=== PATIENT | male | born 1940 | race Caucasian/White ===

== ENCOUNTER → 2017-12-05 12:22 | Outpatient (CLI) | payer MEDICARE, OTHER, SELFPAY ==
--- NOTE | 2017-12-05 12:29 | XR_ITS ---
XR foot LT min 3V HISTORY: ITS.REASON: ACUTE LT FOOT AND ANKLE PAIN ORDERING PHYSICIAN: Jenaro Jean Baptiste MD PATIENT AGE: 77 years COMPARISON: None FINDINGS: No acute fracture or dislocation evident. Hypertrophic changes are present laterally at the first metatarsal phalangeal joint with a prominent spur projecting off of the proximal and lateral aspect of the proximal phalanx of the great toe. There is some flattening of the head of the second metatarsal. This however is without sclerosis and may be developmental. IMPRESSION: 1. No acute finding. 2. Bony spurring at the lateral aspect of the first metatarsophalangeal joint
--- NOTE | 2017-12-05 12:29 | XR_ITS ---
XR ankle LT min 3V HISTORY: Pain following injury ITS.REASON: ACUTE LT FOOT AND ANKLE PAIN ORDERING PHYSICIAN: Jenaro Jean Baptiste MD PATIENT AGE: 77 years COMPARISON: None FINDINGS: No fracture or dislocation. No lytic or blastic change. There is normal mineralization.. Hypertrophic changes involve the medial malleolus with old injury. IMPRESSION: 1. No acute finding. 2. 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
== END ==
PROVIDERS: PCP Internal Medicine Adolescent Medicine; Visit Provider Internal Medicine Adolescent Medicine
DX: M79.672 Pain in left foot (principal); M25.572 Pain in left ankle and joints of left foot
CPT/HCPCS: 73610; 73630

== ENCOUNTER → 2017-12-10 09:57 | Outpatient (CLI) | payer MEDICARE, SELFPAY ==
[2017-12-10 13:22] LABS: Basophils % 0.2 % (0.1-2.0); Eosinophils # 0.2 K/mm3 (0.0-0.4); Eosinophils % 1.8 % (0.1-12.0); Hematocrit 44.7 % (42.0-52.0); Hemoglobin 14.5 g/dL (14.1-18.0); Lymphocytes # 2.1 K/mm3 (0.7-4.5); Lymphocytes % 25.9 K/mm3 (10-50); Mean Corpuscular HGB Conc 32.4 g/dL (31.8-35.4); Mean Corpuscular Hemoglobin 30.6 pg (27.0-31.2); Mean Corpuscular Volume 94.7 fl (80-94); Mean Platelet Volume 7.3 fl (7.4-10.4); Monocytes # 0.6 K/mm3 (0.1-1.0); Neutrophils # 5.3 K/mm3 (1.8-7.8); Platelet Count 227 K/mm3 (142-424); Red Blood Count 4.72 M/mm3 (4.60-6.20); Red Cell Distribution Width 12.7 % (11.5-17.5); White Blood Count 8.1 K/mm3 (4.8-10.8)
[2017-12-10 14:43] LABS: Erythrocyte Sedimentation Rate 10 mm/hr (0-20)
== END ==
PROVIDERS: PCP Internal Medicine Adolescent Medicine; Visit Provider Internal Medicine Adolescent Medicine
DX: L03.119 Cellulitis of unspecified part of limb (principal)
CPT/HCPCS: 36415; 85025; 85651

== ENCOUNTER → 2017-12-20 09:23 | Outpatient (CLI) | payer MEDICARE, SELFPAY ==
--- NOTE | 2017-12-20 09:28 | MR_ITS ---
MR foot LT wo con HISTORY: Soreness and swelling of the foot laterally. Recent injury of the fifth toe with persistent pain ITS.REASON: LEFT FOOT PAIN ORDERING PHYSICIAN: Jenaro Jean Baptiste MD PATIENT AGE: 77 years COMPARISON: Radiograph of 12/05/2017 TECHNIQUE: Standard multiplanar multiecho sequences are performed of the forefoot without contrast. FINDINGS: There is mild degree of motion artifact obscuring fine detail of the phalanges. Soft tissue swelling is present around the proximal phalanx of the fifth digit with decreased T1 and increased T2 signal. The bony outline is somewhat obscured. There is slight increase in T2 signal of the proximal phalanx and the fifth metacarpal phalangeal junction. Cellulitis with osteomyelitis is considered. The bony detail however somewhat obscured. Suggest repeat radiograph of the left foot. No other significant anomalies are evident. IMPRESSION: Abnormal signal intensity of the proximal phalanx of the fifth toe with surrounding soft tissue swelling. These findings may be related to cellulitis and osteomyelitis. Posttraumatic changes are also considered. Suggest repeat radiograph of the left foot as the final detail is somewhat obscured secondary to mild motion artifact.
== END ==
PROVIDERS: Family Provider Internal Medicine Adolescent Medicine; PCP Internal Medicine Adolescent Medicine; Visit Provider Internal Medicine Adolescent Medicine
DX: M79.672 Pain in left foot (principal)
CPT/HCPCS: 73718

== ENCOUNTER 2017-12-24 11:58 | Inpatient (IN) | payer MEDICARE, SELFPAY ==
[2017-12-24 12:23] VITALS: BP 134/61; PULSE 76; RESP 18; TEMP 36.4; O2SAT 93; BMI 22.7
--- NOTE | 2017-12-24 12:33 | P.HP_ITS ---
*Admission Date: 12/24/17 *Chief complaint: Left foot swelling and pain *History of present illness: 77 white male with significant emphysema, nebulizer requiring, who came to see me 3 weeks ago after striking the lateral aspect foot on a furniture appliance at home. He had some pain along the lateral aspect of the left foot with some persistent swelling. X-ray done at that time was unremarkable. I advised him to begin physical therapy for what appeared to be an ankle sprain, but unfortunately patient failed to improve and had some cellulitic appearance. We started Keflex as an outpatient and MRI was ordered. Unfortunately, MRI report shows evidence of osteomyelitis at the proximal phalanx of the fifth digit, patient is admitted to hospital for intravenous vancomycin therapy, podiatry consultation and PICC line placement what will be several weeks of IV antibiotics. [facility] History I have reviewed the patient's past medical history: Yes Medical History: Reports:: Chronic Obstructive Pulmonary Disease (COPD), Coronary Artery Disease, Gastroesophageal Reflux Disease(GERD) Other Medical History: Reports: Arthritis (Osteoarthritis of multiple sites) Other Surgeries: Yes: CABG, Other (Neck surgery for cervical stenosis 2017) - *Social History Educational Level: Completed High School Tobacco Type: cigarettes *Family Hx:: No significant family history Review of Systems - Review of Systems Review of systems:: unable to obtain, other, pertinent systems reviewed and negative unless documented below - ENT Reports abnormal hearing - *Cardiovascular Reports shortness of breath, Denies chest pain, Denies chest pain at rest, Denies excessive sweating - *Respiratory Reports chest congestion, Reports cough, Reports shortness of breath, Reports shortness of breath with activity - *Gastrointestinal Denies abdominal pain, Denies change in bowel habits, Denies loose stools - *Genitourinary Denies difficulty urinating, Denies difficulty with ejaculations - *Musculoskeletal Reports abnormal walking, Reports joint pain (See HPI) Meds Allergies Allergy/AdvReac Type Severity Reaction Status Date / Time No Known Allergies Allergy Unknown Uncoded 09/17/17 15:26 Exam Vital signs and Labs for Last 24 Hours: Temp Pulse Resp BP Pulse Ox 97.5 F L 76 18 134/61 93 L 12/24/17 12:23 12/24/17 12:23 12/24/17 12:23 12/24/17 12:23 12/24/17 12:23 I & O for Last 24 hours: Intake & Output 12/22/17 12/23/17 12/24/17 12/25/17 11:59 11:59 11:59 11:59 Weight 172 lb 6 oz Narrative: Patient is pleasant, awake, oriented ?3. Lungs have his normal rhonchi but no crackles. Heart rate regular, blood pressure acceptable. Abdomen soft. Pulses are good and normal in all extremities except for the left foot. The left foot is swollen, tender along the lateral edge, interestingly it is improved over previous exams. Assessment and Plan (1) Osteomyelitis Status: Acute Category: Medical Code(s): M86.9 - Osteomyelitis, unspecified No significant risk for comorbidity given vascular disease, smoking history and failed outpatient therapy. Admit to hospital. Initiate vancomycin. Blood cultures, podiatry consultation. (2) COPD with emphysema Status: Acute Category: Medical Code(s): J43.9 - Emphysema, unspecified
[2017-12-24 14:04] LABS: Alanine Aminotransferase 25 U/L (12-78); Albumin Level 3.2 gm/dL (3.4-5.0); Albumin/Globulin Ratio 0.9 (1.1-1.8); Alkaline Phosphatase 91 U/L (46-116); Anion Gap 8.4 mEq/L (5-15); Aspartate Amino Transferase 23 U/L (15-37); Bilirubin,Total 0.2 mg/dL (0.2-1.0); Blood Urea Nitrogen 23 mg/dL (7-18); Calcium 8.7 mg/dL (8.5-10.1); Carbon Dioxide 29 mmol/L (21.0-32.0); Chloride 103 mmol/L (98-107); Creatinine Clearance Estimated 57 mL/min (0-300); Creatinine,Serum 1.23 mg/dL (0.70-1.30); Estimated Glomerular Filt Rate 57 ml/min (>60); GFR (African American) 69 ML/MIN (>60); Globulin 3.4 gm/dl (1.3-3.2); Glucose 129 mg/dL (74-106); Potassium 4.4 mmoL/L (3.5-5.1); Sodium 136 mmol/L (136-145); Total Protein,Serum 6.6 gm/dL (6.4-8.2)
[2017-12-24 14:08] LABS: Basophils % 0.3 % (0.1-2.0); Eosinophils # 0.2 K/mm3 (0.0-0.4); Eosinophils % 2.1 % (0.1-12.0); Hematocrit 40.8 % (42.0-52.0); Hemoglobin 13.6 g/dL (14.1-18.0); Lymphocytes # 2.5 K/mm3 (0.7-4.5); Lymphocytes % 34.8 K/mm3 (10-50); Mean Corpuscular HGB Conc 33.3 g/dL (31.8-35.4); Mean Corpuscular Hemoglobin 31.1 pg (27.0-31.2); Mean Corpuscular Volume 93.6 fl (80-94); Monocytes # 0.6 K/mm3 (0.1-1.0); Monocytes % 7.6 % (1.7-9.3); Neutrophils % 55.2 % (37.0-80.0); Platelet Count 231 K/mm3 (142-424); Red Blood Count 4.36 M/mm3 (4.60-6.20); Red Cell Distribution Width 12.7 % (11.5-17.5); White Blood Count 7.2 K/mm3 (4.8-10.8)
[2017-12-24 14:56] LABS: Erythrocyte Sedimentation Rate 12 mm/hr (0-20)
[2017-12-24 15:31] VITALS: BP 140/77; PULSE 89; RESP 18; TEMP 37; O2SAT 92
[2017-12-24 16:11] VITALS: PULSE 86; PULSE 88; O2SAT 88
--- NOTE | 2017-12-24 16:15 | P.CONPHA_ITS ---
- Pharmacy Consult Date: 12/24/17 Time: 16:13 Referring provider: DR. ELLSWORTH Reason for Consult:: VANCOMYCIN DOSING Allergies and ADEs:: Allergies Allergy/AdvReac Type Severity Reaction Status Date / Time No Known Allergies Allergy Unknown NA Uncoded 12/24/17 14:51 Home Medications:: Home Medications Medication Instructions Recorded Confirmed Type Albuterol Sulfate [Proair Hfa 2 puffs IH Q4HP PRN 12/24/17 12/24/17 History 90mcg/puff Inh] Aspirin [Aspirin 81mg chewable 81 mg PO DAILY 12/24/17 12/24/17 History tab] Budesonide/Formoterol Fumarate 10.2 gm IN BID 12/24/17 12/24/17 History [Symbicort 160-4.5 Mcg Inhaler] Lisinopril [Lisinopril 40mg Tablet] 40 mg PO DAILY 12/24/17 12/24/17 History Metoprolol Tartrate 100 mg PO BID 12/24/17 12/24/17 History Ranolazine [Ranexa 500mg ER tablet] 500 mg PO DAILY 12/24/17 12/24/17 History Rosuvastatin Calcium [Crestor] 40 mg PO DAILY 12/24/17 12/24/17 History Tiotropium [place] [Spiriva 1 puff IH DAILY 12/24/17 12/24/17 History 18mcg/puff inhaler] Height: 1.85 m Weight: 78.188 kg Laboratory Results:: Laboratory Results - last 24 hr 12/24/17 13:35: WBC 7.2, RBC 4.36 L, Hgb 13.6 L, Hct 40.8 L, MCV 93.6, MCH 31.1 , MCHC 33.3, RDW 12.7, Plt Count 231, MPV 7.0 L, Neut % (Auto) 55.2, Lymph % ( Auto) 34.8, [place] % (Auto) 7.6, Eos % (Auto) 2.1, Baso % (Auto) 0.3, Neut # (Auto ) 4.0, Lymph # (Auto) 2.5, [place] # (Auto) 0.6, Eos # (Auto) 0.2, Baso # (Auto) 0.0, ESR 12 12/24/17 13:35: Sodium 136, Potassium 4.4, Chloride 103, Carbon Dioxide 29, Anion Gap 8.4, BUN 23 H, Creatinine 1.23, Estimated Creat Clear 57, Estimated GFR 57 L, Est GFR ( Amer) 69, Glucose 129 H, Calcium 8.7, Total Bilirubin 0.2, AST 23, ALT 25, Alkaline Phosphatase 91, Total Protein 6.6, Albumin 3.2 L, Globulin 3.4 H, Albumin/Globulin Ratio 0.9 L Medical History: Reports:: Chronic Obstructive Pulmonary Disease (COPD), Coronary Artery Disease, Gastroesophageal Reflux Disease(GERD), Hypertension Denies:: Diabetes Mellitus Type 1, Diabetes Mellitus Type 2 Assessment and Plan (1) Osteomyelitis Current visit: Yes Status: Acute Category: Medical Code(s): M86.9 - Osteomyelitis, unspecified (2) COPD with emphysema Current visit: Yes Status: Acute Category: Medical Code(s): J43.9 - Emphysema, unspecified - Assessment and plan all Dx Assessment and Plan for all problems:: BASED ON PATIENT'S FACTORS, RECOMMEND PATIENT START WITH VANCOMYCIN 1500 MG Q18H AT THIS TIME. PHARMACY WILL FOLLOW DAILY AND ADJUST APPROPRIATE. ELIZABET HYDE, BRUCED
--- NOTE | 2017-12-24 19:15 | PC.NURSE ---
PT FULL CODE, REPORT FROM RADHA
[2017-12-24 19:44] VITALS: BP 151/64; PULSE 78; RESP 20; TEMP 36.3; O2SAT 93
--- NOTE | 2017-12-24 20:18 | HMH.ORTHOCON ---
*Admission Date: 12/24/17 *History of present illness: Mr. Brooks is a 77 y/o male who present for evaluation of painful swollen left 5th digit and lateral foot. He reports mild pain. Patient denies open lesion or ulceration. He denies drainage. He denies N/V, F/C, SOB/CP. He denies history of sores, cut to outside of left foot. Patient saw Dr. Jean Baptiste for significant emphysema, nebulizer 3 weeks ago after striking the lateral aspect foot on a furniture appliance at home. He had some pain along the lateral aspect of the left foot with some persistent swelling. X-ray done 12/05/17 was unremarkable. I advised him to begin physical therapy for what appeared to be an ankle sprain, but unfortunately patient failed to improve and had some cellulitic appearance. We started Keflex as an outpatient and MRI was ordered. Unfortunately, MRI report shows evidence of osteomyelitis at the proximal phalanx of the fifth digit, patient is admitted to hospital for intravenous vancomycin therapy, podiatry consultation and PICC line placement what will be several weeks of IV antibiotics. Review of Systems - Review of Systems Review of systems:: pertinent systems reviewed and negative unless documented below - Constitutional Denies chills, Denies fatigue - ENT Denies poor balance - *Cardiovascular Denies chest pain, Denies shortness of breath - *Respiratory Denies cough, Denies shortness of breath - *Gastrointestinal Denies abdominal pain - *Genitourinary Denies difficulty urinating - *Musculoskeletal Reports joint swelling - Integumentary/Breasts Denies nail changes - *Neurologic Reports abnormal walking, Reports abnormal hearing - Endocrine Reports cold intolerance [facility] History Medical History: Reports:: Chronic Obstructive Pulmonary Disease (COPD), Coronary Artery Disease, Gastroesophageal Reflux Disease(GERD), Hypertension Denies:: Diabetes Mellitus Type 1, Diabetes Mellitus Type 2 Other Medical History: Reports: Arthritis (Osteoarthritis of multiple sites) Other Surgeries: Yes: CABG, Other (Neck surgery for cervical stenosis 2017) Amputation: No - *Social History Educational Level: Completed High School Smoking Status: Current every day smoker Tobacco Type: cigarettes # Packs/Day (cigarettes): 1 Alcohol Intake: never Occupational Status: retired Housing: house Household Members: none - Psychiatric History Expresses thoughts of harming self/others: None Suicide Plan Description: No Plan *Family Hx:: No significant family history Meds Home Medications Medication Instructions Recorded Confirmed Type Albuterol Sulfate [Proair Hfa 2 puffs IH Q4HP PRN 12/24/17 12/24/17 History 90mcg/puff Inh] Aspirin [Aspirin 81mg chewable 81 mg PO DAILY 12/24/17 12/24/17 History tab] Budesonide/Formoterol Fumarate 10.2 gm IN BID 12/24/17 12/24/17 History [Symbicort 160-4.5 Mcg Inhaler] Lisinopril [Lisinopril 40mg Tablet] 40 mg PO DAILY 12/24/17 12/24/17 History Metoprolol Tartrate 100 mg PO BID 12/24/17 12/24/17 History Ranolazine [Ranexa 500mg ER tablet] 500 mg PO DAILY 12/24/17 12/24/17 History Rosuvastatin Calcium [Crestor] 40 mg PO DAILY 12/24/17 12/24/17 History Tiotropium [place] [Spiriva 1 puff IH DAILY 12/24/17 12/24/17 History 18mcg/puff inhaler] Allergies Allergy/AdvReac Type Severity Reaction Status Date / Time No Known Allergies Allergy Unknown NA Uncoded 12/24/17 14:51 Exam Vital signs and Labs for Last 24 Hours: Temp Pulse Resp BP Pulse Ox 97.4 F L 78 20 151/64 88 L 12/24/17 19:44 12/24/17 19:44 12/24/17 19:44 12/24/17 19:44 12/24/17 16:11 Laboratory Results - last 24 hr 12/24/17 13:35: WBC 7.2, RBC 4.36 L, Hgb 13.6 L, Hct 40.8 L, MCV 93.6, MCH 31.1, MCHC 33.3, RDW 12.7, Plt Count 231, MPV 7.0 L, Neut % (Auto) 55.2, Lymph % (Auto) 34.8, [place] % (Auto) 7.6, Eos % (Auto) 2.1, Baso % (Auto) 0.3, Neut # (Auto) 4.0, Lymph # (Auto) 2.5, [place] # (Auto) 0.6, Eos # (Auto) 0.2, B
--- NOTE | 2017-12-24 20:21 | P.CONS_ITS ---
*Admission Date: 12/24/17 *History of present illness: Mr. Brooks is a 77 y/o male who present for evaluation of painful swollen left 5th digit and lateral foot. He reports mild pain. Patient denies open lesion or ulceration. He denies drainage. He denies N/V, F/C, SOB/CP. He denies history of sores, cut to outside of left foot. Patient saw Dr. Jean Baptiste for significant emphysema, nebulizer 3 weeks ago after striking the lateral aspect foot on a furniture appliance at home. He had some pain along the lateral aspect of the left foot with some persistent swelling. X- ray done 12/05/17 was unremarkable. I advised him to begin physical therapy for what appeared to be an ankle sprain, but unfortunately patient failed to improve and had some cellulitic appearance. We started Keflex as an outpatient and MRI was ordered. Unfortunately, MRI report shows evidence of osteomyelitis at the proximal phalanx of the fifth digit, patient is admitted to hospital for intravenous vancomycin therapy, podiatry consultation and PICC line placement what will be several weeks of IV antibiotics. Review of Systems - Review of Systems Review of systems:: pertinent systems reviewed and negative unless documented below - Constitutional Denies chills, Denies fatigue - ENT Denies poor balance - *Cardiovascular Denies chest pain, Denies shortness of breath - *Respiratory Denies cough, Denies shortness of breath - *Gastrointestinal Denies abdominal pain - *Genitourinary Denies difficulty urinating - *Musculoskeletal Reports joint swelling - Integumentary/Breasts Denies nail changes - *Neurologic Reports abnormal walking, Reports abnormal hearing - Endocrine Reports cold intolerance [facility] History Medical History: Reports:: Chronic Obstructive Pulmonary Disease (COPD), Coronary Artery Disease, Gastroesophageal Reflux Disease(GERD), Hypertension Denies:: Diabetes Mellitus Type 1, Diabetes Mellitus Type 2 Other Medical History: Reports: Arthritis (Osteoarthritis of multiple sites) Other Surgeries: Yes: CABG, Other (Neck surgery for cervical stenosis 2017) Amputation: No - *Social History Educational Level: Completed High School Smoking Status: Current every day smoker Tobacco Type: cigarettes # Packs/Day (cigarettes): 1 Alcohol Intake: never Occupational Status: retired Housing: house Household Members: none - Psychiatric History Expresses thoughts of harming self/others: None Suicide Plan Description: No Plan *Family Hx:: No significant family history Meds Home Medications Medication Instructions Recorded Confirmed Type Albuterol Sulfate [Proair Hfa 2 puffs IH Q4HP PRN 12/24/17 12/24/17 History 90mcg/puff Inh] Aspirin [Aspirin 81mg chewable 81 mg PO DAILY 12/24/17 12/24/17 History tab] Budesonide/Formoterol Fumarate 10.2 gm IN BID 12/24/17 12/24/17 History [Symbicort 160-4.5 Mcg Inhaler] Lisinopril [Lisinopril 40mg Tablet] 40 mg PO DAILY 12/24/17 12/24/17 History Metoprolol Tartrate 100 mg PO BID 12/24/17 12/24/17 History Ranolazine [Ranexa 500mg ER tablet] 500 mg PO DAILY 12/24/17 12/24/17 History Rosuvastatin Calcium [Crestor] 40 mg PO DAILY 12/24/17 12/24/17 History Tiotropium [place] [Spiriva 1 puff IH DAILY 12/24/17 12/24/17 History 18mcg/puff inhaler] Allergies Allergy/AdvReac Type Severity Reaction Status Date / Time No Known Allergies Allergy Unknown NA Uncoded 12/24/17 14:51 Exam Vi
--- NOTE | 2017-12-24 20:34 | XR_ITS ---
XR foot LT min 3V HISTORY: Pain and swelling. Abnormal MRI ITS.REASON: osteomyelitis ORDERING PHYSICIAN: Jenaro Jean Baptiste MD PATIENT AGE: 77 years COMPARISON: 12/05/2017 radiograph and MRI of 12/20/2017 FINDINGS: Light weightbearing was performed. These exams were performed by portable technique. There is a nondisplaced acute fracture involving the proximal aspect of the proximal phalanx of the fifth toe not present on the previous exam. No obvious bony destructive process evident. Bony spurring is once again noted involving the lateral aspect of the first metatarsal phalangeal joint. IMPRESSION: Acute minimally displaced fracture involves the proximal aspect of the proximal phalanx of the fifth toe. This accounts for the abnormal signal intensity noted on the MRI. NO RADIOGRAPHIC EVIDENCE OF ACUTE OSTEOMYELITIS
[2017-12-24 21:50] VITALS: O2SAT 2
[2017-12-24 23:13] VITALS: PULSE 93
[2017-12-25 00:49] VITALS: O2SAT 88
[2017-12-25 04:00] VITALS: BP 127/75; PULSE 95; RESP 24; TEMP 36.9; O2SAT 96
--- NOTE | 2017-12-25 05:41 | PC.NURSE ---
PT SLEPT MOST ALL OF SHIFT. NO C/O PAIN OR DISCOMFORT. IV LR@50/HR, IV SITE #2 SALINE LOCKED, FLUSHED. RESPIRATIONS EVEN AND UNLABORED. BREATH SOUNDS DIMINISHED AND WHEEZES THROUGHOUT. PT NPO SINCE MIDNIGHT, HAS CONSULT WITH DR GRANGER THIS AM. XRAYS OF LEFT FOOT COMPLETED LAST NIGHT PER DR. GRANGER'S ORDERS. SPOKE WITH PT'S DAUGHTER LAST EVENING ABOUT PT'S STATUS. UNSURE OF COURSE OF ACTION WITH PT TODAY. POSSIBLE SURGERY PT STABLE. WILL CONTINUE TO MONITOR. REPORT TO BE GIVEN TO ONCOMING NURSE.
[2017-12-25 05:57] VITALS: PULSE 101; PULSE 102; O2SAT 93
--- NOTE | 2017-12-25 07:17 | PC.NURSE ---
REPORT GIVEN TO Geovani ATWOOD W/C
[2017-12-25 07:27] VITALS: BP 126/76; PULSE 115; RESP 22; TEMP 36.9; O2SAT 96
--- NOTE | 2017-12-25 07:27 | P.CONPHA_ITS ---
[facility] Pharmacy VTE Monitoring - Patient Demographics Admission date: 12/24/17 Report Date: 12/25/17 Time: 07:26 Allergies/Adverse Reactions: Patient Allergies No Known Allergies Allergy (Unknown, Uncoded 12/24/17 14:51) NA Height: 1.85 m Weight: 74.899 kg Patient Problems: Current Active Problems Osteomyelitis (Acute) COPD with emphysema (Acute) Cellulitis of fifth toe of left foot (Acute) - VTE Risk Labs: VTE Related Lab Results Hgb 13.6 g/dL (14.1-18.0) L 12/24/17 13:35 Hct 40.8 % (42.0-52.0) L 12/24/17 13:35 Plt Count 231 K/mm3 (142-424) 12/24/17 13:35 BUN 23 mg/dL (7-18) H 12/24/17 13:35 Creatinine 1.23 mg/dL (0.70-1.30) 12/24/17 13:35 Estimated Creat Clear 57 mL/min (0-300) 12/24/17 13:35 Was VTE Risk Assessment Performed: Yes VTE Score: 3 VTE Risk Level: Low Risk Clinical Trial Participant: No - Prophylaxis VTE Prophylaxis Ordered?: Yes Types of VTE Prophylaxis: TEDS Knee High, Refused Location of Applied Device: Bilateral Lower Extremeties
--- NOTE | 2017-12-25 07:27 | P.PN_ITS ---
Internal Medicine - PN: Subj *Date: 12/25/17 *Time: 07:26 Interval history: Patient feels pretty good, had a good night sleep. Has no fever, has no significant foot pain after it has been elevated in the hospital bed. Exam Vital signs and Labs for Last 24 Hours: Temp Pulse Resp BP Pulse Ox 98.4 F 102 H 24 127/75 93 L 12/25/17 04:00 12/25/17 05:57 12/25/17 04:00 12/25/17 04:00 12/25/17 05:57 Laboratory Results - last 24 hr 12/24/17 13:35: WBC 7.2, RBC 4.36 L, Hgb 13.6 L, Hct 40.8 L, MCV 93.6, MCH 31.1 , MCHC 33.3, RDW 12.7, Plt Count 231, MPV 7.0 L, Neut % (Auto) 55.2, Lymph % ( Auto) 34.8, [place] % (Auto) 7.6, Eos % (Auto) 2.1, Baso % (Auto) 0.3, Neut # (Auto ) 4.0, Lymph # (Auto) 2.5, [place] # (Auto) 0.6, Eos # (Auto) 0.2, Baso # (Auto) 0.0, ESR 12 12/24/17 13:35: Sodium 136, Potassium 4.4, Chloride 103, Carbon Dioxide 29, Anion Gap 8.4, BUN 23 H, Creatinine 1.23, Estimated Creat Clear 57, Estimated GFR 57 L, Est GFR ( Amer) 69, Glucose 129 H, Calcium 8.7, Total Bilirubin 0.2, AST 23, ALT 25, Alkaline Phosphatase 91, Total Protein 6.6, Albumin 3.2 L, Globulin 3.4 H, Albumin/Globulin Ratio 0.9 L I & O for Last 24 hours: Intake & Output 12/22/17 12/23/17 12/24/17 12/25/17 11:59 11:59 11:59 11:59 Intake Total 1424 / 1424 Output Total 1550 / 1550 Balance -126 / -126 Weight 165 lb 2 oz Narrative: Real pulmonary assessment unchanged. Patient's alert, pleasant. Abdomen is soft. His foot looks much better than yesterday's exam in my office. There is less redness, minimal tenderness around the foot on examination and no swelling around the ankle. I reviewed Dr. Huang's notes. Assessment and Plan (1) Osteomyelitis Start date: 12/24/17 Start time: 20:26 Current visit: Yes Status: Acute Qualifiers: Osteomyelitis location: foot Laterality: left Category: Medical Code(s): M86.9 - Osteomyelitis, unspecified (2) COPD with emphysema Current visit: Yes Status: Acute Category: Medical Code(s): J43.9 - Emphysema, unspecified (3) Cellulitis of fifth toe of left foot Current visit: Yes Status: Acute Category: Medical Code(s): L03.032 - Cellulitis of left toe - Assessment and plan all Dx Assessment and Plan for all problems:: I agree with holding off on surgery for now. Patient has had such a good response to elevation antibiotics I wonder if osteomyelitis is really a correct diagnosis. Plan to continue IV vancomycin at this point. Follow-up tomorrow with vancomycin dosing after pharmacies calculated plans. I would anticipate only antibiotic therapy for now. Plan placement today.
[2017-12-25 08:01] LABS: Basophils % 0.3 % (0.1-2.0); Eosinophils # 0.1 K/mm3 (0.0-0.4); Eosinophils % 1.6 % (0.1-12.0); Hematocrit 41.7 % (42.0-52.0); Hemoglobin 14.1 g/dL (14.1-18.0); Lymphocytes # 2.3 K/mm3 (0.7-4.5); Lymphocytes % 33.2 K/mm3 (10-50); Mean Corpuscular HGB Conc 33.9 g/dL (31.8-35.4); Mean Corpuscular Hemoglobin 32.8 pg (27.0-31.2); Mean Corpuscular Volume 96.9 fl (80-94); Mean Platelet Volume 7.9 fl (7.4-10.4); Monocytes # 0.5 K/mm3 (0.1-1.0); Monocytes % 7.3 % (1.7-9.3); Neutrophils % 57.4 % (37.0-80.0); Platelet Count 219 K/mm3 (142-424); Red Cell Distribution Width 12.8 % (11.5-17.5)
--- NOTE | 2017-12-25 08:04 | HMH.ORTHPN ---
Subjective Date: 12/25/17 Time: 07:30 Principal diagnosis: Left 5th Proximal phalanx fracture Interval history: Patient is resting comfortably. He denies pain to the left lateral foot, unless directly squeezed. PN: Obj Ex Vital signs: Temp Pulse Resp BP Pulse Ox 98.5 F 115 H 22 126/76 96 12/25/17 07:27 12/25/17 07:27 12/25/17 07:27 12/25/17 07:27 12/25/17 07:27 Narrative: Denies N/V, F/C - Constitutional no acute distress - Routine HEENT Exam Head: Present: normocephalic - Detailed Lower Extremity Exam Foot/Toes: Left erythema (Improving), Left swelling (L 5th toe), Left tenderness (Mild left 5th MPJ) Comments: There is less pain to palpation of the left lateral foot. Pain with percussion of the left fifth proximal phalanx. Mild nonpitting edema noted. No open wounds or interdigital maceration noted. Erythema has decreased and is localized to the fifth toe. Progress Note: A&P (1) Osteomyelitis Status: Acute Current Visit: Yes (2) COPD with emphysema Status: Acute Current Visit: Yes (3) Cellulitis of fifth toe of left foot Status: Acute Current Visit: Yes (4) Fracture of fifth toe, left, closed Start date: 12/25/17 Start time: 07:30 Status: Acute Assessment and plan: New plain film x-rays, 3 views of the left foot taken 12/24/17. X-rays show an acute minimally displaced fracture involving the proximal phalanx, proximal aspect of the fifth toe. This accounts for the abnormal signal intensity noted on the MRI. No radiographic evidence of acute osteomyelitis noted. Discussed x-ray findings with the patient. I do not think surgery is necessary at this time. Explained to the patient that he can ambulate as normal but increased toe range of motion could cause pain and swelling. 1. No surgical intervention planned 2. Dispensed flat postop shoe 3. May resume physical therapy as tolerated 4. Okay to be discharged home from podiatry standpoint 5. Follow-up with Dr. Davison in 4-6 weeks for re-x-ray of the left foot Current Visit: Yes
[2017-12-25 08:08] LABS: Anion Gap 8.3 mEq/L (5-15); Blood Urea Nitrogen 15 mg/dL (7-18); Carbon Dioxide 30 mmol/L (21.0-32.0); Chloride 103 mmol/L (98-107); Creatinine Clearance Estimated 67 mL/min (0-300); Creatinine,Serum 1.01 mg/dL (0.70-1.30); Estimated Glomerular Filt Rate 72 ml/min (>60); GFR (African American) 87 ML/MIN (>60); Glucose 128 mg/dL (74-106); Potassium 4.3 mmoL/L (3.5-5.1); Sodium 137 mmol/L (136-145)
--- NOTE | 2017-12-25 08:27 | HMH.DCSUM ---
General - General Admission date: 12/24/17 Discharge date: 12/25/17 HPI HPI: Mr. Brooks is a 77 y/o male who present for evaluation of painful swollen left 5th digit and lateral foot. He reports mild pain. Patient denies open lesion or ulceration. He denies drainage. He denies N/V, F/C, SOB/CP. He denies history of sores, cut to outside of left foot. Patient saw Dr. Jean Baptiste for significant emphysema, nebulizer 3 weeks ago after striking the lateral aspect foot on a furniture appliance at home. He had some pain along the lateral aspect of the left foot with some persistent swelling. X-ray done 12/05/17 was unremarkable. I advised him to begin physical therapy for what appeared to be an ankle sprain, but unfortunately patient failed to improve and had some cellulitic appearance. We started Keflex as an outpatient and MRI was ordered. Unfortunately, MRI report shows evidence of osteomyelitis at the proximal phalanx of the fifth digit, patient is admitted to hospital for intravenous vancomycin therapy, podiatry consultation and PICC line placement what will be several weeks of IV antibiotics. Hospital Course Hospital Course: Patient was admitted, initially placed on intravenous vancomycin. MRI was reviewed by podiatry, history reviewed by podiatry, and I have very much appreciate note. Thinking now as the patient suffered a fracture, rather than osteomyelitis. Intriguingly patient improved dramatically after elevation of his foot overnight. Much less pain. Patient will be sent home with a walking boot, close follow-up with me in 1 week, podiatry in 6 weeks with repeat x-ray. Objective Vital signs: Temp Pulse Resp BP Pulse Ox 98.5 F 115 H 22 126/76 96 12/25/17 07:27 12/25/17 07:27 12/25/17 07:27 12/25/17 07:27 12/25/17 07:27 Narrative: See exam notes from this morning. Results Labs on day of discharge: Labs from last 24 hours 12/25/17 12/25/17 12/24/17 07:51 07:51 13:35 WBC 7.0 RBC 4.30 L Hgb 14.1 Hct 41.7 L MCV 96.9 H MCH 32.8 H MCHC 33.9 RDW 12.8 Plt Count 219 MPV 7.9 Neut % (Auto) 57.4 Lymph % (Auto) 33.2 [place] % (Auto) 7.3 Eos % (Auto) 1.6 Baso % (Auto) 0.3 Neut # (Auto) 4.0 Lymph # (Auto) 2.3 [place] # (Auto) 0.5 Eos # (Auto) 0.1 Baso # (Auto) 0.0 ESR Sodium 137 136 Potassium 4.3 4.4 Chloride 103 103 Carbon Dioxide 30 29 Anion Gap 8.3 8.4 BUN 15 D 23 H Creatinine 1.01 1.23 Estimated Creat Clear 67 57 Estimated GFR 72 57 L Est GFR ( Amer) 87 D 69 Glucose 128 H 129 H Calcium 8.7 Total Bilirubin 0.2 AST 23 ALT 25 Alkaline Phosphatase 91 Total Protein 6.6 Albumin 3.2 L Globulin 3.4 H Albumin/Globulin Ratio 0.9 L 12/24/17 13:35 WBC 7.2 RBC 4.36 L Hgb 13.6 L Hct 40.8 L MCV 93.6 MCH 31.1 MCHC 33.3 RDW 12.7 Plt Count 231 MPV 7.0 L Neut % (Auto) 55.2 Lymph % (Auto) 34.8 [place] % (Auto) 7.6 Eos % (Auto) 2.1 Baso % (Auto) 0.3 Neut # (Auto) 4.0 Lymph # (Auto) 2.5 [place] # (Auto) 0.6 Eos # (Auto) 0.2 Baso # (Auto) 0.0 ESR 12 Sodium Potassium Chloride Carbon Dioxide Anion Gap BUN Creatinine Estimated Creat Clear Estimated GFR Est GFR ( Amer) Glucose Calcium Total Bilirubin AST ALT Alkaline Phosphatase Total Protein Albumin Globulin Albumin/Globulin Ratio DS: Diagnosis - Discharge Diagnosis (1) Osteomyelitis Status: Ruled-out (2) COPD with emphysema Status: Acute (3) Cellulitis of fifth toe of left foot Status: Acute (4) Fracture of fifth toe, left, closed Status: Acute Discharge Plan - Patient Discharge Instructions ACTIVITY: Continue current activity, Limited activity (Wear) Patient Instructions: DI for Chronic Obstructive Pulmonary Disease - Follow up Plan Follow up with: Jenaro Jean Baptiste MD [Primary Care Provider] - 01/02/18 Lanre
--- NOTE | 2017-12-25 08:30 | P.DS_ITS ---
General - General Admission date: 12/24/17 Discharge date: 12/25/17 HPI HPI: Mr. Brooks is a 77 y/o male who present for evaluation of painful swollen left 5th digit and lateral foot. He reports mild pain. Patient denies open lesion or ulceration. He denies drainage. He denies N/V, F/C, SOB/CP. He denies history of sores, cut to outside of left foot. Patient saw Dr. Jean Baptiste for significant emphysema, nebulizer 3 weeks ago after striking the lateral aspect foot on a furniture appliance at home. He had some pain along the lateral aspect of the left foot with some persistent swelling. X- ray done 12/05/17 was unremarkable. I advised him to begin physical therapy for what appeared to be an ankle sprain, but unfortunately patient failed to improve and had some cellulitic appearance. We started Keflex as an outpatient and MRI was ordered. Unfortunately, MRI report shows evidence of osteomyelitis at the proximal phalanx of the fifth digit, patient is admitted to hospital for intravenous vancomycin therapy, podiatry consultation and PICC line placement what will be several weeks of IV antibiotics. Hospital Course Hospital Course: Patient was admitted, initially placed on intravenous vancomycin. MRI was reviewed by podiatry, history reviewed by podiatry, and I have very much appreciate note. Thinking now as the patient suffered a fracture, rather than osteomyelitis. Intriguingly patient improved dramatically after elevation of his foot overnight. Much less pain. Patient will be sent home with a walking boot, close follow-up with me in 1 week , podiatry in 6 weeks with repeat x-ray. Objective Vital signs: Temp Pulse Resp BP Pulse Ox 98.5 F 115 H 22 126/76 96 12/25/17 07:27 12/25/17 07:27 12/25/17 07:27 12/25/17 07:27 12/25/17 07:27 Narrative: See exam notes from this morning. Results Labs on day of discharge: Labs from last 24 hours 12/25/17 12/25/17 12/24/17 07:51 07:51 13:35 WBC 7.0 RBC 4.30 L Hgb 14.1 Hct 41.7 L MCV 96.9 H MCH 32.8 H MCHC 33.9 RDW 12.8 Plt Count 219 MPV 7.9 Neut % (Auto) 57.4 Lymph % (Auto) 33.2 [place] % (Auto) 7.3 Eos % (Auto) 1.6 Baso % (Auto) 0.3 Neut # (Auto) 4.0 Lymph # (Auto) 2.3 [place] # (Auto) 0.5 Eos # (Auto) 0.1 Baso # (Auto) 0.0 ESR Sodium 137 136 Potassium 4.3 4.4 Chloride 103 103 Carbon Dioxide 30 29 Anion Gap 8.3 8.4 BUN 15 D 23 H Creatinine 1.01 1.23 Estimated Creat Clear 67 57 Estimated GFR 72 57 L Est GFR ( Amer) 87 D 69 Glucose 128 H 129 H Calcium 8.7 Total Bilirubin 0.2 AST 23 ALT 25 Alkaline Phosphatase 91 Total Protein 6.6 Albumin 3.2 L Globulin 3.4 H Albumin/Globulin Ratio 0.9 L 18 13:35 WBC 7.2 RBC 4.36 L Hgb 13.6 L Hct 40.8 L MCV 93.6 MCH 31.1 MCHC 33.3 RDW 12.7 Plt Count 231 MPV 7.0 L Neut % (Auto) 55.2 Lymph % (Auto) 34.8 [place] % (Auto) 7.6 Eos % (Auto) 2.1 Baso % (Auto)
== END 2017-12-25 09:32 | disposition home or self-care (01) | DRG 541 ==
PROVIDERS: Admitting Provider Internal Medicine Adolescent Medicine; Family Provider Internal Medicine Adolescent Medicine; PCP Internal Medicine Adolescent Medicine; Visit Provider Internal Medicine Adolescent Medicine
DX: M86.9 Osteomyelitis, unspecified (principal); Z95.1 Presence of aortocoronary bypass graft; J44.9 Chronic obstructive pulmonary disease, unspecified; Z72.0 Tobacco use; L03.032 Cellulitis of left toe; S92.512A Displaced fracture of proximal phalanx of left lesser toe(s), initial encounter for closed fracture; W22.8XXA Striking against or struck by other objects, initial encounter; I25.10 Atherosclerotic heart disease of native coronary artery without angina pectoris
CPT/HCPCS: 36415; 73630; 80048; 80053; 85025; 85651; 87040; 93005; 94640; 94760; 94761; 97110; J3370

== ENCOUNTER 2018-03-28 10:00 | Outpatient (RCR) | payer MEDICARE, SELFPAY | END 2018-03-28 14:03 | disposition home or self-care (01) | LOC: PT 10:00 | PROVIDERS: Family Provider Internal Medicine Adolescent Medicine; PCP Internal Medicine Adolescent Medicine; Visit Provider Internal Medicine Adolescent Medicine | DX: M79.672 Pain in left foot (principal); M25.572 Pain in left ankle and joints of left foot | CPT/HCPCS: 97110; 97112; 97140; 97164 ==

== ENCOUNTER → 2018-03-31 09:21 | Outpatient (CLI) | payer MEDICARE, SELFPAY ==
--- NOTE | 2018-03-31 09:23 | XR_ITS ---
XR foot wt bearing LT 3V HISTORY: Follow-up fracture ITS.REASON: fracture follow-up ORDERING PHYSICIAN: Ayleen Davison DPM PATIENT AGE: 77 years COMPARISON: 12/24/2017 FINDINGS: There is a healing fracture at the base of the proximal phalanx of the fifth toe. Callus formation is present. There is good alignment. No other significant anomalies are evident. IMPRESSION: Healing fracture of the proximal phalanx of the fifth toe
== END ==
PROVIDERS: Visit Provider Podiatrist
DX: S92.502A Displaced unspecified fracture of left lesser toe(s), initial encounter for closed fracture (principal)
CPT/HCPCS: 73630

== ENCOUNTER 2018-06-19 12:27 | Observation (INO) ==
--- NOTE | 2018-06-19 15:36 | History & Physical Report ---
*Admission Date: 06/19/18 *Chief complaint: shortness of breath, cough *History of present illness: 78 year old white male with a long history of tobacco use who has COPD and wears 02 at night presented to PCP office with increased shortness of breath and [employer] cough. Patient reports symptoms began 4 days ago. No fevers. + weakness. No ENT symptoms. No GI symptoms. In the office, he was found to be hypoxic with room air saturations 88% on RA and tachypneic with respirations 28. Conversational dyspnea noted every 4-5 words. Patient was direct admitted for IV abx and further evaluation. [facility] History I have reviewed the patient's past medical history: Yes Medical History: Reports:: Chronic Obstructive Pulmonary Disease (COPD), Coronary Artery Disease, Gastroesophageal Reflux Disease(GERD), Hypertension Denies:: Diabetes Mellitus Type 1, Diabetes Mellitus Type 2 Other Medical History: Reports: Arthritis (Osteoarthritis of multiple sites) Other Surgeries: Yes: CABG, Other (Neck surgery for cervical stenosis 2016) Amputation: No - *Social History Smoking Status: Current every day smoker Tobacco Type: cigarettes # Packs/Day (cigarettes): 1 Alcohol Intake: former Occupational Status: retired Housing: house Household Members: none - Psychiatric History Expresses thoughts of harming self/others: None Suicide Plan Description: No Plan *Family Hx:: No significant family history Review of Systems - Review of Systems Review of systems:: pertinent systems reviewed and negative unless documented below - Constitutional Reports malaise, Reports weakness - *Respiratory Reports chest congestion, Reports cough, Reports shortness of breath Meds Home Medications Medication Instructions Recorded Confirmed Type Albuterol Sulfate [Proair Hfa 2 puffs IH Q4HP PRN 12/24/17 12/24/17 History 90mcg/puff Inh] Aspirin [Aspirin 81mg chewable 81 mg PO DAILY 12/24/17 12/24/17 History tab] Budesonide/Formoterol Fumarate 10.2 gm IN BID 12/24/17 12/24/17 History [Symbicort 160-4.5 Mcg Inhaler] Lisinopril [Lisinopril 40mg Tablet] 40 mg PO DAILY 12/24/17 12/24/17 History Metoprolol Tartrate 100 mg PO BID 12/24/17 12/24/17 History Ranolazine [Ranexa 500mg ER tablet] 500 mg PO DAILY 12/24/17 12/24/17 History Rosuvastatin Calcium [Crestor] 40 mg PO DAILY 12/24/17 12/24/17 History Tiotropium [place] [Spiriva 1 puff IH DAILY 12/24/17 06/19/18 History 18mcg/puff inhaler] Allergies Allergy/AdvReac Type Severity Reaction Status Date / Time No Known Drug Allergies Allergy NA Verified 03/31/18 09:47 Exam Vital signs and Labs for Last 24 Hours: Temp Pulse Resp BP Pulse Ox 98.4 F 98 H 24 153/100 90 L 06/19/18 14:34 06/19/18 14:34 06/19/18 14:34 06/19/18 14:34 06/19/18 14:34 I & O for Last 24 hours: Intake & Output 06/17/18 06/18/18 06/19/18 06/20/18 11:59 11:59 11:59 11:59 Weight 157 lb 6 oz Narrative: Frail, elderly male. Alert and oriented x3. No acute neuro deficits. Skin pink, warm and dry. Rate and rhythm regular. Lung sounds with wheezes and rhonchi throughout. Abdomen, soft and nontender. ENT exam unremarkable Assessment and Plan (1) COPD exacerbation Current visit: Yes Status: Acute Category: Medical Code(s): J44.1 - Chronic obstructive pulmonary disease with (acute) exacerbation (2) Hypoxia Current visit: Yes Status: Acute Category: Medical Code(s): R09.02 - Hypoxemia (3) Acute and chronic respiratory failure ([id number]) Current visit: Yes Status: Acute Qualifiers: Respiratory failure complication: hypoxia Qualified Code(s): J96.21 - Acute and chronic respiratory failure with hypoxia Category: Medical Code(s): J96.20 - Acute and chronic respiratory failure, unspecified whether with hypoxia or hypercapnia (4) Essential (primary) hypertension Current visit: Yes Status: Chronic Category: Medical Code(s): I10 - Esse ntial (primary) hypertension - Assessment and plan all Dx Assessment and Plan for all problems:: CAP protocol initiated with pseudomonal coverage. Solu-medrol added. Will obtain UR PCR.
[2018-06-19 15:44] LABS: Basophils % 0.1 % (0.1-2.0); Eosinophils # 0.1 K/mm3 (0.0-0.4); Eosinophils % 0.5 % (0.1-12.0); Hematocrit 46.8 % (42.0-52.0); Hemoglobin 15.2 g/dL (14.1-18.0); Lymphocytes # 1.6 K/mm3 (0.7-4.5); Lymphocytes % 14.3 K/mm3 (10-50); Mean Corpuscular HGB Conc 32.5 g/dL (31.8-35.4); Mean Corpuscular Volume 95.4 fl (80-94); Mean Platelet Volume 6.8 fl (7.4-10.4); Monocytes # 0.8 K/mm3 (0.1-1.0); Monocytes % 6.9 % (1.7-9.3); Neutrophils # 8.9 K/mm3 (1.8-7.8); Neutrophils % 78.2 % (37.0-80.0); Platelet Count 218 K/mm3 (142-424); Red Blood Count 4.91 M/mm3 (4.60-6.20); Red Cell Distribution Width 12.8 % (11.5-17.5); White Blood Count 11.3 K/mm3 (4.8-10.8)
[2018-06-19 15:53] LABS: Coronavirus 229E Not Detected (NotDetected); Coronavirus NL63 Not Detected (NotDetected); Coronavirus OC43 Not Detected (NotDetected); Coronovirus HKU1,PCR Not Detected (NotDetected)
[2018-06-19 15:55] LABS: Albumin Level 3.4 gm/dL (3.4-5.0); Albumin/Globulin Ratio 0.9 (1.1-1.8); Anion Gap 8.9 mEq/L (5-15); Bilirubin,Total 0.4 mg/dL (0.2-1.0); Calcium 8.9 mg/dL (8.5-10.1); Globulin 3.7 gm/dl (1.3-3.2); Potassium 3.9 mmoL/L (3.5-5.1); Total Protein,Serum 7.1 gm/dL (6.4-8.2)
--- NOTE | 2018-06-20 07:39 | Pharmacy Consult Notes ---
[facility] Pharmacy VTE Monitoring - Patient Demographics Admission date: 06/20/18 Report Date: 06/20/18 Time: 07:39 Allergies/Adverse Reactions: Patient Allergies No Known Drug Allergies Allergy (Verified 03/31/18 09:47) NA Height: 1.85 m Weight: 71.384 kg Patient Problems: Current Active Problems COPD exacerbation (Acute) Hypoxia (Acute) Acute and chronic respiratory failure ([id number]) (Acute) Essential (primary) hypertension (Chronic) - VTE Risk Labs: VTE Related Lab Results Hgb 15.2 g/dL (14.1-18.0) 06/19/18 15:20 Hct 46.8 % (42.0-52.0) 06/19/18 15:20 Plt Count 218 K/mm3 (142-424) 06/19/18 15:20 BUN 16 mg/dL (7-18) 06/19/18 15:20 Creatinine 1.14 mg/dL (0.70-1.30) 06/19/18 15:20 Estimated Creat Clear 56 mL/min (0-300) 06/19/18 15:20 Was VTE Risk Assessment Performed: Yes VTE Score: 4 VTE Risk Level: Low Risk Clinical Trial Participant: No - Prophylaxis VTE Prophylaxis Ordered?: Yes Types of VTE Prophylaxis: TEDS Knee High Location of Applied Device: Not Applicable
--- NOTE | 2018-06-20 13:46 | Progress Note ---
Internal Medicine - PN: Subj *Date: 06/20/18 *Time: 09:00 Interval history: Overnight patient remained afebrile, feels more comfortable on supplemental oxygen and breathing treatments as well as after initiation of antibiotics and steroids. Denies any nausea, vomiting, syncope, diarrhea. Conference of respiratory panel returned positive for rhinovirus. Patient tolerating regular diet, remains hemodynamically stable. Exam Vital signs and Labs for Last 24 Hours: Temp Pulse Resp BP Pulse Ox 98.1 F 83 18 172/93 92 L 06/20/18 12:00 06/20/18 13:02 06/20/18 12:00 06/20/18 12:00 06/20/18 12:00 Laboratory Results - last 24 hr 06/19/18 15:20: WBC 11.3 H, RBC 4.91, Hgb 15.2, Hct 46.8, MCV 95.4 H, MCH 31.0, MCHC 32.5, RDW 12.8, Plt Count 218, MPV 6.8 L, Neut % (Auto) 78.2, Lymph % (Auto) 14.3, [place] % (Auto) 6.9, Eos % (Auto) 0.5, Baso % (Auto) 0.1, Neut # (Auto) 8.9 H, Lymph # (Auto) 1.6, [place] # (Auto) 0.8, Eos # (Auto) 0.1, Baso # (Auto) 0.0 06/19/18 15:20: Sodium 143, Potassium 3.9, Chloride 104, Carbon Dioxide 34 H, Anion Gap 8.9, BUN 16, Creatinine 1.14, Estimated Creat Clear 56, Estimated GFR 62, Est GFR ( Amer) 76, Glucose 142 H, Calcium 8.9, Total Bilirubin 0.4, AST 26, ALT 53, Alkaline Phosphatase 104, Total Protein 7.1, Albumin 3.4, Globulin 3.7 H, Albumin/Globulin Ratio 0.9 L 06/19/18 15:43: Chlamy pneumoniae PCR Not detected, Adenovirus (PCR) Not detected, B.parapertussis DNA PCR Not detected, Coronavirus OC43 (PCR) Not detected, Coronavirus HKU1 (PCR) Not detected, Coronavirus 229E (PCR) Not detected, Coronavirus NL63 (PCR) Not detected, Human Metapneumovir PCR Not detected, Influenza A (H1) PCR Not detected, Influ A (H1N1/09) PCR Not detected, Influenza A (H3) PCR Not detected, Influenza Type A (PCR) Not detected, Influenza Type B (PCR) Not detected, M. pneumoniae (PCR) Not detected, Parainfluenza 1 (PCR) Not detected, Parainfluenza 2 (PCR) Not detected, Parainfluenza 3 (PCR) Not detected, Parainfluenza 4 (PCR) Not detected, RSV (PCR) Not detected, Entero/Rhino (PCR) Detected A I & O for Last 24 hours: Intake & Output 06/17/18 06/18/18 06/19/18 06/20/18 23:59 23:59 23:59 23:59 Intake Total 230 / 230 590 / 590 Output Total 650 / 650 400 / 400 Balance -420 / -420 190 / 190 Weight 71.384 kg 71.384 kg Microbiology Reports for the Last 24 Hours: Microbiology 06/19/18 15:43 Sputum - Expectorated Sputum Gram Stain - Final Narrative: Tall thin cachectic male in mild respiratory distress on supplemental oxygen. Good air movement bilaterally with diffuse wheeze and coarse rhonchi throughout lung alonzo. Prolonged expiratory phase. Heart regular with no murmur. No lower extremity edema. Pulses palpable in radial and posterior tibial distribution. Abdomen soft, normal active. Alert and oriented 3 with no focal deficits. Assessment and Plan (1) COPD exacerbation Current visit: Yes Status: Acute Category: Medical Code(s): J44.1 - Chronic obstructive pulmonary disease with (acute) exacerbation Continue current management, de-escalate to Levaquin and transition to oral -Continue IV steroids -Continue nebulizers as ordered -Continue supplemental oxygen goal greater than 92 while awake, greater than 88 while asleep (2) Hypoxia Current visit: Yes Status: Acute Category: Medical Code(s): R09.02 - Hypoxemia (3) Acute and chronic respiratory failure ([id number]) Current visit: Yes Status: Acute Qualifiers: Respiratory failure complication: hypoxia Qualified Code(s): J96.21 - Acute and chronic respiratory failure with hypoxia Category: Medical Code(s): J96.20 - Acute and chronic respiratory failure, un specified whether with hypoxia or hypercapnia (4) Essential (primary) hypertension Current visit: Yes Status: Chronic Category: Medical Code(s): I10 - Essential (primary) hypertension Restarted home medications, monitor for symptoms. - Assessment and plan all Dx Assessment and Plan for all problems:: Patient's addition remains tenuous with respiratory distress, increased risk for mortality. Not stable for discharge home yet.
--- NOTE | 2018-06-21 08:12 | Discharge Summary ---
General - General Admission date:: 06/19/18 Discharge date: 06/21/18 HPI HPI: 78 year old white male with a long history of tobacco use who has COPD and wears 02 at night presented to PCP office with increased shortness of breath and [employer] cough. Patient reports symptoms began 4 days ago. No fevers. + weakness. No ENT symptoms. No GI symptoms. In the office, he was found to be hypoxic with room air saturations 88% on RA and tachypneic with respirations 28. Conversational dyspnea noted every 4-5 words. Patient was direct admitted for IV abx and further evaluation. Hospital Course Hospital Course: Patient was placed on intravenous steroids and levofloxacin. Improved over the next couple of days. Placed on continuous O2 and responded very nicely to this. His morning he is doing much better, slept well, feels much more comfortable. Able to eat 100% of his breakfast. Exam improved. He will be discharged home on daily oxygen therapy, quinolone antibiotic therapy, prednisone and with follow-up in our office in [place]. Objective Vital signs: Temp Pulse Resp BP Pulse Ox 97.6 F 76 18 147/79 94 L 06/21/18 03:56 06/21/18 06:31 06/21/18 03:56 06/21/18 03:56 06/21/18 06:31 Narrative: Patient is pleasant, alert. Oropharynx clear with no JVD. Lungs have rhonchi bilaterally but much improved over admission exam notes. Heart rate regular. Abdomen soft, no edema. Results Labs on day of discharge: Preliminary micro results at discharge 06/19/18 15:43 Sputum Culture - Preliminary Sputum - Expectorated Sputum DS: Diagnosis - Discharge Diagnosis (1) COPD exacerbation Status: Acute (2) Hypoxia Status: Chronic (3) Acute and chronic respiratory failure ([id number]) Status: Chronic (4) Essential (primary) hypertension Status: Chronic Discharge Plan - Patient Discharge Instructions ACTIVITY: Continue current activity DIET: continue same diet - Follow up Plan Follow up with: Cyndee Schwarz APRN [Nurse Practitioner] - 06/27/18 Disposition: Home, Self-[facility] Medications: Home Medications Medication Instructions Recorded Confirmed Type Albuterol Sulfate [Proair Hfa 2 puffs IH Q4HP PRN 12/24/17 06/20/18 History 90mcg/puff Inh] Aspirin [Aspirin 81mg chewable 81 mg PO DAILY 12/24/17 06/20/18 History tab] Budesonide/Formoterol Fumarate 2 puffs IN BID 12/24/17 06/20/18 History [Symbicort 160-4.5 Mcg Inhaler] Metoprolol Tartrate 100 mg PO BID 12/24/17 06/20/18 History Ranolazine [Ranexa 500mg ER tablet] 500 mg PO BID 12/24/17 06/20/18 History Rosuvastatin Calcium [Crestor] 40 mg PO HS 12/24/17 06/20/18 History Tiotropium [place] [Spiriva 1 puff IH DAILY 12/24/17 06/19/18 History 18mcg/puff inhaler] Lisinopril [Lisinopril 10mg Tab] 10 mg PO DAILY 06/20/18 06/20/18 History Prescriptions/Medication Reconciliation: New levoFLOXacin [Levaquin 500mg tab] 500 mg PO DAILY #7 tab predniSONE [Deltasone 20mg tablet] 20 mg PO BID 7 Days #14 tab Continue Rosuvastatin Calcium [Crestor] 40 mg PO HS Metoprolol Tartrate 100 mg PO BID Aspirin [Aspirin 81mg chewable tab] 81 mg PO DAILY Ranolazine [Ranexa 500mg ER tablet] 500 mg PO BID Albuterol Sulfate [Proair Hfa 90mcg/puff Inh] 2 puffs IH Q4HP PRN PRN Reason: Shortness Of Breath Or Wheezing Tiotropium [place] [Spiriva 18mcg/puff inhaler] 1 puff IH DAILY Budesonide/Formoterol Fumarate [Symbicort 160-4.5 Mcg Inhaler] 2 puffs IN BID Lisinopril [Lisinopril 10mg Tab] 10 mg PO DAILY
== END 2018-06-21 09:29 | disposition home or self-care (01) ==
LOC: 2ND
PROVIDERS: ADMIT Internal Medicine Adolescent Medicine; ATTEND Internal Medicine Adolescent Medicine
CPT/HCPCS: 71020; 71046; 80053; 85025; 87040; 87070; 87205; 87486; 87581; 87633; 87798; 94640; 94761; G0378; J1956

== ENCOUNTER 2018-12-19 08:00 | Outpatient (RCR) | payer MEDICARE, SELFPAY ==
--- NOTE | 2018-12-11 12:34 | HMH.PTOPEV ---
PT Outpatient Evaluation Rehab PT Outpatient Evaluation Start: 12/11/18 12:10 Freq: Status: Active Protocol: Document 12/11/18 12:10 FRANCES (Rec: 12/11/18 12:34 PDESERMARINA [id number]) Electronically Signed By Jr Davies PT 12/11/18 12:10 Outpatient Therapy Subjective History Subjective History Pt. is a 78 year old male who presents to outpatient PT with complaints BLE weakness and balance deficits for 2 years that has recently worsened this year. Pt. reports a fall on Saturday( 12/08/18) while ascending stairs in the community. Pt. reports fall on his buttocks, but pt.'s Physician feels no need to ordering diagnostic imaging pt. reports. Pt. reports some anterior thigh/LB soreness since the fall, but denies radiating symptoms down either leg. PMH includes high cholesterol, HTN, 3 cardiovascular stents, and a CABG. Pt. reports he does not remember his medication names and will bring in a list. Chief Complaint Pain Weakness Other Symptom Type Ache Other Symptoms Relieved By Rest/Positioning Ice Symptoms Aggravated By Standing Bending/Stooping Physical Activity Walking Prior Functional Limitations None Current Functional Limitations Lifting Housework Standing Squatting Recreation Activity Walking Stairs Balance Bending/Stooping Symptom Description Activity Dependent Level of pain today (0-10) 0 Pain scale - at its best (0-10) 0 Pain scale - at its worst (0-10) 8 Hip/Knee Eval Gait Observation General Gait Pattern Observation Antalgic Gait Wide Based Gait Ataxic Gait Trunk Posterior to RAMÍREZ As
== END 2019-01-19 14:35 | disposition home or self-care (01) ==
LOC: PT 08:00
PROVIDERS: Visit Provider Internal Medicine Adolescent Medicine
DX: R26.9 Unspecified abnormalities of gait and mobility (principal); M62.81 Muscle weakness (generalized); W19.XXXA Unspecified fall, initial encounter
CPT/HCPCS: 97110; 97112; 97116; 97163

== ENCOUNTER 2020-02-04 10:50 | Emergency (ER) | payer MEDICARE, SELFPAY ==
[2020-02-04 10:56] VITALS: BP 150/88; PULSE 67; RESP 22; TEMP 37.1; O2SAT 96; BMI 20.8
--- NOTE | 2020-02-04 11:16 | ECG_ITS ---
APPROVED REPORT Exam: Resting ECG HR:67 bpm ECG Measurements Heart Rate 67 AXES AZ 170 P 79 QRSd 132 QRS 123 QT 482 T 73 QTc 509 <Conclusion> Sinus rhythm with occasional premature ventricular complexes Right bundle branch block Abnormal ECG Electronically signed by : Jenaro Jean Baptiste, 02/04/2020 21:54:43
--- NOTE | 2020-02-04 11:19 | XR_ITS ---
PROCEDURE: XR HIP RT 2-3V W/PELVIS CLINICAL INDICATION: RT HIP PAIN, KNOWN INJURY Pain COMPARISON: No exams were available for comparison FINDINGS: No obvious fracture or dislocation. Mild osteoarthritic changes are present involving both hips. There are vascular grafts in both SFA is and left iliac artery IMPRESSION: Mild osteoarthritic change otherwise negative Dictated by: Crispin Brown MD 02/04/2020 13:16 Electronically signed by Crispin Brown MD in [place] 02/04/2020 13:16
--- NOTE | 2020-02-04 11:19 | XR_ITS ---
PROCEDURE: XR CHEST PORTABLE CLINICAL HISTORY: SOA Shortness of air, smoker COMPARISON: CXR1 CHEST-PORTABLE from 01/07/2015 CXR CHEST(2 VIEWS-NOT PORTABLE) from 01/14/2015 CXR2V XR chest 2V from 06/19/2018 FINDINGS: Prior CABG. There is fracture of the 2nd top median sternotomy wire. The lungs are clear without infiltrates, suspicious nodules, or pleural effusions.. COPD with chronic changes No acute bony abnormalities. IMPRESSION: No change with no acute finding Dictated by: Crispin Brown MD 02/04/2020 13:06 Electronically signed by Crispin Brown MD in [place] 02/04/2020 13:06
--- NOTE | 2020-02-04 11:19 | HMH.EDGENADL ---
ED Disposition Clinical Impression: Hemoptysis, Pulmonary nodule, Lumbar disc disease Sciatica Qualifiers: Laterality: right Qualified Code(s): M54.31 - Sciatica, right side Osteoarthritis of lumbar spine Qualifiers: Spinal osteoarthritis complication: unspecified spinal osteoarthritis Qualified Code(s): M47.816 - Spondylosis without myelopathy or radiculopathy, lumbar region Abdominal aortic aneurysm Qualifiers: Presence of rupture: without rupture Qualified Code(s): I71.4 - Abdominal aortic aneurysm, without rupture Disposition: Home, Self-Care Condition on Discharge: Good Instructions: DI for Sciatica, DI for Hemoptysis Additional Instructions: Follow-up with Dr. Jean Baptiste in the office next week. Prednisone as prescribed. Prescriptions: predniSONE [Prednisone 20mg Tab] 20 mg PO BID #10 tab Transmission Status: Pending to [id number] Referrals: Jenaro Jean Baptiste MD [Primary Care Provider] - - Critical Care Critical Care Time: No Attestation: On 02/04/20, the high probability of a clinically significant, sudden or life threatening deterioration of the following system(s) required my full and direct attention, intervention and personal management. The time I documented below is in addition to time spent performing reported procedures but includes the following listed in this critical care notation. Medical Decision Making - Medical Records Medical records reviewed: Yes: I reviewed the patient's medical records. - Jamal Inquiry Pt receiving controlled substance: No Vital Signs: 02/04/20 10:56 02/04/20 13:40 Temperature 98.7 F Temperature Source Oral Pulse Rate [Right Radial] 67 55 L Respiratory Rate 22 16 Blood Pressure [Right Arm] 150/88 H 155/62 H Blood Pressure Mean [Right Arm] 108 93 Blood Pressure Source [Right Arm] Automatic Cuff Automatic Cuff Blood Pressure Position [Right Arm] Sitting Supine 02 Sat by Pulse Oximetry 96 94 L Oxygen Delivery Method Room Air - Lab Data Lab results reviewed: Yes: I reviewed the patient's lab results. Lab Results 02/04/20 11:08: WBC 9.4, RBC 4.79, Hgb 11.6 L, Hct 38.6 L, MCV 80.6, MCH 24.1 L, MCHC 30.0 L, RDW 17.0, Plt Count 261, MPV 7.7, Neut % (Auto) 74.0, Lymph % (Auto) 18.6, [place] % (Auto) 5.6, Eos % (Auto) 1.2, Baso % (Auto) 0.6, Neut # (Auto) 7.0, Lymph # (Auto) 1.8, [place] # (Auto) 0.5, Eos # (Auto) 0.1, Baso # (Auto) 0.1 02/04/20 11:08: Sodium 137, Potassium 3.8, Chloride 99, Carbon Dioxide 35 H, Anion Gap 6.8, BUN 14, Creatinine 1.00, Estimated Creat Clear 63, Estimated GFR 72, Est GFR ( Amer) 88, Glucose 137 H, Calcium 9.0, Total Bilirubin 0.2, AST 26, ALT 21, Alkaline Phosphatase 87, Troponin I 0.03, Total Protein 6.9, Albumin 4.0, Globulin 2.9, Albumin/Globulin Ratio 1.4 02/04/20 11:08: Lactate 1.8 Result diagrams: 02/04/20 11:08 02/04/20 11:08 Orders (Tests/Meds): ED MEDICATIONS Discontinued Medications Generic Name Dose Route Start Last Admin Trade Name Freq PRN Reason Stop Dose Admin Ioversol 70 ml 02/04/20 12:24 02/04/20 12:27 Rad-Optiray 350 100ml Vial IV 02/04/20 12:25 70 ml ONCE ONE Administration Protocol Methylprednisolone Sodium Succinate 125 mg 02/04/20 14:09 Solu-Medrol 125mg/2ml Vial IV 02/04/20 14:10 ONCE ONE Sodium Chloride 50 ml 02/04/20 12:24 02/04/20 12:26 Rad-Ns 50ml Vial IV 02/04/20 12:25 50 ml ONCE ONE Administration Sodium Chloride 10 ml 02/04/20 12:24 02/04/20 12:27 Rad-Saline Flush 10ml Syringe IV 02/04/20 12:25 10 ml ONCE ONE Administration ORDERS Category Date Time Status Blood Culture Stat Micro 02/04/20 11:08 Received - Radiology Data #1 Image(s): Chest, Hip Image Reviewed: Yes I reviewed the patient's radiology image, Yes I have reviewed radiologist's interpretation PROCEDURE: XR HIP RT 2-3V W/PELVIS CLINICAL INDICATION: RT HIP PAIN, KNOWN INJURY Pain COMPARISON: No exams were available for compari
[2020-02-04 11:29] LABS: Basophils # 0.1 K/mm3 (0-0.2); Basophils % 0.6 % (0.1-2.0); Eosinophils # 0.1 K/mm3 (0.0-0.4); Eosinophils % 1.2 % (0.1-12.0); Hematocrit 38.6 % (42.0-52.0); Hemoglobin 11.6 g/dL (14.1-18.0); Lymphocytes # 1.8 K/mm3 (0.7-4.5); Lymphocytes % 18.6 % (10-50); Mean Corpuscular Hemoglobin 24.1 pg (27.0-31.2); Mean Corpuscular Volume 80.6 fl (80-94); Mean Platelet Volume 7.7 fl (7.4-10.4); Monocytes # 0.5 K/mm3 (0.1-1.0); Monocytes % 5.6 % (1.7-9.3); Platelet Count 261 K/mm3 (142-424); Red Blood Count 4.79 M/mm3 (4.60-6.20); White Blood Count 9.4 K/mm3 (4.8-10.8)
[2020-02-04 11:36] LABS: Alanine Aminotransferase 21 U/L (12-78); Albumin/Globulin Ratio 1.4 (1.1-1.8); Alkaline Phosphatase 87 U/L (38-126); Anion Gap 6.8 mEq/L (5-15); Aspartate Amino Transferase 26 U/L (17-59); Bilirubin,Total 0.2 mg/dl (0.2-1.3); Blood Urea Nitrogen 14 mg/dl (9-20); Carbon Dioxide 35 mmol/L (22.0-30.0); Chloride 99 mmol/L (98-107); Creatinine Clearance Estimated 63 mL/min (50-200); Estimated Glomerular Filt Rate 72 ml/min (>60); GFR (African American) 88 ML/MIN (>60); Globulin 2.9 g/dL (1.3-3.2); Glucose 137 mg/dl (74-100); Potassium 3.8 mmoL/L (3.5-5.1); Sodium 137 mmol/L (136-145); Total Protein,Serum 6.9 g/dl (6.3-8.2)
[2020-02-04 11:41] LABS: Lactic Acid 1.8 mmol/L (0.7-2.1)
--- NOTE | 2020-02-04 11:42 | CT_ITS ---
PROCEDURE: CT ANGIO CHEST CLINCIAL INDICATION: hemoptysis Shortness of air, hemoptysis COMPARISON: No exams were available for comparison TECHNIQUE: IV Contrast: 70ML OPTIRAY 350 Axial images obtained with sagittal and coronal reformats. All CT scans at the facility use one or more dose reduction, viz: automated exposure control, ma/kV adjustment per patient size (including targeted exams where dose is matched to indication, i.e. head), or iterative reconstruction technique. FINDINGS: HEART AND MEDIASTINAL STRUCTURES: Prior CABG. No evidence of pulmonary embolus or aortic aneurysm. No mediastinal hilar mass or adenopathy. LUNGS AND PLEURAL SPACES: COPD. Biapical fibrotic changes are. Partially calcified nodules present in the left apex. There is a 9 mm nodular opacity right pain possibly due to fibrotic change. There is diffuse centrilobular. There are other areas of scarring. There are few scattered small noncalcified nodules the largest within the lingula at 6 mm. There are no previous exams available for comparison. BONY STRUCTURES: Mild degenerative changes thoracic spine the UPPER ABDOMEN: Possible left renal cyst superiorly at 19 mm which could be confirmed with nonemergent ultrasound ADDITIONAL FINDINGS: There are few small nodes in the upper mediastinum anteriorly nonspecific. There is some pannus formation at the sternoclavicular joint suggesting arthritic change. Small small node is present in the left retroperitoneum at the region of the left adrenal gland measuring approximately 1.6 x 1 cm nonspecific. IMPRESSION: 1. No acute finding. No evidence of pulmonary embolus. 2. COPD with centrilobular emphysema and scattered areas of scarring/fibrosis along with a 6 mm nodule in the lingula and other smaller parenchymal and subpleural nodular opacities. Recommend six-month CT follow-up to confirm stability. Dictated by: Crispin Brown MD 02/04/2020 13:32 Electronically signed by Crispin Brown MD in [place] 02/04/2020 13:32
--- NOTE | 2020-02-04 11:42 | CT_ITS ---
PROCEDURE: CT LUMBAR SPINE WO CON CLINICAL HISTORY: low back pain, R sciatica COMPARISON: No exams were available for comparison TECHNIQUE: Axial images obtained with sagittal and coronal reformats. All CT scans at the facility use one or more dose reduction, viz: automated exposure control, ma/kV adjustment per patient size (including targeted exams where dose is matched to indication, i.e. head), or iterative reconstruction technique. FINDINGS: There is normal alignment. No acute fracture or dislocation evident. L1-L2: Unremarkable. L2-L3: Unremarkable. L3-L4: Mild degenerative disc disease with bulging disc along with facet and ligamentum hypertrophy with bilateral lateral recess and foraminal narrowing. Borderline narrowing of the canal L4-5: Bulging disc with facet and ligamentum hypertrophy with lateral recess and foraminal narrowing with narrowing of the canal L5-S1: Severe degenerative disc disease with bulging disc along facet and ligamentum hypertrophy. There is canal stenosis with bilateral lateral recess and foraminal narrowing. There is a left external iliac artery stent present. There is an infrarenal abdominal aortic aneurysm which measures up to 4.5 cm transverse and 4.1 cm AP. No obvious retroperitoneal hemorrhage. The aorta at the bifurcation measures 2.9 cm. IMPRESSION: 1. L3-L4: Mild degenerative disc disease with bulging disc along with facet and ligamentum hypertrophy with bilateral lateral recess and foraminal narrowing. Borderline narrowing of the canal 2. L4-5: Bulging disc with facet and ligamentum hypertrophy with lateral recess and foraminal narrowing with narrowing of the canal 3. L5-S1: Severe degenerative disc disease with bulging disc along facet and ligamentum hypertrophy. There is canal stenosis with bilateral lateral recess and foraminal narrowing. 4. There is an infrarenal abdominal aortic aneurysm which measures up to 4.5 cm transverse and 4.1 cm AP. No obvious retroperitoneal hemorrhage. Dictated by: Crispin Brown MD 02/04/2020 13:46 Electronically signed by Crispin Brown MD in [place] 02/04/2020 13:46
--- NOTE | 2020-02-04 11:43 | PC.NURSE ---
Rad at bedside
[2020-02-04 11:49] LABS: Troponin I 0.03 ng/ml (0.00-0.034)
--- NOTE | 2020-02-04 12:02 | PC.NURSE ---
Pt to rad at this time
--- NOTE | 2020-02-04 12:03 | PC.NURSE ---
Pt to rad
[2020-02-04 13:40] VITALS: BP 155/62; PULSE 55; RESP 16; O2SAT 94
--- NOTE | 2020-02-04 14:51 | PC.NURSE ---
PT's nephew called and he is on his way to pick pt up from [place].
[2020-02-04 15:22] VITALS: BP 129/87; PULSE 78; RESP 18; TEMP 36.8; O2SAT 99
== END 2020-02-04 15:24 | disposition home or self-care (01) ==
PROVIDERS: Emergency Provider Emergency Medicine; PCP Internal Medicine Adolescent Medicine
DX: R04.2 Hemoptysis (principal); R91.1 Solitary pulmonary nodule; M51.36 Other intervertebral disc degeneration, lumbar region; M47.816 Spondylosis without myelopathy or radiculopathy, lumbar region; I71.4 Abdominal aortic aneurysm, without rupture; M25.551 Pain in right hip; I10 Essential (primary) hypertension; J44.9 Chronic obstructive pulmonary disease, unspecified; F17.210 Nicotine dependence, cigarettes, uncomplicated; I48.91 Unspecified atrial fibrillation; R06.02 Shortness of breath; Z79.899 Other long term (current) drug therapy
CPT/HCPCS: 71045; 71275; 72131; 73502; 80053; 83605; 84484; 85025; 87040; 93005; 96374; 99284; Q9967

== ENCOUNTER 2020-02-25 06:46 | Inpatient (IN) | payer MEDICARE, SELFPAY ==
[2020-02-25] VITALS (13 sets, daily range): BP systolic 124–169; BP diastolic 59–108; PULSE 57–114; RESP 20–30; TEMP 36.6–37; O2SAT 90–98; BMI 20.8; BMI 21.0
--- NOTE | 2020-02-25 06:59 | XR_ITS ---
PROCEDURE: XR CHEST PORTABLE CLINICAL HISTORY: SOA Shortness of air COMPARISON: CXR CHEST(2 VIEWS-NOT PORTABLE) from 01/14/2015 CXR2V XR chest 2V from 06/19/2018 XR CHEST PORTABLE from 02/04/2020 CT ANGIO CHEST from 02/04/2020 FINDINGS: Prior CABG. Borderline cardiomegaly without failure. The lungs are clear without infiltrates, suspicious nodules, or pleural effusions. No acute bony abnormalities. IMPRESSION: No acute findings. Dictated by: Crispin Brown MD 02/25/2020 07:48 Electronically signed by Crispin Brown MD in [place] 02/25/2020 07:48
[2020-02-25 07:06] LABS: ABG Base Excess 2.2 mmol/L (-2.4-2.3); ABG HCO3 26.6 mmhg (22.0-26.0); ABG Oxygen Saturation 95 % (90-100); ABG PCO2 41.3 mmhg (35.0-45.0); ABG PH 7.43 mmol/L (7.35-7.45); ABG PO2 70.3 mmhg (80-100); ABG TCO2 27.8 mmhg (23-27)
[2020-02-25 07:09] LABS: Allen's Test Acceptable; Oxygen 2lpm nc %; Source Right Radial
--- NOTE | 2020-02-25 07:12 | HMH.EDSOB ---
ED Disposition Clinical Impression: Acute exacerbation of chronic obstructive airways disease, Severe sepsis with acute organ dysfunction Disposition: Admitted as Observation Condition on Discharge: Serious Referrals: Provider,Referral, [Referring] - - Critical Care Critical Care Time: No Attestation: On 02/25/20, the high probability of a clinically significant, sudden or life threatening deterioration of the following system(s) required my full and direct attention, intervention and personal management. The time I documented below is in addition to time spent performing reported procedures but includes the following listed in this critical care notation. Medical Decision Making - Medical Records Medical records reviewed: Yes: I reviewed the patient's medical records. - Jamal Inquiry Pt receiving controlled substance: No Vital Signs: 02/25/20 06:47 02/25/20 07:24 Temperature 98.6 F Temperature Source Oral Pulse Rate [Right] 57 L 114 H Respiratory Rate 26 H Blood Pressure [Right Arm] 153/59 H 165/69 H Blood Pressure Mean [Right Arm] 90 101 Blood Pressure Source [Right Arm] Automatic Cuff Automatic Cuff Blood Pressure Position [Right Arm] Sitting Sitting 02 Sat by Pulse Oximetry 94 L 96 Oxygen Delivery Method Room Air Nasal Cannula Oxygen Flow Rate (LPM) 2 - Lab Data Lab results reviewed: Yes: I reviewed the patient's lab results. Lab Results 02/25/20 06:50: WBC 11.3 H, RBC 4.48 L, Hgb 11.3 L, Hct 35.0 L, MCV 78.2 L, MCH 25.2 L, MCHC 32.3, RDW 17.9 H, Plt Count 248, MPV 7.2 L, Neut % (Auto) 85.9 H, Lymph % (Auto) 7.1 L, [place] % (Auto) 6.3, Eos % (Auto) 0.1, Baso % (Auto) 0.5, Neut # (Auto) 9.7 H, Lymph # (Auto) 0.8, [place] # (Auto) 0.7, Eos # (Auto) 0.0, Baso # (Auto) 0.1, Total Counted 100, Neutrophils % (Manual) 89 H, Lymphocytes % (Manual) 6 L, Monocytes % (Manual) 5, Platelet Estimate Normal, RBC Morphology Not Reportable, Hypochromasia 1+, Anisocytosis 1+, Microcytosis 1+, ESR 48 H 02/25/20 06:50: Sodium 133 L, Potassium 3.9, Chloride 95 L, Carbon Dioxide 31 H, Anion Gap 10.9, BUN 18, Creatinine 1.00, Estimated Creat Clear 63, Estimated GFR 72, Est GFR ( Amer) 88, Glucose 165 H, Calcium 9.1, Total Bilirubin 0.5, AST 24, ALT 20, Alkaline Phosphatase 90, Troponin I 0.02, C-Reactive Protein 140.8 H, Total Protein 7.1, Albumin 4.0, Globulin 3.1, Albumin/Globulin Ratio 1.3 02/25/20 06:50: Lactate 2.6 H 02/25/20 06:58: Specimen Source Right radial, O2 % 2lpm nc, ABG pH 7.43, ABG pCO2 41.3, ABG pO2 70.3 L, ABG HCO3 26.6 H, ABG Total CO2 27.8 H, ABG O2 Saturation 95, ABG Base Excess 2.2, Crispin Test Acceptable Result diagrams: 02/25/20 06:50 02/25/20 06:50 Orders (Tests/Meds): ED MEDICATIONS Discontinued Medications Generic Name Dose Route Start Last Admin Trade Name Freq PRN Reason Stop Dose Admin Sodium Chloride 1,000 mls @ 999 mls/hr 02/25/20 07:00 02/25/20 07:11 Sod Chlor 0.9% 1000ml Bag IV 02/25/20 08:00 999 mls/hr .Q1H1M AMANDA Administration Methylprednisolone Sodium Succinate 125 mg 02/25/20 06:59 02/25/20 07:11 Solu-Medrol 125mg/2ml Vial IV 02/25/20 07:00 125 mg ONCE ONE Administration ORDERS Category Date Time Status Digoxin Stat Lab 02/25/20 06:50 Received Troponin I Q3H Lab 02/25/20 10:00 Ordered Troponin I Q3H Lab 02/25/20 13:00 Ordered Blood Culture Stat Micro 02/25/20 06:50 Received - Radiology Data #1 Image(s): Chest Image Reviewed: Yes I reviewed the patient's radiology image Preliminary Findings: Abnormal (copd ) - ECG Data Tracing #1 Normal Sinus Rhythm: Yes Ischemic changes: non-specific ST-T wave changes - Physician Consults Physician Consulted: katie Reason -: Admission - Reevaluation(s) Time: 08:08 Reevaluation #1: better Resp/SOB HPI - General Chief Complaint: Shortness of Breath/Dyspnea Stated Complaint: SOA Time Seen by Provider: 02/25/20 07:12 Mode of Arrival: EMS Source of Information: P
[2020-02-25 07:15] LABS: Basophils # 0.1 K/mm3 (0-0.2); Basophils % 0.5 % (0.1-2.0); Eosinophils % 0.1 % (0.1-12.0); Hemoglobin 11.3 g/dL (14.1-18.0); Lymphocytes # 0.8 K/mm3 (0.7-4.5); Lymphocytes % 7.1 % (10-50); Mean Corpuscular HGB Conc 32.3 g/dL (31.8-35.4); Mean Corpuscular Hemoglobin 25.2 pg (27.0-31.2); Mean Corpuscular Volume 78.2 fl (80-94); Mean Platelet Volume 7.2 fl (7.4-10.4); Monocytes # 0.7 K/mm3 (0.1-1.0); Monocytes % 6.3 % (1.7-9.3); Neutrophils # 9.7 K/mm3 (1.8-7.8); Neutrophils % 85.9 % (37.0-80.0); Platelet Count 248 K/mm3 (142-424); Red Blood Count 4.48 M/mm3 (4.60-6.20); Red Cell Distribution Width 17.9 % (11.5-17.5); White Blood Count 11.3 K/mm3 (4.8-10.8)
[2020-02-25 07:18] LABS: MANUAL DIFFERENTIAL MANUAL DIFFERENTIAL (MANUAL DIFF)
[2020-02-25 07:19] LABS: Alanine Aminotransferase 20 U/L (12-78); Albumin/Globulin Ratio 1.3 (1.1-1.8); Alkaline Phosphatase 90 U/L (38-126); Anion Gap 10.9 mEq/L (5-15); Aspartate Amino Transferase 24 U/L (17-59); Bilirubin,Total 0.5 mg/dl (0.2-1.3); Blood Urea Nitrogen 18 mg/dl (9-20); Calcium 9.1 mg/dl (8.4-10.2); Carbon Dioxide 31 mmol/L (22.0-30.0); Chloride 95 mmol/L (98-107); Creatinine Clearance Estimated 63 mL/min (50-200); Estimated Glomerular Filt Rate 72 ml/min (>60); GFR (African American) 88 ML/MIN (>60); Globulin 3.1 g/dL (1.3-3.2); Glucose 165 mg/dl (74-100); Potassium 3.9 mmoL/L (3.5-5.1); Sodium 133 mmol/L (136-145); Total Protein,Serum 7.1 g/dl (6.3-8.2)
--- NOTE | 2020-02-25 07:19 | ECG_ITS ---
APPROVED REPORT Exam: Resting ECG HR:108 bpm ECG Measurements Heart Rate 108 AXES QRSd 144 QRS 129 QT 374 T 52 QTc 501 <Conclusion> Undetermined rhythm Right bundle branch block ST elevation, consider inferior injury or acute infarct ACUTE PR Abnormal ECG Electronically signed by : Jenaro Jean Baptiste, 02/28/2020 07:17:29
[2020-02-25 07:26] LABS: C-Reactive Protein 140.8 mg/L (0-4)
[2020-02-25 07:31] LABS: Troponin I 0.02 ng/ml (0.00-0.034)
[2020-02-25 07:32] LABS: Lactic Acid 2.6 mmol/L (0.7-2.1)
[2020-02-25 07:38] LABS: Lymphocytes % 6 % (10-50); Monocytes % 5 % (2-9); Neutrophils % 89 % (42-76); Total Cells Counted 100
[2020-02-25 07:40] LABS: Hypochromasia 1+
[2020-02-25 07:41] LABS: Microcytosis 1+; Platelet Estimate Normal
[2020-02-25 07:42] LABS: Anisocytosis 1+
[2020-02-25 07:43] LABS: Erythrocyte Sedimentation Rate 48 mm/hr (0-20)
--- NOTE | 2020-02-25 08:20 | PC.NURSE ---
pt c/o severe pain rt hip radiating down leg with pain in ankle. swelling shana feet noted. cap refill 6sec
[2020-02-25 08:36] LABS: Coronavirus 19 IgG Antibody Negative (Negative)
[2020-02-25 08:37] LABS: Coronavirus 19 IgM Antibody Negative (Negative)
--- NOTE | 2020-02-25 08:42 | PC.NURSE ---
pt continues to c/o severe pain 07/09 states no relief with meds given
--- NOTE | 2020-02-25 08:45 | PC.NURSE ---
report called to floor
[2020-02-25 09:18] LABS: Digoxin < 0.40 ng/ml (0.2-2.00)
[2020-02-25 11:28] LABS: Reflex Lactic Add Lactic Reflex
[2020-02-25 11:58] LABS: Troponin I 0.06 ng/ml (0.00-0.034)
[2020-02-25 12:02] LABS: Lactic Acid Follow Up (RFLX 1) 1.7 mmol/L (0.7-2.1)
--- NOTE | 2020-02-25 14:12 | HMH.HP ---
*Admission Date: 02/25/20 *Chief complaint: SOA *History of present illness: Mr. Brooks is a 79-year-old gentleman with a long history of tobacco use disorder, end-stage COPD, continuous oxygen requirement (chronic hypoxemic respiratory failure) and polyarticular osteoarthritis. He was brought to the ER this morning by EMS due to progressive shortness of breath over the past 1-2 weeks. States he is just not been able to breathe well. Is been using his inhalers more. Cough minimally productive. No known sick contacts. Denies fevers, chest pain, nausea, vomiting. Reportedly been taking his medications as prescribed. On arrival he was noted to be in more respiratory distress. Work-up concerning for Sirs criteria with tachycardia and tachypnea. Blood gas showing hypercarbia due to his tachypnea. Chest imaging consistent with COPD but no focal consolidation. He was requiring higher levels of oxygen than at home. Given his respiratory symptoms, Sirs, elevated white count, patient was admitted for severe COPD exacerbation and further management. Of note he was tested for COVID-19 in the ER, found to be negative. When I saw him after arrival to the floor, he appeared in moderate distress and very fatigued. Was stating he had significant discomfort in multiple joints including his ankles, knees, hips. This is longstanding chronic pain. He was also noted to have significant work of breathing using accessory muscles. [facility] History I have reviewed the patient's past medical history: Yes Medical History: Reports:: Arrhythmia, Atrial Fibrillation, Cancer, Cardiomyopathy, Congestive Heart Failure, Chronic Obstructive Pulmonary Disease (COPD), Coronary Artery Disease, Gastroesophageal Reflux Disease(GERD), Home Oxygen, Hyperlipidemia, Hypertension, Myocardial Infarction Denies:: Diabetes Mellitus Type 1, Diabetes Mellitus Type 2, Internal Pacemaker, MRSA, Seizures *Have you ever received a pneumonia vaccine?: No *Have you received a flu vaccine this season?: No Other Medical History: Reports: Arthritis, Other. Denies: Blood Transfusion Reaction Other Surgeries: Yes: CABG, Cardiac Catheterization, Colonoscopy, Hernia Repair, Other. No: Pacemaker Amputation: No Fractures: No - *Social History Smoking Status: Current every day smoker Tobacco Type: cigarettes # Packs/Day (cigarettes): 1 Alcohol Intake: never Alcohol Intake Frequency:: a few times a week Substance Use Type: denies use *Occupational Status:: retired Housing: house Household Members: none *Travel in the last 8 weeks: None Family Hx:: Unable to obtain Review of Systems - Review of Systems Review of systems:: pertinent systems reviewed and negative unless documented below (14 point review of systems performed, pertinent positives and negatives as per HPI) - *Neurologic Reports weakness, Denies headache(s), Denies seizure-like activity Meds Home Medications Medication Instructions Recorded Confirmed Type Aspirin [Aspirin 81mg chewable 81 mg PO DAILY 12/24/17 02/25/20 History tab] Budesonide/Formoterol Fumarate 2 puffs IN BID 12/24/17 02/25/20 History [Symbicort 160-4.5 Mcg Inhaler] Metoprolol Tartrate [Lopressor 100 100 mg PO BID 12/24/17 02/25/20 History mg Tablets] Ranolazine [Ranexa 500mg ER tablet] 500 mg PO BID 12/24/17 02/25/20 History Rosuvastatin Calcium [Crestor 40mg 40 mg PO HS 12/24/17 02/25/20 History Tablets] Tiotropium [place] [Spiriva 1 puff IH DAILY 12/24/17 02/25/20 History 18mcg/puff inhaler] digoxin 125 mcg (0.125 mg) tablet 125 mcg PO DAILY 05/26/19 02/25/20 History rivaroxaban 20 mg tablet 20 mg PO QPMWM 05/26/19 02/25/20 History Acetaminophen with Codeine 1 - 2 tab PO Q6HP PRN 02/25/20 02/25/20 History [Tylenol with Codeine #3 tablet] Albuterol Sulfate [Proventil-HFA 2 puffs IH QIDP PRN 02/25/20 02/25/20 History 90mcg/puff Inh] Cetirizine HCl 10 mg PO DAILY 02/25/20 02/25/20 History Furosemide [Lasix 20mg t
[2020-02-25 14:42] LABS: Troponin I 0.09 ng/ml (0.00-0.034)
--- NOTE | 2020-02-25 16:45 | PC.NURSE ---
PT HAS DONE OK SINCE ARRIVAL TO FLOOR. HE STATES HE FEELS LIKE HE IS BREATHING BETTER. PT C/O PAIN IN RIGHT HIP, AWARE AND PUT ORDERS IN. AWARE OF AFIB/AFLUTTER ON TELE. NO NEW ORDERS. VSS. WILL CONT. TO MONITOR.
--- NOTE | 2020-02-25 18:18 | PC.NURSE ---
AWARE OF HR SUSTAINING 115-120BPM. NO NEW ORDERS. STATES PT HAS MEDS ORDERED AT 1999
--- NOTE | 2020-02-25 23:02 | PC.NURSE ---
Pt's room air sat at rest = 88%
[2020-02-26] VITALS (12 sets, daily range): BP systolic 138–156; BP diastolic 55–90; PULSE 60–98; RESP 16–24; TEMP 36.3–37.1; O2SAT 89–96; BMI 21.2
--- NOTE | 2020-02-26 06:03 | PC.NURSE ---
patient has c/o pain this shift, treated with norco successfully
[2020-02-26 07:42] LABS: Basophils % 0.1 % (0.1-2.0); Eosinophils % 0.1 % (0.1-12.0); Lymphocytes # 0.5 K/mm3 (0.7-4.5); Lymphocytes % 4.4 % (10-50); Mean Corpuscular HGB Conc 31.2 g/dL (31.8-35.4); Mean Corpuscular Hemoglobin 24.8 pg (27.0-31.2); Mean Corpuscular Volume 79.6 fl (80-94); Mean Platelet Volume 7.5 fl (7.4-10.4); Monocytes # 0.3 K/mm3 (0.1-1.0); Monocytes % 2.6 % (1.7-9.3); Neutrophils % 92.8 % (37.0-80.0); Platelet Count 196 K/mm3 (142-424); Red Blood Count 3.78 M/mm3 (4.60-6.20); Red Cell Distribution Width 18.3 % (11.5-17.5); White Blood Count 11.8 K/mm3 (4.8-10.8)
--- NOTE | 2020-02-26 07:43 | P.CONPHA_ITS ---
[facility] VTE Monitoring - Patient Demographics Admission date: 02/25/20 Report Date: 02/26/20 Time: 07:43 Allergies/Adverse Reactions: Patient Allergies No Known Drug Allergies Allergy (Verified 06/23/19 10:52) NA Height: 1.83 m Weight: 71.271 kg Patient Problems: Current Active Problems Acute exacerbation of chronic obstructive airways disease (Acute) Severe sepsis with acute organ dysfunction (Acute) Acute on chronic respiratory failure with hypoxemia (Acute) Osteoarthritis of multiple joints (Chronic) NSTEMI (non-ST elevated myocardial infarction) (Acute) - VTE Risk Labs: VTE Related Lab Results Hgb 11.3 g/dL (14.1-18.0) L 02/25/20 06:50 Hct 35.0 % (42.0-52.0) L 02/25/20 06:50 Plt Count 248 K/mm3 (142-424) 02/25/20 06:50 BUN 18 mg/dl (9-20) 02/25/20 06:50 Creatinine 1.00 mg/dl (0.66-1.25) 02/25/20 06:50 Estimated Creat Clear 63 mL/min (50-200) 02/25/20 06:50 - Prophylaxis VTE Prophylaxis Ordered?: Yes Types of VTE Prophylaxis: TEDS Knee High, Pharmacological Location of Applied Device: Bilateral Lower Extremeties Pharmacologic Type: Other (XARELTO) - VTE Diagnosis Confirmed Treatment or plan recommended: Continue Current Treatment
[2020-02-26 07:46] LABS: MANUAL DIFFERENTIAL MANUAL DIFFERENTIAL (MANUAL DIFF)
[2020-02-26 07:48] LABS: Blood Urea Nitrogen 23 mg/dl (9-20); Calcium 8.6 mg/dl (8.4-10.2); Carbon Dioxide 28 mmol/L (22.0-30.0); Chloride 101 mmol/L (98-107); Creatinine Clearance Estimated 62 mL/min (50-200); Estimated Glomerular Filt Rate 109 ml/min (>60); GFR (African American) 132 ML/MIN (>60); Glucose 158 mg/dl (74-100); Magnesium 1.9 mg/dl (1.6-2.3); Sodium 134 mmol/L (136-145)
--- NOTE | 2020-02-26 08:16 | P.PN_ITS ---
Internal Medicine - PN: Subj *Date: 02/26/20 *Time: 08:16 Interval history: Overall patient feels better, breathing more easily. On another issue his recent lumbar/SI joint injections have dramatically helped his mobility and leg pain, he has only residual pain in his right leg. Exam Vital signs and Labs for Last 24 Hours: Temp Pulse Resp BP Pulse Ox 98.0 F 95 H 20 156/90 H 94 L 02/26/20 07:44 02/26/20 07:44 02/26/20 07:44 02/26/20 07:44 02/26/20 07:44 Laboratory Results - last 24 hr 02/25/20 06:50: Digoxin < 0.40 02/25/20 06:50: SARS-CoV-2 IgG Ab (Rapid) Negative, SARS-CoV-2 IgM Ab (Rapid) Negative 02/25/20 10:15: Troponin I 0.06 H 02/25/20 11:45: Lactate 1.7 02/25/20 14:00: Troponin I 0.09 H 02/26/20 06:30: WBC 11.8 H, RBC 3.78 L, Hct 30.0 L, MCV 79.6 L, MCH 24.8 L, MCHC 31.2 L, RDW 18.3 H, Plt Count 196, MPV 7.5, Neut % (Auto) 92.8 H, Lymph % (Auto) 4.4 L, [place] % (Auto) 2.6, Eos % (Auto) 0.1, Baso % (Auto) 0.1, Neut # (Auto) 11.0 H, Lymph # (Auto) 0.5 L, [place] # (Auto) 0.3, Eos # (Auto) 0.0, Baso # (Auto) 0.0 02/26/20 06:30: Sodium 134 L, Potassium 4.0, Chloride 101, Carbon Dioxide 28, Anion Gap 9.0, BUN 23 H D, Creatinine 0.70 D, Estimated Creat Clear 62, Estimated GFR 109, Est GFR ( Amer) 132 D, Glucose 158 H, Calcium 8.6, Magnesium 1.9 I & O for Last 24 hours: Intake & Output 02/23/20 02/24/20 02/25/20 02/26/20 11:59 11:59 11:59 11:59 Intake Total 1906 / 1906 Output Total 250 / 250 Balance 1656 / 1656 Weight 155 lb 5 oz 157 lb 2 oz Narrative: Patient pleasant, talkative, oriented x3. Lungs are clearer, minimal expiratory wheezing. Abdomen soft. Heart rate regular. Neurologic exam intact. Moving all extremities well, no skin rashes. ENT exam clear. Assessment and Plan (1) Acute on chronic respiratory failure with hypoxemia Current visit: Yes Status: Acute Category: Medical Code(s): J96.21 - Acute and chronic respiratory failure with hypoxia (2) Osteoarthritis of multiple joints Current visit: Yes Status: Chronic Category: Medical Code(s): M15.9 - Polyosteoarthritis, unspecified (3) Acute exacerbation of chronic obstructive airways disease Current visit: Yes Status: Acute Category: Medical Code(s): J44.1 - Chronic obstructive pulmonary disease with (acute) exacerbation (4) Essential (primary) hypertension Current visit: No Status: Chronic Category: Medical Code(s): I10 - Essential (primary) hypertension (5) NSTEMI (non-ST elevated myocardial infarction) Current visit: Yes Status: Acute Category: Medical Code(s): I21.4 - Non-ST elevation (NSTEMI) myocardial infarction - Assessment and plan all Dx Assessment and Plan for all problems:: Overall problems seem to be improving. I believe troponin elevation might be a reactive non-STEMI but is clinically nonsignificant in relation to a significant lung disease. PT/OT consultation given his recent significant sciatica treatment to evaluate for possible home health referral. Care management for referral home health referral for discharge which will probably occur over the weekend.
--- NOTE | 2020-02-26 09:43 | HMH.OTEV ---
OT Inpatient Evaluation Rehab OT IP Evaluation Start: 02/26/20 08:15 Freq: ONCE Status: Complete Protocol: Document 02/26/20 09:33 LEXX (Rec: 02/26/20 09:42 [id number] Rehab OT IP Assessment Subjective History Pt is a 79 year old male who was admitted via ED on 02/25/20 for continued shortness of breath in the past 1-2 weeks. Pt dx with chronic hypoxemic respiratory failure. Pt has a past medical history of GERD, HTN, GA, cardiomyopathy, CHF, A-fib, COPD, CAD, CA, and polyarticular AR. Pt was oriented x 3 on arrival and agreeable to engage in therapy evaluation. Pt reports he lived at home alone prior to hospitalization. Pt claims he was independent with ADLs such as showering, dressing, and feeding. Pt has his family bring him food, groceries, and medication. He has a lady come biweekly to clean his house. He does use a walker, but does not have any steps he must climb. Subjective I can do what you tell me to do. Objective Patient Orientation Person,Place,Birthday Upper Extremity Gross ROM WFL Bed Mobility bed mobility-scooting,bed mobility - supine/sit,bed mobility - rolling Assist Level Supervision/Stand by Transfer Training Sit/Stand Transfer Assist Level Contact Guard/Hand Hold Chair Transfer Ability Contact Guard/Hand Hold Chair Transfer Technique Sit to/from Ambulatory Chair Transfer Assistive Devices Rolling Walker Feeding Ability Independent Lower Body Dressing Ability Assistance X1 Rehab OT IP prob,goals,plan Problems Date of Evaluation: 02/26/20 OT IP Problems Bed Mobility,Transfers,Gait, Balance,Self care,Safety Rehab Potential Rehab Potential Good Equipment Needs Assistive Devices Rolling / Wheeled Walker Plan OT intervention Plan Bed Mobility,Transfers,Gait, Balance,Self care,Safety, Therapeutic Exer
--- NOTE | 2020-02-26 10:14 | HMH.PTEV ---
Physical Therapy Evaluation Rehab PT IP Evaluation Start: 02/26/20 08:15 Freq: ONCE Status: Active Protocol: Document 02/26/20 10:07 [email or web address] (Rec: 02/26/20 10:14 SHIVAM [id number]) Subjective/History History History Pt was admitted to [facility] 02/25/20 secondary to increased SOB. Pt presents with hx of chronic COPD. O2 sats stable after transfers and ambulation. 1 rest required for transfer from bed to chair. Subjective Subjective Pt reports, I'm feeling alright. Pt reports L ankle pain with ambulation. Rehab PT IP Eval Objective Appearance Patient Behavior Appropriate Patient Orientation Person,Place,Day of Month Difficulty following instructions none Speech Pattern Clear Ambulation Patient Able to Ambulate Yes Balance Ability to Arise Able, uses arms to help Sitting Balance Steady, safe Standing Balance Steady, wide stance Dynamic Sitting Balance Ability Normal Dynamic Standing Balance Ability Good Transfers Bed Transfer Ability Independent Chair Transfer Ability Independent Sit to Stand Bed Transfer Ability Contact Guard/Hand Hold Sit to Stand Chair Transfer Ability Contact Guard/Hand Hold Pain Left Ankle Pain Intensity 5 ROM All Extremities PT ROM Status WFL MMT All Extremities PT MMT WFL Rehab PT IP prob,goals,plan Problems Date of Evaluation: 02/26/20 PT IP Problems Bed Mobility,Transfers,Gait, Balance,Self care,Safety Rehab Potential Rehab Potential Good Equipment Needs Assistive Devices Rolling / Wheeled Walker Plan PT Intervention Plan Bed Mobility,Transfers,Gait, Balance,Self care,Safety, Therapeutic Exercise PT Plan Frequency BID Duration LOS Discharge Goals Bed Transfer Ability Independent Sit to Stand Chair Transfer Ability Independent Ambulation Assistive Device Rolling Walker Ambulation Distance (feet) 100 Discharge Plan PT Discharge Plan Discharge to home health PT. G -code Required No Eval Complexity Eval Charge Codes 51766 - High Complexity PHYSICIAN CERTIFICATION: I certify the specified therapy services for Sridhar Brooks are required, authorized, and reviewed every 30 days.
[2020-02-26 10:39] LABS: Anisocytosis 1+; Lymphocytes % 2 % (10-50); Microcytosis 1+; Monocytes % 1 % (2-9); Neutrophils % 97 % (42-76); Platelet Estimate Normal; Total Cells Counted 100
[2020-02-26 10:40] LABS: Hypochromasia 1+
--- NOTE | 2020-02-26 11:06 | SW/DCPLANNER ---
RECEIVED REFERRAL FOR HOME HEALTH SERVICES FOR THIS PATIENT: I WENT IN TO SEE PATIENT THIS MORNING AND HE SAID HE IS PLANNING TO GO HOME OVER THE WEEKEND AND HE STATED HE LIVES ALONE, I ASKED HIM WHO HE WISHES TO USE AND HE CHOSE [facility].. I CALLED AND SENT REFERRAL FOR SERVICES TO START ON SATURDAY.. PT WAS UP IN THE OFFICE AND STATED HE NEEDS HELP AT HOME, I SPOKE WITH HIM ABOUT IT AND HE SAID HE HAS FAMILY AND NEIGHBORS TO HELP..
[2020-02-26 11:33] LABS: Hemoglobin 9.3 g/dL (14.1-18.0)
--- NOTE | 2020-02-26 19:11 | PC.NURSE ---
report given to darnell
[2020-02-27] VITALS (15 sets, daily range): BP systolic 136–176; BP diastolic 70–88; PULSE 60–82; RESP 18–26; TEMP 36.4–36.9; O2SAT 2–96; BMI 21.4
--- NOTE | 2020-02-27 04:38 | PC.NURSE ---
Pt c/o pain to right hip and back, treated per MAR w/ relief. Pt voiding clear, dark yellow urine independently using urinal. No other complaints reported. Rested well. Tolerating 3LNC well. NSR/Sinus arrhythmia (PAC's and PVC's) on tele.
--- NOTE | 2020-02-27 08:15 | HMH.ACPN2 ---
Internal Medicine - PN: Subj *Date: 02/27/20 *Time: 08:15 Interval history: Overall feeling better, continues to be minimally short of breath with exertion. 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 Exam Vital signs and Labs for Last 24 Hours: Temp Pulse Resp BP Pulse Ox 97.7 F 69 18 176/70 H 93 L 02/27/20 03:46 02/27/20 06:49 02/27/20 03:46 02/27/20 03:46 02/27/20 06:49 Laboratory Results - last 24 hr 02/26/20 06:30: Hgb 9.3 L D, Total Counted 100, Neutrophils % (Manual) 97 H, Lymphocytes % (Manual) 2 L, Monocytes % (Manual) 1 L, Platelet Estimate Normal, Hypochromasia 1+, Anisocytosis 1+, Microcytosis 1+ I & O for Last 24 hours: Intake & Output 02/24/20 02/25/20 02/26/20 02/27/20 11:59 11:59 11:59 11:59 Intake Total 1906 / 1906 1665 / 1665 Output Total 250 / 250 1175 / 1175 Balance 1656 / 1656 490 / 490 Weight 155 lb 5 oz 157 lb 2 oz 158 lb 6 oz Microbiology Reports for the Last 24 Hours: Microbiology 02/25/20 06:50 Blood Blood Culture - Preliminary NO GROWTH AFTER 48 HOURS 02/25/20 06:50 Blood Blood Culture - Preliminary NO GROWTH AFTER 48 HOURS 02/26/20 09:50 Sputum - Expectorated Sputum Gram Stain - Final 02/26/20 09:50 Sputum - Expectorated Sputum Sputum Culture - Preliminary Narrative: Patient is pleasant, alert, neurologic exam intact except for weakness in the right lower leg. Oropharynx clear, no JVD. Heart rate regular. Lungs have scattered expiratory wheezing with rhonchi bilaterally. Abdomen soft and nontender, no edema. Assessment and Plan (1) Acute on chronic respiratory failure with hypoxemia Current visit: Yes Status: Acute Category: Medical Code(s): J96.21 - Acute and chronic respiratory failure with hypoxia (2) Osteoarthritis of multiple joints Current visit: Yes Status: Chronic Category: Medical Code(s): M15.9 - Polyosteoarthritis, unspecified (3) Acute exacerbation of chronic obstructive airways disease Current visit: Yes Status: Acute Category: Medical Code(s): J44.1 - Chronic obstructive pulmonary disease with (acute) exacerbation (4) Essential (primary) hypertension Current visit: No Status: Chronic Category: Medical Code(s): I10 - Essential (primary) hypertension (5) NSTEMI (non-ST elevated myocardial infarction) Current visit: Yes Status: Acute Category: Medical Code(s): I21.4 - Non-ST elevation (NSTEMI) myocardial infarction - Assessment and plan all Dx Assessment and Plan for all problems:: Continue current management. I will discuss with daughter discharge planning and possible discharge to her care in [place] for the time being while he rehabs.
--- NOTE | 2020-02-27 18:19 | PC.NURSE ---
PT IS RESTING IN BED. NO COMPLAINTS OF DISCOMFORT. ALERT AND ORIENTED X4. PT STATES WHEN HE IS DC'D FROM THE HOSPITAL HE IS HOPING TO GO STAY WITH HIS DAUGHTER WHO LIVES OUT OF STATE. WHEN DAUGHTER CALLED TODAY SHE STATED SHE WOULD LIKE TO SEE PT GET INTO A REHAB FACILITY CLOSE TO WHERE SHE LIVES B/C SHE DOES NOT KNOW IF SHE CAN MANAGE PT ON HER OWN RIGHT NOW. PT WAS ABLE TO TOLERATE TAKING A SHOWER THIS SHIFT. EATING AND DRINKING WELL. LUNG SOUNDS HAVE SCATTERED EXPIRATORY WHEEZES. ABDOMEN SOFT/NONTENDER. USING URINAL TO VOID. VSS. WILL CONTINUE TO MONITOR.
[2020-02-28] VITALS (16 sets, daily range): BP systolic 149–190; BP diastolic 64–100; PULSE 52–88; RESP 16–22; TEMP 36.4–36.7; O2SAT 90–97; BMI 21.4
--- NOTE | 2020-02-28 00:26 | PC.NURSE ---
2345- SANDWICH MACHINE OPERATOR reported to this RN that pt stated he couldn't breath . This RN assessed pt at this time. Pt was raised from a supine to semi-folwers position independently and instructed to take a few deep breaths. O2 increased from 2LNC to 3LNC and 0000 scheduled methylprednisolone given as well. O2 sat obtained of 96% on 3LNC. Pt reports no dizziness, pain, N/V, or diaphoresis. After approximately 10 min pt stated he feels better and he just needed that cool air on me. Will continue to monitor.
--- NOTE | 2020-02-28 04:36 | PC.NURSE ---
Pt has rested well since episode of SOA (see note). Pt did c/o pain to LLE and was treated per NOV w/ relief. Pt is on 2LNC and sats are mid to upper 90's. No other complaints reported. Pt using urinal independently. Tele reading sinus rhythm w/ PJC's and occasional PVC's. Expiratory wheezing t/o lung alonzo and pt continues to have a dry, non-productive cough. VSS. Will continue to monitor.
--- NOTE | 2020-02-28 08:33 | HMH.ACPN2 ---
Internal Medicine - PN: Subj *Date: 02/28/20 *Time: 08:33 Interval history: Patient did well overnight, breathing well except for some shortness of air with activity. Exam Vital signs and Labs for Last 24 Hours: Temp Pulse Resp BP Pulse Ox 97.9 F 83 17 169/80 H 97 02/28/20 04:00 02/28/20 08:00 02/28/20 04:00 02/28/20 04:00 02/28/20 08:00 I & O for Last 24 hours: Intake & Output 02/25/20 02/26/20 02/27/20 02/28/20 11:59 11:59 11:59 11:59 Intake Total 1906 / 1906 2145 / 2145 964 / 964 Output Total 250 / 250 1825 / 1825 550 / 550 Balance 1656 / 1656 320 / 320 414 / 414 Weight 155 lb 5 oz 157 lb 2 oz 158 lb 6 oz 158 lb 6.011 oz Microbiology Reports for the Last 24 Hours: Microbiology 02/26/20 09:50 Sputum - Expectorated Sputum Gram Stain - Final 02/26/20 09:50 Sputum - Expectorated Sputum Sputum Culture - Preliminary 02/25/20 06:50 Blood Blood Culture - Preliminary NO GROWTH AFTER 48 HOURS 02/25/20 06:50 Blood Blood Culture - Preliminary NO GROWTH AFTER 48 HOURS Narrative: Oropharynx clear, lungs have good air movement, wheezing in both bases. Abdomen soft, heart rate regular. No extremity edema or clubbing. Neurologic examination intact except for significant weakness in the right leg. Assessment and Plan (1) Acute on chronic respiratory failure with hypoxemia Current visit: Yes Status: Acute Category: Medical Code(s): J96.21 - Acute and chronic respiratory failure with hypoxia (2) Osteoarthritis of multiple joints Current visit: Yes Status: Chronic Category: Medical Code(s): M15.9 - Polyosteoarthritis, unspecified (3) Acute exacerbation of chronic obstructive airways disease Current visit: Yes Status: Acute Category: Medical Code(s): J44.1 - Chronic obstructive pulmonary disease with (acute) exacerbation (4) Essential (primary) hypertension Current visit: No Status: Chronic Category: Medical Code(s): I10 - Essential (primary) hypertension (5) NSTEMI (non-ST elevated myocardial infarction) Current visit: Yes Status: Acute Category: Medical Code(s): I21.4 - Non-ST elevation (NSTEMI) myocardial infarction - Assessment and plan all Dx Assessment and Plan for all problems:: Discussed case with daughter yesterday. She and patient are both interested in referral to [facility] extended care/skilled care facility in [facility]. We will investigate this for Saturday transfer.
--- NOTE | 2020-02-28 17:49 | PC.NURSE ---
Patient resting in bed at present time, has been pleasantly confused this shift, required frequent redirection to remain in bed and ring out for assistance when needed, lungs reveal scattered rhonchi, remains on 2LNC, abd soft and nontender, voids per urinal, received full bath and bed change this shift, no s/s of distress noted, vss, will continue to monitor.
[2020-02-29] VITALS (8 sets, daily range): BP systolic 151–170; BP diastolic 72–94; PULSE 53–94; RESP 17–19; TEMP 36.5–36.7; O2SAT 91–97; BMI 21.4
--- NOTE | 2020-02-29 00:57 | PC.NURSE ---
Pt demanding, request followed by and hurry up. C/o right ankle pain, elevated on pillows, adjusted bed with little relief, pain pill given earlier and not available until 0200. Up to bsc for large, dark brown bm noted.Vital signs stable. Safety measures in place, bed alarm is on and audible, presently resting in supine position, monitoring continues.
--- NOTE | 2020-02-29 06:56 | PC.NURSE ---
Pt up to chair, remained safe, monitoring continues.
--- NOTE | 2020-02-29 08:44 | HMH.DCSUM ---
General - General Admission date:: 02/25/20 Discharge date: 02/29/20 HPI HPI: Mr. Brooks is a 79-year-old gentleman with a long history of tobacco use disorder, end-stage COPD, continuous oxygen requirement (chronic hypoxemic respiratory failure) and polyarticular osteoarthritis. He was brought to the ER this morning by EMS due to progressive shortness of breath over the past 1-2 weeks. States he is just not been able to breathe well. Is been using his inhalers more. Cough minimally productive. No known sick contacts. Denies fevers, chest pain, nausea, vomiting. Reportedly been taking his medications as prescribed. On arrival he was noted to be in more respiratory distress. Work-up concerning for Sirs criteria with tachycardia and tachypnea. Blood gas showing hypercarbia due to his tachypnea. Chest imaging consistent with COPD but no focal consolidation. He was requiring higher levels of oxygen than at home. Given his respiratory symptoms, Sirs, elevated white count, patient was admitted for severe COPD exacerbation and further management. Of note he was tested for COVID-19 in the ER, found to be negative. When I saw him after arrival to the floor, he appeared in moderate distress and very fatigued. Was stating he had significant discomfort in multiple joints including his ankles, knees, hips. This is longstanding chronic pain. He was also noted to have significant work of breathing using accessory muscles. Hospital Course Hospital Course: Patient was admitted, placed on IV antibiotics, respiratory support, enhanced respiratory toilet and oxygen therapy. Patient improved very nicely in a stepwise fashion. Cultures of sputum were nondiagnostic. However gram-positive diplococci were noted on the Gram stain. Patient improved with standard community-acquired pneumonia therapy with ceftriaxone and azithromycin. IV steroids were also beneficial. Patient significant right-sided sciatica and right neuropathy with leg weakness was vastly improved from my office visits a couple of weeks ago after lumbar injection therapy with our pain management clinic. However, he continued to have weakness, immobility and was compromised even further by his dyspnea and respiratory acidosis. It was felt the patient would benefit from a skilled care stay, and he will be evaluated in transfer to skilled care unit today. Patient will require ongoing PT/OT and will require IV ceftriaxone 1 g daily for 5 more days to finish out an adequate course for his COPD exacerbation/community-acquired bronchopneumonia. Patient will also need pain management evaluation if available along with physical therapy. I will prescribe hydrocodone for his ongoing pain and he will also need prednisone as outlined in the medication discharge summary. Objective Vital signs: Temp Pulse Resp BP Pulse Ox 97.7 F 82 19 153/94 H 91 L 02/29/20 07:52 02/29/20 08:32 02/29/20 07:52 02/29/20 07:52 02/29/20 07:52 Narrative: Patient is pleasant, alert, oriented x3. Oropharynx clear, no JVD. Lungs have better air movement than exam on admission, with still with residual rhonchi in the left lower lung field. No expiratory wheezing. Heart rate regular. Abdomen soft. Extremities have age-related bruising-especially in the context of his Xarelto therapy-no edema however Able to move extremities equally, but weak on the right lower leg in the hip flexion and foot dorsi and plantarflexion areas-this is improved over outpatient exams. Sensory exam and cranial nerve exam unremarkable Results Labs on day of discharge: Preliminary micro results at discharge 02/26/20 09:50 Sputum Culture - Preliminary Sputum - Expectorated Sputum 02/25/20 06:50 Blood Culture - Preliminary Blood NO GROWTH AFTER 48 HOURS 02/25/20 06:50 Blood Culture - Preliminary Blood NO GROWTH AFTER 48 HOURS DS: Diagnosis - Discharge Diagnosis (1) Acute o
--- NOTE | 2020-02-29 09:55 | SW/DCPLANNER ---
Addendum entered by Gaby Black RN 02/29/20 12:39: Patient accepted to [facility]. Spoke with daughter. Nephew will transport patient to Daughter's house and son in law will transport to facility. RN made aware and dc summary faxed. Original Note: SENT REFERRAL TO [facility] IN [place] A SKILLED REHAB UNIT FOR PHYSICAL THERAPY AND 5 DAYS OF CEFTRAXONE.... I HAD ORIGINALLY SET THIS PATIENT UP HOME HEALTH WITH [facility] BUT DAUGHTER DOES NOT FEEL HE CAN SAFELY GO HOME SO SHE HAS REQUESTED A SWING BED UP NEAR WHERE SHE LIVES... I HAVE SENT REFERRAL AND WAITING ON A CALL BACK TO SEE IF THEY CAN ACCEPT HIM OR NOT...
--- NOTE | 2020-02-29 13:45 | PC.NURSE ---
report given to ros lovell at skilled facility at this time
== END 2020-02-29 14:10 | DRG 189 ==
LOC: ER 07:49 → 2ND 08:21
PROVIDERS: Admitting Provider Internal Medicine Adolescent Medicine; Emergency Provider Emergency Medicine; PCP Internal Medicine Adolescent Medicine; Visit Provider Internal Medicine Adolescent Medicine
DX: J96.21 Acute and chronic respiratory failure with hypoxia (principal); J18.9 Pneumonia, unspecified organism; I21.4 Non-ST elevation (NSTEMI) myocardial infarction; J44.1 Chronic obstructive pulmonary disease with (acute) exacerbation; J44.0 Chronic obstructive pulmonary disease with (acute) lower respiratory infection; I48.91 Unspecified atrial fibrillation; Z99.81 Dependence on supplemental oxygen; Z72.0 Tobacco use; I25.2 Old myocardial infarction; I11.0 Hypertensive heart disease with heart failure; I50.9 Heart failure, unspecified; M89.49 Other hypertrophic osteoarthropathy, multiple sites; Z95.1 Presence of aortocoronary bypass graft; G57.01 Lesion of sciatic nerve, right lower limb; Z79.899 Other long term (current) drug therapy; Z79.01 Long term (current) use of anticoagulants; Z79.51 Long term (current) use of inhaled steroids; Z79.82 Long term (current) use of aspirin
CPT/HCPCS: 36415; 71045; 80048; 80053; 80162; 82803; 83605; 83735; 84484; 85007; 85025; 85651; 86140; 86328; 87040; 87070; 87205; 93005; 94640; 94761; 96365; 96367; 96375; 97110; 97116; 97163; 97166; 97530; 99285; J0456

== ENCOUNTER → 2020-06-30 09:06 | Outpatient (POV) | payer MEDICARE, SELFPAY ==
[2020-06-30 09:42] VITALS: BP 125/52; PULSE 85; RESP 18; O2SAT 98; BMI 21.7
--- NOTE | 2020-06-30 10:11 | HMH.PMCON ---
Assessment and Plan (1) Degenerative disc disease, lumbar Status: Chronic Category: Medical Code(s): M51.36 - Other intervertebral disc degeneration, lumbar region (2) Lumbar radiculopathy Status: Chronic Category: Medical Code(s): M54.16 - Radiculopathy, lumbar region (3) Facet arthropathy Status: Chronic Category: Medical Code(s): M47.819 - Spondylosis without myelopathy or radiculopathy, site unspecified (4) Sacroiliitis Status: Chronic Category: Medical Code(s): M46.1 - Sacroiliitis, not elsewhere classified (5) Trochanteric bursitis Status: Chronic Category: Medical Code(s): M70.60 - Trochanteric bursitis, unspecified hip - Assessment and plan all Dx Assessment and Plan for all problems:: We will schedule the patient for a right SI joint injection as well as a right trochanteric bursa injection. If the patient does not get relief, he may benefit from a lumbar epidural steroid injection in the future. Patient is on Xarelto therapy. We will follow-up with him after his injection to reassess symptoms. He has been instructed to contact clinic if he has any concerns before his next appointment. The patient and I specifically discussed risk factors for COVID19. These risks include, but are not limited to age greater than 60, heart or lung disease, diabetes, immunosuppression, and travel. We also discussed NSAIDs may worsen COVID19 infection or symptoms. Patient should not use NSAIDs to treat COVID19 signs or symptoms. Patient was also informed that any type of corticosteroid of any form (oral or injection) will decrease the patient's immune system response and may increase the likelihood of COVID19 infection [address] symptoms[address] Dr. Pham has reviewed this note and agrees with this plan of care. This note was dictated using voice recognition software and make contain errors or omissions. HPI - Data of Consult Patient: new to practice Consult date: 06/30/20 Requesting Physician: Emelina Dumont APRN Primary Care Provider: Jenaro Jean Baptiste MD - Consult Narrative History of present illness: Mr. Brooks is a 80 year old male resents today for consultation for low back pain with radiation into his right hip and right ankle. Patient does have a CT scan from January 2020. Patient is vague in his description of pain today. He does say, however, he is not having any pain at all today. He reports that he did take his pain medicine approximately 2 days ago and says he is continuing to get relief. Patient says he was prescribed medication that he does not take daily because it is effective for up to 2 to 3 days. Patient says that the medication he was prescribed is a life saver . Patient says that he started to develop this pain in his low back, hip, and right ankle approximately a year ago. He also says that he developed neck pain. He reports to have had surgical intervention to his neck in the past. He says that he began having severe pain in the winter 2018 that he thought was related to weather. Unfortunately, the pain continued. Patient says that he is having balance issues as well as recent falls. Patient says that he is unsure if it is related to his pain or if it is related to his age. Patient does rate his pain a 0 out of 10 today. He says when he does have pain, it is a 6 or 7 out of 10. CC: Emelina Dumont APRN [facility] History I have reviewed the patient's past medical history: Yes Medical History: Reports:: Arrhythmia, Atrial Fibrillation, Cardiomyopathy, Congestive Heart Failure, Chronic Obstructive Pulmonary Disease (COPD), Coronary Artery Disease, Gastroesophageal Reflux Disease(GERD), Home Oxygen, Hyperlipidemia, Hypertension, Myocardial Infarction Denies:: Cancer, Diabetes Mellitus Type 1, Diabetes Mellitus Type 2, Internal Pacemaker, MRSA, Seizures *Have you ever received a pneumonia vaccine?: Yes *Have you received a flu vaccine this season?: Yes Other Medical History: Reports: Rosa
== END ==
PROVIDERS: PCP Internal Medicine Adolescent Medicine; Visit Provider Clinical Nurse Specialist Family Health
DX: M51.16 Intervertebral disc disorders with radiculopathy, lumbar region (principal); M47.896 Other spondylosis, lumbar region; M46.1 Sacroiliitis, not elsewhere classified; M70.61 Trochanteric bursitis, right hip
CPT/HCPCS: 99202

== ENCOUNTER 2020-07-01 10:32 | Day surgery (SDC) | payer MEDICARE, SELFPAY ==
[2020-07-01 10:45] VITALS: BP 170/69; PULSE 67; RESP 17; TEMP 36.3; O2SAT 93; BMI 20.2
--- NOTE | 2020-07-01 11:02 | HMH.PMPROC ---
- Procedure Date: 07/01/20 Time: 11:02 Anesthesiologist:: Davis Pham MD Complications:: None Pre-procedure Diagnosis:: Sacroiliitis and trochanteric bursitis Post-procedure Diagnosis:: Same Indications for Procedure:: This patient is a pleasant 80-year-old white male who we are treating for low back pain rates radiation to the right hip and right leg. He is tender over the right SI joint. He is positive Tracy's test on right side. He is positive Jalen test on right side. Is positive SI joint compression test on the right side. He is also tender over the right trochanteric bursa. We will do a right SI joint injection right trochanteric bursa injection today to see if this gives him relief of his pain symptoms. Procedure Details:: Right SI joint injection under fluoroscopy Informed consent was obtained and the risks and benefits of the procedure was going to the patient. Patient was taken to the procedure room. Patient was placed prone on the procedure table. The right hip was prepped using ChloraPrep. The skin and subcutaneous tissues were anesthetized using lidocaine. I placed a 22-gauge spinal needle into the inferior aspect of the right SI joint. Needle placement was confirmed with dye. After this we injected 5 mL bupivacaine 0.25% and Depo-Medrol 40 mg into the right SI joint. The patient tolerated the procedure well with no complication. Right trochanteric bursa injection under fluoroscopy Form consent was obtained the risk and benefits of the procedure were explained the patient. Patient was taken the procedure room. The right hip was prepped using ChloraPrep. A 22-gauge needle was inserted and advanced into the right trochanteric bursa. Needle placement was confirmed with dye. After this we injected 5 mL bupivacaine 0.25% Depo-Medrol 40 mg into the right trochanteric bursa. Patient tolerated the procedure well with no complications. Plan and Disposition:: We will follow-up with him in 2 weeks. Will reevaluate symptoms at that time. If these do not take care of his right leg pain he may be a candidate for a lumbar epidural steroid injection under fluoroscopy.
[2020-07-01 11:07] VITALS: BP 132/74; BP 138/78; PULSE 85; RESP 18; O2SAT 98
[2020-07-01 11:20] VITALS: BP 163/66; PULSE 68; RESP 20; O2SAT 93
== END 2020-07-01 11:21 | disposition home or self-care (01) ==
LOC: SC.PAINP 10:34
PROVIDERS: PCP Internal Medicine Adolescent Medicine; Visit Provider Anesthesiology
DX: M46.1 Sacroiliitis, not elsewhere classified (principal); M70.61 Trochanteric bursitis, right hip; I10 Essential (primary) hypertension; J44.9 Chronic obstructive pulmonary disease, unspecified; K21.9 Gastro-esophageal reflux disease without esophagitis; I25.10 Atherosclerotic heart disease of native coronary artery without angina pectoris; Z99.81 Dependence on supplemental oxygen; Z72.0 Tobacco use; Z79.82 Long term (current) use of aspirin; Z79.899 Other long term (current) drug therapy
CPT/HCPCS: 20610; 27096; 77002; G0260; J1030; Q9966

== ENCOUNTER → 2020-07-21 10:52 | Outpatient (POV) | payer MEDICARE, SELFPAY ==
[2020-07-21 11:10] VITALS: BP 132/85; PULSE 85; RESP 18; O2SAT 98; BMI 20.2
--- NOTE | 2020-07-21 12:37 | HMH.PAINSOAP ---
[facility] Pain Management SOAP Note Subjective:: Patient is a 80-year-old white male who presents today for follow-up after a right SI joint injection and right trochanteric bursa injection. He is being treated for chronic low back pain with radiation into his right hip and right leg. Patient says that he got approximately 70% relief with the injections. He does rate his pain a 0 out of 10 today. He does, at the same time, admit to having some right hip pain intermittently. He says the pain is worse with any type of ambulation or movement. Patient does report that the injections did relieve his low back and right leg pain, however. He says that he understood that the injections would not give him full relief of his right hip pain. He says that the pain in his experiencing at this time is tolerable. Patient does perform a limited home exercising program. He does take [id number] anti-inflammatories. Review of Systems General: No recent weight changes, no fever, no sleep disturbances Respiratory: No cough, no shortness of air, no recurring pulmonary infections Cardiovascular/peripheral vascular: No chest pain, no palpitations, no edema, no shortness of breath Gastrointestinal: No new onset incontinence, normal bowel movements reported Genitourinary: No new onset incontinence Musculoskeletal: Intermittent right hip pain Psychiatric: Normal mood/affect Neurological: [Denies weakness in extremities], [denies balance issues] Objective:: Physical exam General: Alert and oriented x3, no acute distress, pleasant and cooperative, [on room air] Lungs: Respirations even and unlabored, symmetrical chest expansion Eyes: PERRL Musculoskeletal: Flexion and extension of lumbar spine somewhat guarded secondary to pain, deep tendon reflexes normal, strength in upper and lower extremities [5/5], antalgic gait noted Neurological: Speech clear, registered radiographer equal, no gross sensory deficit Assessment:: Right hip pain Plan:: The patient does not want to proceed with any further injective therapy at this time. He rates his pain a 0 out of 10 today. The patient would like to call us if his pain does return for possible right intra-articular hip injection. For now we will follow-up with the patient as needed and he will contact the clinic if his pain does return. He has been instructed to contact the clinic if he has any concerns in the future. The patient and I specifically discussed risk factors for COVID19. These risks include, but are not limited to age greater than 60, heart or lung disease, diabetes, immunosuppression, and travel. We also discussed NSAIDs may worsen COVID19 infection or symptoms. Patient should not use NSAIDs to treat COVID19 signs or symptoms. Patient was also informed that any type of corticosteroid of any form (oral or injection) will decrease the patient's immune system response and may increase the likelihood of COVID19 infection [address] symptoms[address]. Pham has reviewed this note and agrees with this plan of care. This note was dictated using voice recognition software and make contain errors or omissions. [facility] History I have reviewed the patient's past medical history: Yes Medical History: Reports:: Arrhythmia, Atrial Fibrillation, Cardiomyopathy, Congestive Heart Failure, Chronic Obstructive Pulmonary Disease (COPD), Coronary Artery Disease, Gastroesophageal Reflux Disease(GERD), Home Oxygen, Hyperlipidemia, Hypertension, Myocardial Infarction Denies:: Cancer, Diabetes Mellitus Type 1, Diabetes Mellitus Type 2, Internal Pacemaker, MRSA, Seizures *Have you ever received a pneumonia vaccine?: Yes *Have you received a flu vaccine this season?: Yes Other Medical History: Reports: Arthritis, Other. Denies: Blood Transfusion Reaction Other Surgeries: Yes: CABG, Cancer Surgery, Cardiac Catheterization, Colonoscopy, Hernia Repair, Other. No: Pacemaker Amputation: No Fractures: No - *Social History Smoking Status: Current ever
== END ==
PROVIDERS: PCP Internal Medicine Adolescent Medicine; Visit Provider Clinical Nurse Specialist Family Health
DX: M25.551 Pain in right hip (principal)
CPT/HCPCS: 99212

== ENCOUNTER → 2020-10-20 10:33 | Outpatient (POV) | payer MEDICARE, SELFPAY ==
[2020-10-20 10:36] VITALS: BP 117/89; PULSE 68; RESP 18; TEMP 36.8; O2SAT 97; BMI 20.9
--- NOTE | 2020-10-20 16:52 | P.CONS_ITS ---
[facility] Pain Management SOAP Note Subjective:: Patient is a pleasant 80-year-old white male who presents today for follow-up. Patient rates his pain a 0 out of 10 overall doing well. He like to follow-up at as-needed basis. ROS General: no recent weight change, no fever, no sleep disturbances Respiratory: no cough, no shortness of air, no recurring pulmonary infections Cardiovascular/Peripheral Vascular: No chest pain, No palpitations, no edema, no shortness of breath. Gastrointestinal: no new onset incontinence, normal bowel movements reported Genitourinary: no new onset incontinence Musculoskeletal: Back pain, leg pain at times Psychiatric: normal mood/ affect Neurological: [denies new onset weakness in extremities], [denies new onset balance issues] Objective:: Physical Exam General: Alert and oriented x3, no acute distress, pleasant and cooperative, [on room air] Lungs: Resps E/U, Symmetrical chest expansion, Eyes: PERRL Musculoskeletal: Flexion and extension of lumbar spine somewhat guarded secondary to pain, deep tendon reflexes normal, strength in upper and lower extremities [5/5], Neurological: speech clear, material crew supervisor equal, no gross sensory deficits Assessment:: Sacroiliitis Plan:: We will follow up with the patient on an as-needed basis. He has been instructed to call the office if he has any issues prior to his next appointment. He did have a recent fall he states he is going through physical therapy at this time. He states his only issue is with his right foot and swelling and difficulty lifting it up. I discussed with him to continue with physical therapy and if he has not improved in 2 weeks to give us a call and we will potentially order an MRI for him. Dr. Pham has reviewed this note and agrees with this plan of care. This note was dictated using voice recognition software and may contain errors or omissions [facility] History I have reviewed the patient's past medical history: Yes Medical History: Reports:: Arrhythmia, Atrial Fibrillation, Cardiomyopathy, Congestive Heart Failure, Chronic Obstructive Pulmonary Disease (COPD), Coronary Artery Disease, Gastroesophageal Reflux Disease(GERD), Home Oxygen, Hyperlipidemia, Hypertension, Myocardial Infarction Denies:: Cancer, Diabetes Mellitus Type 1, Diabetes Mellitus Type 2, Internal Pacemaker, MRSA, Seizures *Have you ever received a pneumonia vaccine?: Yes *Have you received a flu vaccine this season?: Yes Other Medical History: Reports: Arthritis, Other. Denies: Blood Transfusion Reaction Other Surgeries: Yes: CABG, Cancer Surgery, Cardiac Catheterization, Colonoscopy, Hernia Repair, Other. No: Pacemaker Amputation: No Fractures: No - *Social History Smoking Status: Current every day smoker Tobacco Type: cigarettes # Packs/Day (cigarettes): 1 Alcohol Intake: never Alcohol Intake Frequency:: a few times a week Substance Use Type: denies use *Occupational Status:: other Housing: house Household Members: none *Travel in the last 8 weeks: None Family Hx:: Unable to obtain
== END ==
PROVIDERS: Visit Provider Clinical Nurse Specialist Family Health
DX: M46.1 Sacroiliitis, not elsewhere classified (principal)
CPT/HCPCS: 99212; G0463

== ENCOUNTER 2020-11-01 00:44 | Emergency (ER) | payer MEDICARE, SELFPAY ==
[2020-11-01] VITALS (15 sets, daily range): BP systolic 163–202; BP diastolic 75–100; PULSE 62–86; RESP 16–26; TEMP 37.1; O2SAT 90–98; BMI 20.7
--- NOTE | 2020-11-01 00:51 | ECG_ITS ---
APPROVED REPORT Exam: Resting ECG HR:67 bpm ECG Measurements Heart Rate 67 AXES NJ 150 P 76 QRSd 126 QRS 102 QT 398 T 76 QTc 420 Conclusion Normal sinus rhythm Right bundle branch block Abnormal ECG Electronically signed by : Jenaro Jean Baptiste, 11/01/2020 21:07:58
--- NOTE | 2020-11-01 00:54 | XR_ITS ---
PROCEDURE: XR CHEST PORTABLE CLINICAL HISTORY: SOB COMPARISON: CR CXR2V XR chest 2V from 06/19/[address] ANGIO CHEST from 02/04/2020 CR XR CHEST PORTABLE from 02/04/2020 CR XR CHEST PORTABLE from 02/25/2020 FINDINGS: There has been a prior CABG. Normal heart size. Patient's chin obscures the upper chest. The remaining lungs are clear. No acute bony findings. IMPRESSION: No acute findings. Dictated by: Crispin Brown MD 11/01/2020 05:16 Crispin Brown MD in [place] 11/01/2020 05:16
[2020-11-01 01:05] LABS: Basophils % 0.2 % (0.1-2.0); Eosinophils # 0.1 K/mm3 (0.0-0.4); Eosinophils % 1.8 % (0.1-12.0); Hematocrit 36.5 % (42.0-52.0); Hemoglobin 11.3 g/dL (14.1-18.0); Lymphocytes # 1.7 K/mm3 (0.7-4.5); Lymphocytes % 23.9 % (10-50); Mean Corpuscular Hemoglobin 26.2 pg (27.0-31.2); Mean Corpuscular Volume 84.5 fl (80-94); Mean Platelet Volume 7.1 fl (7.4-10.4); Monocytes # 0.5 K/mm3 (0.1-1.0); Monocytes % 7.5 % (1.7-9.3); Neutrophils # 4.8 K/mm3 (1.8-7.8); Neutrophils % 66.6 % (37.0-80.0); Platelet Count 269 K/mm3 (142-424); Red Blood Count 4.32 M/mm3 (4.60-6.20); Red Cell Distribution Width 15.5 % (11.5-17.5); White Blood Count 7.3 K/mm3 (4.8-10.8)
[2020-11-01 01:06] LABS: ABG Base Excess 2.2 mmol/L (-2.4-2.3); ABG HCO3 28.5 mmhg (22.0-26.0); ABG Oxygen Saturation 97 % (90-100); ABG PH 7.31 mmol/L (7.35-7.45); ABG PO2 96.2 mmhg (80-100); ABG TCO2 30.3 mmhg (23-27)
[2020-11-01 01:08] LABS: Allen's Test Acceptable; Oxygen 3L NC %; Source Right Radial
[2020-11-01 01:09] LABS: ABG PCO2 58.2 mmhg (35.0-45.0)
[2020-11-01 01:11] LABS: Alanine Aminotransferase 12 U/L (12-78); Albumin Level 3.8 g/dl (3.5-5.0); Alkaline Phosphatase 86 U/L (38-126); Anion Gap 4.3 mEq/L (5-15); Aspartate Amino Transferase 23 U/L (17-59); Bilirubin,Direct 0.2 mg/dl (0.0-0.4); Bilirubin,Indirect 0.1 mg/dL (0.0-0.9); Bilirubin,Total 0.3 mg/dl (0.2-1.3); Bilirubin,Unconjugated 0.1 mg/dL (0.0-1.1); Blood Urea Nitrogen 15 mg/dl (9-20); Calcium 9.1 mg/dl (8.4-10.2); Carbon Dioxide 36 mmol/L (22.0-30.0); Chloride 101 mmol/L (98-107); Creatinine Clearance Estimated 57 mL/min (50-200); Estimated Glomerular Filt Rate 93 ml/min (>60); GFR (African American) 113 ML/MIN (>60); Glucose 104 mg/dl (74-100); Potassium 4.3 mmoL/L (3.5-5.1); Sodium 137 mmol/L (136-145); Total Protein,Serum 6.6 g/dl (6.3-8.2)
[2020-11-01 01:16] LABS: C-Reactive Protein 1.1 mg/L (0-4)
[2020-11-01 01:22] LABS: NT Pro Brain Natriuretic Pep. 4880 pg/mL (0-450)
[2020-11-01 01:29] LABS: Procalcitonin 0.156 ng/mL (0.0-2.0)
[2020-11-01 01:44] LABS: Troponin I 0.01 ng/ml (0.00-0.034)
[2020-11-01 01:45] LABS: Coronavirus 19 IgG Antibody Negative (Negative); Coronavirus 19 IgM Antibody Negative (Negative)
[2020-11-01 02:08] LABS: Erythrocyte Sedimentation Rate 27 mm/hr (0-20)
--- NOTE | 2020-11-01 02:28 | PC.NURSE ---
pt voided 100ml per urinal
--- NOTE | 2020-11-01 02:48 | PC.NURSE ---
pt voided 200ml per urinal
--- NOTE | 2020-11-01 03:00 | HMH.EDSOB ---
ED Disposition Clinical Impression: Acute exacerbation of chronic obstructive airways disease, RBBB Acute and chronic respiratory failure ([id number]) Qualifiers: Respiratory failure complication: hypercapnia Qualified Code(s): J96.22 - Acute and chronic respiratory failure with hypercapnia Chest pain Qualifiers: Chest pain type: precordial pain Qualified Code(s): R07.2 - Precordial pain Disposition: Admitted as Observation Condition on Discharge: [facility] - Critical Care Critical Care Time: No Attestation: On 11/01/20, the high probability of a clinically significant, sudden or life threatening deterioration of the following system(s) required my full and direct attention, intervention and personal management. The time I documented below is in addition to time spent performing reported procedures but includes the following listed in this critical care notation. Medical Decision Making - Medical Records Medical records reviewed: Yes: I reviewed the patient's medical records. - Jamal Inquiry Pt receiving controlled substance: No Vital Signs: 11/01/20 00:45 11/01/20 01:09 11/01/20 02:00 Temperature 98.7 F Temperature Source Oral Pulse Rate [Right] 67 62 65 Respiratory Rate 26 H Blood Pressure [Right Arm] 199/96 H 171/90 H 181/85 H Blood Pressure Mean [Right Arm] 130 117 117 Blood Pressure Source [Right Arm] Blood Pressure Position [Right Arm] 02 Sat by Pulse Oximetry 90 L 98 95 Oxygen Delivery Method Room Air Nasal Cannula Nasal Cannula Oxygen Flow Rate (LPM) 2 2 11/01/20 02:30 11/01/20 03:03 11/01/20 04:30 Temperature Temperature Source Pulse Rate [Right] 70 82 68 Respiratory Rate 21 16 Blood Pressure [Right Arm] 163/89 H 176/75 H 184/90 H Blood Pressure Mean [Right Arm] 113 108 121 Blood Pressure Source [Right Arm] Automatic Cuff Blood Pressure Position [Right Arm] Sitting 02 Sat by Pulse Oximetry 96 98 92 L Oxygen Delivery Method Nasal Cannula Room Air Nasal Cannula Oxygen Flow Rate (LPM) 2 2 - Lab Data Lab results reviewed: Yes: I reviewed the patient's lab results. Lab Results 11/01/20 00:54: Specimen Source Right radial, O2 % 3l nc, ABG pH 7.31 L, ABG pCO2 58.2 H, ABG pO2 96.2, ABG HCO3 28.5 H, ABG Total CO2 30.3 H, ABG O2 Saturation 97, ABG Base Excess 2.2, Crispin Test Acceptable 11/01/20 00:55: WBC 7.3, RBC 4.32 L, Hgb 11.3 L, Hct 36.5 L, MCV 84.5, MCH 26.2 L, MCHC 31.0 L, RDW 15.5, Plt Count 269, MPV 7.1 L, Neut % (Auto) 66.6, Lymph % (Auto) 23.9, [place] % (Auto) 7.5, Eos % (Auto) 1.8, Baso % (Auto) 0.2, Neut # (Auto) 4.8, Lymph # (Auto) 1.7, [place] # (Auto) 0.5, Eos # (Auto) 0.1, Baso # (Auto) 0.0, ESR 27 H 11/01/20 00:55: Sodium 137, Potassium 4.3, Chloride 101, Carbon Dioxide 36 H, Anion Gap 4.3 L, BUN 15, Creatinine 0.80, Estimated Creat Clear 57, Estimated GFR 93, Est GFR ( Amer) 113, Glucose 104 H, Calcium 9.1, Total Bilirubin 0.3, Direct Bilirubin 0.2, Conjugated Bilirubin 0.0, Indirect Bilirubin 0.1, Unconjugated Bilirubin 0.1, AST 23, ALT 12, Alkaline Phosphatase 86, Troponin I 0.01, C-Reactive Protein 1.1, Total Protein 6.6, Albumin 3.8, Procalcitonin 0.156 11/01/20 00:55: SARS-CoV-2 IgG Ab (Rapid) Negative, SARS-CoV-2 IgM Ab (Rapid) Negative 11/01/20 00:55: NT-Pro-B Natriuret Pep 4880 H 11/01/20 03:09: Chlamy pneumoniae PCR Not detected, Adenovirus (PCR) Not detected, B. pertussis DNA (PCR) Not detected, Coronavirus OC43 (PCR) Not detected, Coronavirus HKU1 (PCR) Not detected, Coronavirus 229E (PCR) Not detected, SARS-CoV-2 (PCR) Not detected, Coronavirus NL63 (PCR) Not detected, Human Metapneumovir PCR Not detected, Influenza A (H1) PCR Not detected, Influ A (H1N1/09) PCR Not detected, Influenza A (H3) PCR Not detected, Influenza Type A (PCR) Not detected, Influenza Type B (PCR) Not detected, M. pneumoniae (PCR) Not detected, Parainfluenza 1 (PCR) Not detected, Parainfluenza 2 (PCR) Not detected, Parainfluenza 3 (PCR) Not detected, Parainfluenza 4 (PCR) Not detecte
--- NOTE | 2020-11-01 03:04 | PC.NURSE ---
pt voided 200 ml per urinal
[2020-11-01 03:21] LABS: Adenovirus,PCR Not Detected (NotDetected); Bordetella Pertussis Not Detected (NotDetected); Chlamydophila Pneumoniae, PCR Not Detected (NotDetected); Coronavirus 19, PCR Not Detected (NotDetected); Coronavirus 229E Not Detected (NotDetected); Coronavirus NL63 Not Detected (NotDetected); Coronavirus OC43 Not Detected (NotDetected); Coronovirus HKU1,PCR Not Detected (NotDetected); Human Metapneumovirus Not Detected (NotDetected); Influenza A, PCR Not Detected (NotDetected); Influenza AH1, 2009 Not Detected (NotDetected); Influenza AH1, PCR Not Detected (NotDetected); Influenza AH3,PCR Not Detected (NotDetected); Influenza B, PCR Not Detected (NotDetected); Mycoplasma Pneumoniae, PCR Not Detected (NotDetected); Parainfluenza 1, PCR Not Detected (NotDetected); Parainfluenza 2, PCR Not Detected (NotDetected); Parainfluenza 3, PCR Not Detected (NotDetected); Parainfluenza 4, PCR Not Detected (NotDetected); Respiratory Syncytial Virus Not Detected (NotDetected); Rhinovirus/Enterovirus Not Detected (NotDetected)
--- NOTE | 2020-11-01 04:08 | PC.NURSE ---
spoke with dr márquez covering for dr horan
--- NOTE | 2020-11-01 04:35 | CA_ITS ---
APPROVED REPORT EXAM: Comprehensive 2D, Doppler, and color-flow Echocardiogram Deck Engine Operator: Kiara Bronson RCS, RCS Ht: 5 ft 10 in Wt: 145lbs BSA: 1.82 BP: 176/78 mmHg Indications: CAD-CABG, AFIB,CHF, HOME O2, [place] Echo Enhancing Agent Comments: TECHNICALLY LIMITED EXAM DUE TO LUNG INTERFERENCE AND LIMITED WINDOWS 2D Dimensions IVSd 0.85 cm LVEF (Visual) 52.40 % PWd 0.99 cm LVDd 5.54 cm LVDs 4.03 cm Aortic Root 2.97 cm Left Atrium 2.43 cm LVOT 2.19 cm (M/F) 1.5-2.5 M-Mode Dimensions EPSs 2.18 cm LV Diastology E Decel Time 230.00 (160-240 msec) E/A Ratio 0.52 MED E' 5.40 (< 7 cm/sec) MED A' 10.20 cm/s E'/MED E' Ratio 9.11 (>14) LAT E' 5.40 (<10 cm/sec) LAT A' 9.30 cm/s E/LAT E' Ratio 9.11 (>14) Aortic Valve AO Peak GR. 4.60 mmHg Mitral Valve MV E Max Evangelist. 49.00 (40-130 cm/s) MV A Velocity 94.00 (40-130 cm/s) E/A Ratio 0.52 MV Decel. Time 230.00 (160-240 ms) MV PHT 67.00 ms Pulmonary Valve PV Peak Velocity 57.00 (50-150 cm/s) Tricuspid Valve TR P. Velocity 204.00 cm/s RAP Estimate 10.00 mmHg RVSP 26.60 mmHg Left Ventricle Left atrium is mildly enlarged, left ventricle is normal size, mild concentric left ventricular hypertrophy, visually estimated ejection fraction 40 to 45%, inferior wall appears to be mildly hypokinetic. Endocardial surfaces are poorly visualized. Grade 1 diastolic dysfunction seen without tissue Doppler evidence of raise left atrial pressure. Right Ventricle Right atrium and right ventricle are normal size and contractility. Aortic Valve Aortic valve is thickened and calcified without aortic stenosis or aortic insufficiency. Mitral Valve Mitral valve is minimally thickened, there is mild mitral regurgitation Tricuspid Valve There is mild tricuspid regurgitation noted, tricuspid regurgitation jet velocity is inadequate for calculation of the right ventricular systolic pressure. Pulmonic Valve Pulmonic valve is poorly visualized. Great Vessels Aortic root is normal size. Pericardium No significant pericardial effusion noted Conclusion 1. Technically difficult study because of the patient factors and poor acoustic windows. Normal left ventricular size, mild concentric left ventricular hypertrophy, visually estimated ejection fraction of 40 to 45% with mild inferior wall hypokinesis, grade 1 diastolic dysfunction seen without tissue Doppler evidence of raise left atrial pressure. 2. Mild mitral and tricuspid regurgitation. 3. No significant pericardial effusion noted. Electronically signed by : Chris Naylor, 11/02/2020 06:01:46
--- NOTE | 2020-11-01 04:35 | PC.NURSE ---
notified hospital ward clerk that pt has cardio consult
--- NOTE | 2020-11-01 04:36 | PC.NURSE ---
pt voided 600ml per urinal
--- NOTE | 2020-11-01 04:39 | PC.NURSE ---
pt resting comfortable @ this time. call light in reach.
--- NOTE | 2020-11-01 04:42 | PC.NURSE ---
negative covid result. md aware
[2020-11-01 05:20] LABS: Troponin I 0.01 ng/ml (0.00-0.034)
--- NOTE | 2020-11-01 06:01 | PC.NURSE ---
called cardiovascular lab, spoke with jayden and informed of echo order
[2020-11-01 06:05] LABS: Basophils % 0.1 % (0.1-2.0); Eosinophils % 0.6 % (0.1-12.0); Hematocrit 38.2 % (42.0-52.0); Hemoglobin 11.9 g/dL (14.1-18.0); Lymphocytes # 0.9 K/mm3 (0.7-4.5); Lymphocytes % 12.4 % (10-50); Mean Corpuscular HGB Conc 31.3 g/dL (31.8-35.4); Mean Corpuscular Hemoglobin 26.3 pg (27.0-31.2); Mean Platelet Volume 8.7 fl (7.4-10.4); Monocytes # 0.2 K/mm3 (0.1-1.0); Monocytes % 2.4 % (1.7-9.3); Neutrophils # 5.9 K/mm3 (1.8-7.8); Neutrophils % 84.5 % (37.0-80.0); Platelet Count 200 K/mm3 (142-424); Red Blood Count 4.55 M/mm3 (4.60-6.20); Red Cell Distribution Width 15.7 % (11.5-17.5); White Blood Count 6.9 K/mm3 (4.8-10.8)
[2020-11-01 07:04] LABS: Chloride 96 mmol/L (98-107); Sodium 137 mmol/L (136-145)
[2020-11-01 07:05] LABS: Potassium 4.5 mmoL/L (3.5-5.1)
[2020-11-01 07:07] LABS: Blood Urea Nitrogen 16 mg/dl (9-20); Creatinine Clearance Estimated 57 mL/min (50-200); Estimated Glomerular Filt Rate 93 ml/min (>60); GFR (African American) 113 ML/MIN (>60)
[2020-11-01 07:08] LABS: Anion Gap 10.5 mEq/L (5-15); Calcium 9.2 mg/dl (8.4-10.2); Carbon Dioxide 35 mmol/L (22.0-30.0); Glucose 192 mg/dl (74-100)
--- NOTE | 2020-11-01 07:16 | PC.NURSE ---
Echo at bedside
[2020-11-01 07:23] LABS: Troponin I < 0.01 ng/ml (0.00-0.034)
--- NOTE | 2020-11-01 08:13 | PC.NURSE ---
Pt given more blankets at this time and is resting in his bed. Let pt know as soon as we had a bed for him he would be going upstairs.
--- NOTE | 2020-11-01 09:34 | PC.NURSE ---
Dr. Natarajan from care management at bedside
--- NOTE | 2020-11-01 09:45 | XR_ITS ---
PROCEDURE: XR ANKLE RT MIN 3V CLINICAL INDICATION: pain from fall COMPARISON: CR ANKCMLT XR ankle LT min 3V from 12/05/2017 FINDINGS: A well-circumscribed calcific density is present at the tip of the medial malleolus and may represent an ununited ossification center or an old fracture. No acute fracture or dislocation is evident. There is a prominent os trigonum. IMPRESSION: No acute findings. Dictated by: Crispin Brown MD 11/01/2020 10:21 Crispin Brown MD in [place] 11/01/2020 10:21
--- NOTE | 2020-11-01 09:45 | PC.NURSE ---
Dr. Forbes advised to give pt duoneb treatment, x-ray his right ankle, and call his office in [place] to get the patient an appt for and he will d/c pt from the ED.
--- NOTE | 2020-11-01 09:56 | PC.NURSE ---
Rad at bedside
--- NOTE | 2020-11-01 09:58 | HMH.HPDC ---
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 States symptoms have been worsening for couple days leading to his presentation to the ER. Initial work-up negative for Covid, chest x-ray with no focal infiltrates but some increased vascular markings, elevated BNP, and slight elevation in CO2 above baseline on his blood gas. Patient was diuresed with greater than a liter response to Lasix IV x1. Admitted to medicine for observation with COPD exacerbation. Received antibiotics in the ER and steroids. Went to assess the patient while still in the ER due to the hospital being full. States he is feeling better after diuresis. Stable on 2 L nasal cannula oxygen. Responded well to breathing treatments several hours earlier. Denies cough or chest pain. Overall feels better and interested in going home. Is able to tolerate p.o. intake and medications. [facility] History I have reviewed the patient's past medical history: Yes Medical History: Reports:: Arrhythmia, Atrial Fibrillation, Cardiomyopathy, Congestive Heart Failure, Chronic Obstructive Pulmonary Disease (COPD), Coronary Artery Disease, Gastroesophageal Reflux Disease(GERD), Home Oxygen, Hyperlipidemia, Hypertension, Myocardial Infarction Denies:: Cancer, Diabetes Mellitus Type 1, Diabetes Mellitus Type 2, Internal Pacemaker, MRSA, Seizures *Have you ever received a pneumonia vaccine?: No *Have you received a flu vaccine this season?: Yes Other Medical History: Reports: Arthritis, Other. Denies: Blood Transfusion Reaction Other Surgeries: Yes: CABG, Cancer Surgery, Cardiac Catheterization, Colonoscopy, Hernia Repair, Other. No: Pacemaker Amputation: No Fractures: No - *Social History Smoking Status: Current every day smoker Tobacco Type: cigarettes # Packs/Day (cigarettes): 1 Alcohol Intake: never Alcohol Intake Frequency:: a few times a week Substance Use Type: denies use *Occupational Status:: retired Housing: house Household Members: none *Travel in the last 8 weeks: None Family Hx:: Unable to obtain Review of Systems - Review of Systems Review of systems:: pertinent systems reviewed and negative unless documented below (14 point review of systems performed, pertinent positives and negatives as per HPI) - *Neurologic Denies dizziness, Denies seizure-like activity Exam Vital signs and Labs for Last 24 Hours: Temp Pulse Resp BP Pulse Ox 98.7 F 80 16 178/83 H 95 11/01/20 00:45 11/01/20 08:12 11/01/20 04:30 11/01/20 08:12 11/01/20 08:12 Laboratory Results - last 24 hr 11/01/20 00:54: Specimen Source Right radial, O2 % 3l nc, ABG pH 7.31 L, ABG pCO2 58.2 H, ABG pO2 96.2, ABG HCO3 28.5 H, ABG Total CO2 30.3 H, ABG O2 Saturation 97, ABG Base Excess 2.2, Crispin Test Acceptable 11/01/20 00:55: WBC 7.3, RBC 4.32 L, Hgb 11.3 L, Hct 36.5 L, MCV 84.5, MCH 26.2 L, MCHC 31.0 L, RDW 15.5, Plt Count 269, MPV 7.1 L, Neut % (Auto) 66.6, Lymph % (Auto) 23.9, [place] % (Auto) 7.5, Eos % (Auto) 1.8, Baso % (Auto) 0.2, Neut # (Auto) 4.8, Lymph # (Auto) 1.7, [place] # (Auto) 0.5, Eos # (Auto) 0.1, Baso # (Auto) 0.0, ESR 27 H 11/01/20 00:55: Sodium 137, Potassium 4.3, Chloride 101, Carbon Dioxide 36 H, Anion Gap 4.3 L, BUN 15, Creatinine 0.80, Estimated Creat Clear 57, Estimated GFR 93, Est GFR ( Amer) 113, Glucose 104 H, Calcium 9.1, Total Bilirubin 0.3, Direct Bilirubin 0.2, Conjugated Bilirubin 0.0, Indirect Bilirubin 0.1, Unconjugated Bilirubin 0.1, AST 23, ALT 12, Alkaline Phosphatase 86, Troponin I 0.01, C-Reactive Protein 1.1, Total Protein 6.6, Albumin 3.8, Procalcitonin 0.156 11/01/20 00:55: SARS-CoV-2 IgG Ab (Rapid) Negative, SARS-CoV-2 IgM Ab (Rapid) Negative 11/01/20 00:55: NT-Pro-B Natriuret Pep 5041
--- NOTE | 2020-11-01 10:03 | PC.NURSE ---
Spoke with Alvaro goff and scheduled patient an office visit on for 4pm.
--- NOTE | 2020-11-01 10:18 | HMH.CNCARD ---
History of Present Illness Consult date: 11/01/20 Requesting physician: Tera Forbes Consult reason: shortness of breath Chief complaint: SOA History of present illness: This is a 80-year-old white gentleman with end-stage COPD who presented to the emergency department with worsening shortness of breath and fatigue. The patient states that his shortness of breath was severe and started to scare him that is why he came into the emergency department. He states that this has been worsening the last couple of days prior to coming into the hospital. He states that his shortness of breath is associated with a productive cough. He denies any chest pain or chest pressure. He denies any edema. He denies any fever, chills, nausea, vomiting, diarrhea, PND or orthopnea. He is lying flat when I walk in the room with no difficulty breathing. Upon arrival at the emergency department he was found to have a negative troponin x2. His BNP was elevated at 4880. He was treated with Lasix 40 mg IV x1 dose and did have a significant diuresis. The patient states that he feels much better now. He reports that he just needs some antibiotics and steroids and he knew he would feel better. He states that he did not go see his primary care provider because of the symptoms and just came here to the emergency department. The patient does have a history of coronary artery disease with coronary artery bypass grafting and subsequent stenting. He states that he sees Dr. Wells in [facility] for his cardiology needs and does plan to go see her following his hospital visit. [facility] History I have reviewed the patient's past medical history: Yes Medical History: Reports:: Arrhythmia, Atherosclerotic Heart Disease, Atrial Fibrillation, Cardiomyopathy, Congestive Heart Failure, Chronic Obstructive Pulmonary Disease (COPD), Coronary Artery Disease, Gastroesophageal Reflux Disease(GERD), Home Oxygen, Hyperlipidemia, Hypertension, Myocardial Infarction Denies:: Cancer, Diabetes Mellitus Type 1, Diabetes Mellitus Type 2, Internal Pacemaker, MRSA, Seizures *Have you ever received a pneumonia vaccine?: No *Have you received a flu vaccine this season?: Yes Other Medical History: Reports: Arthritis, Other. Denies: Blood Transfusion Reaction Other Surgeries: Yes: CABG, Cancer Surgery, Cardiac Catheterization, Colonoscopy, Hernia Repair, Other. No: Pacemaker Amputation: No Fractures: No - *Social History Smoking Status: Current every day smoker Tobacco Type: cigarettes # Packs/Day (cigarettes): 1 Alcohol Intake: never Alcohol Intake Frequency:: a few times a week Substance Use Type: denies use *Occupational Status:: retired Housing: house Household Members: none *Travel in the last 8 weeks: None Family Hx:: Unable to obtain Meds Home Medications Medication Instructions Recorded Confirmed Type Aspirin [Aspirin 81mg chewable 81 mg PO DAILY 12/24/17 11/01/20 History tab] Budesonide/Formoterol Fumarate 2 puffs IN BID 12/24/17 11/01/20 History [Symbicort 160-4.5 Mcg Inhaler] Ranolazine [Ranexa 500mg ER tablet] 500 mg PO BID 12/24/17 11/01/20 History Rosuvastatin Calcium [Crestor 40mg 40 mg PO HS 12/24/17 11/01/20 History Tablets] Tiotropium [place] [Spiriva 1 puff IH DAILY 12/24/17 11/01/20 History 18mcg/puff inhaler] rivaroxaban 20 mg tablet 20 mg PO DAILY 05/26/19 11/01/20 History Albuterol Sulfate [Proventil-HFA 2 puffs IH QIDP PRN 02/25/20 11/01/20 History 90mcg/puff Inh] Cetirizine HCl 10 mg PO DAILY 02/25/20 11/01/20 History Ipratropium/Albuterol Sulfate 3 ml IH Q6HP PRN 02/25/20 11/01/20 History [Duoneb 3mL neb] lisinopriL [Lisinopril 40mg Tablet] 40 mg PO DAILY 02/25/20 11/01/20 History Hydrocod/Acet 5/325 mg [[place] 1 tab PO Q6HP PRN #25 tab 02/29/20 11/01/20 Rx 5/325mg tablet] Azithromycin 250 mg PO DAILY 4 Days #4 tab 11/01/20 Rx Cefdinir [Omnicef 300mg Capsule] 300 mg PO BID 6 Days #12 cap 11/01/20 Rx Furosemide [Lasix
--- NOTE | 2020-11-01 10:29 | PC.NURSE ---
Ondina called and stated patient needs a follow up appt with Dr carlisle, [employer] in 1-2 weeks
== END 2020-11-01 11:48 | disposition admitted as inpatient to this hospital (09) ==
LOC: ER 04:17 → 2ND 04:22
PROVIDERS: Emergency Provider Emergency Medicine; PCP Internal Medicine Adolescent Medicine
DX: Z20.822 Contact with and (suspected) exposure to COVID-19 (principal); J44.1 Chronic obstructive pulmonary disease with (acute) exacerbation; J96.22 Acute and chronic respiratory failure with hypercapnia; I25.2 Old myocardial infarction; E78.5 Hyperlipidemia, unspecified; K21.9 Gastro-esophageal reflux disease without esophagitis; I25.10 Atherosclerotic heart disease of native coronary artery without angina pectoris; I48.91 Unspecified atrial fibrillation; I10 Essential (primary) hypertension; Z99.81 Dependence on supplemental oxygen; F17.210 Nicotine dependence, cigarettes, uncomplicated; Z79.899 Other long term (current) drug therapy
CPT/HCPCS: 71045; 73610; 80048; 80076; 82803; 83880; 84145; 84484; 85025; 85651; 86140; 86328; 87581; 87633; 87798; 93005; 93306; 96365; 96367; 96375; 99283; J0456

== ENCOUNTER 2021-07-15 08:51 | Emergency (ER) | payer MEDICARE, SELFPAY ==
[2021-07-15 09:08] VITALS: BP 134/62; PULSE 69; RESP 18; TEMP 36.4; O2SAT 96; BMI 21.6
--- NOTE | 2021-07-15 09:11 | XR_ITS ---
PROCEDURE INFORMATION: Exam: XR Left Ankle Exam date and time: 07/15/2021 9:11 AM Age: 81 years old Clinical indication: Injury or trauma; Fall; Blunt trauma and swelling (edema); Left; Injury date: 07/14/21; Injury details: Patient fell and twisted ankle and landed on it weird; Additional info: Fall, injury TECHNIQUE: Imaging protocol: XR Left ankle. Views: 3 or more views. COMPARISON: CR ANKCMLT XR ankle LT min 3V 12/05/2017 12:41 PM FINDINGS: Bones/joints: No acute fracture or dislocation. Stable hypertrophic changes medial malleolus, likely from previous fracture. Soft tissues: Normal. IMPRESSION: No acute fracture or dislocation.
--- NOTE | 2021-07-15 09:12 | HMH.EDGENADL ---
ED Disposition Clinical Impression: Left ankle sprain Qualifiers: Encounter type: initial encounter Involved ligament of ankle: unspecified ligament Qualified Code(s): S93.402A - Sprain of unspecified ligament of left ankle, initial encounter Skin tear of forearm without complication Qualifiers: Encounter type: initial encounter Laterality: left Qualified Code(s): S51.812A - Laceration without foreign body of left forearm, initial encounter Disposition: Home, Self-Care Condition on Discharge: Good Instructions: DI for Ankle Sprain, How to Prevent Falls, How to Use a Walking Boot Additional Instructions: Use orthopedic boot. Follow-up with your primary care doctor next week. Ice and elevate your ankle for swelling. Use ice 20 minutes 4-5 times a day. Take Tylenol for pain. Referrals: Jenaro Jean Baptiste MD [Primary Care Provider] - - Critical Care Critical Care Time: No Attestation: On 07/15/21, the high probability of a clinically significant, sudden or life threatening deterioration of the following system(s) required my full and direct attention, intervention and personal management. The time I documented below is in addition to time spent performing reported procedures but includes the following listed in this critical care notation. Medical Decision Making - Jamal Inquiry Pt receiving controlled substance: No Vital Signs: 07/15/21 09:08 07/15/21 10:31 Temperature 97.6 F 98.2 F Temperature Source Oral Oral Pulse Rate 66 Pulse Rate [Right Radial] 69 Respiratory Rate 18 18 Blood Pressure 150/69 H Blood Pressure [Right Arm] 134/62 Blood Pressure Mean [Right Arm] 86 Blood Pressure Source Automatic Cuff Blood Pressure Source [Right Arm] Automatic Cuff Blood Pressure Position Sitting Blood Pressure Position [Right Arm] Sitting 02 Sat by Pulse Oximetry 96 Oxygen Delivery Method Room Air Room Air - Radiology Data #1 Image(s): Ankle Image Reviewed: Yes I reviewed the patient's radiology image Degenerative changes, no acute fracture or dislocation Medical Decision Narrative: States he has a walker to walk with at home. Patient was able to ambulate in the emergency department with an orthopedic boot on with a walker. He feels he can manage at home. General Adult HPI - General Stated complaint: AO 1016, twisted left ankle Time Seen by Provider: 07/15/21 09:05 - History of Present Illness HPI narrative: States that he stumbled and fell, twisting his left ankle and sustaining a skin tear on his left forearm. Her friend bandaged his skin tear. He says it has not been cleansed. He has no pain in his ankle sitting in the emergency department in a wheelchair, but says he cannot bear weight on it. Denies any other injuries. He lives alone. - Related Data Home Medications Medication Instructions Recorded Confirmed Aspirin [Aspirin 81mg chewable 81 mg PO DAILY 12/24/17 11/01/20 tab] Budesonide/Formoterol Fumarate 2 puffs IN BID 12/24/17 11/01/20 [Symbicort 160-4.5 Mcg Inhaler] Ranolazine [Ranexa 500mg ER tablet] 500 mg PO BID 12/24/17 11/01/20 Rosuvastatin Calcium [Crestor 40mg 40 mg PO HS 12/24/17 11/01/20 Tablets] Tiotropium [place] [Spiriva 1 puff IH DAILY 12/24/17 11/01/20 18mcg/puff inhaler] rivaroxaban 20 mg tablet 20 mg PO DAILY 05/26/19 11/01/20 Albuterol Sulfate [Proventil-HFA 2 puffs IH QIDP PRN 02/25/20 11/01/20 90mcg/puff Inh] Cetirizine HCl 10 mg PO DAILY 02/25/20 11/01/20 Ipratropium/Albuterol Sulfate 3 ml IH Q6HP PRN 02/25/20 11/01/20 [Duoneb 3mL neb] lisinopriL [Lisinopril 40mg Tablet] 40 mg PO DAILY 02/25/20 11/01/20 Previous Rx's Medication Instructions Recorded Hydrocod/Acet 5/325 mg [[place] 1 tab PO Q6HP PRN #25 tab 02/29/20 5/325mg tablet] Azithromycin 250 mg PO DAILY 4 Days #4 tab 11/01/20 Cefdinir [Omnicef 300mg Capsule] 300 mg PO BID 6 Days #12 cap 11/01/20 Furosemide [Lasix 20mg tablet] 40 mg PO NADJA
--- NOTE | 2021-07-15 09:21 | PC.NURSE ---
Pt went to xray.
--- NOTE | 2021-07-15 09:42 | PC.NURSE ---
Cleaned pts left arm skin tear. Cleaned with soap and water on a [facility] rag. Used neosporin with non adhesive, with a tegaderm to hold it down.
[2021-07-15 10:31] VITALS: BP 150/69; PULSE 66; RESP 18; TEMP 36.8; O2SAT 95
== END 2021-07-15 10:31 | disposition home or self-care (01) ==
PROVIDERS: Emergency Provider Emergency Medicine; PCP Internal Medicine Adolescent Medicine
DX: S93.402A Sprain of unspecified ligament of left ankle, initial encounter (principal); S51.812A Laceration without foreign body of left forearm, initial encounter; W01.0XXA Fall on same level from slipping, tripping and stumbling without subsequent striking against object, initial encounter; I10 Essential (primary) hypertension; E78.5 Hyperlipidemia, unspecified; K21.9 Gastro-esophageal reflux disease without esophagitis; I25.10 Atherosclerotic heart disease of native coronary artery without angina pectoris; J44.9 Chronic obstructive pulmonary disease, unspecified; F17.210 Nicotine dependence, cigarettes, uncomplicated
CPT/HCPCS: 29515; 73610; 99281

== ENCOUNTER 2021-11-08 16:29 | Observation (INO) | payer MEDICARE, OTHER, SELFPAY ==
[2021-11-08] VITALS (13 sets, daily range): BP systolic 0–197; BP diastolic 0–118; PULSE 36–72; RESP 16–27; TEMP 36.5–37.1; O2SAT 83–99; BMI 52.3; BMI 23.7; BMI 20.4
--- NOTE | 2021-11-08 16:41 | XR_ITS ---
PROCEDURE INFORMATION: Exam: XR Chest Exam date and time: 11/08/2021 4:41 PM Age: 81 years old Clinical indication: Shortness of breath; Prior surgery; Additional info: SOA TECHNIQUE: Imaging protocol: XR of the chest. Views: 1 view. COMPARISON: CR XR CHEST PORTABLE 11/01/2020 1:16 AM FINDINGS: Tubes, catheters and devices: There are sternal wires consistent with previous sternotomy incision. Lungs: Bilateral hyperinflation is present. Atelectatic changes noted within the left lung base. Pleural spaces: Apical pleural thickening noted bilaterally. There is no evidence of pneumothorax. Heart/Mediastinum: Unremarkable. No cardiomegaly. Bones/joints: Unremarkable. IMPRESSION: 1. Bilateral hyperinflation is present. 2. Atelectatic changes noted within the left lung base.
--- NOTE | 2021-11-08 16:42 | HMH.EDGENADL ---
ED Disposition Clinical Impression: COPD exacerbation CHF exacerbation Qualifiers: Heart failure type: unspecified Qualified Code(s): I50.9 - Heart failure, unspecified Disposition: Still a Patient Condition on Discharge: Good Referrals: Jenaro Jean Baptiste MD [Primary Care Provider] - - Critical Care Critical Care Time: No Attestation: On , the high probability of a clinically significant, sudden or life threatening deterioration of the following system(s) required my full and direct attention, intervention and personal management. The time I documented below is in addition to time spent performing reported procedures but includes the following listed in this critical care notation. Medical Decision Making - Medical Records Medical records reviewed: Yes: I reviewed the patient's medical records. - Jamal Inquiry Pt receiving controlled substance: No Vital Signs: 11/08/21 16:39 11/08/21 17:17 11/08/21 17:55 Pulse Rate 60 66 Pulse Rate [Right Brachial] 62 Respiratory Rate 26 H 22 20 Blood Pressure 185/78 H 161/77 H Blood Pressure [Right Arm] 197/118 H Blood Pressure Mean Blood Pressure Mean [Right Arm] 144 Blood Pressure Source Automatic Cuff Automatic Cuff Blood Pressure Source [Right Arm] Automatic Cuff Blood Pressure Position Sitting Supine Blood Pressure Position [Right Arm] Sitting 02 Sat by Pulse Oximetry 83 L 99 96 Oxygen Delivery Method Room Air Non-Rebreather Nasal Cannula Oxygen Flow Rate (LPM) 15 2.5 11/08/21 18:01 11/08/21 18:31 Pulse Rate 63 62 Pulse Rate [Right Brachial] Respiratory Rate 22 24 Blood Pressure 164/77 H 156/67 H Blood Pressure [Right Arm] Blood Pressure Mean 100 96 Blood Pressure Mean [Right Arm] Blood Pressure Source Blood Pressure Source [Right Arm] Blood Pressure Position Blood Pressure Position [Right Arm] 02 Sat by Pulse Oximetry 95 96 Oxygen Delivery Method Nasal Cannula Nasal Cannula Oxygen Flow Rate (LPM) 2.5 2.5 - Lab Data Lab Results 11/08/21 16:43: NT-Pro-B Natriuret Pep 76707 H 11/08/21 16:43: D-Dimer 1.36 H 11/08/21 16:45: WBC 7.5, RBC 3.77 L, Hgb 10.6 L, Hct 32.9 L, MCV 87.3, MCH 28.0, MCHC 32.0, RDW 16.3, Plt Count 280, MPV 8.1, Neut % (Auto) 69.3, Lymph % (Auto) 22.6, [place] % (Auto) 6.7, Eos % (Auto) 0.9, Baso % (Auto) 0.5, Neut # (Auto) 5.2, Lymph # (Auto) 1.7, [place] # (Auto) 0.5, Eos # (Auto) 0.1, Baso # (Auto) 0.0 11/08/21 16:45: Sodium 139, Potassium 4.2, Chloride 103, Carbon Dioxide 33 H, Anion Gap 7.2, BUN 21 H, Creatinine 1.00, Estimated Creat Clear 66, Estimated GFR 72, Est GFR ( Amer) 87, Glucose 186 H, Calcium 8.6, Total Bilirubin 0.8, AST 26, ALT 14, Alkaline Phosphatase 81, Troponin I 0.02, Total Protein 6.2 L, Albumin 3.6, Globulin 2.6, Albumin/Globulin Ratio 1.4 11/08/21 16:45: Lactate 1.2 11/08/21 17:00: SARS-CoV-2 (PCR) Not detected, Influenza A Untype (PCR) Not detected, Influenza Type B (PCR) Not detected Result diagrams: 11/08/21 16:45 11/08/21 16:45 Orders (Tests/Meds): ED MEDICATIONS Discontinued Medications Generic Name Dose Route Start Last Admin Trade Name Freq PRN Reason Stop Dose Admin Albuterol/Ipratropium 9 ml 11/08/21 16:40 11/08/21 16:55 Ipratropium/Albuterol 3 Ml Neb IH 11/08/21 16:41 9 ml ONCE ONE Administration Furosemide 80 mg 11/08/21 16:40 11/08/21 16:55 Furosemide 40mg/4ml Vial IV 11/08/21 16:41 80 mg ONCE ONE Administration Iopamidol 70 ml 11/08/21 19:02 11/08/21 19:03 Iopamidol-370 (76%);100ml Bottle IV 11/08/21 19:03 70 ml ONCE ONE Administration Labetalol HCl 10 mg 11/08/21 17:28 11/08/21 17:43 Labetalol 5mg/Ml 20ml Mdv IV 11/08/21 17:29 Not Given ONCE ONE Methylprednisolone Sodium Succinate 125 mg 11/08/21 16:39 11/08/21 16:57 Methylprednisolone Sod Succ 125mg Vial IV 11/08/21 16:40 125 mg ONCE ONE Administration Nitroglycerin 2 gm 11/08/21 16:40 11/08/21 16:54 Nitroglycerin 1 Gm Ointment TD
--- NOTE | 2021-11-08 16:53 | ECG_ITS ---
APPROVED REPORT Exam: Resting ECG HR:70 bpm ECG Measurements Heart Rate 70 AXES KS 202 P 54 QRSd 134 QRS 117 QT 452 T 73 QTc 472 Conclusion SINUS RHYTHM WITH FREQUENT VENTRICULAR PREMATURE COMPLEXES RIGHT BUNDLE BRANCH BLOCK [120+ ms QRS DURATION, UPRIGHT V1, 40+ ms S IN I/aVL/V4/V5/V6] LEFT POSTERIOR FASCICULAR BLOCK [QRS AXIS > 109, INFERIOR Q] ABNORMAL ECG UNCONFIRMED REPORT Electronically signed by : Jenaro Jean Baptiste MD 11/09/2021 18:50:05
[2021-11-08 17:01] LABS: Basophils % 0.5 % (0.1-2.0); Eosinophils # 0.1 K/mm3 (0.0-0.4); Eosinophils % 0.9 % (0.1-12.0); Hematocrit 32.9 % (42.0-52.0); Hemoglobin 10.6 g/dL (14.1-18.0); Lymphocytes # 1.7 K/mm3 (0.7-4.5); Lymphocytes % 22.6 % (10-50); Mean Corpuscular Volume 87.3 fl (80-94); Mean Platelet Volume 8.1 fl (7.4-10.4); Monocytes # 0.5 K/mm3 (0.1-1.0); Monocytes % 6.7 % (1.7-9.3); Neutrophils # 5.2 K/mm3 (1.8-7.8); Neutrophils % 69.3 % (37.0-80.0); Platelet Count 280 K/mm3 (142-424); Red Blood Count 3.77 M/mm3 (4.60-6.20); Red Cell Distribution Width 16.3 % (11.5-17.5); White Blood Count 7.5 K/mm3 (4.8-10.8)
[2021-11-08 17:06] LABS: Alanine Aminotransferase 14 U/L (12-78); Albumin Level 3.6 g/dl (3.5-5.0); Albumin/Globulin Ratio 1.4 (1.1-1.8); Alkaline Phosphatase 81 U/L (38-126); Anion Gap 7.2 mEq/L (5-15); Aspartate Amino Transferase 26 U/L (17-59); Bilirubin,Total 0.8 mg/dl (0.2-1.3); Blood Urea Nitrogen 21 mg/dl (9-20); Calcium 8.6 mg/dl (8.4-10.2); Carbon Dioxide 33 mmol/L (22.0-30.0); Chloride 103 mmol/L (98-107); Creatinine Clearance Estimated 66 mL/min (50-200); Estimated Glomerular Filt Rate 72 ml/min (>60); GFR (African American) 87 ML/MIN (>60); Globulin 2.6 g/dL (1.3-3.2); Glucose 186 mg/dl (74-100); Lactic Acid 1.2 mmol/L (0.7-2.1); Potassium 4.2 mmoL/L (3.5-5.1); Sodium 139 mmol/L (136-145); Total Protein,Serum 6.2 g/dl (6.3-8.2)
[2021-11-08 17:19] LABS: Troponin I 0.02 ng/ml (0.00-0.034)
[2021-11-08 17:31] LABS: Coronavirus 19, PCR Not Detected (NotDetected); Influenza A, PCR Not Detected (NotDetected); Influenza B, PCR Not Detected (NotDetected)
[2021-11-08 18:09] LABS: NT Pro Brain Natriuretic Pep. 24900 pg/mL (0-450)
[2021-11-08 18:13] LABS: D-Dimer 1.36 ug/mL (0.0-0.5)
--- NOTE | 2021-11-08 18:21 | CT_ITS ---
PROCEDURE INFORMATION: Exam: CTA Chest With Contrast Exam date and time: 11/08/2021 6:21 PM Age: 81 years old Clinical indication: Shortness of breath; Prior surgery; Additional info: Hypoxia, elev ddimer TECHNIQUE: Imaging protocol: Computed tomographic angiography of the chest with contrast. 3D rendering (Not supervised by radiologist): MIP and/or 3D reconstructed images were created by the technologist. Radiation optimization: All CT scans at this facility use at least one of these dose optimization techniques: automated exposure control; mA and/or kV adjustment per patient size (includes targeted exams where dose is matched to clinical indication); or iterative reconstruction. Contrast material: ISOVUE 370; Contrast volume: 70 ml; Contrast route: INTRAVENOUS (IV); COMPARISON: CT ANGIO CHEST 02/04/2020 12:10 PM FINDINGS: Tubes, catheters and devices: There are sternal wires consistent with previous sternotomy incision. Pulmonary arteries: No evidence of pulmonary embolism. Aorta: No evidence of aortic dissection. Ectatic changes of the infrarenal abdominal aorta partially imaged. Further evaluation is recommended. Lungs: Atelectatic changes noted within both lung bases. 6 mm noncalcified nodule again noted within the lingula, unchanged from the prior study. Other smaller punctate nodules noted bilaterally. Centrilobular emphysematous changes noted bilaterally. Bilateral hyperinflation is present. Pleural spaces: Apical pleural thickening noted bilaterally. Small bilateral pleural effusions. Heart: Heart demonstrates mild diffuse enlargement. There is moderate atherosclerotic calcification of the coronary arteries. Lymph nodes: Unremarkable. No enlarged lymph nodes. Kidneys and ureters: 2.7 cm left renal cyst. Bones/joints: The thoracic spine demonstrates mild degenerative changes at multiple levels. Soft tissues: Unremarkable. IMPRESSION: 1. No evidence of pulmonary embolism. 2. No evidence of aortic dissection. 3. Atelectatic changes noted within both lung bases. 4. Mild cardiomegaly. 5. Centrilobular emphysematous changes noted bilaterally. 6. Ectatic changes of the infrarenal abdominal aorta partially imaged. Further evaluation is recommended. 7. Small bilateral pleural effusions. COMMENTS: Consistent with the [place] [employer]'s Incidental Findings Committee white paper (J Am Romeo Radiol 2018): Any incidental renal lesion less than 1 cm or classified as too small to characterize, or any incidental cystic renal lesion characterized as simple-appearing, is likely benign. No follow-up imaging is recommended for these lesions per consensus recommendations based on imaging criteria.
--- NOTE | 2021-11-08 18:42 | PC.NURSE ---
pt urine output 450cc
--- NOTE | 2021-11-08 19:15 | PC.NURSE ---
paged Dr. Jean Baptiste for possible adx
--- NOTE | 2021-11-08 19:36 | PC.NURSE ---
Dr Jean Baptiste paged for a second time
[2021-11-08 20:00] LABS: Microscopic, Urine URINE MICROSCOPIC (MICROSCOPIC)
[2021-11-08 20:02] LABS: Troponin I 0.02 ng/ml (0.00-0.034)
[2021-11-08 20:07] LABS: Appearance,Urine CLEAR (Clear); Bilirubin,Urine Negative (Negative); Blood, Urine TRACE-L (Negative); Color,Urine STRAW (Yellow); Glucose,Urine (UA) Negative (Negative); Ketones,Urine Negative (Negative); Leukocyte Esterase,Urine Negative (Negative); Nitrate,Urine Negative (Negative); PH,Urine 6.5 (5.0-8.5); Protein,Urine TRACE (Negative); Specific Gravity, Urine 1.015 (1.005-1.030); Urobilinogen,Urine 0.2 EU/dl (0.2)
[2021-11-08 20:34] LABS: Squamous Epithelial Cell,Urine Occasional #/hpf (0-5); WBC,Urine Occasional #/hpf (0-3)
[2021-11-08 22:59] LABS: Troponin I 0.02 ng/ml (0.00-0.034)
[2021-11-09] VITALS: BP 180/62; PULSE 72; PULSE 74; RESP 20; TEMP 36.6; O2SAT 94
--- NOTE | 2021-11-09 00:56 | PC.NURSE ---
Patient states he is unable to list his medications, attempted to call Salvatore Brooks (nephew) to verify medications but had no answer.
[2021-11-09 03:30] VITALS: PULSE 87
[2021-11-09 04:00] VITALS: BP 137/83; PULSE 60; PULSE 66; RESP 20; TEMP 36.7; O2SAT 95
[2021-11-09 05:10] VITALS: BMI 20.3
--- NOTE | 2021-11-09 05:40 | PC.NURSE ---
Pt remains on 3L NC with O2 sats >90%. Pt has voiced no c/o of pain, N/V t/o shift. Pt had 1 large BM in BSC. Pt can use the urinal independently with 600ML output thus far in shift. Call light within reach.
[2021-11-09 06:21] LABS: Basophils % 0.2 % (0.1-2.0); Eosinophils % 0.1 % (0.1-12.0); Hematocrit 32.7 % (42.0-52.0); Hemoglobin 10.5 g/dL (14.1-18.0); Lymphocytes # 0.5 K/mm3 (0.7-4.5); Lymphocytes % 11.9 % (10-50); Mean Corpuscular Hemoglobin 27.6 pg (27.0-31.2); Mean Corpuscular Volume 86.3 fl (80-94); Mean Platelet Volume 7.9 fl (7.4-10.4); Monocytes # 0.1 K/mm3 (0.1-1.0); Monocytes % 2.3 % (1.7-9.3); Neutrophils # 3.4 K/mm3 (1.8-7.8); Neutrophils % 85.6 % (37.0-80.0); Platelet Count 234 K/mm3 (142-424); Red Blood Count 3.78 M/mm3 (4.60-6.20); Red Cell Distribution Width 16.4 % (11.5-17.5); White Blood Count 3.9 K/mm3 (4.8-10.8)
[2021-11-09 06:24] LABS: Chloride 96 mmol/L (98-107); Potassium 3.7 mmoL/L (3.5-5.1); Sodium 135 mmol/L (136-145)
[2021-11-09 06:27] LABS: Anion Gap 7.7 mEq/L (5-15); Blood Urea Nitrogen 20 mg/dl (9-20); Calcium 7.6 mg/dl (8.4-10.2); Carbon Dioxide 35 mmol/L (22.0-30.0); Creatinine Clearance Estimated 59 mL/min (50-200); Estimated Glomerular Filt Rate 72 ml/min (>60); GFR (African American) 87 ML/MIN (>60); Glucose 191 mg/dl (74-100)
[2021-11-09 06:42] LABS: MANUAL DIFFERENTIAL MANUAL DIFFERENTIAL (MANUAL DIFF)
--- NOTE | 2021-11-09 07:34 | P.CONPHA_ITS ---
[facility] Pharmacy VTE Monitoring - Patient Demographics Admission date: 11/08/21 Report Date: 11/09/21 Time: 07:34 Allergies/Adverse Reactions: Patient Allergies No Known Drug Allergies Allergy (Verified 11/01/20 00:53) NA Height: 1.85 m Weight: 69.717 kg Patient Problems: Current Active Problems COPD exacerbation (Acute) CHF exacerbation (Acute) - VTE Risk Labs: VTE Related Lab Results Hgb 10.5 g/dL (14.1-18.0) L 11/09/21 05:11 Hct 32.7 % (42.0-52.0) L 11/09/21 05:11 Plt Count 234 K/mm3 (142-424) 11/09/21 05:11 BUN 20 mg/dl (9-20) 11/09/21 05:11 Creatinine 1.00 mg/dl (0.66-1.25) 11/09/21 05:11 Estimated Creat Clear 59 mL/min (50-200) 11/09/21 05:11 VTE Score: 5 VTE Risk Level: Low Risk - Prophylaxis VTE Prophylaxis Ordered?: Yes Types of VTE Prophylaxis: TEDS Knee High Location of Applied Device: Bilateral Lower Extremeties
[2021-11-09 08:00] VITALS: BP 147/61; PULSE 78; RESP 24; TEMP 36.4; O2SAT 97
--- NOTE | 2021-11-09 08:17 | CA_ITS ---
APPROVED REPORT EXAM: Comprehensive 2D, Doppler, and color-flow Echocardiogram Vest Baster: Lady Vidal RVT Ht: 6 ft 0 in Wt: 153lbs BSA: 1.90 BP: 137/83 mmHg Indications: END STAGE COPD,DYSPENA,CHF,CM,GERD,CAD,CABG,SMOKER,HTN,HLD TDS 2D Dimensions LVOT 2.39 cm (M/F) 1.5-2.5 LA Volume 40.20 mL LA Volume Index 21.15 mL/m2 (M/F) 16-34 M-Mode Dimensions RVDd 2.62 cm (0.9-2.6) LA Diam 4.22 cm (1.9-4.0) LVDd 5.21 cm (3.5-5.7) Ao Diam 3.21 cm (2.0-3.7) LVDs 3.99 cm (3.5-5.7) IVSd 1.06 cm (0.6-1.1) PWd 0.72 cm (0.6-1.1) EF (Teich) 46.50% FS 23.40% EDV (Teich) 130.10 mL ESV (Teich) 69.60 mL LV Diastology E Decel Time 320.00 (160-240 msec) E/A Ratio 0.7 MED E' 5.30 (< 7 cm/sec) E'/MED E' Ratio 10.64 (>14) LAT E' 6.60 (<10 cm/sec) E/LAT E' Ratio 8.55 (>14) Mitral Valve MV E Max Evangelist. 56.00 (40-130 cm/s) MV A Velocity 80.00 (40-130 cm/s) E/A Ratio 0.70 MV Decel. Time 320.00 (160-240 ms) MV PHT 94.00 ms Pulmonary Valve PV Peak Velocity 58.00 (50-150 cm/s) Tricuspid Valve TR P. Velocity 314.00 cm/s RAP Estimate 10.00 mmHg RVSP 49.40 mmHg Left Ventricle Left atrium is mildly enlarged, left ventricle is normal size, mild concentric left ventricular hypertrophy, visually estimated ejection fraction 50% with no obvious regional wall motion abnormality, grade 1 diastolic dysfunction seen without tissue Doppler evidence of raise left atrial pressure. Right Ventricle Right atrium and right ventricle are mildly enlarged with normal contractility. Aortic Valve Aortic valve is minimally thickened and fibrosed, there is no aortic stenosis or aortic insufficiency. Mitral Valve Mitral valve grossly normal, there is mild mitral regurgitation. Tricuspid Valve Tricuspid valve grossly normal, there is mild tricuspid regurgitation, calculated right ventricular systolic pressure is 45 mmHg. Pulmonic Valve Pulmonic valve is poorly visualized. Great Vessels Aortic root is normal size. Inferior vena cava is mildly dilated with normal inspiratory collapse. Pericardium No significant pericardial effusion noted. Conclusion 1. Biatrial enlargement, normal left ventricular size, mild concentric left ventricular hypertrophy, visually estimated ejection fraction 50% with no obvious regional wall motion abnormality, grade 1 diastolic dysfunction seen without tissue Doppler evidence of raise left atrial pressure. 2. Mildly enlarged right ventricle with normal contractility 3. Mild mitral and tricuspid regurgitation, calculated right ventricular systolic pressure is 45 mmHg. 4. No significant pericardial effusion noted. 5. Inferior vena cava is mildly dilated with normal inspiratory collapse. Electronically signed by : Chris Naylor MD 11/10/2021 09:54:03
--- NOTE | 2021-11-09 08:20 | HMH.HP ---
*Admission Date: 11/08/21 *Chief complaint: Cough and congestion with dyspnea *History of present illness: 81-year-old white male with long-term emphysema, end-stage with oxygen and chronic prednisone requirements frequently, he has been in his normal state of somewhat compromised health at his home in [place] but became short of air, significant congestion with sputum production yesterday, came to the ER where he was found to have atelectasis in his chest on chest x-ray, cough, congestion slightly increased oxygen requirement. His BNP levels were elevated and he was given a dose of Lasix in the ER and felt somewhat better. Admitted for COPD exacerbation and further diagnostic testing. This morning he feels better and wonders about going home. [facility] History I have reviewed the patient's past medical history: Yes Medical History: Reports:: Arrhythmia, Atherosclerotic Heart Disease, Atrial Fibrillation, Cardiomyopathy, Congestive Heart Failure, Chronic Obstructive Pulmonary Disease (COPD), Coronary Artery Disease, Gastroesophageal Reflux Disease(GERD), Home Oxygen, Hyperlipidemia, Hypertension, Myocardial Infarction Denies:: Cancer, Diabetes Mellitus Type 1, Diabetes Mellitus Type 2, Internal Pacemaker, MRSA, Seizures *Have you ever received a pneumonia vaccine?: Yes *Have you received a flu vaccine this season?: Yes Other Medical History: Reports: Arthritis, Other. Denies: Blood Transfusion Reaction Other Surgeries: Yes: CABG, Cancer Surgery, Cardiac Catheterization, Colonoscopy, Hernia Repair, Other. No: Pacemaker Amputation: No Fractures: No - *Social History Smoking Status: Current every day smoker Tobacco Type: cigarettes # Packs/Day (cigarettes): 1 Alcohol Intake: current Alcohol Intake Frequency:: a few times a week Substance Use Type: denies use *Occupational Status:: retired Housing: house Household Members: family *Travel in the last 8 weeks: None Family Hx:: Unable to obtain Review of Systems - Review of Systems Review of systems:: pertinent systems reviewed and negative unless documented below Meds Home Medications Medication Instructions Recorded Confirmed Type Aspirin [Aspirin 81mg chewable 81 mg PO DAILY 12/24/17 11/01/20 History tab] Budesonide/Formoterol Fumarate 2 puffs IN BID 12/24/17 11/01/20 History [Symbicort 160-4.5 Mcg Inhaler] Ranolazine [Ranexa 500mg ER tablet] 500 mg PO BID 12/24/17 11/01/20 History Rosuvastatin Calcium [Crestor 40mg 40 mg PO HS 12/24/17 11/01/20 History Tablets] Tiotropium [place] [Spiriva 1 puff IH DAILY 12/24/17 11/01/20 History 18mcg/puff inhaler] rivaroxaban 20 mg tablet 20 mg PO DAILY 05/26/19 11/01/20 History Albuterol Sulfate [Proventil-HFA 2 puffs IH QIDP PRN 02/25/20 11/01/20 History 90mcg/puff Inh] Cetirizine HCl 10 mg PO DAILY 02/25/20 11/01/20 History Ipratropium/Albuterol Sulfate 3 ml IH Q6HP PRN 02/25/20 11/01/20 History [Duoneb 3mL neb] lisinopriL [Lisinopril 40mg Tablet] 40 mg PO DAILY 02/25/20 11/01/20 History Hydrocod/Acet 5/325 mg [[place] 1 tab PO Q6HP PRN #25 tab 02/29/20 11/01/20 Rx 5/325mg tablet] Azithromycin 250 mg PO DAILY 4 Days #4 tab 11/01/20 Rx Cefdinir [Omnicef 300mg Capsule] 300 mg PO BID 6 Days #12 cap 11/01/20 Rx Furosemide [Lasix 20mg tablet] 40 mg PO DAILY 30 Days #60 tab 11/01/20 Rx predniSONE [Deltasone 10mg tablet] 40 mg PO DAILY 5 Days #20 tab 11/01/20 Rx Allergies Allergy/AdvReac Type Severity Reaction Status Date / Time No Known Drug Allergies Allergy NA Verified 11/01/20 00:53 Exam Vital signs and Labs for Last 24 Hours: Temp Pulse Resp BP Pulse Ox 98.0 F 66 20 137/83 95 11/09/21 04:00 11/09/21 04:00 11/09/21 04:00 11/09/21 04:00 11/09/21 04:00 Laboratory Results - last 24 hr 11/08/21 16:43: NT-Pro-B Natriuret Pep 79568 H 11/08/21 16:43: D-Dimer 1.36 H 11/08/21 16:45: WBC 7.5, RBC 3.77 L, Hgb 10.6 L, Hct 32.9 L, MCV 87.3, MCH 28.0, MCHC 32.0, RDW 16.3, Pl
[2021-11-09 08:32] LABS: Lymphocytes % 9 % (10-50); Monocytes % 1 % (2-9); Neutrophils % 90 % (42-76); Total Cells Counted 100
[2021-11-09 08:33] LABS: Nucleated Red Blood Cells 1; Platelet Estimate Normal; RBC Morphology Normal
[2021-11-09 09:53] VITALS: PULSE 66; PULSE 68; O2SAT 93
[2021-11-09 10:04] VITALS: BMI 20.3
--- NOTE | 2021-11-09 11:51 | HMH.PHAINT ---
MEDICATION RECONCILIATION COMPLETED ON PATIENT USING EXTERNAL FILL HISTORY FROM PHARMACY AND LIST FROM PCP OFFICE. -BRUCE LOPEZD
[2021-11-09 13:26] VITALS: PULSE 66; O2SAT 92
--- NOTE | 2021-11-09 13:30 | HMH.DCSUM ---
General - General Admission date:: 11/08/21 Discharge date: 11/09/21 HPI HPI: 81-year-old white male with long-term emphysema, end-stage with oxygen and chronic prednisone requirements frequently, he has been in his normal state of somewhat compromised health at his home in [place] but became short of air, significant congestion with sputum production yesterday, came to the ER where he was found to have atelectasis in his chest on chest x-ray, cough, congestion slightly increased oxygen requirement. His BNP levels were elevated and he was given a dose of Lasix in the ER and felt somewhat better. Admitted for COPD exacerbation and further diagnostic testing. This morning he feels better and wonders about going home. Hospital Course Hospital Course: Patient was admitted, placed on IV steroids, IV antibiotics and IV Lasix was given. He improved very nicely over the next 18 hours and diuresed quite well. This morning he wished to go home. We gave him 1 more dose of IV Lasix, and watched him until lunch was completed at which time he was able to do all of his activities of daily living independently and had much less dyspnea. Plan able to discharge patient on steroids, antibiotics, I will have short-term follow-up with him in the [place] office, I encouraged him to take his diuretics daily, he had been apparently skipping dosage. Objective Vital signs: Temp Pulse Resp BP Pulse Ox 97.5 F L 66 24 147/61 H 93 L 11/09/21 08:00 11/09/21 09:53 11/09/21 08:00 11/09/21 08:00 11/09/21 09:53 no acute distress, chronically ill appearing - *Routine HEENT Exam Head: Present: normocephalic Eye: Present: EOMI, PERRL ENT: Present: mucous membranes moist - *Routine Neck Exam Present: supple - *Routine Respiratory Exam Present: rhonchi, wheezes - *Routine Cardiovascular Exam Present: RRR - *Routine Abdominal Exam Present: soft, normoactive bowel sounds. Absent: tenderness - *Routine Extremities Exam Absent: cyanosis, clubbing, edema - *Routine Skin Exam Present: warm. Absent: rash - Detailed Eye Exam Eyelids: Bilateral normal inspection Results Labs on day of discharge: Labs from last 24 hours 11/09/21 11/09/21 11/08/21 05:11 05:11 22:17 WBC 3.9 L D RBC 3.78 L Hgb 10.5 L Hct 32.7 L MCV 86.3 MCH 27.6 MCHC 32.0 RDW 16.4 Plt Count 234 MPV 7.9 Neut % (Auto) 85.6 H Lymph % (Auto) 11.9 [place] % (Auto) 2.3 Eos % (Auto) 0.1 Baso % (Auto) 0.2 Neut # (Auto) 3.4 Lymph # (Auto) 0.5 L [place] # (Auto) 0.1 Eos # (Auto) 0.0 Baso # (Auto) 0.0 Total Counted 100 Neutrophils % (Manual) 90 H Lymphocytes % (Manual) 9 L Monocytes % (Manual) 1 L Nucleated RBCs 1 Platelet Estimate Normal RBC Morphology Normal D-Dimer Sodium 135 L Potassium 3.7 Chloride 96 L Carbon Dioxide 35 H Anion Gap 7.7 BUN 20 Creatinine 1.00 Estimated Creat Clear 59 Estimated GFR 72 Est GFR ( Amer) 87 Glucose 191 H Lactate Calcium 7.6 L Total Bilirubin AST ALT Alkaline Phosphatase Troponin I 0.02 NT-Pro-B Natriuret Pep Total Protein Albumin Globulin Albumin/Globulin Ratio Urine Color Urine Appearance Urine pH Ur Specific [place] Urine Protein Urine Glucose (UA) Urine Ketones Urine Blood Urine Nitrate Urine Bilirubin Urine Urobilinogen Ur Leukocyte Esterase Urine WBC Ur Squamous Epith Cells SARS-CoV-2 (PCR) Influenza A Untype (PCR) Influenza Type B (PCR) 11/08/21 11/08/21 11/08/21 19:55 19:25 17:00 WBC RBC Hgb Hct MCV MCH MCHC RDW Plt Count MPV Neut % (Auto) Lymph % (Auto) [place] % (Auto) Eos % (Auto) Baso % (Auto) Neut # (Auto) Lymph # (Auto) [place] # (Auto) Eos # (Auto) Baso # (Auto) Total Counted Neutrophils % (Manu
--- NOTE | 2021-11-09 13:55 | PC.NURSE ---
PT STILL WAITING ON RIDE HOME.
== END 2021-11-09 14:30 | disposition home or self-care (01) ==
LOC: ER 19:32 → ICU 20:08
PROVIDERS: Admitting Provider Internal Medicine Adolescent Medicine; Emergency Provider Emergency Medicine; PCP Internal Medicine Adolescent Medicine; Visit Provider Internal Medicine Adolescent Medicine
DX: J44.1 Chronic obstructive pulmonary disease with (acute) exacerbation (principal); F17.210 Nicotine dependence, cigarettes, uncomplicated; Z79.899 Other long term (current) drug therapy; Z79.51 Long term (current) use of inhaled steroids; J96.20 Acute and chronic respiratory failure, unspecified whether with hypoxia or hypercapnia; I50.33 Acute on chronic diastolic (congestive) heart failure; I11.0 Hypertensive heart disease with heart failure; Z95.1 Presence of aortocoronary bypass graft; I42.9 Cardiomyopathy, unspecified; I25.10 Atherosclerotic heart disease of native coronary artery without angina pectoris; I48.91 Unspecified atrial fibrillation; K21.9 Gastro-esophageal reflux disease without esophagitis; Z99.81 Dependence on supplemental oxygen; Z20.822 Contact with and (suspected) exposure to COVID-19
CPT/HCPCS: G0378; 36415; 71045; 71275; 80048; 80053; 81001; 83605; 83880; 84484; 85007; 85025; 85378; 87040; 93005; 93306; 94640; 96365; 96366; 96375; 99284; C9803; J0456; J0696; Q9967; U0003; U0005

== ENCOUNTER → 2021-12-18 10:01 | Outpatient (POV) | payer MEDICARE, OTHER, SELFPAY ==
[2021-12-18 10:55] VITALS: BP 162/66; PULSE 43; RESP 20; TEMP 36.8; O2SAT 95; BMI 20.2
--- NOTE | 2021-12-18 12:44 | HMH.PMCON ---
Assessment and Plan (1) Osteoarthritis of shoulders, bilateral Status: Acute Category: Medical Code(s): M19.011 - Primary osteoarthritis, right shoulder; M19.012 - Primary osteoarthritis, left shoulder (2) Foot drop, right foot Status: Acute Category: Medical Code(s): M21.371 - Foot drop, right foot - Assessment and plan all Dx Assessment and Plan for all problems:: Patient presents today with bilateral shoulder pain associated with limited range of motion. Patient has had intra-articular joint injections in the shoulders in the past which provided significant relief. I will schedule for a bilateral intra-articular shoulder injections. Risks and benefits of the procedure have been explained to the patient. Patient would like to proceed with the procedure. Patient is also having right ankle pain/weakness. Upon exam, patient is unable to dorsiflex his right ankle. I will refer the patient back for physical therapy. I do recommend that the patient wear a right foot brace for foot drop. Patient has been instructed to contact the clinic with any concerns before the next appointment. Dr. Pham has reviewed this note and agrees with this plan of care. This note was dictated using voice recognition software and make contain errors or omissions. HPI - Data of Consult Patient: new to practice Consult date: 12/18/21 Requesting Physician: KENA Valentin - Consult Narrative Reason for consult: Bilateral shoulder pain, right ankle pain History of present illness: Mr. Brooks is a 81 year old male who presents today as a new patient. Patient has a medical history of degenerative disc disease of the lumbar spine with lumbar radiculopathy symptoms, spinal stenosis with neurogenic claudication, right-sided sciatica pain, type 2 diabetes, end-stage COPD, hypertension, hyperlipidemia. Patient is referred by Dr. Moran's office. Thank you for the referral. Patient presents today with worsening bilateral shoulder pain and right ankle pain that has been going on for several months now. Patient states that he has been having issues raising both of his arms. It is becoming more difficult doing his daily activities especially putting on his clothes. Patient states that he has had injections in his shoulders in the past that helped for several months. But this has been more than a year ago. He says that this pain is worse in the morning and gets better throughout the day. For pain management, he is taking Tylenol and ibuprofen. Patient also presents today with right ankle pain. Patient states that it does not hurt but he has been having more difficulty pushing his foot up. He denies any recent falls or traumas that is related to his right ankle. He says that he does not have this issue on his left ankle. He was doing physical therapy for his right ankle about 6 months ago. Physical therapist recommended using a right foot brace, but he never got this foot brace. He was also not happy with his previous physical therapy so he stopped going there. CC: KENA Valentin [facility] History I have reviewed the patient's past medical history: Yes Medical History: Reports:: Arrhythmia, Atherosclerotic Heart Disease, Atrial Fibrillation, Cardiomyopathy, Congestive Heart Failure, Chronic Obstructive Pulmonary Disease (COPD), Coronary Artery Disease, Diabetes Mellitus Type 2, Gastroesophageal Reflux Disease(GERD), Home Oxygen, Hyperlipidemia, Hypertension, Myocardial Infarction Denies:: Cancer, Diabetes Mellitus Type 1, Internal Pacemaker, MRSA, Seizures *Have you ever received a pneumonia vaccine?: Yes *Have you received a flu vaccine this season?: Yes Other Medical History: Reports: Arthritis, Other. Denies: Blood Transfusion Reaction Other Surgeries: Yes: CABG, Cancer Surgery, Cardiac Catheterization, Colonoscopy, Hernia Repair, Other. No: Pacemaker Amputation: No Fractures: No - *Social History Smoking Status: Current every day smoker Tobacco Type:
== END ==
PROVIDERS: Visit Provider Student in an Organized Health Care Education/Training Program
DX: M19.011 Primary osteoarthritis, right shoulder (principal); M19.012 Primary osteoarthritis, left shoulder; M21.371 Foot drop, right foot
CPT/HCPCS: 99202; G0463

== ENCOUNTER 2021-12-22 11:31 | Day surgery (SDC) | payer MEDICARE, OTHER, SELFPAY ==
[2021-12-22 11:38] VITALS: BP 147/70; PULSE 39; RESP 20; TEMP 36.8; O2SAT 92; BMI 19.9
--- NOTE | 2021-12-22 12:00 | HMH.PMPROC ---
- Procedure Date: 12/22/21 Time: 12:00 Anesthesiologist:: Jeanna Whitney MD Complications:: None Pre-procedure Diagnosis:: Bilateral shoulder primary osteoarthritis, bilateral shoulder pain Post-procedure Diagnosis:: Same Indications for Procedure:: Patient is a very pleasant 81-year-old white male who presents today with chronic bilateral diagnosis. He has tried and failed conservative treatment with oral medications and nutrition program for greater than 6 weeks. He has previously undergone bilateral shoulder injections and notes significant pain relief for several months. He states that the pain is since returned and is requesting repeat injections today. Plan for today is for the patient to undergo repeat bilateral intra-articular shoulder injections. Procedure Details:: Informed consent was obtained. Risks and benefits of the procedure were explained to the patient. Patient was taken back to the procedure. The left shoulder was prepped using ChloraPrep. A 25-gauge needle was used first posteriorly in the medial to lateral trajectory the needle is advanced into the glenohumeral joint of the left shoulder was approached, at which point 3 mL of injectate solution of 6 mL of 5 mL bupivacaine 0.25% and Depo-Medrol 40 mg was injected. Next the trajectory was adjusted so that the needle was advanced anteriorly and superiorly into the subacromial bursa of the shoulder, at which point 5 mL of the same injectate solution was injected. The needle was removed and scapular spine was palpated and a 25-gauge needle was advanced to 45 degrees toward the suprascapular notch, at which point 10 mL of the same injectate solution was injected. The same steps were repeated on the right side. Patient tolerated the procedure well without any complications. Plan and Disposition:: We will follow-up with this patient in 2 weeks. Will reevaluate pain symptoms at the time.
[2021-12-22 12:10] VITALS: BP 145/76; PULSE 55; RESP 20; O2SAT 95
[2021-12-22 12:12] VITALS: BP 155/75; PULSE 55; RESP 20; O2SAT 95
[2021-12-22 12:21] VITALS: BP 156/79; PULSE 54; RESP 20; O2SAT 94
== END 2021-12-22 12:22 | disposition home or self-care (01) ==
LOC: SC.PAINP 11:32
PROVIDERS: PCP Internal Medicine Adolescent Medicine; Visit Provider Anesthesiology Pain Medicine
DX: M19.011 Primary osteoarthritis, right shoulder (principal); M19.012 Primary osteoarthritis, left shoulder; I25.10 Atherosclerotic heart disease of native coronary artery without angina pectoris; I48.91 Unspecified atrial fibrillation; I42.9 Cardiomyopathy, unspecified; I50.9 Heart failure, unspecified; J44.9 Chronic obstructive pulmonary disease, unspecified; K21.9 Gastro-esophageal reflux disease without esophagitis; E78.5 Hyperlipidemia, unspecified; I11.0 Hypertensive heart disease with heart failure; I25.2 Old myocardial infarction; Z99.81 Dependence on supplemental oxygen
CPT/HCPCS: 20610; J1040

== ENCOUNTER 2022-01-12 14:15 | Emergency (ER) | payer MEDICARE, OTHER, SELFPAY ==
[2022-01-12] VITALS (9 sets, daily range): BP systolic 153–191; BP diastolic 78–129; PULSE 49–75; RESP 15–42; TEMP 36.9; O2SAT 90–99; BMI 19.1
--- NOTE | 2022-01-12 14:25 | ECG_ITS ---
APPROVED REPORT Exam: Resting ECG HR:77 bpm ECG Measurements Heart Rate 77 AXES TX 167 P 102 QRSd 137 QRS 73 QT 392 T 52 QTc 424 Conclusion SINUS RHYTHM WITH FREQUENT VENTRICULAR PREMATURE COMPLEXES RIGHT BUNDLE BRANCH BLOCK [120+ ms QRS DURATION, UPRIGHT V1, 40+ ms S IN I/aVL/V4/V5/V6] ABNORMAL ECG UNCONFIRMED REPORT Electronically signed by : Jenaro Jean Baptiste MD 01/12/2022 16:15:45
--- NOTE | 2022-01-12 14:26 | XR_ITS ---
FINAL REPORT CLINICAL HISTORY: cough, soa COMPARISON: November 08, 2021 FINDINGS: The heart is mildly enlarged. There are multiple sternotomy wires. The mediastinum is normal. There are chronic changes in the lung bases. There is no focal infiltrate or edema. There are no pleural effusions. There is no pneumothorax. There is no osseous abnormality. IMPRESSION: No acute cardiopulmonary process Reviewed, Interpreted and Dictated by Ryan Gibbons MD Transcribed by Lawson Lux Authenticated by Ryan Gibbons MD on 01/12/2022 03:17:22 PM [facility]
--- NOTE | 2022-01-12 14:41 | PC.NURSE ---
RT at bedside, obtaining ABG
[2022-01-12 14:45] LABS: Basophils # 0.1 K/mm3 (0-0.2); Basophils % 0.6 % (0.1-2.0); Eosinophils # 0.1 K/mm3 (0.0-0.4); Eosinophils % 0.6 % (0.1-12.0); Hematocrit 38.5 % (42.0-52.0); Hemoglobin 12.4 g/dL (14.1-18.0); Lymphocytes # 2.5 K/mm3 (0.7-4.5); Mean Corpuscular HGB Conc 32.1 g/dL (31.8-35.4); Mean Corpuscular Hemoglobin 28.5 pg (27.0-31.2); Mean Corpuscular Volume 88.7 fl (80-94); Mean Platelet Volume 7.6 fl (7.4-10.4); Monocytes # 0.7 K/mm3 (0.1-1.0); Monocytes % 5.7 % (1.7-9.3); Neutrophils % 73.1 % (37.0-80.0); Platelet Count 211 K/mm3 (142-424); Red Blood Count 4.35 M/mm3 (4.60-6.20); Red Cell Distribution Width 16.8 % (11.5-17.5); White Blood Count 12.4 K/mm3 (4.8-10.8)
[2022-01-12 14:47] LABS: Chloride 100 mmol/L (98-107); Potassium 4.7 mmoL/L (3.5-5.1); Sodium 137 mmol/L (136-145)
[2022-01-12 14:48] LABS: ABG Base Excess 4.4 mmol/L (-2.4-2.3); ABG HCO3 29.7 mmhg (22.0-26.0); ABG Oxygen Saturation 93 % (90-100); ABG PH 7.37 mmol/L (7.35-7.45); ABG PO2 64.1 mmhg (80-100); ABG TCO2 31.4 mmhg (23-27)
[2022-01-12 14:50] LABS: Alanine Aminotransferase 73 U/L (12-78); Albumin Level 3.7 g/dl (3.5-5.0); Albumin/Globulin Ratio 1.5 (1.1-1.8); Alkaline Phosphatase 76 U/L (38-126); Anion Gap 4.7 mEq/L (5-15); Aspartate Amino Transferase 43 U/L (17-59); Bilirubin,Total 0.4 mg/dl (0.2-1.3); Blood Urea Nitrogen 31 mg/dl (9-20); Carbon Dioxide 37 mmol/L (22.0-30.0); Creatinine Clearance Estimated 37 mL/min (50-200); Estimated Glomerular Filt Rate 45 ml/min (>60); GFR (African American) 55 ML/MIN (>60); Globulin 2.5 g/dL (1.3-3.2); Total Protein,Serum 6.2 g/dl (6.3-8.2)
[2022-01-12 14:51] LABS: Activated Partial Thrombo Time 23.1 seconds (22.8-30.6); Calcium 8.3 mg/dl (8.4-10.2); Glucose 79 mg/dl (74-100); INR 0.96 (0.9-1.1); Prothrombin Time 10.9 seconds (10.1-12.5)
[2022-01-12 14:52] LABS: Allen's Test ACCEPTABLE; Oxygen 3LPM %; Source R RADIAL
[2022-01-12 14:53] LABS: ABG PCO2 53.2 mmhg (35.0-45.0)
--- NOTE | 2022-01-12 14:54 | HMH.EDSOB ---
ED Disposition Clinical Impression: Congestive heart failure Qualifiers: Heart failure type: systolic Heart failure chronicity: acute on chronic Qualified Code(s): I50.23 - Acute on chronic systolic (congestive) heart failure COPD with emphysema Qualifiers: Emphysema type: unspecified Qualified Code(s): J43.9 - Emphysema, unspecified Disposition: Home, Self-Care Condition on Discharge: Good Instructions: DI for Chronic Obstructive Pulmonary Disease Prescriptions: methylPREDNISolone [Medrol 4mg tab] 4 mg PO DIRECTED #21 tab Transmission Status: Pending to [facility] Referrals: Jenaro Jean Baptiste MD [Primary Care Provider] - - Critical Care Critical Care Time: No Attestation: On 01/12/22, the high probability of a clinically significant, sudden or life threatening deterioration of the following system(s) required my full and direct attention, intervention and personal management. The time I documented below is in addition to time spent performing reported procedures but includes the following listed in this critical care notation. Medical Decision Making - Medical Records Medical records reviewed: Yes: I reviewed the patient's medical records. - Jamal Inquiry Pt receiving controlled substance: No Vital Signs: 01/12/22 14:16 01/12/22 14:27 01/12/22 14:30 Pulse Rate 52 L 49 L Pulse Rate [Radial] 75 Respiratory Rate 42 H 21 24 Blood Pressure 191/129 H 185/126 H Blood Pressure [Right Arm] 191/121 H Blood Pressure Mean 155 145 Blood Pressure Mean [Right Arm] 144 Blood Pressure Position [Right Arm] Sitting 02 Sat by Pulse Oximetry 90 L 99 99 Oxygen Delivery Method Room Air Nasal Cannula Nasal Cannula Oxygen Flow Rate (LPM) 3 3 01/12/22 15:01 01/12/22 15:31 Pulse Rate 56 L 57 L Pulse Rate [Radial] Respiratory Rate 24 22 Blood Pressure 161/87 H 162/91 H Blood Pressure [Right Arm] Blood Pressure Mean 120 113 Blood Pressure Mean [Right Arm] Blood Pressure Position [Right Arm] 02 Sat by Pulse Oximetry 98 99 Oxygen Delivery Method Nasal Cannula Oxygen Flow Rate (LPM) 3 - Lab Data Lab Results 01/12/22 14:26: Specimen Source R radial, O2 % 3lpm, ABG pH 7.37, ABG pCO2 53.2 H, ABG pO2 64.1 L, ABG HCO3 29.7 H, ABG Total CO2 31.4 H, ABG O2 Saturation 93, ABG Base Excess 4.4 H, Crispin Test Acceptable 01/12/22 14:34: WBC 12.4 H, RBC 4.35 L, Hgb 12.4 L, Hct 38.5 L, MCV 88.7, MCH 28.5, MCHC 32.1, RDW 16.8, Plt Count 211, MPV 7.6, Neut % (Auto) 73.1, Lymph % (Auto) 20.0, [place] % (Auto) 5.7, Eos % (Auto) 0.6, Baso % (Auto) 0.6, Neut # (Auto) 9.0 H, Lymph # (Auto) 2.5, [place] # (Auto) 0.7, Eos # (Auto) 0.1, Baso # (Auto) 0.1 01/12/22 14:34: PT 10.9, INR 0.96, APTT 23.1 01/12/22 14:34: Sodium 137, Potassium 4.7, Chloride 100, Carbon Dioxide 37 H, Anion Gap 4.7 L, BUN 31 H, Creatinine 1.50 H, Estimated Creat Clear 37, Estimated GFR 45 L, Est GFR ( Amer) 55 L, Glucose 79, Calcium 8.3 L, Total Bilirubin 0.4, AST 43, ALT 73, Alkaline Phosphatase 76, Troponin I 0.02, NT-Pro-B Natriuret Pep 6120 H, Total Protein 6.2 L, Albumin 3.7, Globulin 2.5, Albumin/Globulin Ratio 1.5 Result diagrams: 01/12/22 14:34 01/12/22 14:34 Orders (Tests/Meds): ED MEDICATIONS Discontinued Medications Generic Name Dose Route Start Last Admin Trade Name Freq PRN Reason Stop Dose Admin Albuterol/Ipratropium 3 ml 01/12/22 14:27 01/12/22 14:32 Ipratropium/Albuterol 3 Ml [facility] 01/12/22 14:28 3 ml ONCE ONE Administration Albuterol/Ipratropium 3 ml 01/12/22 16:32 Ipratropium/Albuterol 3 Ml [facility] 01/12/22 16:33 ONCE ONE Methylprednisolone Sodium Succinate 125 mg 01/12/22 14:27 01/12/22 14:32 Methylprednisolone Sod Succ 125mg Vial IV 01/12/22 14:28 125 mg ONCE ONE Administration ORDERS Category Date Time Status Rapid PCR Covid and Flu A/B Stat Lab 01/12/22 14:27 Ordered Troponin I Q3H Lab 01/12/22 17:30 Ordered Troponin I Q3H Lab 01/12/22 20:30 Ordered
[2022-01-12 15:00] LABS: NT Pro Brain Natriuretic Pep. 6120 pg/mL (0-450)
[2022-01-12 15:03] LABS: Troponin I 0.02 ng/ml (0.00-0.034)
== END 2022-01-12 17:39 | disposition home or self-care (01) ==
PROVIDERS: Emergency Provider Emergency Medicine; PCP Internal Medicine Adolescent Medicine
DX: I50.23 Acute on chronic systolic (congestive) heart failure (principal); J43.9 Emphysema, unspecified; I48.91 Unspecified atrial fibrillation; I25.10 Atherosclerotic heart disease of native coronary artery without angina pectoris; K21.9 Gastro-esophageal reflux disease without esophagitis; E78.5 Hyperlipidemia, unspecified; I10 Essential (primary) hypertension; I25.2 Old myocardial infarction; F17.210 Nicotine dependence, cigarettes, uncomplicated
CPT/HCPCS: 71045; 80053; 82803; 83880; 84484; 85025; 85610; 85730; 93005; 96374; 99284

== ENCOUNTER → 2022-01-22 13:58 | Outpatient (POV) | payer MEDICARE, SELFPAY ==
[2022-01-22 14:06] VITALS: BP 147/68; PULSE 54; RESP 18; TEMP 37.1; O2SAT 94; BMI 18.4
--- NOTE | 2022-01-22 14:47 | HMH.PAINSOAP ---
[facility] Pain Management SOAP Note Subjective:: This patient is a 81-year-old white male that comes to our clinic today for follow-up. He recently had a left particular shoulder injection. Patient reports minimal relief in terms of his left shoulder pain. Patient does have minimal to limited range of motion with the left arm. This is secondary to pain. Patient is on oxygen for chronic COPD. Patient states she is having difficulty breathing today. I offered the patient assistance to the emergency room. He declined. Patient not interested in any other further treatment guards to his left shoulder pain. Objective:: Patient is awake alert oriented x3. In some moderate respiratory distress. However, his son mentions this is common for him. Patient on chronic O2. Patient in a wheelchair. Assessment:: Ostial arthritis left shoulder. COPD. Plan:: No further treatment requested or ordered. [facility] History Medical History: Reports:: Arrhythmia, Atherosclerotic Heart Disease, Atrial Fibrillation, Cardiomyopathy, Congestive Heart Failure, Chronic Obstructive Pulmonary Disease (COPD), Coronary Artery Disease, Gastroesophageal Reflux Disease(GERD), Home Oxygen, Hyperlipidemia, Hypertension, Myocardial Infarction Denies:: Cancer, Diabetes Mellitus Type 1, Diabetes Mellitus Type 2, Internal Pacemaker, MRSA, Seizures *Have you ever received a pneumonia vaccine?: Yes *Have you received a flu vaccine this season?: Yes Other Medical History: Reports: Arthritis, Other. Denies: Blood Transfusion Reaction Other Surgeries: Yes: CABG, Cancer Surgery, Cardiac Catheterization, Colonoscopy, Hernia Repair, Other. No: Pacemaker Amputation: No Fractures: No - *Social History Smoking Status: Current every day smoker Tobacco Type: cigarettes # Packs/Day (cigarettes): 1 Alcohol Intake: never Alcohol Intake Frequency:: a few times a week Substance Use Type: denies use *Occupational Status:: other Housing: house Household Members: family *Travel in the last 8 weeks: None Family Hx:: No significant family history
== END ==
PROVIDERS: Visit Provider Nurse Anesthetist, Certified Registered
DX: M19.012 Primary osteoarthritis, left shoulder; J44.9 Chronic obstructive pulmonary disease, unspecified
CPT/HCPCS: 99212; G0463

== ENCOUNTER 2022-01-27 15:28 | Observation (INO) | payer MEDICARE, SELFPAY ==
[2022-01-27] VITALS (8 sets, daily range): BP systolic 118–128; BP diastolic 59–79; PULSE 58–70; RESP 13–24; TEMP 36.6–36.9; O2SAT 94–100; BMI 21.8; BMI 18.7
--- NOTE | 2022-01-27 15:34 | ECG_ITS ---
APPROVED REPORT Exam: Resting ECG HR:71 bpm ECG Measurements Heart Rate 71 AXES VA 179 P 73 QRSd 141 QRS 184 QT 375 T 16 QTc 398 Conclusion SINUS RHYTHM WITH MARKED SINUS ARRHYTHMIA RIGHT BUNDLE BRANCH BLOCK [120+ ms QRS DURATION, UPRIGHT V1, 40+ ms S IN I/aVL/V4/V5/V6] LEFT POSTERIOR FASCICULAR BLOCK [QRS AXIS > 109, INFERIOR Q] INFERIOR MYOCARDIAL INFARCTION , OF INDETERMINATE AGE [40+ ms Q WAVE AND/OR ST/T ABNORMALITY IN II/aVF] ABNORMAL ECG UNCONFIRMED REPORT Electronically signed by : Jenaro Jean Baptiste MD 01/28/2022 20:12:17
--- NOTE | 2022-01-27 15:37 | PC.NURSE ---
RT at BS
--- NOTE | 2022-01-27 15:40 | HMH.EDGENADL ---
ED Disposition Clinical Impression: COPD exacerbation Respiratory failure with hypoxia Qualifiers: Chronicity: acute on chronic Qualified Code(s): J96.21 - Acute and chronic respiratory failure with hypoxia Disposition: Admitted as Observation Condition on Discharge: Fair - Critical Care Critical Care Time: No Attestation: On 01/27/22, the high probability of a clinically significant, sudden or life threatening deterioration of the following system(s) required my full and direct attention, intervention and personal management. The time I documented below is in addition to time spent performing reported procedures but includes the following listed in this critical care notation. Medical Decision Making - Medical Records Medical records reviewed: Yes: I reviewed the patient's medical records. MR Comment: Reviewed emergency department note from 01/12/2022. COPD exacerbation. - Jamal Inquiry Pt receiving controlled substance: No Vital Signs: 01/27/22 15:35 Temperature 98.5 F Temperature Source Oral Pulse Rate [Left Radial] 64 Respiratory Rate 17 Blood Pressure [Right Arm] 124/79 Blood Pressure Mean [Right Arm] 94 02 Sat by Pulse Oximetry 100 Oxygen Delivery Method CPAP Oxygen Flow Rate (LPM) 15 - Lab Data Lab Results 01/27/22 15:46: Specimen Source Right radial, O2 % 15lpm, ABG pH 7.37, ABG pCO2 52.2 H, ABG pO2 95.0, ABG HCO3 29.4 H, ABG Total CO2 31.0 H, ABG O2 Saturation 97, ABG Base Excess 4.1 H, Crispin Test Acceptable 01/27/22 16:21: WBC 8.8, RBC 4.42 L, Hgb 12.5 L, Hct 39.2 L, MCV 88.7, MCH 28.2, MCHC 31.8, RDW 16.1, Plt Count 224, MPV 7.8, Neut % (Auto) 61.0, Lymph % (Auto) 29.4, [place] % (Auto) 7.8, Eos % (Auto) 1.0, Baso % (Auto) 0.7, Neut # (Auto) 5.4, Lymph # (Auto) 2.6, [place] # (Auto) 0.7, Eos # (Auto) 0.1, Baso # (Auto) 0.1 01/27/22 16:21: Sodium 139, Potassium 3.5, Chloride 96 L, Carbon Dioxide 38 H, Anion Gap 8.5, BUN 35 H, Creatinine 1.50 H, Estimated Creat Clear 44, Estimated GFR 45 L, Est GFR ( Amer) 55 L, Glucose 139 H, Calcium 8.9, Total Bilirubin 0.5, AST 28, ALT 30, Alkaline Phosphatase 81, Troponin I 0.09 H, Total Protein 6.4, Albumin 3.7, Globulin 2.7, Albumin/Globulin Ratio 1.4 01/27/22 16:21: Lactate 0.8 01/27/22 16:21: NT-Pro-B Natriuret Pep 3620 H 01/27/22 16:21: Digoxin 1.90 Result diagrams: 01/27/22 16:21 01/27/22 16:21 Orders (Tests/Meds): ED MEDICATIONS Generic Name Dose Route Start Last Admin Trade Name Freq PRN Reason Stop Dose Admin Azithromycin 500 mg/ Sodium 250 mls @ 250 mls/hr 01/27/22 17:00 Chloride IV 02/10/22 16:59 Q24H AMANDA Discontinued Medications Generic Name Dose Route Start Last Admin Trade Name Freq PRN Reason Stop Dose Admin Methylprednisolone Sodium Succinate 125 mg 01/27/22 15:52 01/27/22 15:54 Methylprednisolone Sod Succ 125mg Vial IV 01/27/22 15:53 125 mg ONCE ONE Administration ORDERS Category Date Time Status Rapid PCR Covid and Flu A/B Stat Lab 01/27/22 16:27 Received Troponin I Q3H Lab 01/27/22 19:00 Ordered Troponin I Q3H Lab 01/27/22 22:00 Ordered Blood Culture Stat Micro 01/27/22 16:24 Received - Radiology Data #1 Image(s): Chest Image Reviewed: Yes I reviewed the patient's radiology image, Yes I have reviewed radiologist's interpretation Preliminary Findings: Normal/NAD PROCEDURE INFORMATION: Exam: XR Chest Exam date and time: 01/27/2022 3:57 PM Age: 81 years old Clinical indication: Shortness of breath; Additional info: SOA TECHNIQUE: Imaging protocol: XR of the chest. Views: 1 view. COMPARISON: CR XR CHEST PORTABLE 01/12/2022 2:34 PM FINDINGS: Lungs: Normal. Pleural spaces: Unremarkable. No pleural effusion. No pneumothorax. Heart/Mediastinum: See Bones/joints finding. Vasculature: Atherosclerotic vascular disease. Bones/joints: Changes of prior sternotomy and CABG. IMPRESSION: No acute cardiopulmonary abnormality. Electronically signed by Pet
--- NOTE | 2022-01-27 15:47 | PC.NURSE ---
ED MD at
[2022-01-27 15:48] LABS: ABG Base Excess 4.1 mmol/L (-2.4-2.3); ABG HCO3 29.4 mmhg (22.0-26.0); ABG Oxygen Saturation 97 % (90-100); ABG PH 7.37 mmol/L (7.35-7.45)
[2022-01-27 15:49] LABS: Allen's Test Acceptable; Oxygen 15LPM %
[2022-01-27 15:50] LABS: Source Right Radial
[2022-01-27 15:52] LABS: ABG PCO2 52.2 mmhg (35.0-45.0)
--- NOTE | 2022-01-27 15:53 | XR_ITS ---
PROCEDURE INFORMATION: Exam: XR Chest Exam date and time: 01/27/2022 3:57 PM Age: 81 years old Clinical indication: Shortness of breath; Additional info: SOA TECHNIQUE: Imaging protocol: XR of the chest. Views: 1 view. COMPARISON: CR XR CHEST PORTABLE 01/12/2022 2:34 PM FINDINGS: Lungs: Normal. Pleural spaces: Unremarkable. No pleural effusion. No pneumothorax. Heart/Mediastinum: See Bones/joints finding. Vasculature: Atherosclerotic vascular disease. Bones/joints: Changes of prior sternotomy and CABG. IMPRESSION: No acute cardiopulmonary abnormality.
--- NOTE | 2022-01-27 16:09 | PC.NURSE ---
RT states placed pt on 3L NC at this time will continue to monitor
[2022-01-27 16:32] LABS: Basophils # 0.1 K/mm3 (0-0.2); Basophils % 0.7 % (0.1-2.0); Eosinophils # 0.1 K/mm3 (0.0-0.4); Hematocrit 39.2 % (42.0-52.0); Hemoglobin 12.5 g/dL (14.1-18.0); Lymphocytes # 2.6 K/mm3 (0.7-4.5); Lymphocytes % 29.4 % (10-50); Mean Corpuscular HGB Conc 31.8 g/dL (31.8-35.4); Mean Corpuscular Hemoglobin 28.2 pg (27.0-31.2); Mean Corpuscular Volume 88.7 fl (80-94); Mean Platelet Volume 7.8 fl (7.4-10.4); Monocytes # 0.7 K/mm3 (0.1-1.0); Monocytes % 7.8 % (1.7-9.3); Neutrophils # 5.4 K/mm3 (1.8-7.8); Platelet Count 224 K/mm3 (142-424); Red Blood Count 4.42 M/mm3 (4.60-6.20); Red Cell Distribution Width 16.1 % (11.5-17.5); White Blood Count 8.8 K/mm3 (4.8-10.8)
[2022-01-27 16:39] LABS: Coronavirus 19, PCR Not Detected (NotDetected); Influenza A, PCR Not Detected (NotDetected); Influenza B, PCR Not Detected (NotDetected)
[2022-01-27 16:39] LABS: Lactic Acid 0.8 mmol/L (0.7-2.1)
[2022-01-27 16:40] LABS: Alanine Aminotransferase 30 U/L (12-78); Albumin Level 3.7 g/dl (3.5-5.0); Albumin/Globulin Ratio 1.4 (1.1-1.8); Alkaline Phosphatase 81 U/L (38-126); Anion Gap 8.5 mEq/L (5-15); Aspartate Amino Transferase 28 U/L (17-59); Bilirubin,Total 0.5 mg/dl (0.2-1.3); Blood Urea Nitrogen 35 mg/dl (9-20); Calcium 8.9 mg/dl (8.4-10.2); Carbon Dioxide 38 mmol/L (22.0-30.0); Chloride 96 mmol/L (98-107); Creatinine Clearance Estimated 44 mL/min (50-200); Estimated Glomerular Filt Rate 45 ml/min (>60); GFR (African American) 55 ML/MIN (>60); Globulin 2.7 g/dL (1.3-3.2); Glucose 139 mg/dl (74-100); Potassium 3.5 mmoL/L (3.5-5.1); Sodium 139 mmol/L (136-145); Total Protein,Serum 6.4 g/dl (6.3-8.2)
[2022-01-27 16:49] LABS: NT Pro Brain Natriuretic Pep. 3620 pg/mL (0-450)
[2022-01-27 16:51] LABS: Troponin I 0.09 ng/ml (0.00-0.034)
--- NOTE | 2022-01-27 17:04 | PC.NURSE ---
Talked to executive housekeeper about admission. Will call back with a room
[2022-01-28] VITALS (8 sets, daily range): BP systolic 123–146; BP diastolic 47–78; PULSE 51–80; RESP 16–19; TEMP 36.3–36.6; O2SAT 92–99; BMI 18.8
--- NOTE | 2022-01-28 03:17 | PC.NURSE ---
Patient rested well throughout night. Patient currently on 3l nc sating in 90's. Chronic cough noted. Patient stated he does feel better.
--- NOTE | 2022-01-28 09:00 | HMH.HP ---
*Admission Date: 01/28/22 *Chief complaint: Shortness of air and weakness *History of present illness: 81-year-old white male with long history of COPD, oxygen requiring. Also has multiple cardiac comorbidities including cardiovascular disease-status post CABG-atrial fibrillation, chronic-on Xarelto, diastolic CHF, who has been struggling with increased shortness of air and coughing over the past 2 to 3 weeks. Was in the ER several days ago, diagnosed with COPD exacerbation, treated and felt better and was released but really never bounced back and came back to the emergency department yesterday. He was found to have cough, congestion and been placed on BiPAP in the ambulance on the way here and had felt much better. Work-up in the ER revealed COPD exacerbation with fairly clear chest x-ray. Markedly elevated BNP levels. Patient was placed on BiPAP and then admitted to floor. Patient is responded very well to medications overnight and has been able to be weaned back to nasal cannula and feels pretty good this morning although feels globally weak. [facility] History I have reviewed the patient's past medical history: Yes Medical History: Reports:: Arrhythmia, Atherosclerotic Heart Disease, Atrial Fibrillation, Cancer (BLADDER CANCER), Cardiomyopathy, Congestive Heart Failure, Chronic Obstructive Pulmonary Disease (COPD), Coronary Artery Disease, Gastroesophageal Reflux Disease(GERD), Home Oxygen, Hyperlipidemia, Hypertension, Myocardial Infarction Denies:: Diabetes Mellitus Type 1, Diabetes Mellitus Type 2, Internal Pacemaker, MRSA, Seizures *Have you ever received a pneumonia vaccine?: Yes *Have you received a flu vaccine this season?: Yes Other Medical History: Reports: Arthritis, Other. Denies: Blood Transfusion Reaction Other Surgeries: Yes: CABG, Cancer Surgery, Cardiac Catheterization, Colonoscopy, Hernia Repair, Other. No: Pacemaker Amputation: No Fractures: No - *Social History Last grade of school completed: High school graduate Smoking Status: Former smoker Tobacco Type: cigarettes # Packs/Day (cigarettes): 1 Alcohol Intake: never Alcohol Intake Frequency:: a few times a week Substance Use Type: denies use *Occupational Status:: retired Housing: house Household Members: family *Travel in the last 8 weeks: None Family Hx:: No significant family history Review of Systems - Review of Systems Review of systems:: pertinent systems reviewed and negative unless documented below Meds Home Medications Medication Instructions Recorded Confirmed Type Aspirin [Aspirin 81mg chewable 81 mg PO DAILY 12/24/17 01/27/22 History tab] Ranolazine [Ranexa 500mg ER tablet] 500 mg PO DAILY 12/24/17 01/27/22 History Rosuvastatin Calcium [Crestor 40mg 40 mg PO HS 12/24/17 01/27/22 History Tablets] rivaroxaban 20 mg tablet 20 mg PO DAILY 05/26/19 01/27/22 History Cetirizine HCl 10 mg PO DAILY 02/25/20 01/27/22 History Bumetanide [Bumex 1mg tablet] 1 mg PO DAILY 11/09/21 01/27/22 History Digoxin [Digoxin 0.125mg Tablet] 125 mcg PO DAILY 11/09/21 01/27/22 History Famotidine [Pepcid 20mg Tablet] 20 mg PO DAILY 11/09/21 01/27/22 History Hydrocod/Acet 5/325 mg [[place] 1 tab PO BIDP PRN 11/09/21 01/27/22 History 5/325mg tablet] Metoprolol Succinate [Metoprolol 200 mg PO DAILY 11/09/21 01/27/22 History Succinate 200mg Tablet*] Multivitamin 1 each PO DAILY 11/09/21 01/27/22 History Potassium Chloride [Pot Chlor 20 20 meq PO DAILY 11/09/21 01/27/22 History mEq Packet] Sacubitril/Valsartan [Entresto 49 1 tablet PO BID 11/09/21 01/27/22 History mg-51 mg Tablet] Allergies Allergy/AdvReac Type Severity Reaction Status Date / Time No Known Drug Allergies Allergy NA Verified 12/22/21 11:39 Exam Vital signs and Labs for Last 24 Hours: Temp Pulse Resp BP Pulse Ox 98 F 63 18 126/70 93 L 01/28/22 03:44 01/28/22 06:13 01/28/22 03:44 01/28/22 03:44 01/28/22 06:13 Laboratory Results - last 24 hr 12/31
--- NOTE | 2022-01-28 09:19 | HMH.PHAVTE ---
[facility] Pharmacy VTE Monitoring - Patient Demographics Admission date: 01/27/22 Report Date: 01/28/22 Time: 09:19 Allergies/Adverse Reactions: Patient Allergies No Known Drug Allergies Allergy (Verified 12/22/21 11:39) NA Height: 1.85 m Weight: 64.41 kg Patient Problems: Current Active Problems COPD exacerbation (Acute) Acute and chronic respiratory failure ([id number]) (Acute) Degenerative disc disease, lumbar (Chronic) Elevated brain natriuretic peptide (BNP) level (Acute) CHF exacerbation (Acute) Respiratory failure with hypoxia (Acute) - VTE Risk Labs: VTE Related Lab Results Hgb 12.5 g/dL (14.1-18.0) L 01/27/22 16:21 Hct 39.2 % (42.0-52.0) L 01/27/22 16:21 Plt Count 224 K/mm3 (142-424) 01/27/22 16:21 BUN 35 mg/dl (9-20) H 01/27/22 16:21 Creatinine 1.50 mg/dl (0.66-1.25) H 01/27/22 16:21 Estimated Creat Clear 44 mL/min (50-200) 01/27/22 16:21 VTE Score: 3 VTE Risk Level: Low Risk - Prophylaxis VTE Prophylaxis Ordered?: Yes Types of VTE Prophylaxis: TEDS Thigh High, TEDS Knee High Location of Applied Device: Bilateral Lower Extremeties Pharmacologic Type: Other (XARELTO)
--- NOTE | 2022-01-28 11:14 | HMH.PHAINT ---
MEDICATION RECONCILIATION COMPLETED ON PATIENT USING EXTERNAL FILL HISTORY FROM PHARMACY AND DISCHARGE SUMMARY FROM PREVIOUS ADMISSION. -BRUCE LOPEZD
--- NOTE | 2022-01-28 19:02 | PC.NURSE ---
No acute changes, patient on room air most of shift. VS stable, no complaints noted.
[2022-01-29] VITALS (7 sets, daily range): BP systolic 135–153; BP diastolic 57–72; PULSE 40–80; RESP 16–18; TEMP 36.4–37.1; O2SAT 91–99; BMI 19.7; BMI 19.8
[2022-01-29 05:59] LABS: Basophils % 0.1 % (0.1-2.0); Eosinophils % 0.1 % (0.1-12.0); Hematocrit 32.2 % (42.0-52.0); Hemoglobin 10.6 g/dL (14.1-18.0); Lymphocytes # 0.6 K/mm3 (0.7-4.5); Lymphocytes % 4.9 % (10-50); Mean Corpuscular HGB Conc 32.9 g/dL (31.8-35.4); Mean Corpuscular Volume 88.3 fl (80-94); Mean Platelet Volume 8.1 fl (7.4-10.4); Monocytes # 0.3 K/mm3 (0.1-1.0); Monocytes % 2.7 % (1.7-9.3); Neutrophils # 10.5 K/mm3 (1.8-7.8); Neutrophils % 92.4 % (37.0-80.0); Platelet Count 190 K/mm3 (142-424); Red Blood Count 3.64 M/mm3 (4.60-6.20); Red Cell Distribution Width 16.5 % (11.5-17.5); White Blood Count 11.4 K/mm3 (4.8-10.8)
[2022-01-29 06:07] LABS: MANUAL DIFFERENTIAL MANUAL DIFFERENTIAL (MANUAL DIFF)
[2022-01-29 06:20] LABS: Alanine Aminotransferase 28 U/L (12-78); Albumin Level 3.1 g/dl (3.5-5.0); Albumin/Globulin Ratio 1.3 (1.1-1.8); Alkaline Phosphatase 60 U/L (38-126); Anion Gap 8.8 mEq/L (5-15); Aspartate Amino Transferase 24 U/L (17-59); Bilirubin,Total 0.3 mg/dl (0.2-1.3); Blood Urea Nitrogen 41 mg/dl (9-20); Calcium 8.1 mg/dl (8.4-10.2); Carbon Dioxide 31 mmol/L (22.0-30.0); Chloride 96 mmol/L (98-107); Creatinine Clearance Estimated 44 mL/min (50-200); Estimated Glomerular Filt Rate 53 ml/min (>60); GFR (African American) 64 ML/MIN (>60); Globulin 2.3 g/dL (1.3-3.2); Glucose 348 mg/dl (74-100); Potassium 3.8 mmoL/L (3.5-5.1); Sodium 132 mmol/L (136-145); Total Protein,Serum 5.4 g/dl (6.3-8.2)
[2022-01-29 06:22] LABS: Anisocytosis 1+; Lymphocytes % 4 % (10-50); Neutrophils % 89 % (42-76); Platelet Estimate Normal; Total Cells Counted 100
--- NOTE | 2022-01-29 07:09 | PC.NURSE ---
Pt confused most of the shift. Pt attempted to get out of bed to find his treasures. Pt asked what his treasures were and he stated I have a knee brace. I leave it at the foot of my bed at home. Pt reoriented to the hospital adn Pt became upset and stated. this is my home. It maybe a hospital now but it was my home first. bed alarm placed on and pt reminded to call out for help instead of attempting to get up
--- NOTE | 2022-01-29 08:58 | P.PN_ITS ---
Internal Medicine - PN: Subj *Date: 01/29/22 *Time: 08:58 Interval history: Overall patient feels better. Ate 100% of his breakfast. Exam Vital signs and Labs for Last 24 Hours: Temp Pulse Resp BP Pulse Ox 98.1 F 40 L 18 141/70 H 96 01/29/22 08:00 01/29/22 08:00 01/29/22 08:00 01/29/22 08:00 01/29/22 08:00 Laboratory Results - last 24 hr 01/29/22 05:36: WBC 11.4 H D, RBC 3.64 L, Hgb 10.6 L, Hct 32.2 L, MCV 88.3, MCH 29.0, MCHC 32.9, RDW 16.5, Plt Count 190, MPV 8.1, Neut % (Auto) 92.4 H, Lymph % (Auto) 4.9 L, [place] % (Auto) 2.7, Eos % (Auto) 0.1, Baso % (Auto) 0.1, Neut # (Auto) 10.5 H, Lymph # (Auto) 0.6 L, [place] # (Auto) 0.3, Eos # (Auto) 0.0, Baso # (Auto) 0.0, Total Counted 100, Neutrophils % (Manual) 89 H, Band Neutrophils % 7.0, Lymphocytes % (Manual) 4 L, Platelet Estimate Normal, Anisocytosis 1+ 01/29/22 05:36: Sodium 132 L, Potassium 3.8, Chloride 96 L, Carbon Dioxide 31 H, Anion Gap 8.8, BUN 41 H, Creatinine 1.30 H, Estimated Creat Clear 44, Estimated GFR 53 L, Est GFR ( Amer) 64, Glucose 348 H, Calcium 8.1 L, Total Bilirubin 0.3, AST 24, ALT 28, Alkaline Phosphatase 60, Total Protein 5.4 L, Albumin 3.1 L, Globulin 2.3, Albumin/Globulin Ratio 1.3 I & O for Last 24 hours: Intake & Output 01/26/22 01/27/22 01/28/22 01/29/22 11:59 11:59 11:59 11:59 Intake Total 720 / 720 960 / 960 Output Total 1050 / 1050 500 / 500 Balance -330 / -330 460 / 460 Weight 142 lb 149 lb Narrative: Alert, pleasant. Heart rate regular. Lungs with rhonchi and wheezes bilaterally. Slightly better air entry than yesterday. Abdomen soft, nontender. No significant edema. Oropharynx clear. Neurologically intact, but globally weak. Assessment and Plan (1) COPD exacerbation Status: Acute Category: Medical Code(s): J44.1 - Chronic obstructive pulmonary disease with (acute) exacerbation (2) Respiratory failure with hypoxia Status: Acute Qualifiers: Chronicity: acute on chronic Qualified Code(s): J96.21 - Acute and chronic respiratory failure with hypoxia Category: Medical Code(s): J96.91 - Respiratory failure, unspecified with hypoxia (3) Acute and chronic respiratory failure (tokig-ic-gyttzsn) Status: Acute Qualifiers: Category: Medical Code(s): J96.20 - Acute and chronic respiratory failure, unspecified whether with hypoxia or hypercapnia (4) CHF exacerbation Status: Acute Category: Medical Code(s): I50.9 - Heart failure, unspecified (5) Elevated brain natriuretic peptide (BNP) level Status: Acute Category: Medical Code(s): R79.89 - Other specified abnormal findings of blood chemistry (6) Degenerative disc disease, lumbar Status: Chronic Category: Medical Code(s): M51.36 - Other intervertebral disc degeneration, lumbar region - Assessment and plan all Dx Assessment and Plan for all problems:: COPD exacerbation seems improved. Given his significant pulmonary disease I will ask pulmonary's input today. Care management will discuss with his daughter who is affiliated with a skilled care unit in the [facility] about her wishes for home health versus placement. Apparently patient had plan to go stay with her anyway and this may be a good resource for him on discharge which should be in the next 24 to 48 hours.
--- NOTE | 2022-01-29 08:59 | CA_ITS ---
APPROVED REPORT EXAM: Comprehensive 2D, Doppler, and color-flow Echocardiogram Online Advertising Director: Shanita Beltrán CRT Ht: 6 ft 0 in Wt: 142lbs BSA: 1.84 BP: 114/70 mmHg Indications: Shortness of Breath, eval EF, HTN, HLD, end stage COPD, CHF, CM, CAD, CABG, bladder ca, home o2. Limited images due to lung interference M-Mode Dimensions RVDd 2.81 cm (0.9-2.6) LA Diam 3.31 cm (1.9-4.0) LVDd 5.71 cm (3.5-5.7) Ao Diam 4.08 cm (2.0-3.7) LVDs 4.22 cm (3.5-5.7) IVSd 1.21 cm (0.6-1.1) PWd 0.72 cm (0.6-1.1) EF (Teich) 50.50% FS 26.10% EDV (Teich) 160.70 mL ESV (Teich) 79.50 mL Conclusion 1. Limited echocardiogram was performed to evaluate left ventricular systolic function. 2. Biatrial enlargement, normal left ventricular size, mild concentric left ventricular hypertrophy, estimated ejection fraction from the obtained views is 55% with no regional wall motion abnormality. 3. Right ventricle is mildly enlarged with normal contractility. 4. No significant pericardial effusion noted. Electronically signed by : Chris Naylor MD 01/29/2022 14:19:17
--- NOTE | 2022-01-29 09:18 | HMH.PULMCON ---
*Admission Date: 01/27/22 *Reason for consult:: Acute on chronic hypoxic respiratory failure *History of present illness: Mr. Brooks is a 81-year-old male history of COPD on long-term oxygen therapy presented to the hospital with worsening respiratory distress along with cough and productive phlegm and was eventually admitted to the hospital for volume overload and CHF exacerbation and pulmonary was called for further management patient was initiated on BiPAP on admission with improvement in his symptoms and eventually weaned to nasal cannula. [facility] History Medical History: Reports:: Arrhythmia, Atherosclerotic Heart Disease, Atrial Fibrillation, Cancer (BLADDER CANCER), Cardiomyopathy, Congestive Heart Failure, Chronic Obstructive Pulmonary Disease (COPD), Coronary Artery Disease, Gastroesophageal Reflux Disease(GERD), Home Oxygen, Hyperlipidemia, Hypertension, Myocardial Infarction Denies:: Diabetes Mellitus Type 1, Diabetes Mellitus Type 2, Internal Pacemaker, MRSA, Seizures *Have you ever received a pneumonia vaccine?: Yes *Have you received a flu vaccine this season?: Yes Other Medical History: Reports: Arthritis, Other. Denies: Blood Transfusion Reaction Other Surgeries: Yes: CABG, Cancer Surgery, Cardiac Catheterization, Colonoscopy, Hernia Repair, Other. No: Pacemaker Amputation: No Fractures: No - *Social History Last grade of school completed: High school graduate Smoking Status: Former smoker Tobacco Type: cigarettes # Packs/Day (cigarettes): 1 Alcohol Intake: never Alcohol Intake Frequency:: a few times a week Substance Use Type: denies use *Occupational Status:: retired Housing: house Household Members: family *Travel in the last 8 weeks: None Family Hx:: No significant family history ROS - Cons Reports body ache(s), Reports fatigue, Denies chills - Eyes Reports blurry vision - ENT Reports hearing loss - Card Reports shortness of breath with activity - Resp Respiratory: Reports change in phlegm color, Reports chest congestion, Reports excessive phlegm production, Denies coughing up blood, Reports cough with sputum production - GI Gastrointestingal: Denies: abdominal pain - [place] Comments: Right lower extremity pain - Psych Denies thoughts of hurting/killing others, Denies thoughts of hurting/killing yourself Meds Home Medications Medication Instructions Recorded Confirmed Type RX: Aspirin [Aspirin 81mg chewable 81 mg PO DAILY 12/24/17 01/27/22 History tab] RX: Ranolazine [Ranexa 500mg ER 500 mg PO DAILY 12/24/17 01/27/22 History tablet] RX: Rosuvastatin Calcium [Crestor 40 mg PO HS 12/24/17 01/27/22 History 40mg Tablets] rivaroxaban 20 mg tablet 20 mg PO DAILY 05/26/19 01/27/22 History RX: Cetirizine HCl 10 mg PO DAILY 02/25/20 01/27/22 History RX: Bumetanide [Bumex 1mg tablet] 1 mg PO DAILY 11/09/21 01/27/22 History RX: Digoxin [Digoxin 0.125mg 125 mcg PO DAILY 11/09/21 01/27/22 History Tablet] RX: Famotidine [Pepcid 20mg 20 mg PO DAILY 11/09/21 01/27/22 History Tablet] RX: Hydrocod/Acet 5/325 mg [[place] 1 tab PO BIDP PRN 11/09/21 01/27/22 History 5/325mg tablet] RX: Metoprolol Succinate 200 mg PO DAILY 11/09/21 01/27/22 History [Metoprolol Succinate 200mg Tablet*] RX: Multivitamin 1 each PO DAILY 11/09/21 01/27/22 History RX: Potassium Chloride [Pot Chlor 20 meq PO DAILY 11/09/21 01/27/22 History 20 mEq Packet] RX: Sacubitril/Valsartan [Entresto 1 tablet PO BID 11/09/21 01/27/22 History 49 mg-51 mg Tablet] Allergies Allergy/AdvReac Type Severity Reaction Status Date / Time No Known Drug Allergies Allergy NA Verified 12/22/21 11:39 Exam - Constitutional Constitutional:: Absent: no acute distress, comfortable - HENMT Exam HENMT: Present: normocephalic - Eye Exam Eyes:: Present: normal appearance both eyes and related structures - Neck Exam Neck:: Present: normal visual inspection - Respiratory Exam Respiratory:: Pres
--- NOTE | 2022-01-29 10:32 | HMH.OTEV ---
OT Inpatient Evaluation Rehab OT IP Evaluation Start: 01/28/22 08:58 Freq: ONCE Status: Complete Protocol: Document 01/29/22 10:24 CARBRONX (Rec: 01/29/22 10:32 [facility] [id number]) Rehab OT IP Assessment Subjective History Pt oriented x 3 on arrival. Pt agreeable to engage in therapy evaluation. Pt was admitted via ED on 01/27/22 due to COPD exacerbation. Prior to being in the hospital, pt lived at home alone. Pt claims he was independent with all ADLs such as feeding, bathing, and dressing. Pt reports he hired someone to do his cleaning and laundry. He claims he was able to cook small meals independently. Pt uses a walker during ambulation. The following information was copied from history and physical report: 81-year-old white male with long history of COPD, oxygen requiring. Also has multiple cardiac comorbidities including cardiovascular disease-status post CABG- atrial fibrillation, chronic- on Xarelto, diastolic CHF, who has been struggling with increased shortness of air and coughing over the past 2 to 3 weeks. Was in the ER several days ago, diagnosed with COPD exacerbation, treated and felt better and was released but really never bounced back and came back to the emergency department yesterday. He was found to have cough, congestion and been placed on BiPAP in the ambulance on the way here and had felt much better. Work-up in the ER revealed COPD exacerbation with fairly clear chest x-ray. Markedly elevated BNP levels. Patient
--- NOTE | 2022-01-29 11:42 | HMH.PTEV ---
Physical Therapy Evaluation Rehab PT IP Evaluation Start: 01/28/22 08:58 Freq: ONCE Status: Active Protocol: Document 01/29/22 11:39 PHORNE (Rec: 01/29/22 11:42 PHORNE [id number]) Subjective/History History History 81 yowm adm to [facility] with COPD exac. He reports he lives alone, 1 step to enter the home, He uses a cane or walker for ambulation. Subjective Subjective Pt with no c/o this am. I feel a whole lot better. Rehab PT IP Eval Objective Appearance Patient Behavior Appropriate Patient Orientation Person,Place,Time Difficulty following instructions none Speech Pattern Clear Ambulation Patient Able to Ambulate Yes Ambulation Observation IP General Gait Pattern Observation Shuffling Step Ambulation Distance (feet) 10 Ambulation Assistive Device None Ambulation Ability Minimal x 1 (25% assist) Balance Ability to Arise Able, uses arms to help Sitting Balance Steady, safe Standing Balance Unsteady Dynamic Sitting Balance Ability Good Dynamic Standing Balance Ability Fair Transfers Bed Transfer Ability Contact Guard/Hand Hold Chair Transfer Ability Minimal x 1 (25% assist) Sit to Stand Bed Transfer Ability Minimal x 1 (25% assist) Sit to Stand Chair Transfer Ability Minimal x 1 (25% assist) MMT RLE PT MMT ABN Abnormal MMT Grade R foot drop Rehab PT IP prob,goals,plan Problems Date of Evaluation: 01/29/22 PT IP Problems Bed Mobility,Transfers,Gait, Balance,Self care Rehab Potential Rehab Potential Good Plan PT Intervention Plan Bed Mobility,Transfers,Gait, Balance,Self care,Therapeutic Exercise PT Plan Frequency BID Duration LOS Discharge Goals Bed Transfer Ability Supervision/Stand by Sit to Stand Chair Transfer Ability Contact Guard/Hand Hold Ambulation Assistive Device Rolling Walker Ambulation Distance (feet) 20 Discharge Plan PT Discharge Plan Pt is currently most appropriate for rehab placement once medically stable. G -code Required No Eval Complexity Eval Charge Codes 47505 - Moderate Complexity PHYSICIAN CERTIFICATION: I certify the specified therapy services for Sridhar Brooks are required, authorized, and reviewed every 30 days.
--- NOTE | 2022-01-29 15:58 | CARE MANAGER ---
Addendum entered by Gaby Black RN 01/30/22 10:53: Spoke with emelina. She will be here to pick patient up later today. Discussed that his medications are going to be at [facility] in [place]. She states they will pick it up. Spoke with Farooq Daughter and they needed a different order for therapy. Pulmonary rehab is to set up with patient and daughter and physical therapy is supposed to call back with appointment time. Original Note: Contacted daughter, Emelina, and discussed with her what PT and OT suggested. He will be fine with home health, but daughter requested outpatient therapy at [facility]. Contacted them and faxed information so they could schedule appointment. Farooq is supposed to call back with appointment time. Therapy was agreeable to outpatient therapy as well. PURVI Sherman
[2022-01-30] VITALS (7 sets, daily range): BP systolic 111–154; BP diastolic 48–84; PULSE 59–117; RESP 17–20; TEMP 36.4–36.8; O2SAT 87–98; BMI 19.8
--- NOTE | 2022-01-30 07:11 | HMH.DCSUM ---
General - General Admission date:: 01/27/22 Discharge date: 01/30/22 HPI HPI: 81-year-old white male with long history of COPD, oxygen requiring. Also has multiple cardiac comorbidities including cardiovascular disease-status post CABG-atrial fibrillation, chronic-on Xarelto, diastolic CHF, who has been struggling with increased shortness of air and coughing over the past 2 to 3 weeks. Was in the ER several days ago, diagnosed with COPD exacerbation, treated and felt better and was released but really never bounced back and came back to the emergency department yesterday. He was found to have cough, congestion and been placed on BiPAP in the ambulance on the way here and had felt much better. Work-up in the ER revealed COPD exacerbation with fairly clear chest x-ray. Markedly elevated BNP levels. Patient was placed on BiPAP and then admitted to floor. Patient is responded very well to medications overnight and has been able to be weaned back to nasal cannula and feels pretty good this morning although feels globally weak. Hospital Course Hospital Course: Admitted for COPD versus pneumonia. Started on broad-spectrum antibiotics and steroids. Breathing treatments regularly including budesonide and duo nebs. Pulmonology was consulted, appreciate their recommendations during admission. Patient showed gradual improvement with clinical defervescence of his shortness of breath. Discussion with family, plan to take patient home to [facility] where his daughter has access to rehab services and can monitor patient so he will not be home by himself. Will transition to outpatient course of antibiotics and steroids to complete total of 5 days. Discussed medication side effects and changes with patient. Medically stable for discharge home. Examined on day of discharge. Good p.o. intake. Needs continued physical therapy and recommend pulmonary rehab. Case management to assist in setting this up for him in the outpatient setting. Objective Vital signs: Temp Pulse Resp BP Pulse Ox 97.8 F 60 20 140/73 98 01/30/22 03:55 01/30/22 06:11 01/30/22 03:55 01/30/22 03:55 01/30/22 06:11 Narrative: - Constitutional minimal distress, average body habitus, chronically ill appearing, 2L NC - *Routine HEENT Exam Head: Present: normocephalic Eye: Present: EOMI, PERRL ENT: Present: mucous membranes moist - *Routine Neck Exam Present: supple. Absent: lymphadenopathy - *Routine Respiratory Exam Present: rales - *Routine Cardiovascular Exam Present: murmur, irregular rhythm - *Routine Abdominal Exam Present: soft, normoactive bowel sounds. Absent: tenderness - *Routine Extremities Exam Absent: cyanosis, clubbing, edema - *Routine Skin Exam Present: warm. Absent: rash - *Routine Neurological Exam Present: alert, oriented X2, Globally weak. Results Labs on day of discharge: Preliminary micro results at discharge 01/27/22 16:24 Blood Culture - Preliminary Blood NO GROWTH AFTER 48 HOURS 01/27/22 16:24 Blood Culture - Preliminary Blood NO GROWTH AFTER 48 HOURS DS: Diagnosis - Discharge Diagnosis (1) COPD exacerbation Status: Acute (2) Respiratory failure with hypoxia Status: Acute (3) Acute and chronic respiratory failure ([id number]) Status: Acute (4) CHF exacerbation Status: Acute (5) Elevated brain natriuretic peptide (BNP) level Status: Acute (6) Degenerative disc disease, lumbar Status: Chronic Discharge Plan - Patient Discharge Instructions Patient Instructions: DI for Hypoxia, Respiratory Failure - Follow up Plan Follow up with: Anna Price MD [Physician] - 02/28/22 1:30 pm (PFT and 6 minute walk- February 27 at 8:00 No smoking the day of the test If you use inhalers don't use the day of the test, but bring with you Nothing to eat or drink 4 hours prior. Overnight Pulse Ox will be done 02/27/2022 after PFT and
--- NOTE | 2022-01-30 08:16 | PC.NURSE ---
PT HAS BEEN AMBULATING IN HALLWAY WITH A WALKER FOR ASSISTANCE. HE IS REFUSING TO WEAR HIS OXYGEN BUT ROOM AIR SATS ARE MAINTAINING AT 91% AT THIS TIME. WILL CONTINUE TO MONITOR.
--- NOTE | 2022-01-30 10:15 | HMH.PULMPN ---
Internal Medicine - PN: Subj *Date: 01/30/22 *Time: 10:15 Interval history: No acute respiratory events overnight. Patient admits improvement in his symptoms. Exam - Constitutional Constitutional:: Present: no acute distress, comfortable - HENMT Exam HENMT: Present: normocephalic - Eye Exam Eyes:: Present: normal appearance both eyes and related structures - Neck Exam Neck:: Present: normal visual inspection - Respiratory Exam Respiratory:: Present: able to speak in complete sentences, respiratory distress. Absent: wheezing - Cardiovascular Exam Cardiac:: Present: S1, S2 - GI Exam GI:: Present: soft - Skin Exam Skin: Present: warm - Neurological Exam Neurological: Present: alert, awake - Extremities Exam Extremities: Present: no cyanosis, no clubbing Assessment and Plan (1) COPD exacerbation Status: Acute Category: Medical Code(s): J44.1 - Chronic obstructive pulmonary disease with (acute) exacerbation (2) Respiratory failure with hypoxia Status: Acute Qualifiers: Chronicity: acute on chronic Qualified Code(s): J96.21 - Acute and chronic respiratory failure with hypoxia Category: Medical Code(s): J96.91 - Respiratory failure, unspecified with hypoxia (3) Acute and chronic respiratory failure ([id number]) Status: Acute Qualifiers: Category: Medical Code(s): J96.20 - Acute and chronic respiratory failure, unspecified whether with hypoxia or hypercapnia (4) CHF exacerbation Status: Acute Category: Medical Code(s): I50.9 - Heart failure, unspecified (5) Elevated brain natriuretic peptide (BNP) level Status: Acute Category: Medical Code(s): R79.89 - Other specified abnormal findings of blood chemistry (6) Degenerative disc disease, lumbar Status: Chronic Category: Medical Code(s): M51.36 - Other intervertebral disc degeneration, lumbar region - Assessment and plan all Dx Assessment and Plan for all problems:: #Acute on chronic hypoxic hypercarbic respiratory failure: #COPD exacerbation History of COPD, on long-term oxygen therapy PRN @2L. ABG on admission showed mild hypercarbia well compensated. No evidence of hypoxia noted. Markedly elevated BNP. BNP elevated at 3620 along with troponin 0.09. Chest x-ray did not show any evidence of dense consolidation/acute airspace disease. Patient patient most recent admission was from October for respiratory distress and was discharged within 48 hours Patient has been initiated on cefepime azithromycin along with DuoNebs 4 times daily and methylprednisolone 80mg every 8hrs on admission. Interval update: Patient admitted for this. Saturating 84% on room air, improved saturations on 2 L nasal cannula oxygen supplementation. Plan: -Continue nasal cannula oxygen supplementation to maintain O2 saturation goal of 89% and above. -Recommend DuoNebs every 6 scheduled along with budesonide every 12 scheduled, continue the same nebs OR change to Triple inhaler therapy upon discharge -Recommend to wean cefepime levofloxacin to complete a 5-day course for pneumonia. -Wean methylprednisolone to prednisone 40 mg daily to complete a total of 5-day course -Follow with sputum culture -F/T PT/OT recs #Thank you for involving pulmonary in this patient care. We will follow the patient in pulmonary clinic in 4 to 6 weeks with a full PFT 6-minute walk testing and nocturnal oximetry testing
--- NOTE | 2022-01-30 10:38 | HMH.PHAINT ---
DISCHARGE MEDICATION COUNSELING PROVIDED. DISCUSSED BUDESONIDE NEBS (RINSE MOUTH OUT AFTER USE), DUONEBS, PREDNISONE (TAKE WITH FOOD, MAY UPSET STOMACH, TAKE IN THE AM), AND CEPHALEXIN (MAY UPSET STOMACH, TAKE WITH BREAKFAST AND DINNER). PATIENT ENDORSED NO QUESTIONS AT THIS TIME.
--- NOTE | 2022-01-31 15:27 | CARE MANAGER ---
Addendum entered by Julia Leger RN 01/31/22 15:39: Patient's daughter called back and states that patient is doing well. She feels that he may be able to come back to [place] prior to PT appt on Saturday. Plans to have patient attend PT here instead of in [place]. I advised her to notify [facility] PT facility if he is not going to attend appointment, and that she may need to contact his PCP for new orders if he comes here to our outpatient PT department. Original Note: Unable to reach patient's daughter to discuss discharge status. Left a message asking her to call us back.
== END 2022-01-30 12:45 | disposition home or self-care (01) ==
LOC: ER 17:04 → 2ND 17:11
PROVIDERS: Admitting Provider Emergency Medicine; Emergency Provider Emergency Medicine; PCP Internal Medicine Adolescent Medicine; Visit Provider Internal Medicine Adolescent Medicine
DX: Z20.822 Contact with and (suspected) exposure to COVID-19; J44.1 Chronic obstructive pulmonary disease with (acute) exacerbation; J96.21 Acute and chronic respiratory failure with hypoxia; J96.22 Acute and chronic respiratory failure with hypercapnia; M51.36 Other intervertebral disc degeneration, lumbar region; I42.9 Cardiomyopathy, unspecified; I25.10 Atherosclerotic heart disease of native coronary artery without angina pectoris; Z99.81 Dependence on supplemental oxygen; J44.9 Chronic obstructive pulmonary disease, unspecified; Z79.899 Other long term (current) drug therapy; K21.9 Gastro-esophageal reflux disease without esophagitis; I11.0 Hypertensive heart disease with heart failure; I50.9 Heart failure, unspecified; E27.5 Adrenomedullary hyperfunction
CPT/HCPCS: 96365; G0378; 36415; 71045; 80053; 80162; 82803; 83605; 83880; 84484; 85007; 85025; 87040; 93005; 93306; 93308; 94640; 94760; 96375; 97116; 97162; 97166; 97530; 99285; C9803; J0456; J0692; U0003; U0005

== ENCOUNTER → 2022-02-27 08:36 | Outpatient (CLI) | payer MEDICARE, SELFPAY ==
[2022-02-27 09:20] VITALS: PULSE 68; PULSE 73
== END ==
PROVIDERS: PCP Internal Medicine Adolescent Medicine; Visit Provider Internal Medicine Pulmonary Disease
DX: J44.1 Chronic obstructive pulmonary disease with (acute) exacerbation (principal)
CPT/HCPCS: 94060; 94640; 94727; 94729; 94762

== ENCOUNTER 2022-03-09 09:30 | Outpatient (RCR) | payer MEDICARE, SELFPAY ==
--- NOTE | 2022-01-22 14:16 | HMH.PTOPEV ---
PT Outpatient Evaluation Rehab PT Outpatient Evaluation Start: 01/22/22 13:00 Freq: Status: Active Protocol: Document 01/22/22 13:58 [place] (Rec: 01/22/22 14:15 PHORNE [id number]) Electronically Signed By Daniel Barron, PT 01/22/22 13:58 Outpatient Therapy Subjective History Subjective History Pt is 81 yowm who presents with c/o R side foot drop x ~ 1.5 yrs, sometimes associated with LBP x ~ 1 yr. He reports, I've got bad arthritis in my back, but my back hasn't hurt me for 2 or 3 days. He reports his worst problem is general weakness and difficulty ambulating. He reports he uses a rolator at home, which is helpful. He presents today with oxygen via [place], I'm not having a good day with my breathing, and has multiple co-morbidities that complicate his treatment. PMH: CAD, a-fib, CHF, cardiomyopathy, PAD with stents, end-stage COPD, HL, HTN, [place], CABG. Pt barely able to stand and take 2-3 stamll steps without a rest break this date due to severe SOA with any exertion. Maintaining oxygen saturation will limit any rehab potential. Chief Complaint Weakness Symptom Type Ache Symptoms Relieved By Rest/Positioning Symptoms Aggravated By Standing,Bending/Stooping, Physical Activity,Twisting, Walking,Lifting Current Functional Limitations Reaching,Lifting,Housework, Dressing,Standing,Squatting, Recreation Activity,Walking, Stairs,Balance,Bending/ Stooping Symptom Description Activity Dependent Level of pain today (0-10) 0 Pain scale - at its worst (0-10) 8 Lumbopelvic Eval Assistive device Assistive Devices Rolling / Wheeled Walker Range of Motion Lumbar Spine Active Flexion Range of 0-55 Motion (degrees) Lumbar Spine Active Extension Range of 0-15 Motion (degrees) Left Lumbar Spine Lateral Flexion Active 0-15 Range of Motion (degrees) Right Lumbar Sp
--- NOTE | 2022-02-27 08:51 | HMH.RHREAS ---
Rehab Reassessment Rehab OP Re-assessment Start: 02/27/22 08:43 Freq: Status: Active Protocol: Document 02/27/22 08:46 [place] (Rec: 02/27/22 08:50 AJAYRAKAN [id number]) Electronically Signed By Daniel Barron, PT 02/27/22 08:46 Rehab Re-assessment Subjective Subjective Pt reports feeling good today. I need to walk more at the house, but it's tough. Low Back Pain currently 0/10. Objective Objective Notes Lumbar AROM: FLEX= 0-60, EXT= 0-15, R SB= 0-15, L SB= 0-15. MMT: R ankle DF= 1/5 B Hips grossly 4+/5 throughout B knee 5/5 throughout Assessment Progress Assessment Slower Than Expected Assessment Notes Pt continues to have low endurance, especially with walking. Some improvements noted. Breathing difficulty is very problematic for strengthening as pt requires multiple rest breaks during any activity. Ambulation has improved with R foot AFO in place. Patient goals met ST Goals Not Met ST,2,3,5 LT,2,3,4, 5,6 Revised Goals none Plan Plan Continue per initial POC. Pt to have PFT performed and likely progress to respiratory therapy as lung function is much more limiting than low back pain. Frequency of Therapy 1-2/wk Duration of therapy 4 wks Time and Billing Re-Eval Time 14 Re-Eval Billing Units 1 PHYSICIAN CERTIFICATION: I certify the specified therapy services for Sridhar Brooks are required, authorized, and reviewed every 30 days.
== END 2022-03-09 09:35 | disposition home or self-care (01) ==
LOC: PT 09:30
PROVIDERS: PCP Internal Medicine Adolescent Medicine; Visit Provider Student in an Organized Health Care Education/Training Program
DX: M54.50 Low back pain, unspecified (principal)
CPT/HCPCS: 97110; 97112; 97116; 97163; 97164; 97760

== ENCOUNTER 2022-09-12 01:37 | Observation (INO) | payer MEDICARE, SELFPAY ==
[2022-09-12] VITALS (11 sets, daily range): BP systolic 106–127; BP diastolic 51–79; PULSE 54–109; RESP 18–24; TEMP 36.4–36.7; O2SAT 82–100; BMI 20.3; BMI 19.1; BMI 18.8
--- NOTE | 2022-09-12 01:50 | ECG_ITS ---
APPROVED REPORT Exam: Resting ECG HR:71 bpm ECG Measurements Heart Rate 71 AXES MS 224 P 87 QRSd 122 QRS 134 QT 416 T 78 QTc 439 Conclusion SINUS RHYTHM WITH FIRST DEGREE AV BLOCK WITH FREQUENT SUPRAVENTRICULAR PREMATURE COMPLEXES RIGHT AXIS DEVIATION [QRS AXIS > 100] RIGHT BUNDLE BRANCH BLOCK [120+ ms QRS DURATION, UPRIGHT V1, 40+ ms S IN I/aVL/V4/V5/V6] ABNORMAL ECG UNCONFIRMED REPORT Electronically signed by : Jenaro Jean Baptiste MD 09/12/2022 13:27:58
--- NOTE | 2022-09-12 01:59 | XR_ITS ---
PROCEDURE INFORMATION: Exam: XR Chest Exam date and time: 09/12/2022 2:15 AM Age: 82 years old Clinical indication: Shortness of breath; Prior surgery; Additional info: SOA TECHNIQUE: Imaging protocol: Radiologic exam of the chest. Views: 1 view. Total images: 2 COMPARISON: CR XR CHEST PORTABLE 01/27/2022 3:57 PM FINDINGS: Lungs: Pulmonary hyperinflation is evident, suspicious for COPD. Pleural spaces: Unremarkable. No pleural effusion. No pneumothorax. Heart/Mediastinum: Unremarkable. No cardiomegaly. Vasculature: Atherosclerosis is evident. Bones/joints: Changes of sternotomy are noted. Unchanged fractured 2nd sternotomy wire. Osseous demineralization is evident. IMPRESSION: 1. Pulmonary hyperinflation is evident, suspicious for COPD. 2. No acute process identified.
[2022-09-12 02:06] LABS: ABG Base Excess 2.3 mmol/L (-2.4-2.3); ABG HCO3 28.1 mmhg (22.0-26.0); ABG Oxygen Saturation 97 % (90-100); ABG PH 7.34 mmol/L (7.35-7.45); ABG PO2 92.6 mmhg (80-100); ABG TCO2 29.7 mmhg (23-27)
[2022-09-12 02:07] LABS: Allen's Test Acceptable; Oxygen 2LPM %
[2022-09-12 02:08] LABS: ABG PCO2 53.4 mmhg (35.0-45.0); Source Right Radial
[2022-09-12 02:09] LABS: Basophils % 0.3 % (0.1-2.0); Eosinophils # 0.2 K/mm3 (0.0-0.4); Eosinophils % 1.7 % (0.1-12.0); Hematocrit 38.7 % (42.0-52.0); Hemoglobin 12.4 g/dL (14.1-18.0); Lymphocytes # 2.3 K/mm3 (0.7-4.5); Lymphocytes % 27.3 % (10-50); Mean Corpuscular HGB Conc 32.2 g/dL (31.8-35.4); Mean Corpuscular Hemoglobin 29.8 pg (27.0-31.2); Mean Corpuscular Volume 92.8 fl (80-94); Mean Platelet Volume 7.6 fl (7.4-10.4); Monocytes # 0.6 K/mm3 (0.1-1.0); Monocytes % 6.7 % (1.7-9.3); Neutrophils # 5.5 K/mm3 (1.8-7.8); Neutrophils % 63.9 % (37.0-80.0); Platelet Count 199 K/mm3 (142-424); Red Blood Count 4.17 M/mm3 (4.60-6.20); White Blood Count 8.5 K/mm3 (4.8-10.8)
[2022-09-12 02:11] LABS: Coronavirus 19, PCR Not Detected (NotDetected); Influenza A, PCR Not Detected (NotDetected); Influenza B, PCR Not Detected (NotDetected)
[2022-09-12 02:15] LABS: Alanine Aminotransferase 42 U/L (12-78); Albumin Level 4.1 g/dl (3.5-5.0); Albumin/Globulin Ratio 1.5 (1.1-1.8); Alkaline Phosphatase 116 U/L (38-126); Anion Gap 12.2 mEq/L (5-15); Aspartate Amino Transferase 48 U/L (17-59); Bilirubin,Total 0.3 mg/dl (0.2-1.3); Blood Urea Nitrogen 32 mg/dl (9-20); Calcium 9.2 mg/dl (8.4-10.2); Carbon Dioxide 33 mmol/L (22.0-30.0); Chloride 99 mmol/L (98-107); Creatinine Clearance Estimated 31 mL/min (50-200); Estimated Glomerular Filt Rate 36 ml/min (>60); GFR (African American) 44 ML/MIN (>60); Globulin 2.7 g/dL (1.3-3.2); Glucose 112 mg/dl (74-100); Potassium 4.2 mmoL/L (3.5-5.1); Sodium 140 mmol/L (136-145); Total Protein,Serum 6.8 g/dl (6.3-8.2)
[2022-09-12 02:20] LABS: C-Reactive Protein 2.5 mg/L (0-4)
[2022-09-12 02:29] LABS: NT Pro Brain Natriuretic Pep. 2870 pg/mL (0-450)
[2022-09-12 02:32] LABS: Troponin I < 0.01 ng/ml (0.00-0.034)
--- NOTE | 2022-09-12 02:32 | HMH.EDSOB ---
Discharge Plan Disposition Patient Disposition: Admitted as Observation Chief Complaint: Shortness of Breath/Dyspnea Prescriptions Prescriptions: No Action Xarelto 20 mg tablet 20 mg PO DAILY ipratropium-albuterol 0.5 mg-3 mg(2.5 mg base)/3 mL solution for nebulization 3 ml IH QID PRN (Reason: shortness of breath or wheezing) 90 Days Qty: 270 3RF albuterol sulfate 90 mcg/actuation HFA aerosol inhaler 2 inh IH QID PRN (Reason: shortness of breath or wheezing) 90 Days Qty: 8.5 2RF prednisone 10 MG tablet 40 mg PO DAILY budesonide 0.5 mg/2 mL suspension for nebulization 0.5 mg inhalation Q12H budesonide 0.5 MG/2 ML suspension for nebulization 0.5 mg IH BID Spiriva with HandiHaler 18 mcg capsule, w/inhalation device 1 cap IH DAILY Rx Instructions: puncture 1 cap using device; one dose = 2 inhalations formoterol fumarate [Perforomist] 20 mcg/2 mL solution for nebulization 2 ml inhalation BID rosuvastatin 40 MG tablet 40 mg PO HS ranolazine 500 MG tablet extended release 12 hr 500 mg PO DAILY cetirizine 10 MG tablet 10 mg PO DAILY famotidine 20 MG tablet 20 mg PO DAILY bumetanide 1 MG tablet 1 mg PO DAILY multivitamin 1 EACH tablet 1 each PO DAILY metoprolol succinate 200 MG tablet extended release 24 hr 200 mg PO DAILY potassium chloride 20 MEQ packet 20 meq PO DAILY ipratropium-albuterol 3 ML solution for nebulization 3 ml IH Q6HP PRN (Reason: Shortness Of Breath) 30 Days Qty: 100 0RF sacubitril-valsartan 1 EACH tablet 1 tab PO BID 30 Days Qty: 60 0RF Referrals Follow up/Referrals: Jenaro Jean Baptiste MD [Primary Care Provider] - See instructions Clinical Impressions Clinical Impression: Acute exacerbation of chronic obstructive airways disease, RBBB, Tobacco use disorder, Elevated brain natriuretic peptide (BNP) level, CHF exacerbation Discharge ED Provider: Antonio Hamilton Resp/SOB HPI General Chief Complaint: Shortness of Breath/Dyspnea Stated Complaint: Difficulty breathing Time Seen by Provider: 09/12/22 02:32 Mode of Arrival: Wheelchair Source of Information: Patient, Relative and Medical Record Limitations: No Limitations Description of Symptoms (Recalled from ER Triage Doc. by RN): pt c/o increasing SOA x 3 days History of Present Illness increased sob over the last few days w/o chest pain or fever MD Complaint: shortness of breath and cough Onset (ago): day(s) Severity: moderate Consistency/Duration: intermittent Known history of: COPD and congestive heart failure Associated symptoms: cough Related Data Home oxygen amount: 2 liters Home Medications Medication Instructions Recorded Confirmed ranolazine 500 mg tablet,extended 500 mg PO DAILY ANGINA 12/24/17 09/12/22 release,12 hr rosuvastatin 40 mg tablet 40 mg PO HS Cholesterol 12/24/17 09/12/22 rivaroxaban 20 mg tablet (Xarelto) 20 mg PO DAILY Blood thinner 05/26/19 09/12/22 cetirizine 10 mg tablet 10 mg PO DAILY Allergy symptoms 02/25/20 09/12/22 bumetanide 1 mg tablet 1 mg PO DAILY Fluid 11/09/21 09/12/22 famotidine 20 mg tablet 20 mg PO DAILY acid reflux 11/09/21 09/12/22 metoprolol succinate 200 mg 200 mg PO DAILY Hypertension 11/09/21 09/12/22 tablet,extended release 24 hr multivitamin 1 each PO DAILY Supplement 11/09/21 09/12/22 potassium chloride 20 mEq oral 20 meq PO DAILY Supplement 11/09/21 09/12/22 packet budesonide 0.5 mg/2 mL suspension 0.5 mg IH BID Breathing problems 09/12/22 09/12/22 for nebulization budesonide 0.5 mg/2 mL suspension 0.5 mg inhalation Q12H Breathing 09/12/22 09/12/22 for nebulization problems formoterol fumarate 20 mcg/2 mL 2 ml inhalation BID Breathing 09/12/22 09/12/22 solution for nebulization problems (Perforomist) prednisone 10 mg tablet 40 mg PO DAILY . 09/12/22 09/12/22 tiotropium bromide 18 mcg capsule 1 cap inhalation DAILY Breathing 09/12/22 09/12/22 with inhalation saturnino
[2022-09-12 02:33] LABS: Procalcitonin 0.082 ng/mL (0.0-2.0)
[2022-09-12 02:34] LABS: Lactic Acid 1.3 mmol/L (0.7-2.1)
[2022-09-12 02:46] LABS: Erythrocyte Sedimentation Rate 23 mm/hr (0-20)
--- NOTE | 2022-09-12 03:40 | PC.NURSE ---
PT ARRIVED TO FLOOR VIA WHEELCHAIR AT THIS TIME
[2022-09-12 08:22] LABS: Chloride 94 mmol/L (98-107); Potassium 4.6 mmoL/L (3.5-5.1); Sodium 138 mmol/L (136-145)
[2022-09-12 08:24] LABS: Basophils % 0.3 % (0.1-2.0); Eosinophils % 0.6 % (0.1-12.0); Hematocrit 40.8 % (42.0-52.0); Hemoglobin 13.2 g/dL (14.1-18.0); Lymphocytes # 1.1 K/mm3 (0.7-4.5); Lymphocytes % 14.4 % (10-50); Mean Corpuscular HGB Conc 32.4 g/dL (31.8-35.4); Mean Corpuscular Hemoglobin 29.5 pg (27.0-31.2); Mean Corpuscular Volume 91.1 fl (80-94); Mean Platelet Volume 7.9 fl (7.4-10.4); Monocytes # 0.1 K/mm3 (0.1-1.0); Monocytes % 1.3 % (1.7-9.3); Neutrophils # 6.4 K/mm3 (1.8-7.8); Neutrophils % 83.5 % (37.0-80.0); Platelet Count 196 K/mm3 (142-424); Red Blood Count 4.48 M/mm3 (4.60-6.20); Red Cell Distribution Width 13.9 % (11.5-17.5); White Blood Count 7.7 K/mm3 (4.8-10.8)
[2022-09-12 08:25] LABS: Blood Urea Nitrogen 28 mg/dl (9-20); Creatinine Clearance Estimated 31 mL/min (50-200); Estimated Glomerular Filt Rate 39 ml/min (>60); GFR (African American) 47 ML/MIN (>60)
[2022-09-12 08:26] LABS: Anion Gap 14.6 mEq/L (5-15); Calcium 9.2 mg/dl (8.4-10.2); Carbon Dioxide 34 mmol/L (22.0-30.0); Glucose 176 mg/dl (74-100)
--- NOTE | 2022-09-12 08:28 | EXP.HP ---
History of Present Illness *Admission Date: 09/12/22 *Reason for visit:: Shortness of air and cough *History of present illness: 82-year-old male with longstanding end-stage emphysema, oxygen requiring, follows with pulmonary here, has chronic respiratory failure, has had multiple admissions to the hospital and then rehab facilities for COPD exacerbations. Came to the emergency department with 3 to 4-day history of poor respiratory effort, coughing, lots of fatigue. New infiltrates on chest x-ray, worsening functional status, admitted to hospital for IV antibiotics, pulmonary toilet. [facility] Disclaimer: The information contained in this section may have been updated after the patient was seen, as this information can be updated by other users. Medical History (Updated 09/12/22 @ 04:09 by Ruthie Bustamante RN) COPD (chronic obstructive pulmonary disease) Dyspnea on exertion Hyperlipidemia Nocturnal hypoxia Pneumonia Pulmonary nodule, left Screening for lung cancer Smoking greater than 30 pack years Tobacco abuse counseling Tobacco abuse disorder Urinary tract infection Surgical History History of cervical spinal surgery History of open heart surgery Family History No significant family history Social History (Updated 09/12/22 @ 04:09 by Ruthie Bustamante RN) Smoking Status: Current every day smoker tobacco type: cigarettes packs per day: 1 second hand exposure: No alcohol intake: never substance use type: denies use current occupational status: retired Travel in the last 8 weeks: None household members: family housing: house current occupational exposures/hazards: No caffeine: Yes Review of Systems Review of Systems Review of systems:: pertinent systems reviewed and negative unless documented below Review of systems (narrative): Negative anginal pain, negative GI issues. Lots of worsening of pulmonary symptoms Meds Home Medications and Allergies Home Medications Medication Instructions Recorded Confirmed Type ranolazine 500 mg tablet,extended 500 mg PO DAILY ANGINA 12/24/17 09/12/22 History release,12 hr rosuvastatin 40 mg tablet 40 mg PO HS Cholesterol 12/24/17 09/12/22 History rivaroxaban 20 mg tablet (Xarelto) 20 mg PO DAILY Blood thinner 05/26/19 09/12/22 History cetirizine 10 mg tablet 10 mg PO DAILY Allergy symptoms 02/25/20 09/12/22 History bumetanide 1 mg tablet 1 mg PO DAILY Fluid 11/09/21 09/12/22 History famotidine 20 mg tablet 20 mg PO DAILY acid reflux 11/09/21 09/12/22 History metoprolol succinate 200 mg 200 mg PO DAILY Hypertension 11/09/21 09/12/22 History tablet,extended release 24 hr multivitamin 1 each PO DAILY Supplement 11/09/21 09/12/22 History potassium chloride 20 mEq oral 20 meq PO DAILY Supplement 11/09/21 09/12/22 History packet ipratropium 0.5 mg-albuterol 3 mg 3 ml inhalation Q6HP PRN Shortness 01/30/22 09/12/22 Rx (2.5 mg base)/3 mL nebulization Of Breath 30 days #100 ea soln sacubitril 49 mg-valsartan 51 mg 1 tab PO BID CHF 30 days #60 tabs 01/30/22 09/12/22 Rx tablet ipratropium 0.5 mg-albuterol 3 mg 3 ml inhalation QID PRN shortness 04/05/22 09/12/22 Rx (2.5 mg base)/3 mL nebulization of breath or wheezing 90 days #270 soln mL albuterol sulfate 90 mcg/actuation 2 inh inhalation QID PRN shortness 07/18/22 09/12/22 Rx aerosol inhaler of breath or wheezing 90 days #8.5 grams budesonide 0.5 mg/2 mL suspension 0.5 mg IH BID Breathing problems 09/12/22 09/12/22 History for nebulization budesonide 0.5 mg/2 mL suspension 0.5 mg inhalation Q12H Breathing 09/12/22 09/12/22 History for nebulization problems formoterol fumarate 20 mcg/2 mL 2 ml inhalation BID Breathing 09/12/22 09/12/22 History solution for nebulization problems (Perforomist) prednisone 10 mg tablet 40 mg PO DAILY . 09/12/22 09/12/22 History tiotropium br
--- NOTE | 2022-09-12 10:03 | EXP.PULM.CON ---
History of Present Illness History of present illness: Mr. Brooks is a 82 Y/O male, current smoker with a history of severe COPD on triple inhaler therapy at home presented to hospital complaining of worsening respiratory distress for the last 3 to 4 days. Patient admits worsening respiratory distress and worsening cough with increasing peripheral pain. Denies any Subjective fevers or chills. Denies any hemoptysis. [facility] Disclaimer: The information contained in this section may have been updated after the patient was seen, as this information can be updated by other users. Medical History (Updated 09/12/22 @ 13:19 by Anna Price MD) COPD (chronic obstructive pulmonary disease) COPD exacerbation Dyspnea on exertion Hyperlipidemia Nocturnal hypoxia Pneumonia Pulmonary nodule, left Respiratory failure, [id number] Screening for lung cancer Smoking greater than 30 pack years Tobacco abuse counseling Tobacco abuse disorder Urinary tract infection Surgical History History of cervical spinal surgery History of open heart surgery Family History Other No significant family history Social History (Updated 09/12/22 @ 04:09 by Ruthie Bustamante, RN) Smoking Status: Current every day smoker tobacco type: cigarettes packs per day: 1 second hand exposure: No alcohol intake: never substance use type: denies use current occupational status: retired Travel in the last 8 weeks: None household members: family housing: house current occupational exposures/hazards: No caffeine: Yes Review of Systems Constitutional Constitutional: Reports anorexia, Reports body ache(s) and Reports fatigue Eyes Eyes: Denies eye discharge, Denies dry eyes, Denies irritation and Denies itchy eyes ENT Ears, Nose, Mouth, and Throat: Denies epistaxis, Denies facial pain, Denies lip swelling and Denies throat swelling *Cardiovascular Cardiovascular: Reports dyspnea and Reports dyspnea on exertion *Respiratory Respiratory: Reports chest congestion, Reports cough, Reports dyspnea, Reports dyspnea on exertion, Denies excessive phlegm production, Denies hemoptysis and Reports wheezing *Gastrointestinal Gastrointestinal: Denies abdominal pain, Denies belching and Denies cramping *Musculoskeletal Musculoskeletal: Reports back pain, Reports myalgias and Reports other (No small joint swelling or Pain) Psychiatric Psychiatric: Denies homicidal ideation and Denies suicidal ideation Endocrine Endocrine: Reports fatigue and Denies heat intolerance Hematologic/Lymphatic Hematologic/Lymphatic: Denies easy bleeding and Denies lymphadenopathy Allergic/Immunologic Allergic/Immunologic: Denies itchy eyes, Denies lip swelling, Denies throat swelling and Reports wheezing Pulmonology Exam Inpatient Vital signs and Labs for Last 24 Hours: Temp Pulse Resp BP Pulse Ox 97.6 F 109 H 18 114/51 L 95 09/12/22 08:00 09/12/22 08:00 09/12/22 08:00 09/12/22 08:00 09/12/22 08:00 Laboratory Results - last 24 hr 09/12/22 01:54: WBC 8.5, RBC 4.17 L, Hgb 12.4 L, Hct 38.7 L, MCV 92.8, MCH 29.8, MCHC 32.2, RDW 14.0, Plt Count 199, MPV 7.6, Neut % (Auto) 63.9, Lymph % (Auto) 27.3, Sac % (Auto) 6.7, Eos % (Auto) 1.7, Baso % (Auto) 0.3, Neut # (Auto) 5.5, Lymph # (Auto) 2.3, Sac # (Auto) 0.6, Eos # (Auto) 0.2, Baso # (Auto) 0.0, ESR 23 H 09/12/22 01:54: Sodium 140, Potassium 4.2, Chloride 99, Carbon Dioxide 33 H, Anion Gap 12.2, BUN 32 H, Creatinine 1.80 H, Estimated Creat Clear 31, Estimated GFR 36 L, Est GFR ( Amer) 44 L, Glucose 112 H, Calcium 9.2, Total Bilirubin 0.3, AST 48, ALT 42, Alkaline Phosphatase 116, Troponin I < 0.01, C-Reactive Protein 2.5, NT-Pro-B Natriuret Pep 2870 H, Total Protein 6.8 D, Albumin 4.1, Globulin 2.7, Albumin/Globulin Ratio 1.5, Procalcitonin 0.082 09/12/22 01:54: Lactate 1.3 09/12/22 01:59: Specimen Source Right
--- NOTE | 2022-09-12 11:10 | P.CONPHA_ITS ---
Pharmacy Intervention Comments: Medication reconciliation completed via chart review, external fill history, and MAR from [place]. -Candice Cantu, SusanaD Candidate 2022
--- NOTE | 2022-09-12 11:10 | HMH.PHAINT1 ---
Pharmacy Intervention Comments: Medication reconciliation completed via chart review, external fill history, and MAR from [place]. -Candice Cantu, SusanaD Candidate 2022
[2022-09-13] VITALS (9 sets, daily range): BP systolic 103–133; BP diastolic 48–70; PULSE 39–89; RESP 18–22; TEMP 36.4–36.7; O2SAT 90–96; BMI 19.2; BMI 19.1
--- NOTE | 2022-09-13 02:48 | PC.NURSE ---
Pt has been awake several times tonight, has been A/Ox4. Lungs have been clear this morning but diminished.Noted some shortness of air with exertion. Pt has used his urinal at bedside. IV is patent with NS running at 50ML/hr. Pt has denied any pain, educated pt on current plan of care, encouraged pt use call light for any needs. Bed locked in low position, bed alarm activated, call light within reach.
--- NOTE | 2022-09-13 08:23 | EXP.ACUTE.PN ---
Subjective *Date: 09/13/22 *Time: 08:23 Interval history: Patient is sitting up on the side of the bed, looks a little brighter today. Continues to complain of a lot of congestion in his lungs. Pulmonary consult note reviewed and appreciated. Medical Exam Vital signs and Labs for Last 24 Hours: Vital Signs Temp Pulse Pulse Resp BP Pulse Ox 09/13/22 07:56 98.0 F 64 22 106/56 L 90 L 09/13/22 06:15 39 L 09/13/22 06:15 44 L 09/13/22 06:15 93 L 09/13/22 04:00 97.9 F 61 18 107/70 L 93 L 09/13/22 00:00 97.6 F 83 18 110/58 L 96 09/12/22 20:00 97.6 F 87 18 109/63 L 93 L 09/12/22 19:17 93 L 09/12/22 18:55 75 09/12/22 18:55 78 09/12/22 16:00 97.7 F 90 18 127/52 L 95 09/12/22 12:00 98.0 F 54 L 18 106/56 L 94 L 09/12/22 11:50 76 09/12/22 11:50 76 09/12/22 11:50 91 L Intake and Output 09/12/22 09/13/22 09/13/22 19:59 03:59 11:59 Intake Total 1215 / 1687 472 / 1687 Output Total 600 / 1725 600 / 1725 525 / 1725 Balance 615 / -38 -128 / -38 -525 / -38 Intake: Intake, Oral Amount 600 / 600 Intake, Total IV Amount 615 / 1087 472 / 1087 0.9 % Sodium Chloride 1,000 ml 615 / 1087 472 / 1087 @ 50 mls/hr IV .Q20H [facility] Rx#: [id number] Output: Output, Urine Amount 600 / 1725 600 / 1725 525 / 1725 Other: Number of Unmeasured Voids 1 Weight 138 lb 14.259 oz 141 lb 12.8 oz Patient Weight 09/13/22 11:59 Weight 141 lb 12.8 oz Laboratory Results - last 24 hr 09/12/22 07:43: WBC 7.7, RBC 4.48 L, Hgb 13.2 L, Hct 40.8 L, MCV 91.1, MCH 29.5, MCHC 32.4, RDW 13.9, Plt Count 196, MPV 7.9, Neut % (Auto) 83.5 H, Lymph % (Auto) 14.4, [place] % (Auto) 1.3 L, Eos % (Auto) 0.6, Baso % (Auto) 0.3, Neut # (Auto) 6.4, Lymph # (Auto) 1.1, [place] # (Auto) 0.1, Eos # (Auto) 0.0, Baso # (Auto) 0.0 09/12/22 07:43: Sodium 138, Potassium 4.6, Chloride 94 L, Carbon Dioxide 34 H, Anion Gap 14.6, BUN 28 H, Creatinine 1.70 H, Estimated Creat Clear 31, Estimated GFR 39 L, Est GFR ( Amer) 47 L, Glucose 176 H D, Calcium 9.2 I & O for Labs for Last 24 Hours: Intake & Output 09/10/22 09/11/22 09/12/22 09/13/22 11:59 11:59 11:59 11:59 Intake Total 240 / 240 1687 / 1687 Output Total 300 / 300 1725 / 1725 Balance -60 / -60 -38 / -38 Weight 140 lb 14.4 oz 141 lb 12.8 oz Comment:: Patient is alert. Pleasant. Talkative. Lots of rhonchi and junk in the chest in the posterior alonzo. Heart rate regular. There is a recorded vital sign that his heart rates in the 30s, currently his heart rates in the low 60s. I wonder if this is when he was in a deep sleep. No edema. Heart rate is regular although exam is difficult because of his rhonchorous lung sounds. Assessment and Plan *Assessment and plan (1) COPD exacerbation: Status: Acute Category: Medical Code(s): J44.1 - Chronic obstructive pulmonary disease with (acute) exacerbation (2) Acute and chronic respiratory failure ([id number]): Status: Acute Category: Medical Code(s): J96.20 - Acute and chronic respiratory failure, unspecified whether with hypoxia or hypercapnia (3) Essential (primary) hypertension: Status: Chronic Category: Medical Code(s): I10 - Essential (primary) hypertension (4) Degenerative disc disease, lumbar: Status: Chronic Category: Medical Code(s): M51.36 - Other intervertebral disc degeneration, lumbar region (5) RBBB: Status: Acute Category: Medical Code(s): I45.10 - Unspecified right bundle-branch block Plan Agree with admission. Patient is at end-stage regarding emphysema. Consult with pulmonary today, continue current antibiotics and pulmonary toilet. Plan update for 09/13/2022-appreciate pulmonary input. Recommendations implemented. I reaffirmed patient's DNR CODE STATUS with him. This will be documented in the chart.
--- NOTE | 2022-09-13 09:48 | HMH.PTEV ---
Physical Therapy Evaluation Rehab PT IP Evaluation Start: 09/13/22 08:01 Freq: ONCE Status: Active Protocol: Document 09/13/22 09:00 PHOREVELIO (Rec: 09/13/22 09:47 PHORNE [id number]) Subjective/History History History 82 yowm adm to [facility] COPD exac and CHF with increased oxygen requirement. He uses oxygen via NC at all times at baseline. He reports he is generally independent with all mobility at baseline and uses a RW for ambulation. Subjective Subjective Pt reports he is having SOA at this time. Rehab PT IP Eval Objective Appearance Patient Behavior Appropriate Patient Orientation Person,Place,Time Difficulty following instructions none Speech Pattern Clear Ambulation Patient Able to Ambulate Yes Ambulation Observation IP General Gait Pattern Observation Shuffling Step Ambulation Distance (feet) 10 Ambulation Assistive Device Rolling Walker Ambulation Ability Contact Guard/Hand Hold Balance Ability to Arise Able, uses arms to help Sitting Balance Steady, safe Standing Balance Unsteady Dynamic Sitting Balance Ability Good Dynamic Standing Balance Ability Poor Transfers Bed Transfer Ability Contact Guard/Hand Hold Chair Transfer Ability Contact Guard/Hand Hold Sit to Stand Bed Transfer Ability Contact Guard/Hand Hold Sit to Stand Chair Transfer Ability Contact Guard/Hand Hold Rehab PT IP prob,goals,plan Problems Date of Evaluation: 09/13/22 PT IP Problems Bed Mobility,Transfers,Gait, Self care Rehab Potential Rehab Potential Fair Plan PT Intervention Plan Bed Mobility,Transfers,Gait, Self care,Therapeutic Exercise PT Plan Frequency Daily Duration LOS Discharge Goals Bed Transfer Ability Supervision/Stand by Sit to Stand Chair Transfer Ability Supervision/Stand by Ambulation Assistive Device Rolling Walker Ambulation Distance (feet) 25 Discharge Plan PT Discharge Plan Pt is currently most appropriate for rehab placement once medically stable. If he does return home , he will need significant assist for all ADLs. G -code Required No Eval Complexity Eval Charge Codes 99057 - Moderate Complexity
--- NOTE | 2022-09-13 09:53 | CARE MANAGER ---
Spoke with patient daughter, Emelina for discharge plans and she states that she is not interested in placement for him at this time. She does state the last time he went to rehab he got very confused as he was out of his environment thus she would rather take him home with her. I informed her that patient would be ready for dischargee in the am, she states that she understood and intends on coming to pick the patient up and take him home with her.
--- NOTE | 2022-09-13 09:55 | EXP.PULM.PN ---
Subjective *Date: 09/13/22 *Time: 13:23 Interval history: No acute respiratory vents overnight. Patient admits continued improvement in respiratory symptoms Including cough and productive phlegm. Pulmonology Exam Inpatient Vital signs and Labs for Last 24 Hours: Temp Pulse Resp BP Pulse Ox 98.0 F 64 22 106/56 L 90 L 09/13/22 07:56 09/13/22 07:56 09/13/22 07:56 09/13/22 07:56 09/13/22 07:56 I & O for Labs for Last 24 Hours: Intake & Output 09/10/22 09/11/22 09/12/22 09/13/22 23:59 23:59 23:59 23:59 Intake Total 1455 / 1455 472 / 472 Output Total 1300 / 1350 725 / 725 Balance 155 / 105 -253 / -253 Weight 138 lb 14.259 oz 141 lb 12.8 oz Constitutional: Present mild distress Head: Present normocephalic and atraumatic ENT: Present normal exam, normal oropharynx and mucous membranes moist Neck: Present normal inspection and full ROM Respiratory: Present able to speak in complete sentences; Absent respiratory distress or wheezes Cardiac: Present S1/S2, Tachycardia and radial pulses present GI: Present soft and distention; Absent tenderness or guarding Skin: Present intact; Absent cyanosis or jaundice Neuro: Present alert, awake and oriented x 3 Extremities: Present normal inspection; Absent clubbing or cyanosis Psychiatric: Present normal affect and cooperative Assessment and Plan *Assessment and plan (1) COPD exacerbation: Status: Acute Category: Medical Code(s): J44.1 - Chronic obstructive pulmonary disease with (acute) exacerbation (2) Respiratory failure, [id number]: Status: Acute Category: Medical Code(s): J96.20 - Acute and chronic respiratory failure, unspecified whether with hypoxia or hypercapnia Plan #Acute Severe COPD exacerbation Mr. Brooks is a 82 Y/O male, current smoker with a history of severe COPD on triple inhaler therapy at home presented to hospital complaining of worsening respiratory distress for the last 3 to 4 days. Was initiated on levofloxacin And DuoNebs on as-needed basis. Received Methylprednisolone 125 mg once in the ER. Labs on admission personally reviewed and no evidence of leukocytosis. BRYAN on CKD, managed by primary team. . ABG upon admission showed mild hypercarbic respiratory failure with pH 7.31 PCO2 53.4. PO2 at 93 on 2L NC No acute airspace disease And consolidation most marked chest x-ray. Interval update: Continued improvement in his respiratory status. Significant morning wheezing. Continued oxygen therapy 1 to 2 L, chronic 1 to 2 L at home. Plan: -Continue home long-term oxygen therapy at 2 L. -DuoNebs every 6 hours along with budesonide every 12 scheduled, can be discharged home inhaler therapy. -Prednisone 40 mg daily x5 days -Continue levofloxacin for total of 5 days. Thank you for involving pulmonary in this patient care. We will follow the patient in pulmonary clinic as previously scheduled.
--- NOTE | 2022-09-13 09:56 | HMH.OTEV ---
OT Inpatient Evaluation Rehab OT IP Evaluation Start: 09/13/22 08:02 Freq: ONCE Status: Active Protocol: Document 09/13/22 09:45 [facility] (Rec: 09/13/22 09:56 [facility] [id number]) Rehab OT IP Assessment Subjective History Pt oriented x 3 on arrival. Pt agreeable to engage in therapy evaluation. Pt was admitted via ED on 09/12/22 due to shortness of air and cough. Pt is an 82-year-old male with longstanding end- stage emphysema, oxygen requiring, follows with pulmonary here, has chronic respiratory failure, has had multiple admissions to the hospital and then rehab facilities for COPD exacerbations. Pt reports prior to being in the hospital , he was living at home alone. Pt reports he was independent with dressing, bathing, and feeding. He does have a woman come in weekly to assist in cleaning, laundry , and grocery shopping. Pt uses a walker during ambulation. Subjective I am ready to leave. Objective Patient Orientation Person,Place,Birthday Upper Extremity Gross ROM WFL Bed Mobility bed mobility-scooting,bed mobility - supine/sit,bed mobility - rolling Assist Level Contact Guard/Hand Hold Transfer Training Sit/Stand Transfer Assist Level Moderate x 2 (50% assist) Lower Body Dressing Ability Standby Assistance Rehab OT IP prob,goals,plan Problems Date of Evaluation: 09/13/22 OT IP Problems Bed Mobility,Transfers,Balance ,Self care,Safety Rehab Potential Rehab Potential Good Equipment Needs Assistive Devices Rolling / Wheeled Walker Plan OT intervention Plan Bed Mobility,Transfers,Balance ,Self care,Safety,Therapeutic Exercise OT Plan Frequency BID Duration LOS Discharge Goals Bed Mobility Ability Assistance x1 Sit to Stand Chair Transfer Ability Minimal x 1 (25% assist) Chair Transfer Ability
--- NOTE | 2022-09-13 17:28 | PC.NURSE ---
PT IS RESTING IN BED. ALERT AND ORIENTED X3 HOWEVER PT HAS HAD SOME PERIODS OF CONFUSION THIS SHIFT. PT WAS VERY UPSET THIS MORNING B/C HE WAS UNDER THE IMPRESSION HE WAS GOING TO BE DISCHARGED TODAY. AFTER TALKING TO AND PT'S DAUGHTER IT WAS DECIDED THAT PT WAS GOING TO STAY TILL TOMORROW. LUNG SOUNDS DIMINISHED WITH SCATTERED WHEEZES. EATING AND DRINKING WELL. DNR STATUS WAS VERIFIED OVER THE PHONE WITH DAUGHTER THIS MORNING. WILL CONTINUE TO MONITOR.
--- NOTE | 2022-09-13 19:24 | PC.NURSE ---
NOTIFIED ABOUT BLOOD CULTURES. VANCOMYCIN DOSE PER PHARMACY ORDERED ONE TIME. NOTIFIED NIGHT WATCH FOR DOSAGE. ORDER FAXED TO PHARMACY.
[2022-09-14 01:10] VITALS: BP 139/79; PULSE 53; RESP 20; TEMP 36.5; O2SAT 95
--- NOTE | 2022-09-14 01:11 | PC.NURSE ---
Laboratory staff reported pt fell on floor. When I entered pts room he was being assisted by staff members back to bed. No complaints by pt at this time. Skin assessment and VS competed at this time. No apparent injuries noted. VSS, see flowsheet. No changes since previous assessment. Pt confused, as he was at baseline. Bed alarm on and functioning. supervisor quilting and MD notified.
[2022-09-14 04:00] VITALS: BP 125/55; PULSE 56; RESP 18; TEMP 36.5; O2SAT 95
[2022-09-14 05:00] VITALS: BMI 19.2
--- NOTE | 2022-09-14 05:31 | PC.NURSE ---
Pt can answer orientation questions appropriately but is very confused. Expiratory wheezing and rhonchi noted bilaterally. Remains on 2L NC. VSS. Voids per urinal. Pt up to chair this morning with chair alarm on and functioning. Fall precautions in place. Call light within reach.
[2022-09-14 06:07] VITALS: O2SAT 91
[2022-09-14 07:28] VITALS: BP 125/59; PULSE 51; RESP 18; TEMP 36.5; O2SAT 99
--- NOTE | 2022-09-14 07:39 | EXP.DC.SUM ---
General Admission date:: 09/12/22 Discharge date: 09/14/22 HPI HPI HPI: 82-year-old male with longstanding end-stage emphysema, oxygen requiring, follows with pulmonary here, has chronic respiratory failure, has had multiple admissions to the hospital and then rehab facilities for COPD exacerbations. Came to the emergency department with 3 to 4-day history of poor respiratory effort, coughing, lots of fatigue. New infiltrates on chest x-ray, worsening functional status, admitted to hospital for IV antibiotics, pulmonary toilet. Hospital Course Hospital Course Hospital Course: Patient was admitted, placed on broad-spectrum antibiotics and steroids. He maintains a DNR status and we continue to respect Very frail and needed assistance. His daughter who is an occupational therapist will come in take him to [place] for the holidays and will be able to do some home-based rehab at that home. Will send him home today. Blood culture 1/2 bottles positive for staph epi, this seems to be a commensal organism. He will follow-up in my office once he is away from [place]. Exam Data for Last 24 hours Vital signs and Labs for Last 24 Hours: Temp Pulse Resp BP Pulse Ox 97.7 F 51 L 18 125/59 L 99 09/14/22 07:28 09/14/22 07:28 09/14/22 07:28 09/14/22 07:28 09/14/22 07:28 I & O for Last 24 hours: Intake & Output 09/11/22 09/12/22 09/13/22 09/14/22 11:59 11:59 11:59 11:59 Intake Total 240 / 240 1687 / 1687 1290 / 1290 Output Total 300 / 300 1725 / 1725 925 / 925 Balance -60 / -60 -38 / -38 365 / 365 Weight 140 lb 14.4 oz 141 lb 12.8 oz 141 lb 13.103 oz Microbiology Reports for the Last 24 Hours: Microbiology 09/12/22 01:54 Blood Blood Culture - Preliminary NO GROWTH AFTER 48 HOURS 09/12/22 01:54 Blood Blood Culture - Preliminary Constitutional Constitutional: no acute distress *Routine HEENT Exam Head: Present normocephalic Eye: Present EOMI and PERRL ENT: Present mucous membranes moist *Routine Neck Exam Neck: Present supple; Absent lymphadenopathy *Routine Respiratory Exam Respiratory: Present rhonchi, crackles and distant breath sounds *Routine Cardiovascular Exam Cardiovascular: Present RRR *Routine Abdominal Exam Abdominal: Present soft and normoactive bowel sounds; Absent tenderness *Routine Extremities Exam Extremities: Absent cyanosis, clubbing or edema *Routine Skin Exam Skin: Present warm; Absent rash *Routine Neurological Exam Neurological: Present alert and CN II-XII intact Comments: Globally weak, oriented x2 Results Data Completed and Pending Labs on day of discharge: Preliminary micro results at discharge 09/12/22 01:54 Blood Culture - Preliminary Blood NO GROWTH AFTER 48 HOURS 09/12/22 01:54 Blood Culture - Preliminary Blood DS: Diagnosis Discharge Diagnosis (1) COPD exacerbation: Status: Acute (2) Respiratory failure, [id number]: Status: Acute Meds Home Medications and Allergies Home Medications Medication Instructions Recorded Confirmed Type ranolazine 500 mg tablet,extended 500 mg PO DAILY ANGINA 12/24/17 09/12/22 History release,12 hr rosuvastatin 40 mg tablet 40 mg PO HS hyperlipidemia 12/24/17 09/12/22 History rivaroxaban 20 mg tablet (Xarelto) 20 mg PO DAILY Blood thinner 05/26/19 09/12/22 History cetirizine 10 mg tablet 10 mg PO DAILY Allergy symptoms 02/25/20 09/12/22 History famotidine 20 mg tablet 20 mg PO DAILY PRN Acid Reflux 11/09/21 09/12/22 History metoprolol succinate 200 mg 200 mg PO DAILY Hypertension 11/09/21 09/12/22 History tablet,extended release 24 hr multivitamin 1 each PO DAILY Supplement 11/09/21 09/12/22 History potassium chloride 20 mEq oral 20 meq PO DAILY Supplement 11/09/21 09/12/22 History packet ipratropium 0.5 mg-albuterol 3 mg 3 ml inhalation Q6HP PRN Shortness 01/30/22 09/12/22 Rx (2.5 mg base)/3 mL nebulization Of Breath 30 days #100 ea s
--- NOTE | 2022-09-14 08:51 | HMH.PHAINT1 ---
Pharmacy Intervention Comments: DISCHARGE MEDICATION COUNSELING PROVIDED. DISCUSSED STARTING SHORT-COURSE LEVAQUIN (ANTIBIOTIC FOR 7 DAYS, TAKE DAILY, RECOMMEND TAKING WITH FOOD, MAY CAUSE GI UPSET). PATIENT STATES HE IS VERY FAMILIAR WITH LEVAQUIN IT HAS GIVEN HIM DIARRHEA. PATIENT VERBALIZED NO QUESTIONS AT THIS TIME.
--- NOTE | 2022-09-14 10:59 | PC.NURSE ---
Patient is refusing to leave, Dr. Jean Baptiste called, risperidone 0.25 mg ordered and given.
--- NOTE | 2022-09-17 13:11 | CARE MANAGER ---
Contacted patient related to hospital discharge. He states he is doing better and is staying with his daughter. Denies questions or concerns at this time. PURVI Sherman
== END 2022-09-14 11:16 | disposition home or self-care (01) ==
LOC: ER 03:05 → 2ND 09-13 02:45
PROVIDERS: Admitting Provider Internal Medicine Adolescent Medicine; Emergency Provider Emergency Medicine; PCP Internal Medicine Adolescent Medicine; Visit Provider Internal Medicine Adolescent Medicine
DX: J44.1 Chronic obstructive pulmonary disease with (acute) exacerbation (principal); Z79.01 Long term (current) use of anticoagulants; I10 Essential (primary) hypertension; F17.210 Nicotine dependence, cigarettes, uncomplicated; Z99.81 Dependence on supplemental oxygen; M51.36 Other intervertebral disc degeneration, lumbar region; I45.10 Unspecified right bundle-branch block; J96.20 Acute and chronic respiratory failure, unspecified whether with hypoxia or hypercapnia; R06.9 Unspecified abnormalities of breathing; Z20.822 Contact with and (suspected) exposure to COVID-19
CPT/HCPCS: G0378; 36415; 71045; 80048; 80053; 82803; 83605; 83880; 84145; 84484; 85025; 85651; 86140; 87040; 87077; 87186; 93005; 94640; 94760; 94761; 97116; 97162; 97166; 97530; 99285; C9803; J1956; U0003; U0005

== ENCOUNTER 2022-09-30 20:06 | Inpatient (IN) | payer MEDICARE, SELFPAY ==
[2022-09-30 20:06] VITALS: BP 124/67; PULSE 111; RESP 22; TEMP 36.6; O2SAT 96; BMI 22.4
--- NOTE | 2022-09-30 20:19 | XR_ITS ---
PROCEDURE INFORMATION: Exam: XR Chest Exam date and time: 09/30/2022 8:40 PM Age: 82 years old Clinical indication: Dyspnea; Additional info: SOA TECHNIQUE: Imaging protocol: Radiologic exam of the chest. Views: 1 view. COMPARISON: CR XR CHEST PORTABLE 09/12/2022 2:15 AM FINDINGS: Lungs: Mild hyperexpansion and hyperlucency suggesting possible COPD. Pulmonary vasculature grossly normal. Minor interstitial prominence in the right perihilar and basilar distribution with faint alveolar density and slight minor fissural thickening, probably reflecting mild changes of pulmonary edema, versus early pneumonia. Pleural spaces: No pleural effusion. No pneumothorax. Heart/Mediastinum: Heart size normal. Prior median sternotomy. No tracheal/mediastinal shift. Bones/joints: No acute osseous abnormalities are identified. Osteopenia. IMPRESSION: 1. Mild right perihilar and basilar interstitial prominence and minor fissural thickening, likely mild pulmonary edema versus early pneumonia. 2. Underlying changes of COPD.
--- NOTE | 2022-09-30 20:19 | ECG_ITS ---
APPROVED REPORT Exam: Resting ECG HR:109 bpm ECG Measurements Heart Rate 109 AXES IN 173 P 90 QRSd 111 QRS 117 QT 380 T 82 QTc 444 Conclusion SINUS TACHYCARDIA WITH FREQUENT VENTRICULAR PREMATURE COMPLEXES WITH OCCASIONAL SUPRAVENTRICULAR PREMATURE COMPLEXES INCOMPLETE RIGHT BUNDLE BRANCH BLOCK [90+ ms QRS DURATION, TERMINAL R IN V1/V2, 40+ ms S IN I/aVL/V4/V5/V6] LEFT POSTERIOR FASCICULAR BLOCK [QRS AXIS > 109, INFERIOR Q] LATERAL MYOCARDIAL INFARCTION , OF INDETERMINATE AGE [40+ ms Q WAVE AND/OR ST/T ABNORMALITY IN I/aVL/V5/V6] ABNORMAL ECG UNCONFIRMED REPORT Electronically signed by : Jenaro Jean Baptiste MD 10/01/2022 20:03:27
[2022-09-30 20:30] VITALS: BP 123/71; PULSE 67; RESP 22; O2SAT 98
--- NOTE | 2022-09-30 20:39 | PC.NURSE ---
contacted [place] daughter to get patient records of recently inpatient admission
[2022-09-30 20:50] LABS: ABG Base Excess -4.4 mmol/L (-2.4-2.3); ABG HCO3 20.7 mmhg (22.0-26.0); ABG Oxygen Saturation 97 % (90-100); ABG PCO2 36.2 mmhg (35.0-45.0); ABG PH 7.38 mmol/L (7.35-7.45); ABG PO2 85.3 mmhg (80-100); ABG TCO2 21.9 mmhg (23-27)
[2022-09-30 20:51] LABS: Allen's Test Y; Oxygen 2 %; Source Right Radial
[2022-09-30 20:56] LABS: Influenza A, PCR Not Detected (NotDetected); Influenza B, PCR Not Detected (NotDetected)
[2022-09-30 20:57] LABS: Chloride 110 mmol/L (98-107)
[2022-09-30 20:58] LABS: Potassium 3.9 mmoL/L (3.5-5.1); Sodium 141 mmol/L (136-145)
[2022-09-30 21:01] LABS: Alanine Aminotransferase 23 U/L (12-78); Albumin Level 2.8 g/dl (3.5-5.0); Albumin/Globulin Ratio 1.1 (1.1-1.8); Alkaline Phosphatase 88 U/L (38-126); Anion Gap 8.9 mEq/L (5-15); Aspartate Amino Transferase 34 U/L (17-59); Bilirubin,Total 0.4 mg/dl (0.2-1.3); Blood Urea Nitrogen 20 mg/dl (9-20); Calcium 7.5 mg/dl (8.4-10.2); Carbon Dioxide 26 mmol/L (22.0-30.0); Creatinine Clearance Estimated 54 mL/min (50-200); Estimated Glomerular Filt Rate 58 ml/min (>60); GFR (African American) 70 ML/MIN (>60); Globulin 2.5 g/dL (1.3-3.2); Glucose 169 mg/dl (74-100); Total Protein,Serum 5.3 g/dl (6.3-8.2)
[2022-09-30 21:02] LABS: Lactic Acid 1.1 mmol/L (0.7-2.1)
--- NOTE | 2022-09-30 21:10 | HMH.EDSOB ---
Discharge Plan Disposition Patient Disposition: Admitted as Observation Chief Complaint: Shortness of Breath/Dyspnea Prescriptions Prescriptions: No Action Xarelto 20 mg tablet 20 mg PO DAILY albuterol sulfate 90 mcg/actuation HFA aerosol inhaler 2 inh IH QID PRN (Reason: shortness of breath or wheezing) 90 Days Qty: 8.5 2RF prednisone 10 MG tablet 40 mg PO DAILY budesonide 0.5 MG/2 ML suspension for nebulization 0.5 mg IH BID Spiriva with HandiHaler 18 mcg capsule, w/inhalation device 1 cap IH DAILY Rx Instructions: puncture 1 cap using device; one dose = 2 inhalations formoterol fumarate [Perforomist] 20 mcg/2 mL solution for nebulization 2 ml inhalation BID hydrocodone-acetaminophen 7.5-325 mg Tablet 1 tab PO Q8HP PRN (Reason: Pain) digoxin 125 mcg (0.125 mg) Tablet 0.125 mg PO DAILY bumetanide 2 mg Tablet 1 mg PO BID Entresto 49-51 mg Tablet 1 tab PO BID levofloxacin [levofloxacin] 500 mg tablet 500 mg PO DAILY Qty: 7 0RF rosuvastatin 40 MG tablet 40 mg PO HS ranolazine 500 MG tablet extended release 12 hr 500 mg PO DAILY cetirizine 10 MG tablet 10 mg PO DAILY famotidine 20 MG tablet 20 mg PO DAILY PRN (Reason: Acid Reflux) multivitamin 1 EACH tablet 1 each PO DAILY metoprolol succinate 200 MG tablet extended release 24 hr 200 mg PO DAILY potassium chloride 20 MEQ packet 20 meq PO DAILY ipratropium-albuterol 3 ML solution for nebulization 3 ml IH Q6HP PRN (Reason: Shortness Of Breath) 30 Days Qty: 100 0RF Referrals Follow up/Referrals: Jenaro Jean Baptiste MD [Primary Care Provider] - See instructions Clinical Impressions Clinical Impression: Acute exacerbation of chronic obstructive airways disease, COVID-19, Congestive heart failure, Functional assessment declined Discharge ED Provider: Antonio Hamilton Resp/SOB HPI General Chief Complaint: Shortness of Breath/Dyspnea Stated Complaint: SOA Time Seen by Provider: 09/30/22 20:35 Mode of Arrival: EMS Source of Information: Patient, EMS and Medical Record Limitations: No Limitations Description of Symptoms (Recalled from ER Triage Doc. by RN): EMS called out for SOA pt recently dicharged from [facility] for unknown reason. pt c/o SOA x couple days History of Present Illness pt with hx of o2 dep copd with recent admit at [facility] and [facility] daughter for sob presents by ems with sob and has dec ambulation MD Complaint: shortness of breath and cough Onset (ago): day(s) Context: recent illness Severity: moderate Consistency/Duration: intermittent Known history of: COPD Treatment prior to arrival: oxygen and bronchodilator Related Data Home oxygen amount: 2 liters Home Medications Medication Instructions Recorded Confirmed ranolazine 500 mg tablet,extended 500 mg PO DAILY ANGINA 12/24/17 09/12/22 release,12 hr rosuvastatin 40 mg tablet 40 mg PO HS hyperlipidemia 12/24/17 09/12/22 rivaroxaban 20 mg tablet (Xarelto) 20 mg PO DAILY Blood thinner 05/26/19 09/12/22 cetirizine 10 mg tablet 10 mg PO DAILY Allergy symptoms 02/25/20 09/12/22 famotidine 20 mg tablet 20 mg PO DAILY PRN Acid Reflux 11/09/21 09/12/22 metoprolol succinate 200 mg 200 mg PO DAILY Hypertension 11/09/21 09/12/22 tablet,extended release 24 hr multivitamin 1 each PO DAILY Supplement 11/09/21 09/12/22 potassium chloride 20 mEq oral 20 meq PO DAILY Supplement 11/09/21 09/12/22 packet budesonide 0.5 mg/2 mL suspension 0.5 mg IH BID COPD 09/12/22 09/12/22 for nebulization bumetanide 2 mg tablet 1 mg PO BID Edema 09/12/22 09/12/22 digoxin 125 mcg (0.125 mg) tablet 0.125 mg PO DAILY Heart failure 09/12/22 09/12/22 formoterol fumarate 20 mcg/2 mL 2 ml inhalation BID COPD 09/12/22 09/12/22 solution for nebulization (Perforomist) hydrocodone 7.5 mg-acetaminophen 1 tab PO Q8HP PRN Pain 09/12/22 09/12/22 325 mg tablet prednisone 10 mg tablet 40 mg PO DAILY
[2022-09-30 21:12] LABS: NT Pro Brain Natriuretic Pep. 2430 pg/mL (0-450)
[2022-09-30 21:18] LABS: Troponin I < 0.01 ng/ml (0.00-0.034)
[2022-09-30 21:20] LABS: Coronavirus 19, PCR Detected (NotDetected)
[2022-09-30 21:48] LABS: Erythrocyte Sedimentation Rate 22 mm/hr (0-20)
[2022-09-30 21:49] LABS: Basophils % 0.4 % (0.1-2.0); Eosinophils % 0.5 % (0.1-12.0); Hemoglobin 10.1 g/dL (14.1-18.0); Lymphocytes # 0.6 K/mm3 (0.7-4.5); Lymphocytes % 26.5 % (10-50); Mean Corpuscular HGB Conc 32.6 g/dL (31.8-35.4); Mean Corpuscular Hemoglobin 30.5 pg (27.0-31.2); Mean Corpuscular Volume 93.4 fl (80-94); Mean Platelet Volume 8.9 fl (7.4-10.4); Monocytes # 0.2 K/mm3 (0.1-1.0); Monocytes % 7.5 % (1.7-9.3); Neutrophils # 1.5 K/mm3 (1.8-7.8); Neutrophils % 65.2 % (37.0-80.0); Platelet Count 107 K/mm3 (142-424); Red Blood Count 3.32 M/mm3 (4.60-6.20); White Blood Count 2.4 K/mm3 (4.8-10.8)
[2022-09-30 23:01] VITALS: BP 136/66; PULSE 51; RESP 28; O2SAT 96
[2022-09-30 23:31] VITALS: BP 142/85; PULSE 56; RESP 30; O2SAT 94
[2022-10-01] VITALS (14 sets, daily range): BP systolic 111–156; BP diastolic 54–83; PULSE 51–107; RESP 16–26; TEMP 36.1–36.4; O2SAT 91–95; BMI 19.2
[2022-10-01 00:08] LABS: Troponin I < 0.01 ng/ml (0.00-0.034)
--- NOTE | 2022-10-01 00:34 | PC.NURSE ---
called and gave pt's nephew and updated and to notified that pt is going to be admitted
--- NOTE | 2022-10-01 00:40 | EXP.HP ---
History of Present Illness *Admission Date: 10/01/22 *Reason for visit:: Weakness, shortness of air *History of present illness: Mr. Brooks is a 82-year-old male with a past medical history that is positive for COPD, home oxygen dependent, CAD, CHF, Acute on Chronic Respiratory Failure with Hypoxia and Chronic Tobacco Abuse. He presented to [facility] due to weakness and shortness of air that he is reporting has been worsening over a 2 day period. Per records reviewed he was just discharged from this facility and per discussion with ER physician also had a recent hospitalization at an outlying hospital and records have been requested. The patient is only able to give a limited history, most of the history was obtained from discussion with ER physician and the patient's previous medical records that were reviewed. He reports that he lives alone and is weak and sick . He reports contact with family members with covid. He tested positive for covid on presentation. He reports being vaccinated and boosted but is not aware of which vaccine he took. He reports generalized body aches, weakness and shortness of air, he denies known fevers. In the ER, Cxray showed mild pulmonary edema versus early pneumonia. EKG showed NSR with 1st degree AV Block with no ST segment elevation or depression. Troponin was <0.01. CBC showed a low WBC at 2.4. CMP was unremarkable. ABG was within normal limits. BNP was elevated at 2430. In the ER the patient was given iv steroids, duonebs, Remdesivir. He reports that he wears 2L at home and is currently on 3L nasal cannula. The patient will be admitted with initial impression: COVID and Functional Decline. He will be placed in respiratory isolation, placed on Remdesivir, given nebulizers. PT will be consulted to see the patient. The plan of care was discussed with the patient at bedside in the ER. He stated that he understood and wanted admission. [facility] Disclaimer: The information contained in this section may have been updated after the patient was seen, as this information can be updated by other users. Medical History (Updated 10/01/22 @ 17:50 by Tera Forbes MD) Acute respiratory failure with hypoxia COPD (chronic obstructive pulmonary disease) COPD exacerbation Dyspnea on exertion Hyperlipidemia Nocturnal hypoxia Pneumonia Pneumonia due to COVID-19 virus Pulmonary nodule, left Respiratory failure, [id number] Screening for lung cancer Smoking greater than 30 pack years Tobacco abuse counseling Tobacco abuse disorder Urinary tract infection Surgical History History of cervical spinal surgery History of open heart surgery Family History Other No significant family history Social History (Updated 10/01/22 @ 08:42 by Nathaly Bhatia RN) Smoking Status: Current every day smoker tobacco type: cigarettes packs per day: 1 second hand exposure: No alcohol intake: never substance use type: denies use current occupational status: retired Travel in the last 8 weeks: None household members: family housing: house current occupational exposures/hazards: No caffeine: Yes Review of Systems Review of Systems Review of systems:: pertinent systems reviewed and negative unless documented below Constitutional Constitutional: Reports body ache(s), Reports fatigue, Reports lethargy and Reports malaise Eyes Eyes: Reports system reviewed and no additional complaints, except as documented ENT Ears, Nose, Mouth, and Throat: Reports system reviewed and no additional complaints, except as documented *Cardiovascular Cardiovascular: Reports system reviewed and no additional complaints, except as documented and Reports dyspnea *Respiratory Respiratory: Reports cough and Reports dyspnea *Gastrointestinal Gastrointestinal: Reports system reviewed and
--- NOTE | 2022-10-01 01:29 | PC.NURSE ---
patient moved to regular bed @ this time.
[2022-10-01 03:23] LABS: Troponin I < 0.01 ng/ml (0.00-0.034)
--- NOTE | 2022-10-01 07:25 | PC.NURSE ---
pt to floor per RN and Aide
--- NOTE | 2022-10-01 07:27 | PC.NURSE ---
Lucy RN here to transport pt to their room upstairs.
--- NOTE | 2022-10-01 08:06 | PC.NURSE ---
pt unable to verify home medications
[2022-10-01 08:12] LABS: Basophils % 0.7 % (0.1-2.0); Hematocrit 34.3 % (42.0-52.0); Hemoglobin 11.1 g/dL (14.1-18.0); Lymphocytes # 0.3 K/mm3 (0.7-4.5); Lymphocytes % 18.9 % (10-50); Mean Corpuscular HGB Conc 32.5 g/dL (31.8-35.4); Mean Corpuscular Hemoglobin 29.8 pg (27.0-31.2); Mean Corpuscular Volume 91.9 fl (80-94); Mean Platelet Volume 8.4 fl (7.4-10.4); Neutrophils # 1.1 K/mm3 (1.8-7.8); Neutrophils % 77.4 % (37.0-80.0); Platelet Count 103 K/mm3 (142-424); Red Blood Count 3.74 M/mm3 (4.60-6.20); White Blood Count 1.5 K/mm3 (4.8-10.8)
[2022-10-01 08:17] LABS: Chloride 111 mmol/L (98-107); Sodium 143 mmol/L (136-145)
[2022-10-01 08:18] LABS: Potassium 4.5 mmoL/L (3.5-5.1)
[2022-10-01 08:20] LABS: Blood Urea Nitrogen 21 mg/dl (9-20); Creatinine Clearance Estimated 50 mL/min (50-200); Estimated Glomerular Filt Rate 64 ml/min (>60); GFR (African American) 78 ML/MIN (>60)
[2022-10-01 08:21] LABS: Anion Gap 13.5 mEq/L (5-15); Calcium 7.8 mg/dl (8.4-10.2); Carbon Dioxide 23 mmol/L (22.0-30.0); Glucose 175 mg/dl (74-100)
--- NOTE | 2022-10-01 08:57 | HMH.PHAINT1 ---
Pharmacy Intervention Comments: MEDICATION RECONCILIATION COMPLETED ON PATIENT USING DISCHARGE SUMMARY FROM PREVIOUS ADMISSION. -SHAWANDA RUANO, BRUCED
--- NOTE | 2022-10-01 09:53 | EXP.PULM.CON ---
History of Present Illness History of present illness: Mr. Lares a 82-year-old male history of COPD on triple inhaler therapy recently discharged for COPD exacerbation presented with worsening respiratory distress needing new oxygen at home Positive sick contacts, family member. Patient on admission found to be positive for COVID-19 pneumonia-pulmonary was called for further evaluation [facility] Disclaimer: The information contained in this section may have been updated after the patient was seen, as this information can be updated by other users. Medical History (Updated 10/01/22 @ 14:06 by Anna Price MD) Acute respiratory failure with hypoxia COPD (chronic obstructive pulmonary disease) COPD exacerbation Dyspnea on exertion Hyperlipidemia Nocturnal hypoxia Pneumonia Pneumonia due to COVID-19 virus Pulmonary nodule, left Respiratory failure, [id number] Screening for lung cancer Smoking greater than 30 pack years Tobacco abuse counseling Tobacco abuse disorder Urinary tract infection Surgical History History of cervical spinal surgery History of open heart surgery Family History Other No significant family history Social History (Updated 10/01/22 @ 08:42 by Nathaly Bhatia, RN) Smoking Status: Current every day smoker tobacco type: cigarettes packs per day: 1 second hand exposure: No alcohol intake: never substance use type: denies use current occupational status: retired Travel in the last 8 weeks: None household members: family housing: house current occupational exposures/hazards: No caffeine: Yes Review of Systems Constitutional Constitutional: Reports anorexia, Reports body ache(s) and Reports fatigue Eyes Eyes: Denies eye discharge, Denies dry eyes, Denies irritation and Denies itchy eyes ENT Ears, Nose, Mouth, and Throat: Denies epistaxis, Denies facial pain, Denies lip swelling and Denies throat swelling *Cardiovascular Cardiovascular: Reports dyspnea and Reports dyspnea on exertion *Respiratory Respiratory: Reports chest congestion, Reports cough, Reports dyspnea, Reports dyspnea on exertion, Reports excessive phlegm production and Reports wheezing *Gastrointestinal Gastrointestinal: Denies abdominal pain, Denies belching and Denies cramping *Musculoskeletal Musculoskeletal: Reports back pain, Reports myalgias and Reports other (No small joint swelling or Pain) *Neurologic Neurologic: Reports system reviewed and no additional complaints, except as documented Psychiatric Psychiatric: Denies homicidal ideation and Denies suicidal ideation Endocrine Endocrine: Reports fatigue and Denies heat intolerance Hematologic/Lymphatic Hematologic/Lymphatic: Denies easy bleeding and Denies lymphadenopathy Allergic/Immunologic Allergic/Immunologic: Denies itchy eyes, Denies lip swelling, Denies throat swelling and Reports wheezing Pulmonology Exam Inpatient Vital signs and Labs for Last 24 Hours: Temp Pulse Resp BP Pulse Ox 97.6 F 55 L 16 151/60 H 94 L 10/01/22 07:54 10/01/22 07:54 10/01/22 07:54 10/01/22 07:54 10/01/22 07:54 Laboratory Results - last 24 hr 09/30/22 20:21: Specimen Source Right radial, O2 % 2, ABG pH 7.38, ABG pCO2 36.2, ABG pO2 85.3, ABG HCO3 20.7 L, ABG Total CO2 21.9 L, ABG O2 Saturation 97, ABG Base Excess -4.4 L, Crispin Test Y 09/30/22 20:35: WBC 2.4 L, RBC 3.32 L, Hgb 10.1 L, Hct 31.0 L, MCV 93.4, MCH 30.5, MCHC 32.6, RDW 15.0, Plt Count 107 L, MPV 8.9, Neut % (Auto) 65.2, Lymph % (Auto) 26.5, [place] % (Auto) 7.5, Eos % (Auto) 0.5, Baso % (Auto) 0.4, Neut # (Auto) 1.5 L, Lymph # (Auto) 0.6 L, [place] # (Auto) 0.2, Eos # (Auto) 0.0, Baso # (Auto) 0.0, ESR 22 H 09/30/22 20:35: Sodium 141, Potassium 3.9, Chloride 110 H, Carbon Dioxide 26, Anion Gap 8.9, BUN 20, Creatinine 1.20, Estimated Creat Clear 54, Estimated GFR 58 L, Est GFR ( Amer) 70, Gluco
--- NOTE | 2022-10-01 11:48 | HMH.PTEV ---
Physical Therapy Evaluation Rehab PT IP Evaluation Start: 10/01/22 00:37 Freq: ONCE Status: Active Protocol: Document 10/01/22 11:37 PHORNE (Rec: 10/01/22 11:48 PHORNE [id number]) Subjective/History History History 82 yowm adm to [facility] with COVID+ , acute on chronic SOA with COPD. He reports he lives alone, no steps to enter the home, uses RW for ambulation. Requires oxygen at all times. Subjective Subjective Pt c/o feeling tired and SOA with exertion. Rehab PT IP Eval Objective Appearance Patient Behavior Appropriate Patient Orientation Person,Place,Time Difficulty following instructions none Speech Pattern Clear Ambulation Patient Able to Ambulate Yes Ambulation Observation IP General Gait Pattern Observation Wide Based Gait,Shuffling Step Ambulation Distance (feet) 3 Ambulation Assistive Device None Ambulation Ability Contact Guard/Hand Hold Balance Ability to Arise Able, uses arms to help Sitting Balance Steady, safe Standing Balance Steady, wide stance Dynamic Sitting Balance Ability Good Dynamic Standing Balance Ability Fair Transfers Bed Transfer Ability Contact Guard/Hand Hold Chair Transfer Ability Contact Guard/Hand Hold Sit to Stand Bed Transfer Ability Contact Guard/Hand Hold Sit to Stand Chair Transfer Ability Contact Guard/Hand Hold Rehab PT IP prob,goals,plan Problems Date of Evaluation: 10/01/22 PT IP Problems Bed Mobility,Transfers,Gait Rehab Potential Rehab Potential Fair Plan PT Intervention Plan Bed Mobility,Transfers,Gait PT Plan Frequency BID Duration LOS Discharge Goals Bed Transfer Ability Supervision/Stand by Sit to Stand Chair Transfer Ability Supervision/Stand by Ambulation Assistive Device Rolling Walker Ambulation Distance (feet) 20 Discharge Plan PT Discharge Plan Pt is currently most appropriate for rehab placement once medically stable. However, he is somewhat close to his baseline status as he has significant oxygen requirements at all times. He may be able to return home with family assistance if mobility improves. G -code Required No Eval Complexity Eval Charge Codes
--- NOTE | 2022-10-01 13:57 | SW/DCPLANNER ---
Addendum entered by [facility] 10/04/22 14:21: Janie patel/ [facility] stated that she is able to accept this patient today SNF level of care. I have updated patient's nephew and MD. Patient will discharge to [facility] today. Addendum entered by [facility] 10/04/22 13:24: The plan for this patient is to return home w/ home health services ([facility]) IF Janie patel/ [facility] can NOT accept him. Janie is reviewing referral and will be onsite soon to evaluate this patient. Patient's nephew is fine with patient returning home w/ home health, sitters and [facility] services. Patient will discharge today. Addendum entered by [facility] 10/04/22 07:56: [facility] has denied this patient. I will discuss with MD , patient and family this AM. At this time the following facilities have denied this patient: [facility], [facility], [facility], [facility], [facility], [facility], [facility] and [facility]. Addendum entered by [facility] 10/03/22 15:00: Patient is agreeable to placement OR home at this time. I am waiting to hear back from [facility]. Addendum entered by [facility] 10/03/22 14:12: [facility] is willing to review patient referral. Nisha stated that she can not accept this patient till 5 days post COVID positive. Patient information has been faxed to [facility]. [facility]. Patient's family stated that patient is not safe to return at this time. Patient was able to ambulate 25 ft contact guard with this patient. Addendum entered by [facility] 10/03/22 08:57: Nelli Dumas, [facility] and [facility] are not able to accept this patient. [facility]le [facility]el/ [facility] is interested and patient information will be faxed this AM. I will follow up with Annabelle and patient/family once information is reviewed. Addendum entered by [facility] 10/02/22 12:28: Nila patel/ [place] [facility] stated that she is unable to accept this patient at this time due to cost of medications. I do not have any other facilities that are able to take this patient due to being COVID positive. I have updated patient's nephew and he stated that he would communication with other family members about having someone with patient 22/04. I have also discussed the option of setting up home health services at time of discharge. Addendum entered by Nguyen Mims 10/01/22 15:27: Nila patel/ [facility] stated that she would review this referral tomorrow morning. Original Note: I spoke with this patient's nephew/POA regarding plans once medically stable for discharge. Nephew stated that patient does live at home alone. PT evaluated patient and recommended SNF level of care at time of discharge. I did explain this to nephew and due to patient being COVID positive the only facility that could accept this patient is [facility] in [place]. Nephew and daughter are both agreeable with this plan. Patient information has been faxed to Nila patel/ [facility]. Discharge date is unknown at this time.
--- NOTE | 2022-10-01 16:22 | PC.NURSE ---
pt has rested t/o shift, A&Ox4, has remained on 2L NC with O2 sats 91-95%, does get SOA with exertion, HR 52-98, no complaints of pain, has been incontinent of bowel and bladder this shift
[2022-10-02] VITALS (10 sets, daily range): BP systolic 110–140; BP diastolic 54–86; PULSE 62–103; RESP 17–24; TEMP 36.4–36.9; O2SAT 93–95; BMI 19.1
--- NOTE | 2022-10-02 00:12 | PC.NURSE ---
pt has not rested well. pt calling out appropriately for various needs, repositioned in bed, medicated for generalized pain, assisted pt with voiding per urinal. pt is pleasant and cooperative with staff. VSS. 2LNC in place, sats stable. contact and airborne precautions in place.
[2022-10-02 06:02] LABS: Basophils % 0.6 % (0.1-2.0); Eosinophils % 1.1 % (0.1-12.0); Hematocrit 27.5 % (42.0-52.0); Lymphocytes # 0.4 K/mm3 (0.7-4.5); Lymphocytes % 11.2 % (10-50); Mean Corpuscular HGB Conc 33.8 g/dL (31.8-35.4); Mean Corpuscular Hemoglobin 29.7 pg (27.0-31.2); Mean Corpuscular Volume 87.7 fl (80-94); Mean Platelet Volume 8.3 fl (7.4-10.4); Monocytes # 0.2 K/mm3 (0.1-1.0); Monocytes % 6.1 % (1.7-9.3); Neutrophils # 2.6 K/mm3 (1.8-7.8); Platelet Count 108 K/mm3 (142-424); Red Blood Count 3.14 M/mm3 (4.60-6.20); Red Cell Distribution Width 15.1 % (11.5-17.5); White Blood Count 3.2 K/mm3 (4.8-10.8)
[2022-10-02 06:18] LABS: Hemoglobin 9.5 g/dL (14.1-18.0)
[2022-10-02 06:24] LABS: Alanine Aminotransferase 24 U/L (12-78); Albumin Level 2.8 g/dl (3.5-5.0); Albumin/Globulin Ratio 1.3 (1.1-1.8); Alkaline Phosphatase 76 U/L (38-126); Anion Gap 9.8 mEq/L (5-15); Aspartate Amino Transferase 34 U/L (17-59); Bilirubin,Total 0.4 mg/dl (0.2-1.3); Blood Urea Nitrogen 33 mg/dl (9-20); Calcium 7.4 mg/dl (8.4-10.2); Carbon Dioxide 24 mmol/L (22.0-30.0); Chloride 111 mmol/L (98-107); Creatinine Clearance Estimated 46 mL/min (50-200); Estimated Glomerular Filt Rate 58 ml/min (>60); GFR (African American) 70 ML/MIN (>60); Globulin 2.2 g/dL (1.3-3.2); Glucose 147 mg/dl (74-100); Potassium 3.8 mmoL/L (3.5-5.1); Sodium 141 mmol/L (136-145)
[2022-10-02 07:14] LABS: Magnesium 1.7 mg/dl (1.6-2.3); Phosphorous 2.6 mg/dl (2.5-4.5)
--- NOTE | 2022-10-02 09:46 | EXP.PULM.PN ---
Subjective *Date: 10/02/22 *Time: 13:38 Interval history: No acute respiratory events overnight. Patient admits improvement in his symptoms. Pulmonology Exam Inpatient Vital signs and Labs for Last 24 Hours: Temp Pulse Resp BP Pulse Ox 97.5 F L 83 22 129/60 95 10/02/22 07:38 10/02/22 09:26 10/02/22 07:38 10/02/22 07:38 10/02/22 09:05 Laboratory Results - last 24 hr 10/02/22 05:51: Sodium 141, Potassium 3.8, Chloride 111 H, Carbon Dioxide 24, Anion Gap 9.8, BUN 33 H D, Creatinine 1.20, Estimated Creat Clear 46, Estimated GFR 58 L, Est GFR ( Amer) 70, Glucose 147 H, Calcium 7.4 L, Total Bilirubin 0.4, AST 34, ALT 24, Alkaline Phosphatase 76, Total Protein 5.0 L, Albumin 2.8 L, Globulin 2.2, Albumin/Globulin Ratio 1.3 10/02/22 05:51: WBC 3.2 L D, RBC 3.14 L, Hgb 9.5 L D, Hct 27.5 L, MCV 87.7, MCH 29.7, MCHC 33.8, RDW 15.1, Plt Count 108 L, MPV 8.3, Neut % (Auto) 81.0 H, Lymph % (Auto) 11.2, [place] % (Auto) 6.1, Eos % (Auto) 1.1, Baso % (Auto) 0.6, Neut # (Auto) 2.6, Lymph # (Auto) 0.4 L, Coleman # (Auto) 0.2, Eos # (Auto) 0.0, Baso # (Auto) 0.0 10/02/22 05:51: Phosphorus 2.6, Magnesium 1.7 I & O for Labs for Last 24 Hours: Intake & Output 09/29/22 09/30/22 10/01/22 10/02/22 23:59 23:59 23:59 23:59 Intake Total 1120 / 1120 240 / 240 Output Total 200 / 470 1070 / 1070 Balance 920 / 650 -830 / -830 Weight 170 lb 146 lb 144 lb 3 oz Constitutional: Present moderate distress Head: Present normocephalic and atraumatic ENT: Present normal exam, normal oropharynx and mucous membranes moist Neck: Present normal inspection and full ROM Respiratory: Present respiratory distress, wheezes, diminished air movement and able to speak in complete sentences Cardiac: Present S1/S2, Tachycardia and radial pulses present GI: Present soft and distention; Absent tenderness or guarding Skin: Present intact; Absent cyanosis or jaundice Neuro: Present alert, awake and oriented x 3 Extremities: Present normal inspection; Absent clubbing or cyanosis Psychiatric: Present normal affect and cooperative Assessment and Plan *Assessment and plan (1) Pneumonia due to COVID-19 virus: Status: Acute Category: Medical Code(s): U07.1 - COVID-19; J12.82 - Pneumonia due to coronavirus disease 2019 (2) Acute respiratory failure with hypoxia: Status: Acute Category: Medical Code(s): J96.01 - Acute respiratory failure with hypoxia (3) COPD with emphysema: Status: Chronic Qualifiers: Emphysema type: panlobular Qualified Code(s): J43.1 - Panlobular emphysema Category: Medical Code(s): J43.9 - Emphysema, unspecified Plan 82 Y/O male current smoker, severe COPD, Recently admitted to the hospital for COPD exacerbation discharged home presented to the hospital and found to be positive for COVID 19 PNM. Severe leucopenia @ 1.5. Chest x-ray on admission showed patchy airspace disease with no dense consolidation along with vascular congestion. Interval update: Leukopenia improving now at 3.2. Mild respiratory distress. No wheezing on auscultation. Continue current inhaler therapy. Oxygen weaned to 1 L this morning, will wean to room air as tolerated.. Plan: -Levoflaxacin 750 mg IV daily x 5 days. F/U culture results -Continue nasal cannula maintain O2 saturation goal of 90% above, wean as tolerated. -Continue remdesivir x 5 days OR untill Discharge -Continue dexamethasone x10 days OR untill Discharge -Trelegy 200 twice daily scheduled along with Combivent / DuoNebs as needed. -Recommend GI ulcer prophylaxis. #Thank you for involving pulmonary in this patient care. Will continue to follow
--- NOTE | 2022-10-02 10:11 | PC.NURSE ---
Pt unable to produce sputum, specimen cup at bedside
--- NOTE | 2022-10-02 18:49 | PC.NURSE ---
Pt has been alert and oriented x4. He's been weaned to 1L NC and has tolerated well. Appetite has been fair. He's used the urinal independently. IS at bedside. Pt was able to give a correct return demonstration of use. He complained of ankle pain. notified and artie ordered and administered. Pt reported pain a 0/10 on reassessment. Daughter called and updated on pt condition. Bed is locked and in the lowest position, call light is within reach.
--- NOTE | 2022-10-02 18:58 | EXP.ACUTE.PN ---
Subjective *Date: 10/02/22 *Time: 18:58 Interval history: No events, but improved symptoms this morning Medical Exam Vital signs and Labs for Last 24 Hours: Vital Signs Temp Pulse Pulse Resp BP Pulse Ox 10/02/22 16:00 98.4 F 77 22 120/67 93 L 10/02/22 13:53 94 L 10/02/22 09:26 83 10/02/22 09:10 62 10/02/22 09:05 95 10/02/22 07:38 97.5 F L 62 22 129/60 93 L 10/02/22 04:00 97.6 F 75 24 131/64 95 10/02/22 00:00 103 H 18 140/82 94 L 10/01/22 20:00 97.5 F L 107 H 20 137/83 94 L 10/01/22 19:00 94 L Intake and Output 10/02/22 10/02/22 10/02/22 07:59 15:59 23:59 Intake Total 240 / 1050 320 / 1050 490 / 1050 Output Total 870 / 2320 1050 / 2320 400 / 2320 Balance -630 / -1270 -730 / -1270 90 / -1270 Intake: Intake, Oral Amount 240 / 800 320 / 800 240 / 800 Intake, Total IV Amount 250 / 250 Levofloxacin/D5w 750 mg/150 ml 150 / 150 750 mg In 150 ml @ 100 mls/hr IV Q24H [facility] Rx#:[id number] Remdesivir 100 mg In 0.9 % 100 / 100 Sodium Chloride 100 ml @ 100 mls/hr IV Q24H [facility] Rx#:[id number] Output: Output, Urine Amount 870 / 2320 1050 / 2320 400 / 2320 Other: Weight 65.402 kg Patient Weight 10/02/22 23:59 Weight 65.402 kg Laboratory Results - last 24 hr 10/02/22 05:51: Sodium 141, Potassium 3.8, Chloride 111 H, Carbon Dioxide 24, Anion Gap 9.8, BUN 33 H D, Creatinine 1.20, Estimated Creat Clear 46, Estimated GFR 58 L, Est GFR ( Amer) 70, Glucose 147 H, Calcium 7.4 L, Total Bilirubin 0.4, AST 34, ALT 24, Alkaline Phosphatase 76, Total Protein 5.0 L, Albumin 2.8 L, Globulin 2.2, Albumin/Globulin Ratio 1.3 10/02/22 05:51: WBC 3.2 L D, RBC 3.14 L, Hgb 9.5 L D, Hct 27.5 L, MCV 87.7, MCH 29.7, MCHC 33.8, RDW 15.1, Plt Count 108 L, MPV 8.3, Neut % (Auto) 81.0 H, Lymph % (Auto) 11.2, [place] % (Auto) 6.1, Eos % (Auto) 1.1, Baso % (Auto) 0.6, Neut # (Auto) 2.6, Lymph # (Auto) 0.4 L, [place] # (Auto) 0.2, Eos # (Auto) 0.0, Baso # (Auto) 0.0 10/02/22 05:51: Phosphorus 2.6, Magnesium 1.7 I & O for Labs for Last 24 Hours: Intake & Output 09/29/22 09/30/22 10/01/22 10/02/22 23:59 23:59 23:59 23:59 Intake Total 1120 / 1120 1050 / 1050 Output Total 200 / 470 2320 / 2320 Balance 920 / 650 -1270 / -1270 Weight 77.111 kg 66.224 kg 65.402 kg Head: Present atraumatic and normocephalic ENT: Present normal exam Neck: Present normal inspection and full ROM Respiratory: Present CTA bilaterally; Absent accessory muscle use Cardiac: Present Reg Rate and Rhythm and S1/S2 GI: Present soft; Absent distention or tenderness Rectal (male): Present deferred (male): Present deferred Skin: Present intact; Absent erythema Assessment and Plan *Assessment and plan (1) Acute and chronic respiratory failure ([id number]): Status: Acute Qualifiers: Respiratory failure complication: hypoxia Qualified Code(s): J96.21 - Acute and chronic respiratory failure with hypoxia Category: Medical Code(s): J96.20 - Acute and chronic respiratory failure, unspecified whether with hypoxia or hypercapnia (2) COVID: Status: Acute Category: Medical Code(s): U07.1 - COVID-19 (3) Declining functional status: Status: Acute Category: Medical Code(s): R53.81 - Other malaise (4) CHF (congestive heart failure): Status: Chronic Qualifiers: Heart failure type: combined systolic and diastolic Heart failure chronicity: chronic Qualified Code(s): I50.42 - Chronic combined systolic (congestive) and diastolic (congestive) heart failure Category: Medical Code(s): I50.9 - Heart failure, unspecified (5) COPD with emphysema: Status: Chronic Qualifiers: Emphysema type: panlobular Qualified Code(s): J43.1 - Panlobular emphysema Category: Medical Code(s): J43.9 - Emphysema, unspecified (6) Essential (primary
[2022-10-03] VITALS (9 sets, daily range): BP systolic 107–126; BP diastolic 50–72; PULSE 45–95; RESP 16–18; TEMP 36.2–36.7; O2SAT 92–99; BMI 19.1
--- NOTE | 2022-10-03 03:28 | PC.NURSE ---
after noting pt with hr per o2 sat monitor bouncing from 46-98, telemetry placed and marta blanca called after noting pt telemetry reveals bigeminy on monitor, vss, pt alert and oriented, no acute distress, labs ordered now per marta dodd and entered into emr per provider
[2022-10-03 04:01] LABS: Chloride 106 mmol/L (98-107)
[2022-10-03 04:02] LABS: Potassium 3.7 mmoL/L (3.5-5.1); Sodium 140 mmol/L (136-145)
[2022-10-03 04:05] LABS: Anion Gap 10.7 mEq/L (5-15); Blood Urea Nitrogen 36 mg/dl (9-20); Calcium 7.4 mg/dl (8.4-10.2); Carbon Dioxide 27 mmol/L (22.0-30.0); Creatinine Clearance Estimated 42 mL/min (50-200); Estimated Glomerular Filt Rate 53 ml/min (>60); GFR (African American) 64 ML/MIN (>60); Glucose 119 mg/dl (74-100); Magnesium 1.5 mg/dl (1.6-2.3)
--- NOTE | 2022-10-03 05:41 | PC.NURSE ---
pt is alert and oriented x4, slightly creek, pt voiding without difficulty, vss, bilateral breath sounds clear and diminished, 02 sats have been 92-95% on 02 at 1L, pt placed on telemetry for periods of bradycardia noted with pulse oximeter readings, telemetry was noted to be bigeminy in which marta skelton was notified and electrolyte labs were ordered at this time. pt refused labs this am. pt with productive cough at times but not able to produce a sputum specimen. pt complains of right hip and leg pain in which pt states arthritis and using diclofenac cream at bedside as needed.
--- NOTE | 2022-10-03 09:55 | EXP.PULM.PN ---
Subjective *Date: 10/03/22 *Time: 11:55 Interval history: No acute respiratory events overnight. Patient admits continued improvement in his respiratory symptoms. Pulmonology Exam Inpatient Vital signs and Labs for Last 24 Hours: Temp Pulse Resp BP Pulse Ox 97.2 F L 95 H 18 107/69 L 93 L 10/03/22 08:00 10/03/22 08:00 10/03/22 08:00 10/03/22 08:00 10/03/22 08:00 Laboratory Results - last 24 hr 10/03/22 03:45: Sodium 140, Potassium 3.7, Chloride 106, Carbon Dioxide 27, Anion Gap 10.7, BUN 36 H, Creatinine 1.30 H, Estimated Creat Clear 42, Estimated GFR 53 L, Est GFR ( Amer) 64, Glucose 119 H, Calcium 7.4 L 10/03/22 03:45: Magnesium 1.5 L D I & O for Labs for Last 24 Hours: Intake & Output 09/30/22 10/01/22 10/02/22 10/03/22 23:59 23:59 23:59 23:59 Intake Total 1120 / 1120 1350 / 1450 580 / 580 Output Total 200 / 470 2320 / 2620 550 / 550 Balance 920 / 650 -970 / -1170 30 / 30 Weight 170 lb 146 lb 144 lb 3 oz 144 lb 2 oz Microbiology Reports for the Last 24 Hours: Microbiology 10/01/22 14:16 Nose - Nasal MRSA Culture - Final Negative 09/30/22 20:35 Blood Blood Culture - Preliminary NO GROWTH AFTER 48 HOURS 09/30/22 20:35 Blood Blood Culture - Preliminary NO GROWTH AFTER 48 HOURS Constitutional: Present moderate distress Head: Present normocephalic and atraumatic ENT: Present normal exam, normal oropharynx and mucous membranes moist Neck: Present normal inspection and full ROM Respiratory: Present respiratory distress, wheezes, diminished air movement and able to speak in complete sentences Cardiac: Present S1/S2, Tachycardia and radial pulses present GI: Present soft and distention; Absent tenderness or guarding Skin: Present intact; Absent cyanosis or jaundice Neuro: Present alert, awake and oriented x 3 Extremities: Present normal inspection; Absent clubbing or cyanosis Psychiatric: Present normal affect and cooperative Assessment and Plan *Assessment and plan (1) Pneumonia due to COVID-19 virus: Status: Acute Category: Medical Code(s): U07.1 - COVID-19; J12.82 - Pneumonia due to coronavirus disease 2019 (2) Acute respiratory failure with hypoxia: Status: Acute Category: Medical Code(s): J96.01 - Acute respiratory failure with hypoxia (3) COPD with emphysema: Status: Chronic Qualifiers: Emphysema type: panlobular Qualified Code(s): J43.1 - Panlobular emphysema Category: Medical Code(s): J43.9 - Emphysema, unspecified Plan 82 Y/O male current smoker, severe COPD, Recently admitted to the hospital for COPD exacerbation discharged home presented to the hospital and found to be positive for COVID 19 PNM. Severe leucopenia @ 1.5. Chest x-ray on admission showed patchy airspace disease with no dense consolidation along with vascular congestion. Interval update: No labs from today. Leukopenia improving yesterday. Improving respiratory status, weaned to room at this morning. Nasal MRSA PCR negative Plan: -Levoflaxacin 750 mg IV daily x 5 days. F/U culture results -Continue nasal cannula maintain O2 saturation goal of 90% above, wean as tolerated. -Continue remdesivir x 5 days OR untill Discharge -Continue dexamethasone x10 days OR untill Discharge -Trelegy 200 twice daily scheduled along with Combivent / DuoNebs as needed. Can be discharged on home inhaler therapy -Recommend GI ulcer prophylaxis. #Thank you for involving pulmonary in this patient care. We will follow the patient in pulmonary clinic 6 weeks post discharge.
[2022-10-03 13:09] LABS: Basophils % 0.2 % (0.1-2.0); Eosinophils % 0.2 % (0.1-12.0); Hematocrit 29.5 % (42.0-52.0); Hemoglobin 9.8 g/dL (14.1-18.0); Lymphocytes # 0.7 K/mm3 (0.7-4.5); Lymphocytes % 18.1 % (10-50); Mean Corpuscular HGB Conc 33.1 g/dL (31.8-35.4); Mean Corpuscular Hemoglobin 30.1 pg (27.0-31.2); Mean Corpuscular Volume 90.7 fl (80-94); Mean Platelet Volume 9.1 fl (7.4-10.4); Monocytes # 0.3 K/mm3 (0.1-1.0); Neutrophils # 2.9 K/mm3 (1.8-7.8); Neutrophils % 73.5 % (37.0-80.0); Platelet Count 159 K/mm3 (142-424); Red Blood Count 3.26 M/mm3 (4.60-6.20); White Blood Count 3.9 K/mm3 (4.8-10.8)
--- NOTE | 2022-10-03 13:38 | PC.NURSE ---
nadege hurt stated to order 500ml ns bolus and to then run ns at 125ml/hr for 6 hrs
--- NOTE | 2022-10-03 14:23 | PC.NURSE ---
patient has done well this shift. has had minimal complaints. did request to be shaved and some tylenol. has turned self in bed. did get up and worked with pt. lung alonzo clear. has been on 1l o2. when asleep heart rate in 60s while awake 70-90s. rings out as needed
[2022-10-03 15:03] LABS: Chloride 106 mmol/L (98-107); Potassium 3.5 mmoL/L (3.5-5.1); Sodium 140 mmol/L (136-145)
[2022-10-03 15:06] LABS: Alanine Aminotransferase 24 U/L (12-78); Albumin Level 2.7 g/dl (3.5-5.0); Albumin/Globulin Ratio 1.2 (1.1-1.8); Alkaline Phosphatase 66 U/L (38-126); Anion Gap 7.5 mEq/L (5-15); Aspartate Amino Transferase 29 U/L (17-59); Bilirubin,Total 0.3 mg/dl (0.2-1.3); Blood Urea Nitrogen 34 mg/dl (9-20); Carbon Dioxide 30 mmol/L (22.0-30.0); Creatinine Clearance Estimated 42 mL/min (50-200); Estimated Glomerular Filt Rate 53 ml/min (>60); GFR (African American) 64 ML/MIN (>60); Globulin 2.2 g/dL (1.3-3.2); Total Protein,Serum 4.9 g/dl (6.3-8.2)
[2022-10-03 15:07] LABS: Calcium 7.4 mg/dl (8.4-10.2); Glucose 146 mg/dl (74-100)
--- NOTE | 2022-10-03 18:47 | PC.NURSE ---
pt has voiced no complaints. pt up to chair. VSS, sats stable on 1LNC. pt voiding per urinal w/o difficulty.
--- NOTE | 2022-10-03 19:00 | EXP.ACUTE.PN ---
Subjective *Date: 10/03/22 *Time: 19:00 Interval history: No issues overnight. Patient feels better and wants to leave. Understands we are waiting on facility. No concerns or complaints Medical Exam Vital signs and Labs for Last 24 Hours: Vital Signs Temp Pulse Pulse Resp BP Pulse Ox 10/03/22 16:00 97.8 F 60 18 118/72 92 L 10/03/22 11:38 97.7 F 51 L 18 108/62 L 95 10/03/22 09:55 85 10/03/22 08:00 97.2 F L 95 H 18 107/69 L 93 L 10/03/22 06:25 99 10/03/22 04:15 45 L 10/03/22 03:14 98 F 90 18 120/56 L 94 L 10/03/22 00:00 93 L 10/03/22 00:00 97.9 F 67 17 126/71 93 L 10/02/22 20:00 95 10/02/22 20:00 97.9 F 77 17 110/54 L 95 Intake and Output 10/03/22 10/03/22 10/03/22 07:59 15:59 23:59 Intake Total 100 / 1540 960 / 1540 480 / 1540 Output Total 550 / 1050 200 / 1050 300 / 1050 Balance -450 / 490 760 / 490 180 / 490 Intake: Intake, Oral Amount 100 / 1540 960 / 1540 480 / 1540 Output: Output, Urine Amount 550 / 1050 200 / 1050 300 / 1050 Other: Weight 65.374 kg Patient Weight 10/03/22 23:59 Weight 65.374 kg Laboratory Results - last 24 hr 10/03/22 03:45: Sodium 140, Potassium 3.7, Chloride 106, Carbon Dioxide 27, Anion Gap 10.7, BUN 36 H, Creatinine 1.30 H, Estimated Creat Clear 42, Estimated GFR 53 L, Est GFR ( Amer) 64, Glucose 119 H, Calcium 7.4 L 10/03/22 03:45: Magnesium 1.5 L D 10/03/22 08:34: Sodium 140, Potassium 3.5, Chloride 106, Carbon Dioxide 30, Anion Gap 7.5, BUN 34 H, Creatinine 1.30 H, Estimated Creat Clear 42, Estimated GFR 53 L, Est GFR ( Amer) 64, Glucose 146 H D, Calcium 7.4 L, Total Bilirubin 0.3, AST 29, ALT 24, Alkaline Phosphatase 66, Total Protein 4.9 L, Albumin 2.7 L, Globulin 2.2, Albumin/Globulin Ratio 1.2 10/03/22 12:48: WBC 3.9 L, RBC 3.26 L, Hgb 9.8 L, Hct 29.5 L, MCV 90.7, MCH 30.1, MCHC 33.1, RDW 15.0, Plt Count 159 D, MPV 9.1, Neut % (Auto) 73.5, Lymph % (Auto) 18.1, [place] % (Auto) 8.0, Eos % (Auto) 0.2, Baso % (Auto) 0.2, Neut # (Auto) 2.9, Lymph # (Auto) 0.7, [place] # (Auto) 0.3, Eos # (Auto) 0.0, Baso # (Auto) 0.0 I & O for Labs for Last 24 Hours: Intake & Output 09/30/22 10/01/22 10/02/22 10/03/22 23:59 23:59 23:59 23:59 Intake Total 1120 / 1120 1350 / 1450 1540 / 1540 Output Total 200 / 470 2320 / 2620 1050 / 1050 Balance 920 / 650 -970 / -1170 490 / 490 Weight 77.111 kg 66.224 kg 65.402 kg 65.374 kg Microbiology Reports for the Last 24 Hours: Microbiology 10/01/22 14:16 Nose - Nasal MRSA Culture - Final Negative 09/30/22 20:35 Blood Blood Culture - Preliminary NO GROWTH AFTER 48 HOURS 09/30/22 20:35 Blood Blood Culture - Preliminary NO GROWTH AFTER 48 HOURS Head: Present atraumatic and normocephalic ENT: Present normal exam Neck: Present normal inspection and full ROM Respiratory: Present CTA bilaterally; Absent accessory muscle use Cardiac: Present Reg Rate and Rhythm and S1/S2 GI: Present soft; Absent tenderness Rectal (male): Present deferred (male): Present deferred Extremities: Present normal inspection; Absent tenderness Skin: Present intact; Absent cyanosis Assessment and Plan *Assessment and plan (1) Acute and chronic respiratory failure ([id number]): Status: Acute Qualifiers: Respiratory failure complication: hypoxia Qualified Code(s): J96.21 - Acute and chronic respiratory failure with hypoxia Category: Medical Code(s): J96.20 - Acute and chronic respiratory failure, unspecified whether with hypoxia or hypercapnia (2) COVID: Status: Acute Category: Medical Code(s): U07.1 - COVID-19 (3) Declining functional status: Status: Acute Category: Medical Code(s): R53.81 - Other malaise (4) CHF (congestive heart failure): Status: Chronic Qualifiers: Hear
[2022-10-04] VITALS (7 sets, daily range): BP systolic 102–123; BP diastolic 42–64; PULSE 65–77; RESP 16; TEMP 36.2–36.8; O2SAT 91–100; BMI 19.1
--- NOTE | 2022-10-04 04:07 | PC.NURSE ---
NO ACUTE CHANGES SINCE PREVIOUS ASSESSMENT. PT HAS SLEPT OFF AND ON THIS SHIFT. C/O RIGHT ANCKLE PAINX1 THIS SHIFT. PRN MEDICATION GIVEN WITH ADEQUATE RELIEF. USING THE URINAL INDEPENDENTLY WITH ADEQUATE OUTPUT. AMBULATED FROM THE CHAIR TO THE BED WITH X1 ASSIST AND TOLERATED WELL. REMAINS ON 1L NASAL CANNULA FOR COMFORT. VSS. CALL MILLER WITHIN REACH.
[2022-10-04 07:27] LABS: Chloride 105 mmol/L (98-107); Potassium 3.6 mmoL/L (3.5-5.1); Sodium 138 mmol/L (136-145)
[2022-10-04 07:30] LABS: Alanine Aminotransferase 23 U/L (12-78); Albumin Level 2.5 g/dl (3.5-5.0); Albumin/Globulin Ratio 1.2 (1.1-1.8); Alkaline Phosphatase 67 U/L (38-126); Anion Gap 9.6 mEq/L (5-15); Aspartate Amino Transferase 27 U/L (17-59); Bilirubin,Total 0.4 mg/dl (0.2-1.3); Blood Urea Nitrogen 41 mg/dl (9-20); Calcium 7.2 mg/dl (8.4-10.2); Carbon Dioxide 27 mmol/L (22.0-30.0); Creatinine Clearance Estimated 50 mL/min (50-200); Estimated Glomerular Filt Rate 64 ml/min (>60); GFR (African American) 78 ML/MIN (>60); Globulin 2.1 g/dL (1.3-3.2); Glucose 160 mg/dl (74-100); Total Protein,Serum 4.6 g/dl (6.3-8.2)
--- NOTE | 2022-10-04 09:45 | EXP.PULM.PN ---
Subjective *Date: 10/04/22 *Time: 12:59 Interval history: No acute respiratory events overnight. Patient denies any new respiratory complaints. Pulmonology Exam Inpatient Vital signs and Labs for Last 24 Hours: Temp Pulse Resp BP Pulse Ox 98.1 F 77 16 123/64 100 10/04/22 04:00 10/04/22 08:29 10/04/22 08:00 10/04/22 08:00 10/04/22 08:00 Laboratory Results - last 24 hr 10/03/22 08:34: Sodium 140, Potassium 3.5, Chloride 106, Carbon Dioxide 30, Anion Gap 7.5, BUN 34 H, Creatinine 1.30 H, Estimated Creat Clear 42, Estimated GFR 53 L, Est GFR ( Amer) 64, Glucose 146 H D, Calcium 7.4 L, Total Bilirubin 0.3, AST 29, ALT 24, Alkaline Phosphatase 66, Total Protein 4.9 L, Albumin 2.7 L, Globulin 2.2, Albumin/Globulin Ratio 1.2 10/03/22 12:48: WBC 3.9 L, RBC 3.26 L, Hgb 9.8 L, Hct 29.5 L, MCV 90.7, MCH 30.1, MCHC 33.1, RDW 15.0, Plt Count 159 D, MPV 9.1, Neut % (Auto) 73.5, Lymph % (Auto) 18.1, [place] % (Auto) 8.0, Eos % (Auto) 0.2, Baso % (Auto) 0.2, Neut # (Auto) 2.9, Lymph # (Auto) 0.7, [place] # (Auto) 0.3, Eos # (Auto) 0.0, Baso # (Auto) 0.0 10/04/22 05:40: Sodium 138, Potassium 3.6, Chloride 105, Carbon Dioxide 27, Anion Gap 9.6, BUN 41 H, Creatinine 1.10, Estimated Creat Clear 50, Estimated GFR 64, Est GFR ( Amer) 78 D, Glucose 160 H, Calcium 7.2 L, Total Bilirubin 0.4, AST 27, ALT 23, Alkaline Phosphatase 67, Total Protein 4.6 L, Albumin 2.5 L, Globulin 2.1, Albumin/Globulin Ratio 1.2 I & O for Labs for Last 24 Hours: Intake & Output 10/01/22 10/02/22 10/03/22 10/04/22 23:59 23:59 23:59 23:59 Intake Total 1120 / 1120 1350 / 1450 1540 / 1540 480 / 480 Output Total 200 / 470 2320 / 2620 1450 / 1450 900 / 900 Balance 920 / 650 -970 / -1170 90 / 90 -420 / -420 Weight 146 lb 144 lb 3 oz 144 lb 2 oz 144 lb 6.444 oz Microbiology Reports for the Last 24 Hours: Microbiology 10/01/22 14:16 Nose - Nasal MRSA Culture - Final Negative Constitutional: Present moderate distress Head: Present normocephalic and atraumatic ENT: Present normal exam, normal oropharynx and mucous membranes moist Neck: Present normal inspection and full ROM Respiratory: Present respiratory distress, wheezes, diminished air movement and able to speak in complete sentences Cardiac: Present S1/S2, Tachycardia and radial pulses present GI: Present soft and distention; Absent tenderness or guarding Skin: Present intact; Absent cyanosis or jaundice Neuro: Present alert, awake and oriented x 3 Extremities: Present normal inspection; Absent clubbing or cyanosis Psychiatric: Present normal affect and cooperative Assessment and Plan *Assessment and plan (1) Pneumonia due to COVID-19 virus: Status: Acute Category: Medical Code(s): U07.1 - COVID-19; J12.82 - Pneumonia due to coronavirus disease 2019 (2) Acute respiratory failure with hypoxia: Status: Acute Category: Medical Code(s): J96.01 - Acute respiratory failure with hypoxia (3) COPD with emphysema: Status: Chronic Qualifiers: Emphysema type: panlobular Qualified Code(s): J43.1 - Panlobular emphysema Category: Medical Code(s): J43.9 - Emphysema, unspecified Plan 82 Y/O male current smoker, severe COPD, Recently admitted to the hospital for COPD exacerbation discharged home presented to the hospital and found to be positive for COVID 19 PNM. Severe leucopenia @ 1.5. Chest x-ray on admission showed patchy airspace disease with no dense consolidation along with vascular congestion. Interval update: No labs from today. Leukopenia improving yesterday. Improving respiratory status, weaned to room at this morning. Nasal MRSA PCR negative Interval update: Respiratory status remained stable since yesterday. Continue to be needing intermittent 1 L nasal cannula. Leukopenia continued to improve, white count was morning at 3.9. Awaiting discharge disposition. Plan: -Weaned to room air as tolerate
--- NOTE | 2022-10-04 14:14 | PC.NURSE ---
PT IS SITTING UP IN THE CHAIR. ALERT AND ORIENTED X3. EATING AND DRINKING WELL. PT HAS ASKED SEVERAL TIMES WHEN HE WAS GOING TO BE DISCHARGED. LUNG SOUNDS DIMINISHED WITH SCATTERED CRACKLES. ABDOMEN SOFT/NON TENDER WITH ACTIVE BOWEL SOUNDS. VSS. WILL CONTINUE TO MONITOR.
--- NOTE | 2022-10-04 14:44 | EXP.DC.SUM ---
General Admission date:: 10/01/22 Discharge date: 10/04/22 HPI HPI HPI: Mr. Brooks is a 82-year-old male with a past medical history that is positive for COPD, home oxygen dependent, CAD, CHF, Acute on Chronic Respiratory Failure with Hypoxia and Chronic Tobacco Abuse. He presented to [facility] due to weakness and shortness of air that he is reporting has been worsening over a 2 day period. Per records reviewed he was just discharged from this facility and per discussion with ER physician also had a recent hospitalization at an outlying hospital and records have been requested. The patient is only able to give a limited history, most of the history was obtained from discussion with ER physician and the patient's previous medical records that were reviewed. He reports that he lives alone and is weak and sick . He reports contact with family members with covid. He tested positive for covid on presentation. He reports being vaccinated and boosted but is not aware of which vaccine he took. He reports generalized body aches, weakness and shortness of air, he denies known fevers. In the ER, Cxray showed mild pulmonary edema versus early pneumonia. EKG showed NSR with 1st degree AV Block with no ST segment elevation or depression. Troponin was <0.01. CBC showed a low WBC at 2.4. CMP was unremarkable. ABG was within normal limits. BNP was elevated at 2430. In the ER the patient was given iv steroids, duonebs, Remdesivir. He reports that he wears 2L at home and is currently on 3L nasal cannula. The patient will be admitted with initial impression: COVID and Functional Decline. He will be placed in respiratory isolation, placed on Remdesivir, given nebulizers. PT will be consulted to see the patient. The plan of care was discussed with the patient at bedside in the ER. He stated that he understood and wanted admission. Hospital Course Hospital Course Hospital Course: Patient was admitted for COPD exacerbation secondary to COVID. He is also having declining functional status. Pulmonology was consulted recommended levofloxacin 5 day remdesivir dexamethasone. Patient has taken all medications had a improvement of his oxygen requirement. Patient was evaluated recommended to go to a nursing facility. Patient was discharged to [facility]. Follow-up pulmonology. follow up PCP Exam Data for Last 24 hours Vital signs and Labs for Last 24 Hours: Temp Pulse Resp BP Pulse Ox 97.2 F L 68 16 111/42 L 92 L 10/04/22 11:59 10/04/22 11:59 10/04/22 11:59 10/04/22 11:59 10/04/22 13:30 Laboratory Results - last 24 hr 10/03/22 08:34: Sodium 140, Potassium 3.5, Chloride 106, Carbon Dioxide 30, Anion Gap 7.5, BUN 34 H, Creatinine 1.30 H, Estimated Creat Clear 42, Estimated GFR 53 L, Est GFR ( Amer) 64, Glucose 146 H D, Calcium 7.4 L, Total Bilirubin 0.3, AST 29, ALT 24, Alkaline Phosphatase 66, Total Protein 4.9 L, Albumin 2.7 L, Globulin 2.2, Albumin/Globulin Ratio 1.2 10/04/22 05:40: Sodium 138, Potassium 3.6, Chloride 105, Carbon Dioxide 27, Anion Gap 9.6, BUN 41 H, Creatinine 1.10, Estimated Creat Clear 50, Estimated GFR 64, Est GFR ( Amer) 78 D, Glucose 160 H, Calcium 7.2 L, Total Bilirubin 0.4, AST 27, ALT 23, Alkaline Phosphatase 67, Total Protein 4.6 L, Albumin 2.5 L, Globulin 2.1, Albumin/Globulin Ratio 1.2 I & O for Last 24 hours: Intake & Output 10/01/22 10/02/22 10/03/22 10/04/22 23:59 23:59 23:59 23:59 Intake Total 1120 / 1120 1350 / 1450 1540 / 1540 720 / 720 Output Total 200 / 470 2320 / 2620 1450 / 1450 1500 / 1500 Balance 920 / 650 -970 / -1170 90 / 90 -780 / -780 Weight 66.224 kg 65.402 kg 65.374 kg 65.5 kg Microbiology Reports for the Last 24 Hours: Microbiology 09/12/22 01:54 Blood Blood Culture - Preliminary NO GROWTH AFTER 48 HOURS 09/12/22 01:54 Blood Blood Culture - Preliminary Constitutional Constitutional: no a
== END 2022-10-04 16:50 | DRG 177 ==
LOC: ER 10-01 00:30 → 2ND 10-01 04:47 → ICU 10-01 16:22
PROVIDERS: Nurse Practitioner Family; Admitting Provider Internal Medicine Adolescent Medicine; Emergency Provider Emergency Medicine; PCP Internal Medicine Adolescent Medicine; Visit Provider Student in an Organized Health Care Education/Training Program
DX: U07.1 COVID-19 (principal); I50.43 Acute on chronic combined systolic (congestive) and diastolic (congestive) heart failure; J96.21 Acute and chronic respiratory failure with hypoxia; J12.82 Pneumonia due to coronavirus disease 2019; I50.42 Chronic combined systolic (congestive) and diastolic (congestive) heart failure; Z99.81 Dependence on supplemental oxygen; I25.10 Atherosclerotic heart disease of native coronary artery without angina pectoris; F17.210 Nicotine dependence, cigarettes, uncomplicated; J43.9 Emphysema, unspecified; E78.2 Mixed hyperlipidemia
CPT/HCPCS: 36415; 71045; 80048; 80053; 82803; 83605; 83735; 83880; 84100; 84484; 85025; 85651; 86140; 87040; 87081; 93005; 94640; 94761; 97110; 97116; 97162; 97530; 99285; C9803; J1956; U0003; U0005

== ENCOUNTER 2022-12-09 08:05 | Inpatient (IN) | payer MEDICARE, SELFPAY ==
[2022-12-09] VITALS (15 sets, daily range): BP systolic 94–121; BP diastolic 56–70; PULSE 59–102; RESP 16–33; TEMP 36.1–36.7; O2SAT 83–100; BMI 25.0; BMI 18.3
--- NOTE | 2022-12-09 08:11 | PC.NURSE ---
FAMILIA SMITH at
--- NOTE | 2022-12-09 08:19 | XR_ITS ---
PROCEDURE INFORMATION: Exam: XR Chest Exam date and time: 12/09/2022 8:37 AM Age: 82 years old Clinical indication: Shortness of breath; Additional info: Copd exacerbation, right sided rales TECHNIQUE: Imaging protocol: Radiologic exam of the chest. Views: 1 view. COMPARISON: CR XR CHEST PORTABLE 09/30/2022 8:40 PM FINDINGS: Lungs: Hyperexpanded lung alonzo consistent with COPD. No focal consolidation. Pleural spaces: Unremarkable. No pleural effusion. No pneumothorax. Heart/Mediastinum: Unremarkable. No cardiomegaly. Bones/joints: Median sternotomy. Degenerative changes in the glenohumeral joints IMPRESSION: Hyperexpanded lung alonzo consistent with COPD. No focal consolidation.
--- NOTE | 2022-12-09 08:23 | PC.NURSE ---
RT notified of blood gas order
--- NOTE | 2022-12-09 08:24 | PC.NURSE ---
rad at BS
--- NOTE | 2022-12-09 08:27 | HMH.EDGENADL ---
Discharge Plan Disposition Patient Disposition: Admitted As Inpatient Condition: Fair Chief Complaint: Shortness of Breath/Dyspnea Prescriptions Prescriptions: No Action Xarelto 20 mg tablet 20 mg PO QPMWITHMEAL albuterol sulfate 90 mcg/actuation HFA aerosol inhaler 2 inh IH QID PRN (Reason: shortness of breath or wheezing) 90 Days Qty: 8.5 2RF prednisone 10 MG tablet 40 mg PO DAILY budesonide 0.5 MG/2 ML suspension for nebulization 0.5 mg inhalation BID Spiriva with HandiHaler 18 mcg capsule, w/inhalation device 1 cap IH DAILY Rx Instructions: puncture 1 cap using device; one dose = 2 inhalations formoterol fumarate [Perforomist] 20 mcg/2 mL solution for nebulization 2 ml inhalation BID hydrocodone-acetaminophen 7.5-325 mg Tablet 1 tab PO Q8HP PRN (Reason: Moderate Pain (Scale Score 5-6)) digoxin 125 mcg (0.125 mg) Tablet 0.125 mg PO DAILY bumetanide 2 mg Tablet 1 mg PO BID Entresto 49-51 mg Tablet 1 tab PO BID ergocalciferol (vitamin D2) 1,250 mcg (50,000 unit) Capsule 50,000 unit PO WEEKLY 30 Days Qty: 30 0RF rosuvastatin 40 MG tablet 40 mg PO HS ranolazine 500 MG tablet extended release 12 hr 500 mg PO DAILY cetirizine 10 MG tablet 10 mg PO DAILY famotidine 20 MG tablet 20 mg PO DAILY PRN (Reason: Acid Reflux) multivitamin 1 EACH tablet 1 each PO DAILY metoprolol succinate 200 MG tablet extended release 24 hr 200 mg PO DAILY potassium chloride 20 MEQ packet 20 meq PO DAILY ipratropium-albuterol 3 ML solution for nebulization 3 ml IH Q6HP PRN (Reason: Shortness Of Breath) 30 Days Qty: 100 0RF Discharge ED Provider: Ryan Vo General Adult HPI General Chief complaint: Shortness of Breath/Dyspnea Stated complaint: soa Time Seen by Provider: 12/09/22 08:08 Mode of Arrival: Wheelchair Source of Information: Patient and Relative Limitations: No Limitations History of Present Illness HPI narrative: This is an 82-year-old male with history of COPD on 2 L home nasal cannula chronically who is still smoking, LA status post CABG, hyperlipidemia, CHF who is presenting with shortness of breath. Patient has been feeling progressively short of breath for the past 48 hours. Per patient's son, he was seen by home health nursing on 12/07/2022 who told him he has a touch of pneumonia. They gave him breathing treatments, but they have not helped patient's symptoms. Son also reports that patient has been feeling progressively chilled and keeping his house around 80 ?F and patient has had intermittent confusion. He has been giving his father the breathing treatments as prescribed, but patient continues to feel progressively short of breath. They have not increased to home oxygen level of his nasal cannula, but patient states that he is coughing and cannot catch his breath. Patient states cough is nonproductive, denies overt fevers or chills, chest pain, abdominal pain, nausea, vomiting, or any other concerns. Related Data Home Medications Medication Instructions Recorded Confirmed ranolazine 500 mg tablet,extended 500 mg PO DAILY ANGINA 12/24/17 10/18/22 release,12 hr rosuvastatin 40 mg tablet 40 mg PO HS Cholesterol 12/24/17 10/18/22 rivaroxaban 20 mg tablet (Xarelto) 20 mg PO QPMWITHMEAL Blood 05/26/19 10/18/22 thinner/atrial fib cetirizine 10 mg tablet 10 mg PO DAILY Allergy symptoms 02/25/20 10/18/22 famotidine 20 mg tablet 20 mg PO DAILY PRN Acid Reflux 11/09/21 10/18/22 metoprolol succinate 200 mg 200 mg PO DAILY Hypertension 11/09/21 10/18/22 tablet,extended release 24 hr multivitamin 1 each PO DAILY Supplement 11/09/21 10/18/22 potassium chloride 20 mEq oral 20 meq PO DAILY Supplement 11/09/21 10/18/22 packet budesonide 0.5 mg/2 mL suspension 0.5 mg inhalation BID COPD 09/12/22 10/18/22 for nebulization bumetanide 2 mg tablet 1 mg PO BID Edema 09/12/22 10/18/22 digoxin
[2022-12-09 08:28] LABS: Influenza A, PCR Not Detected (NotDetected); Influenza B, PCR Not Detected (NotDetected)
[2022-12-09 08:30] LABS: Basophils # 0.1 K/mm3 (0-0.2); Basophils % 0.4 % (0.1-2.0); Eosinophils # 0.2 K/mm3 (0.0-0.4); Eosinophils % 1.4 % (0.1-12.0); Hemoglobin 11.9 g/dL (14.1-18.0); Lymphocytes # 2.2 K/mm3 (0.7-4.5); Lymphocytes % 17.9 % (10-50); Mean Corpuscular HGB Conc 32.3 g/dL (31.8-35.4); Mean Corpuscular Volume 92.9 fl (80-94); Mean Platelet Volume 7.8 fl (7.4-10.4); Monocytes # 0.9 K/mm3 (0.1-1.0); Monocytes % 7.4 % (1.7-9.3); Neutrophils # 8.8 K/mm3 (1.8-7.8); Platelet Count 280 K/mm3 (142-424); Red Blood Count 3.98 M/mm3 (4.60-6.20); Red Cell Distribution Width 15.1 % (11.5-17.5)
--- NOTE | 2022-12-09 08:30 | ECG_ITS ---
APPROVED REPORT Exam: Resting ECG HR:99 bpm ECG Measurements Heart Rate 99 AXES QRSd 117 QRS 109 QT 331 T 31 QTc 387 Conclusion ATRIAL FIBRILLATION RIGHT AXIS DEVIATION [QRS AXIS > 100] RIGHT BUNDLE BRANCH BLOCK [120+ ms QRS DURATION, UPRIGHT V1, 40+ ms S IN I/aVL/V4/V5/V6] ABNORMAL ECG UNCONFIRMED REPORT Electronically signed by : Jenaro Jean Baptiste MD 12/09/2022 17:17:37
[2022-12-09 08:33] LABS: VBG Base Excess -7.4 mmol/L (-2.4-2.3); VBG HCO3 19.7 mmol/L (23-30); VBG Oxygen Saturation 66.3 % (50-70); VBG PCO2 44.6 mmol/L (35-51); VBG PH 7.26 mmol/L (7.31-7.41); VBG PO2 35.5 mmol/L (28-40)
[2022-12-09 08:37] LABS: Alanine Aminotransferase 18 U/L (12-78); Albumin Level 3.9 g/dl (3.5-5.0); Albumin/Globulin Ratio 1.3 (1.1-1.8); Alkaline Phosphatase 115 U/L (38-126); Anion Gap 13.3 mEq/L (5-15); Aspartate Amino Transferase 25 U/L (17-59); Bilirubin,Total 0.6 mg/dl (0.2-1.3); Blood Urea Nitrogen 30 mg/dl (9-20); Calcium 8.6 mg/dl (8.4-10.2); Carbon Dioxide 24 mmol/L (22.0-30.0); Chloride 103 mmol/L (98-107); Creatinine Clearance Estimated 30 mL/min (50-200); Estimated Glomerular Filt Rate 26 ml/min (>60); GFR (African American) 32 ML/MIN (>60); Glucose 136 mg/dl (74-100); Potassium 5.3 mmoL/L (3.5-5.1); Sodium 135 mmol/L (136-145); Total Protein,Serum 6.9 g/dl (6.3-8.2)
[2022-12-09 08:41] LABS: Lactic Acid 2.1 mmol/L (0.7-2.1)
[2022-12-09 08:50] LABS: NT Pro Brain Natriuretic Pep. 1720 pg/mL (0-450)
[2022-12-09 08:53] LABS: Troponin I < 0.01 ng/ml (0.00-0.034)
[2022-12-09 08:54] LABS: Coronavirus 19, PCR Detected (NotDetected)
--- NOTE | 2022-12-09 08:55 | PC.NURSE ---
FAMILIA SMITH speaking with Dr. Forbes
--- NOTE | 2022-12-09 08:57 | PC.NURSE ---
100% 4L NC. O2 reduced to 2L NC with 99%. Pt resting at this time. Additional warm blankets provided.
--- NOTE | 2022-12-09 09:01 | PC.NURSE ---
notified [employer] data warehouse developer of admission
--- NOTE | 2022-12-09 09:10 | PC.NURSE ---
ER at discussing POC with pt
--- NOTE | 2022-12-09 09:13 | PC.NURSE ---
Report provided to PURVI Bush.
--- NOTE | 2022-12-09 09:17 | PC.NURSE ---
Patient updated on plan of care; watch, neon glass blower, and shirts placed in belongings bag. Remains at bedside with patient.
[2022-12-09 09:33] LABS: Procalcitonin 0.098 ng/mL (0.0-2.0)
--- NOTE | 2022-12-09 10:02 | PC.NURSE ---
med rec not done as patient stated he did not know what medications he was on. Asked if pt had a list of his medication and pt stated he did not
--- NOTE | 2022-12-09 10:20 | EXP.HP ---
History of Present Illness *Admission Date: 12/09/22 *Reason for visit:: shortness of breath, weakness *History of present illness: Mr. Brooks is an 82-year-old male with history of severe COPD on 2 L NC at home. He reports he still smokes. Medical history significant for previous [place] status post CABG, hyperlipidemia, CHF who presented to the ER today with worsening shortness of breath. Of note was admitted in September with COVID-pneumonia. Went to rehab after that hospitalization and has been home with home health since. He reports feeling progressively short of breath over the past 2 days. Home health nurse saw him on Saturday and told him that he had a touch of pneumonia. They given him some breathing treatments but he had no improvement in symptoms. Came to the ER today because his oxygen was in the 80s on his normal 2 L. Reportedly in the ER also having some intermittent confusion. States has had a moderate increase in productivity with his cough. Denies goyo fever. Denies nausea, chest pain, vomiting, abdominal pain, headache. Concern on imaging for pneumonia or COPD exacerbation. Medicine consulted for admission and further treatment. On arrival to the floor, patient is saturating 92% on 3 L nasal cannula. Has received IV ceftriaxone. No other complaints. Appears in his chronic state of health. [facility] Disclaimer: The information contained in this section may have been updated after the patient was seen, as this information can be updated by other users. Medical History Acute respiratory failure with hypoxia Atrial fibrillation COPD (chronic obstructive pulmonary disease) COPD exacerbation Dyspnea on exertion Heart failure Hyperlipidemia Nocturnal hypoxia Pneumonia Pneumonia due to COVID-19 virus Pulmonary nodule, left Respiratory failure, [id number] Screening for lung cancer Smoking greater than 30 pack years Tobacco abuse counseling Tobacco abuse disorder Urinary tract infection Surgical History Failed CABG (coronary artery bypass graft) History of cervical spinal surgery History of open heart surgery Family History No significant family history Social History Smoking Status: Current every day smoker tobacco type: cigarettes packs per day: 1 second hand exposure: No alcohol intake: never substance use type: denies use current occupational status: retired Travel in the last 8 weeks: None household members: family housing: house current occupational exposures/hazards: No caffeine: Yes Review of Systems Review of Systems Review of systems (narrative): 14 point review of systems performed, pertinent positives and negatives as per HPI Meds Home Medications and Allergies Home Medications Medication Instructions Recorded Confirmed Type ranolazine 500 mg tablet,extended 500 mg PO DAILY ANGINA 12/24/17 12/09/22 History release,12 hr rosuvastatin 40 mg tablet 40 mg PO HS Cholesterol 12/24/17 12/09/22 History rivaroxaban 20 mg tablet (Xarelto) 20 mg PO QPMWITHMEAL Blood 05/26/19 12/09/22 History thinner/atrial fib cetirizine 10 mg tablet 10 mg PO DAILY Allergy symptoms 02/25/20 12/09/22 History famotidine 20 mg tablet 20 mg PO DAILY GERD 11/09/21 12/09/22 History metoprolol succinate 200 mg 200 mg PO DAILY Hypertension 11/09/21 12/09/22 History tablet,extended release 24 hr multivitamin 1 each PO DAILY Supplement 11/09/21 12/09/22 History potassium chloride 20 mEq oral 20 meq PO DAILY Supplement 11/09/21 12/09/22 History packet ipratropium 0.5 mg-albuterol 3 mg 3 ml inhalation Q6HP PRN Shortness 01/30/22 10/18/22 Rx (2.5 mg base)/3 mL nebulization Of Breath 30 days #100 ea soln albuterol sulfate 90 mcg/actuation 2 inh inhalation QID PRN shortness 07/18/22 12/09/22
[2022-12-09 11:10] LABS: Troponin I < 0.01 ng/ml (0.00-0.034)
[2022-12-09 12:26] LABS: Reflex Lactic Add Lactic Reflex
[2022-12-09 12:53] LABS: Lactic Acid Follow Up (RFLX 1) 2.2 mmol/L (0.7-2.1)
--- NOTE | 2022-12-09 13:21 | HMH.PHAINT1 ---
Pharmacy Intervention Comments: MEDICATION RECONCILIATION COMPLETED ON PATIENT USING DISCHARGE SUMMARY FROM PREVIOUS ADMISSION. -SHAWANDA RUANO, BRUCED
[2022-12-09 14:42] LABS: Reflex Lactic (2 hrs) Add Lactic Reflex
[2022-12-09 15:33] LABS: Troponin I < 0.01 ng/ml (0.00-0.034)
[2022-12-09 16:00] LABS: Lactic Acid Follow up (RFLX 2) 1.5 mmol/L (0.7-2.1)
--- NOTE | 2022-12-09 17:55 | PC.NURSE ---
No complaints of pain, VS stable and patient on 2LNC. Patient states he wears 2LNC prn at home. Lung sounds diminished in left and fine crackles in right base. No other changes noted.
[2022-12-10] VITALS (14 sets, daily range): BP systolic 80–105; BP diastolic 38–51; PULSE 55–94; RESP 17–20; TEMP 36.6–37.1; O2SAT 93–100; BMI 19.1
--- NOTE | 2022-12-10 04:37 | PC.NURSE ---
patient rested well through the night. no complaints of pain. satting >90 on 2L. bed alarm on.
[2022-12-10 06:41] LABS: Alanine Aminotransferase 13 U/L (12-78); Albumin/Globulin Ratio 1.2 (1.1-1.8); Alkaline Phosphatase 87 U/L (38-126); Aspartate Amino Transferase 20 U/L (17-59); Bilirubin,Total 0.4 mg/dl (0.2-1.3); Blood Urea Nitrogen 33 mg/dl (9-20); Carbon Dioxide 23 mmol/L (22.0-30.0); Chloride 105 mmol/L (98-107); Creatinine Clearance Estimated 30 mL/min (50-200); Eosinophils % 0.1 % (0.1-12.0); Estimated Glomerular Filt Rate 36 ml/min (>60); GFR (African American) 44 ML/MIN (>60); Globulin 2.5 g/dL (1.3-3.2); Glucose 109 mg/dl (74-100); Magnesium 2.1 mg/dl (1.6-2.3); Sodium 135 mmol/L (136-145); Total Protein,Serum 5.5 g/dl (6.3-8.2)
[2022-12-10 06:52] LABS: Basophils % 0.2 % (0.1-2.0); Lymphocytes # 1.2 K/mm3 (0.7-4.5); Lymphocytes % 15.7 % (10-50); Mean Corpuscular HGB Conc 32.7 g/dL (31.8-35.4); Mean Corpuscular Hemoglobin 30.5 pg (27.0-31.2); Mean Corpuscular Volume 93.4 fl (80-94); Mean Platelet Volume 7.5 fl (7.4-10.4); Monocytes # 0.3 K/mm3 (0.1-1.0); Monocytes % 4.6 % (1.7-9.3); Neutrophils # 5.9 K/mm3 (1.8-7.8); Neutrophils % 79.4 % (37.0-80.0); Platelet Count 217 K/mm3 (142-424); Red Blood Count 3.22 M/mm3 (4.60-6.20); White Blood Count 7.4 K/mm3 (4.8-10.8)
[2022-12-10 06:54] LABS: Hemoglobin 9.8 g/dL (14.1-18.0)
--- NOTE | 2022-12-10 08:19 | PC.NURSE ---
Notified Dr. Forbes of pts. BP of 80/38 and repeat manual BP of 78/36. Orders to hold metoprolol and entresto this morning.
--- NOTE | 2022-12-10 09:51 | EXP.PULM.CON ---
History of Present Illness History of present illness: Mr. Brooks is a 82-year-old male history of COPD triple inhaler therapy recently been treated for COVID-19 pneumonia in September 2022 presented to the hospital with worsening respiratory distress and increasing oxygen requirements and pulmonary was called for admission he also tested positive for COVID-19 pneumonia on this admission. [facility] Disclaimer: The information contained in this section may have been updated after the patient was seen, as this information can be updated by other users. Medical History (Updated 12/10/22 @ 12:57 by Anna Price MD) Acute respiratory failure with hypoxia Atrial fibrillation COPD (chronic obstructive pulmonary disease) COPD exacerbation COPD exacerbation COVID-19 Dyspnea on exertion Heart failure Hyperlipidemia Nocturnal hypoxia Pneumonia Pneumonia due to COVID-19 virus Pulmonary nodule, left Respiratory failure, [id number] Screening for lung cancer Smoking greater than 30 pack years Tobacco abuse counseling Tobacco abuse disorder Urinary tract infection Surgical History Failed CABG (coronary artery bypass graft) History of cervical spinal surgery History of open heart surgery Family History No significant family history Social History Smoking Status: Current every day smoker tobacco type: cigarettes packs per day: 1 second hand exposure: No alcohol intake: never substance use type: denies use current occupational status: retired Travel in the last 8 weeks: None household members: family housing: house current occupational exposures/hazards: No caffeine: Yes Review of Systems Constitutional Constitutional: Denies anorexia, Reports body ache(s) and Denies fatigue Eyes Eyes: Denies eye discharge, Denies dry eyes, Denies irritation and Denies itchy eyes ENT Ears, Nose, Mouth, and Throat: Denies epistaxis, Denies facial pain, Denies lip swelling and Denies throat swelling *Cardiovascular Cardiovascular: Reports dyspnea and Reports dyspnea on exertion *Respiratory Respiratory: Denies change in phlegm color, Reports chest congestion, Reports cough, Reports dyspnea, Reports dyspnea on exertion, Reports excessive phlegm production and Reports wheezing *Gastrointestinal Gastrointestinal: Denies abdominal pain, Denies belching and Denies cramping *Musculoskeletal Musculoskeletal: Reports back pain, Reports myalgias and Reports other (No small joint swelling or Pain) *Neurologic Neurologic: Reports system reviewed and no additional complaints, except as documented Psychiatric Psychiatric: Denies homicidal ideation and Denies suicidal ideation Endocrine Endocrine: Denies fatigue and Denies heat intolerance Hematologic/Lymphatic Hematologic/Lymphatic: Denies easy bleeding and Denies lymphadenopathy Allergic/Immunologic Allergic/Immunologic: Denies itchy eyes, Denies lip swelling, Denies throat swelling and Reports wheezing Pulmonology Exam Inpatient Vital signs and Labs for Last 24 Hours: Temp Pulse Resp BP Pulse Ox FiO2 98.7 F 94 H 20 80/38 L 93 L 32 12/10/22 08:00 12/10/22 08:31 12/10/22 08:00 12/10/22 08:00 12/10/22 08:00 12/09/22 19:15 Laboratory Results - last 24 hr 12/09/22 10:45: Troponin I < 0.01 12/09/22 12:35: Lactate 2.2 H 12/09/22 15:00: Troponin I < 0.01 12/09/22 15:42: Lactate 1.5 12/10/22 06:05: WBC 7.4 D, RBC 3.22 L, Hgb 9.8 L D, Hct 30.0 L, MCV 93.4, MCH 30.5, MCHC 32.7, RDW 15.0, Plt Count 217, MPV 7.5, Neut % (Auto) 79.4, Lymph % (Auto) 15.7, [place] % (Auto) 4.6, Eos % (Auto) 0.1, Baso % (Auto) 0.2, Neut # (Auto) 5.9, Lymph # (Auto) 1.2, [place] # (Auto) 0.3, Eos # (Auto) 0.0, Baso # (Auto) 0.0 12/10/22 06:05: Sodium 135 L, Potassium 5.0, Chloride 105, Carbon Dioxide 23, Anion Gap 12.0, BUN 33 H, Creatinine 1.80 H D, Estimated
--- NOTE | 2022-12-10 13:07 | EXP.ACUTE.PN ---
Subjective *Date: 12/10/22 *Time: 13:10 Interval history: Patient marginally better this morning. Seeing improvement in breathing. Down to home O2 requirement of 2 L. Slowing poor p.o. intake. Quite weak. Urine labs still abnormal. No nausea, vomiting, chest pain. Shortness of breath stable. Medical Exam Vital signs and Labs for Last 24 Hours: Vital Signs Temp Pulse Pulse Resp BP Pulse Ox FiO2 12/10/22 11:58 98.0 F 75 20 101/50 L 98 12/10/22 08:00 98.7 F 94 H 20 80/38 L 93 L 12/10/22 08:31 94 H 12/10/22 06:06 75 12/10/22 06:06 74 12/10/22 06:06 98 12/10/22 05:00 78 12/10/22 04:00 98.1 F 62 17 103/46 L 93 L 12/10/22 00:00 88 12/09/22 20:00 89 12/09/22 23:50 98 F 74 16 110/60 92 L 12/09/22 23:36 76 12/09/22 23:35 74 12/09/22 20:00 98.1 F 72 16 115/59 L 92 L 12/09/22 19:15 32 12/09/22 19:14 74 12/09/22 19:13 77 12/09/22 15:57 59 L 12/09/22 14:47 97.8 F 80 17 94/65 L 97 12/09/22 14:28 76 12/09/22 14:28 76 12/09/22 14:28 96 Intake and Output 12/09/22 12/10/22 12/10/22 23:59 07:59 15:59 Intake Total 250 / 910 300 / 540 240 / 540 Output Total 175 / 375 200 / 375 Balance 250 / 310 125 / 165 40 / 165 Intake: Intake, Oral Amount 0 / 660 300 / 540 240 / 540 Intake, Total IV Amount 250 / 250 Azithromycin 500 mg In 0.9 % 250 / 250 Sodium Chloride 250 ml @ 250 mls/hr IV Q24H [facility] Rx#:[id number] Output: Output, Urine Amount 175 / 375 200 / 375 Other: Number of Unmeasured Voids 1 0 Weight 65.272 kg Patient Weight 12/10/22 23:59 Weight 65.272 kg Laboratory Results - last 24 hr 12/09/22 15:00: Troponin I < 0.01 12/09/22 15:42: Lactate 1.5 12/10/22 06:05: WBC 7.4 D, RBC 3.22 L, Hgb 9.8 L D, Hct 30.0 L, MCV 93.4, MCH 30.5, MCHC 32.7, RDW 15.0, Plt Count 217, MPV 7.5, Neut % (Auto) 79.4, Lymph % (Auto) 15.7, [place] % (Auto) 4.6, Eos % (Auto) 0.1, Baso % (Auto) 0.2, Neut # (Auto) 5.9, Lymph # (Auto) 1.2, [place] # (Auto) 0.3, Eos # (Auto) 0.0, Baso # (Auto) 0.0 12/10/22 06:05: Sodium 135 L, Potassium 5.0, Chloride 105, Carbon Dioxide 23, Anion Gap 12.0, BUN 33 H, Creatinine 1.80 H D, Estimated Creat Clear 30, Estimated GFR 36 L, Est GFR ( Amer) 44 L D, Glucose 109 H, Calcium 8.0 L, Magnesium 2.1, Total Bilirubin 0.4, AST 20, ALT 13 D, Alkaline Phosphatase 87, Total Protein 5.5 L, Albumin 3.0 L D, Globulin 2.5, Albumin/Globulin Ratio 1.2 I & O for Labs for Last 24 Hours: Intake & Output 12/07/22 12/08/22 12/09/22 12/10/22 22:59 22:59 23:59 23:59 Intake Total 540 / 540 Output Total 375 / 375 Balance 165 / 165 Weight 65.272 kg Constitutional: Present no acute distress, thin and chronically ill appearing Head: Present atraumatic and normocephalic ENT: Present normal exam Neck: Present normal inspection Respiratory: Present accessory muscle use, wheezes, crackles and diminished air movement; Absent CTA bilaterally or rhonchi Cardiac: Present Reg Rate and Rhythm GI: Present soft and normal bowel sounds; Absent distention or tenderness Extremities: Present normal inspection and full ROM Skin: Present intact; Absent erythema Neuro: Present Cranial Nerve 2-12 Intact, Grossly Intact, alert, awake, oriented x 3 and moves all extremities Assessment and Plan *Assessment and plan (1) Sepsis: Status: Acute Category: Medical Code(s): A41.9 - Sepsis, unspecified organism (2) Pneumonia: Status: Acute Category: Medical Code(s): J18.9 - Pneumonia, unspecified organism (3) Pneumonia due to COVID-19 virus: Status: Acute Category: Medical Code(s): U07.1 - COVID-19; J12.82 - Pneumonia due to coronavirus disease 2019 (4) Acute respiratory failure with hypoxia: Status: Acute Category: Medical Code(s): J96.01 - Acute respirat
--- NOTE | 2022-12-10 14:07 | DIET.NUTRFU ---
Addendum entered by Meghna Duffy RD, LD 12/10/22 15:44: spoke to daughter, she reports caregiver during day who helps with meals. Family is also pursuing meals and wheels, notified director of patient care. Daughter reports stable weight and good appetite most of time. Original Note: RD attempted to interview patient he responded to question with moans, really did not reply appropriately. He seemed lethargic. His meal intake today was good with 100% at breakfast and 75% at lunch via nursing documentation. His weight is stable since last admit in September at 65Kg. Patient went to rehab after September discharge. Attempted to call daughter for further information and had to leave voicemail. Depending on who is responsible for his meals at home, it maybe beneficial to get help with meals since he is eating well here since meals are provided. No no N/V or Constipation/diarrhea. No BM yet this admit. Multiple vitamins in place for additional support. Will continue to encourage good meal intake
[2022-12-11] VITALS: BP 100/46; PULSE 80; PULSE 90; RESP 18; TEMP 36.8; O2SAT 95
[2022-12-11 04:00] VITALS: BP 110/52; PULSE 91; RESP 20; TEMP 36.4; O2SAT 93; BMI 19.0
--- NOTE | 2022-12-11 05:08 | PC.NURSE ---
patient rested well through the night. 2L nc bl. no complaints.
[2022-12-11 05:11] VITALS: PULSE 80
[2022-12-11 06:21] VITALS: PULSE 79; PULSE 84; O2SAT 93
[2022-12-11 07:12] LABS: Basophils % 0.2 % (0.1-2.0); Eosinophils % 0.5 % (0.1-12.0); Hematocrit 28.2 % (42.0-52.0); Hemoglobin 9.3 g/dL (14.1-18.0); Lymphocytes # 1.5 K/mm3 (0.7-4.5); Lymphocytes % 19.2 % (10-50); Mean Corpuscular HGB Conc 33.1 g/dL (31.8-35.4); Mean Corpuscular Hemoglobin 30.7 pg (27.0-31.2); Mean Corpuscular Volume 92.9 fl (80-94); Mean Platelet Volume 7.9 fl (7.4-10.4); Monocytes # 0.5 K/mm3 (0.1-1.0); Monocytes % 5.7 % (1.7-9.3); Neutrophils # 5.9 K/mm3 (1.8-7.8); Neutrophils % 74.5 % (37.0-80.0); Platelet Count 229 K/mm3 (142-424); Red Blood Count 3.04 M/mm3 (4.60-6.20); Red Cell Distribution Width 15.2 % (11.5-17.5)
[2022-12-11 07:18] LABS: Anion Gap 8.4 mEq/L (5-15); Blood Urea Nitrogen 34 mg/dl (9-20); Carbon Dioxide 24 mmol/L (22.0-30.0); Chloride 106 mmol/L (98-107); Creatinine Clearance Estimated 32 mL/min (50-200); Estimated Glomerular Filt Rate 39 ml/min (>60); GFR (African American) 47 ML/MIN (>60); Glucose 90 mg/dl (74-100); Potassium 4.4 mmoL/L (3.5-5.1); Sodium 134 mmol/L (136-145)
[2022-12-11 08:00] VITALS: BP 130/60; PULSE 93; RESP 20; RESP 22; TEMP 36.8; O2SAT 96
[2022-12-11 08:19] VITALS: PULSE 93
--- NOTE | 2022-12-11 09:47 | EXP.PULM.PN ---
Subjective *Date: 12/11/22 *Time: 11:00 Interval history: No acute respiratory vents overnight. Patient denies any new respiratory complaints. Admits improving respiratory status. Pulmonology Exam Inpatient Vital signs and Labs for Last 24 Hours: Temp Pulse Resp BP Pulse Ox FiO2 98.3 F 93 H 22 130/60 96 32 12/11/22 08:00 12/11/22 08:19 12/11/22 08:00 12/11/22 08:00 12/11/22 08:00 12/09/22 19:15 Laboratory Results - last 24 hr 12/11/22 07:00: WBC 8.0, RBC 3.04 L, Hgb 9.3 L, Hct 28.2 L, MCV 92.9, MCH 30.7, MCHC 33.1, RDW 15.2, Plt Count 229, MPV 7.9, Neut % (Auto) 74.5, Lymph % (Auto) 19.2, [place] % (Auto) 5.7, Eos % (Auto) 0.5, Baso % (Auto) 0.2, Neut # (Auto) 5.9, Lymph # (Auto) 1.5, [place] # (Auto) 0.5, Eos # (Auto) 0.0, Baso # (Auto) 0.0 12/11/22 07:00: Sodium 134 L, Potassium 4.4, Chloride 106, Carbon Dioxide 24, Anion Gap 8.4, BUN 34 H, Creatinine 1.70 H, Estimated Creat Clear 32, Estimated GFR 39 L, Est GFR ( Amer) 47 L, Glucose 90, Calcium 8.0 L I & O for Labs for Last 24 Hours: Intake & Output 12/08/22 12/09/22 12/10/22 12/11/22 22:59 23:59 23:59 23:59 Intake Total 1620 / 1770 390 / 390 Output Total 1025 / 1375 700 / 700 Balance 595 / 395 -310 / -310 Weight 143 lb 14.331 oz 143 lb 11.2 oz Microbiology Reports for the Last 24 Hours: Microbiology 12/09/22 08:42 Blood Blood Culture - Preliminary NO GROWTH AFTER 48 HOURS 12/09/22 08:15 Blood Blood Culture - Preliminary NO GROWTH AFTER 48 HOURS Constitutional: Present mild distress Head: Present normocephalic and atraumatic ENT: Present normal exam, normal oropharynx and mucous membranes moist Neck: Present normal inspection and full ROM Respiratory: Present respiratory distress, normal respiratory effort and able to speak in complete sentences; Absent decreased breath sounds, wheezes or diminished air movement Cardiac: Present S1/S2, Tachycardia and radial pulses present GI: Present soft and distention; Absent tenderness or guarding Skin: Present intact; Absent cyanosis or jaundice Neuro: Present alert, awake and oriented x 3 Extremities: Present normal inspection; Absent clubbing or cyanosis Psychiatric: Present normal affect and cooperative Assessment and Plan *Assessment and plan (1) COVID-19: Status: Acute Category: Medical Code(s): U07.1 - COVID-19 (2) COPD exacerbation: Status: Acute Category: Medical Code(s): J44.1 - Chronic obstructive pulmonary disease with (acute) exacerbation Plan #COVID-19 PCR positivity #COPD exacerbation: 82-year-old history of COPD on triple inhaler therapy. Current smoker. Most recent hospital admission was from September 2022 treated for COVID-19 with remdesivir dexamethasone and levofloxacin for pneumonia. Presented to the hospital with worsening respiratory distress along with oxygen requirements. Chest x-ray on this admission no acute pulmonary infiltrates. Afebrile. Mild neutrophilic leukocytosis upon admission improving. Patient was initiated on ceftriaxone azithromycin on this hospital admission. On initial examination patient lying in bed with no acute respiratory distress. On 2 L nasal cannula saturating 95% and above. Interval update: Afebrile. Hemodynamically stable. Stable oxygen requirements. Blood cultures no growth 48 hours. Admits continued improvement in respiratory symptoms. Continue to receive ceftriaxone and azithromycin. Plan: -We will hold off on initiating COVID-19 specific therapy at this point of time. -Continue Ceftriaxone and azithromycin, can be weaned to Augmentin upon discharge to complete a total of 5-day course -Continue Trelegy 100 inhaler along with continuation of DuoNebs every 6 hours on as-needed basis -Continue prednisone 40 mg daily x5 days #Thank you for involving pulmonary in this patient care. We will follow the patient in pulmonary clinic in 2-3 weeks pos
--- NOTE | 2022-12-11 11:03 | EXP.DC.SUM ---
General Admission date:: 12/09/22 Discharge date: 12/11/22 HPI HPI HPI: Mr. Brooks is an 82-year-old male with history of severe COPD on 2 L NC at home. He reports he still smokes. Medical history significant for previous [place] status post CABG, hyperlipidemia, CHF who presented to the ER today with worsening shortness of breath. Of note was admitted in September with COVID-pneumonia. Went to rehab after that hospitalization and has been home with home health since. He reports feeling progressively short of breath over the past 2 days. Home health nurse saw him on Saturday and told him that he had a touch of pneumonia. They given him some breathing treatments but he had no improvement in symptoms. Came to the ER today because his oxygen was in the 80s on his normal 2 L. Reportedly in the ER also having some intermittent confusion. States has had a moderate increase in productivity with his cough. Denies goyo fever. Denies nausea, chest pain, vomiting, abdominal pain, headache. Concern on imaging for pneumonia or COPD exacerbation. Medicine consulted for admission and further treatment. On arrival to the floor, patient is saturating 92% on 3 L nasal cannula. Has received IV ceftriaxone. No other complaints. Appears in his chronic state of health. Hospital Course Hospital Course Hospital Course: Mr. Brooks is an 82-year-old male who continues to smoke, has end-stage COPD.? Has been admitted once in August and once in September for COPD exacerbation and COVID-19 Pneumonia.? Presented to the hospital because of worsening shortness of breath and increased requirement of oxygen from baseline.? Still positive for COVID-19 on PCR today.? Chest imaging personally reviewed showing hyperexpansion, no focal consolidation, increased reticular markings medial right lower lobe but no blurring of heart border.? ER consulted medicine for admission due to increased oxygen requirement and work of breathing and concern for sepsis with tachycardia, tachypnea, concern for respiratory infection.? Admitted for further management.? Problems addressed as follows: Sepsis, resolved Pneumonia vs COPD exacerbation -Meeting sepsis criteria with tachycardia, tachypnea, suspected infection on chest imaging. Symptoms improved significantly and quickly with fluid resuscitation and breathing treatments. Pulmonology consulted during hospitalization. Appreciate their recommendations. Patient was treated while admitted with ceftriaxone and azithromycin, transition to Augmentin to complete 5-day total antibiotic course for COPD exacerbation. Will complete 5 days of steroids with prednisone 40 mg. Continues to be positive for COVID however low concern that this is actually his active infection etiology. Transition to Trelegy at discharge. Unclear if patient will be able to fill the prescription however as he requested to have it sent to the [place] pharmacy which I am unable to do as I am not a [facility] provider. Close follow-up with PCP for further monitoring and discussion. Given this is Mr. Brooks's third admission in about 4 months, all for respiratory illness, I have strong concerns about the severity and prognosis of his COPD. We discussed the possibility of hospice today. He is open to having a discussion with hospice. They were consulted to eval him at his home for possible admission. c CHF Hypertension -Continue his digoxin, metoprolol on admission. Held Entresto due to BRYAN. BRYAN improving. Resumed low-dose (half his previous dose) Entresto at discharge. Continue ranolazine and anticoagulation with Xarelto per home regimen. Stable for discharge home. Follow-up with providers as an outpatient moving forward. Exam Data for Last 24 hours Vital signs and Labs for Last 24 Hours: Temp Pulse Resp BP Pulse Ox FiO2 98.3 F 93 H 22 130/60 96 32 12/11/22 08:00 12/11/22 08:19 12/11/22 08:00 12/11/22 08:00 12/11/22 08:00 12/09/22 19:15 Laboratory Results - last 24 h
--- NOTE | 2022-12-11 11:04 | SW/DCPLANNER ---
Addendum entered by Nguyen Mims 12/11/22 14:22: Deepali patel/ [facility] stated that information was received and they will follow up with patient today. Original Note: has ordered a Hospice Consult for this patient. Patient is agreeable for information to be faxed to [facility]. Patient information will be faxed today and I will request that Hospice follow up with patient/family at home. Patient will discharge home today.
--- NOTE | 2022-12-11 12:07 | HMH.PHAINT1 ---
Pharmacy Intervention Comments: Discussed discharge medications with patient. Patient verbalized understanding and had no questions at this time
== END 2022-12-11 12:15 | disposition home or self-care (01) | DRG 871 ==
LOC: ER 08:59 → 2ND 09:08
PROVIDERS: Admitting Provider Internal Medicine Adolescent Medicine; Emergency Provider Emergency Medicine; PCP Internal Medicine Adolescent Medicine; Visit Provider Internal Medicine Adolescent Medicine
DX: A41.9 Sepsis, unspecified organism (principal); J12.82 Pneumonia due to coronavirus disease 2019; U07.1 COVID-19; J96.01 Acute respiratory failure with hypoxia; N17.9 Acute kidney failure, unspecified; E78.5 Hyperlipidemia, unspecified; Z95.1 Presence of aortocoronary bypass graft; F17.210 Nicotine dependence, cigarettes, uncomplicated; J43.1 Panlobular emphysema; I11.0 Hypertensive heart disease with heart failure; Z71.6 Tobacco abuse counseling; Z99.81 Dependence on supplemental oxygen; I25.2 Old myocardial infarction
CPT/HCPCS: 36415; 71045; 80048; 80053; 82803; 83605; 83735; 83880; 84145; 84484; 85025; 87040; 93005; 94640; 94760; 94761; 99285; C9803; J0456; J0696; U0003; U0005